=== PATIENT | male | born 1990 | race African-American/Black ===

== ENCOUNTER 2016-08-21 14:43 | Inpatient (IN) | payer OTHER ==
[~2016-08-21] VITALS: Ht 185.4 cm; Wt 88.2 kg
[2016-08-21] VITALS (38 sets, daily range): BP systolic 46–239; BP diastolic -50–107; PULSE 61–105; TEMP 33.6–36.8; O2SAT 99–100; Ht 185.4 cm; Wt 88.2 kg
[2016-08-21] MEDS ORDERED: FENTANYL CITRATE INJ 50 MCG/1 ML 2 ML VIAL ONE (14:48)
[2016-08-21] MEDS ORDERED: MIDAZOLAM HCL 5 MG/ML 2ML VIAL ONE (14:48)
--- NOTE | 2016-08-21 15:05 | EMERGENCY ROOM VISIT NOTE ---
History Report prepared by Nikki: Laila Garza Under the Supervision of: Dr. Eleazar Morse M.D. 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 Per EMS that patient had witnessed cardiac arrest while he was running on a treadmill. He was defibrillated once with an AED and had ROSC. He was intubated in the field for respiratory difficulty. They note that he was gurgling and had difficulty breathing. EMS notes no known medical history. HPI limited secondary to intubation. Source of History: EMS History Limited By: intubation Onset: just SUSTAINABILITY ENGINEER Position: other (global) Quality: other (cardiac arrest) Timing: other (episode) Note: Pt was gurgling and had difficulty breathing. Review of Systems See HPI for pertinent positives & negatives. ROS limited secondary to intubation. Past Medical & Surgical Medical Problems: (1) cardiac arrest, acute resp failure (2) cardiac arrest, acute resp failure (3) No Known Active Medical Problems Family History No pertinent family history stated. Social History Housing Status: other (penitentiary) Occupation Status: other (prisoner) Current/Historical Medications Unable to Obtain Active Prescriptions or Reported Meds Allergies Coded Allergies: Allergy History Not Known (Verified Allergy, Unknown, PT INTUBATED, ) Physical Exam Vital Signs Date Time Temp Pulse Resp B/P Pulse Ox O2 Delivery O2 Flow Rate FiO2 08/21/16 16:15 36.2 66 18 132/70 100 Mechanical Ventilator 40 08/21/16 16:00 36.2 66 18 144/98 100 Mechanical Ventilator 08/21/16 15:45 36.3 65 18 136/97 100 Mechanical Ventilator 40 08/21/16 15:35 40 08/21/16 15:30 36.2 61 18 135/77 100 Mechanical Ventilator 40 08/21/16 15:22 58 08/21/16 15:15 36.2 08/21/16 15:15 36.2 61 18 128/70 99 Mechanical Ventilator 08/21/16 15:13 63 136/73 100 Mechanical Ventilator 100 08/21/16 14:56 62 20 114/72 100 Ambu-Bag 15.0 08/21/16 14:52 63 114/72 100 Mechanical Ventilator 100 Physical Exam GENERAL: Patient is unresponsive intubated, GCS 4T HEENT: No acute trauma, normocephalic atraumatic, mucous membranes moist, no nasal congestion, no scleral icterus. NECK: Midline trachea, No stridor, no adenopathy LUNGS: Clear to auscultation and equal bilaterally. HEART: Regular rate and rhythm. No murmurs, rubs, gallops appreciated. ABDOMEN: Soft, nontender, bowel sounds positive, no masses appreciated, no peritonitis. BACK: No midline tenderness, no CVA tenderness EXTREMITIES: no cyanosis, no edema. Strong pulses all 4 NEUROLOGIC: GCS 4T, intubated, nonpurposeful posturing of arms to painful stimuli. Unresponsive otherise. Fixed small pupils bilaterally. SKIN: Abrasion right lower flank and right hand from handcuffs. No rash, no jaundice, no diaphoresis. Medical Decision & Procedures ER Provider Diagnostic Interpretation: Radiology results and stated below per my review and radiologist interpretation: CHEST ONE VIEW PORTABLE FINDINGS: The heart is the upper limits of normal in size given the supine technique. There is no failure. There is no focal pulmonary consolidation. There are no pleural effusions. No endotracheal tube is visualized.[ IMPRESSION: 1. Despite the history of intubation, no endotracheal tube is visualized 2. No active disease in the chest. Electronically signed by: Abdoulaye Sotomayor M.D. 08/21/2016 3:10 PM Dictated Date/Time: 08/21/2016 3:[address] HEAD WITHOUT CONTRAST (CT) FINDINGS: No intra or extra-axial mass lesions are visualized. There is no CT evidence of acute cortical infarction. There is no evidence of midline shift. There is no acute hemorrhage. No calvarial fractures are visualized. There are areas of posterior dural calcification. There is no evidence of pathologic ventricular dilatation. There is no evidence of acute sinusitis IMPRESSION: No acute intracranial findings. If neurologic findings persists, an MRI of the brain might be considered in follow-up Electronically signed by: Abdoulaye Sotomayor M.D. 08/21/2016 3:14 PM Dictated Date/Time: 08/21/2016 3:[address] OF THE CERVICAL SPINE TECHNIQUE: CT scan of the cervical spine was performed from the skull base to the thoracic inlet. Images are reviewed in the axial, sagittal, and coronal planes. IV contrast was not administered for this examination. FINDINGS: The visualized portions of the lung apices reveal no evidence of pneumothorax. There are nonspecific apical pulmonary nodules, the largest of which measures 7 mm and is located within the right apex The prevertebral soft tissues are normal. No fractures or subluxations are visualized. There is an endotracheal tube positioned with its tip at the C6-7 level. IMPRESSION: 1. No evidence of acute fracture or traumatic subluxation 2. The endotracheal tube is positioned with its tip at the C6-7 level. This should be advanced. Electronically signed by: Abdoulaye Sotomayor M.D. 08/21/2016 3:18 PM Dictated Date/Time: 08/21/2016 3:14 PM Laboratory Results 08/21/16 14:55 Red Blood Count 5.35, Mean Corpuscular Volume 87.3, Mean Corpuscular Hemoglobin 29.0, Mean Corpuscular Hemoglobin Concent 33.2, Mean Platelet Volume 12.3, Neutrophils (%) (Auto) 66.5, Lymphocytes (%) (Auto) 29.8, Monocytes (%) (Auto) 2.6, Eosinophils (%) (Auto) 0.5, Basophils (%) (Auto) 0.1, Neutrophils # (Auto) 11.28, Lymphocytes # (Auto) 5.07, Monocytes # (Auto) 0.45, Eosinophils # (Auto) 0.09, Basophils # (Auto) 0.02 08/21/16 14:55 Test 08/21/16 14:55 08/21/16 15:02 08/21/16 15:24 08/21/16 15:25 White Blood Count 17.00 K/uL (4.8-10.8) Red Blood Count 5.35 M/uL (4.7-6.1) Hemoglobin 15.5 g/dL (14.0-18.0) Hematocrit 46.7 % (42-52) Mean Corpuscular Volume 87.3 fL (80-100) Mean Corpuscular Hemoglobin 29.0 pg (25-34) Mean Corpuscular Hemoglobin Concent 33.2 g/dl (32-36) Platelet Count 190 K/uL (130-400) Mean Platelet Volume 12.3 fL (7.4-10.4) Neutrophils (%) (Auto) 66.5 % Lymphocytes (%) (Auto) 29.8 % Monocytes (%) (Auto) 2.6 % Eosinophils (%) (Auto) 0.5 % Basophils (%) (Auto) 0.1 % Neutrophils # (Auto) 11.28 K/uL (1.4-6.5) Lymphocytes # (Auto) 5.07 K/uL (1.2-3.4) Monocytes # (Auto) 0.45 K/uL (0.11-0.59) Eosinophils # (Auto) 0.09 K/uL (0-0.5) Basophils # (Auto) 0.02 K/uL (0-0.2) RDW Standard Deviation 41.8 fL (36.4-46.3) RDW Coefficient of Variation 13.1 % (11.5-14.5) Immature Granulocyte % (Auto) 0.5 % Immature Granulocyte # (Auto) 0.09 K/uL (0.00-0.02) Prothrombin Time 11.9 SECONDS (9.0-12.0) Prothromb Time International Ratio 1.1 (0.9-1.1) Activated Partial Thromboplast Time 24.6 SECONDS (21.0-31.0) Partial Thromboplastin Ratio 0.9 Est Creatinine Clear Calc Drug Dose 83.0 ml/min Estimated GFR () 62.7 Estimated GFR (Non- 54.1 BUN/Creatinine Ratio 10.4 (10-20) Total Bilirubin 0.9 mg/dl (0.2-1) Direct Bilirubin 0.2 mg/dl (0-0.2) Aspartate Amino Transf (AST/SGOT) 390 U/L (15-37) Alanine Aminotransferase (ALT/SGPT) 575 U/L (12-78) Alkaline Phosphatase 98 U/L (45-117) Total Creatine Kinase 275 U/L (39-308) Total Protein 7.8 gm/dl (6.4-8.2) Albumin 4.2 gm/dl (3.4-5.0) Bedside Hemoglobin 15.6 g/dl (14.0-18.0) Bedside Hematocrit 46 % (42-52) Bedside Sodium 141 mEq/L (135-144) Bedside Potassium 4.1 mEq/L (3.3-5.0) Bedside Chloride 103 mEq/L (101-112) Bedside Total CO2 20 mEq/l (24-31) Anion Gap 23.0 mmol/L (16-25) Bedside Blood Urea Nitrogen 18 mg/dl (7-18) Bedside Creatinine 1.5 mg/dl (0.6-1.3) Bedside Glucose (other) 151 mg/dl (70-99) Bedside Ionized Calcium (Laura) 1.15 mmol/l (1.12-1.32) Ethyl Alcohol mg/dL < 3.0 mg/dl (0-3) Urine Color YELLOW Urine Appearance TURBID (CLEAR) Urine pH 6.5 (4.5-7.5) Urine Specific [place] 1.023 (1.000-1.030) Urine Protein 3+ (NEG) Urine Glucose (UA) NEG (NEG) Urine Ketones NEG (NEG) Urine Occult Blood 1+ (NEG) Urine Nitrite NEG (NEG) Urine Bilirubin NEG (NEG) Urine Urobilinogen NEG (NEG) Urine Leukocyte Esterase NEG (NEG) Urine WBC (Auto) >30 /hpf (0-5) Urine RBC (Auto) 0-4 /hpf (0-4) Urine Hyaline Casts (Auto) 1-5 /lpf (0-5) Urine Epithelial Cells (Auto) >30 /lpf (0-5) Urine Bacteria (Auto) 1+ (NEG) Urine Pathogenic Casts 1-5 GRANULAR CASTS /lpf (0) Urine Yeast (Auto) (NONE PRSENT) Urine Sperm (Auto) PRESENT (NOT PRESENT) Urine Opiates Screen NEG (NEG) Urine Methadone, Qualitative NEG (NEG) Urine Barbiturates NEG (NEG) Urine Phencyclidine (PCP) Level NEG (NEG) Ur Amphetamine/Methamphetamine NEG (NEG) MDMA (Ecstasy) Screen NEG (NEG) Urine Benzodiazepines Screen NEG (NEG) Urine Cocaine Metabolite NEG (NEG) Urine Marijuana (THC) NEG (NEG) Test 08/21/16 15:28 Bedside Blood Gas pH (LAB) 7.25 (7.35-7.45) Bedside Blood Gas pCO2 (LAB) 59 mmHg (35-46) Bedside Blood Gas pO2 (LAB) > 420 mmHg (80-95) Bedside Blood Gas HCO3 (LAB) 26 meq/L (19-24) Bedside Blood Gas Total CO2 28 mEq/l (24-31) Bedside Blood Gas Base Excess (LAB) -1.0 meq/L (-9-1.8) Bedside Blood Gas O2 Saturation 100.0 % (90-95) Laboratory results as reviewed by me. Medications Administered Medications (Trade) Dose Ordered Sig/Shireen Route Start Time Stop Time Status Last Admin Dose Admin Fentanyl Citrate (Fentanyl Inj) 100 mcg STK-MED ONCE .ROUTE 08/21/16 14:48 08/21/16 14:49 DC 08/21/16 14:55 50 MCG Midazolam HCl (Versed Inj) 10 mg STK-MED ONCE .ROUTE 08/21/16 14:48 08/21/16 14:49 DC 08/21/16 14:55 5 MG Propofol (Diprivan Iv Emulsion 100ml Vial) 1 dose UD PRN IV 08/21/16 15:45 08/21/16 16:59 DC 08/21/16 15:57 1 DOSE Fentanyl Citrate (Fentanyl Inj) 50 mcg NOW STAT IV 08/21/16 16:01 08/21/16 16:03 DC 08/21/16 16:10 50 MCG Midazolam HCl (Versed Inj) 2.5 mg NOW STAT IV 08/21/16 16:01 08/21/16 16:03 DC 08/21/16 16:09 2.5 MG ECG Indication: other (cardiac arrest) Rate (beats per minute): 60 Rhythm: sinus rhythm Findings: ST depression (Lateral), no ectopy, other (no STEMI criteria, QTC of 446, QRS of 112) ED Course 1447: The patient was evaluated in room A1. A complete history and physical exam was performed. 1448: Versed Inj 2.5 mg IV, Versed Inj 2.5 mg IV, Fentanyl Inj 50mcg IV, Fentanyl Inj 50mcg IV. 1514: I reevaluated the patient and asked respiratory to advance the tube 4cm. 1521: I reevaluated the patient. He has some mild posturing but still no purposeful movements. 1532: I reevaluated the patient. He is oxygenating well. We made vent changes based on his ABG and he is stable. 1543: Discussed the patient's case with Dr. Ray of [place]. The patient will be evaluated for further treatment and disposition. 1545: Propofol 1 dose PRN IV EMILIA -1. 1556: I reevaluated the patient. He is stable. 1601: Versed Inj 2.5mg IV, Fentanyl Inj 50mcg. 1604: Upon reevaluation, the patient is stable. The patient will be evaluated for further management by Dr. Ray of [place]. 1641: The patient was moved to the ICU. Medical Decision Differential: Toxicological, Infectious, Stroke, SAH, Trauma, Electrolyte Abnormality, Hypoglycemia, Alcohol Intoxication, Drug Intoxication, Cardiac Abnormality, Sepsis, Meningitis/Encephalitis, Trauma, Excited Delirium, Serotonin Syndrome, Psychiatric, amongst other pathologies entertained. 26 yr old local prisoner who initial reports were he was running on treadmill and collapsed with CRP/AED very shortly thereafter, however it is unclear how acute the time actually was as no eye-witness/secondary here in ED to confirm. On arrival patient already intubated, good vitals, but already decerebrate posturing. EKG without stemi though does have lateral depressions. Sent emergently to CT for head/cspine. While this ICU/Cards were contacted and agree with placing on cooling protocol. Patient back and given fent/versed for comfort though no meaningful movements here. Eventually started on Propofol as some shivering. Initial Trop mildly elevated consistent with events and not necessarily NSTEMI. CXR initially with no evidence ET tube though clearly bilateral breath sounds and good O2, thus ET tube was advance 4 cm (occurred post CT). Breath sounds/O2 stable. LFTs mildly elevated which I suspect are acute in nature though will need further follow up. No clear evidence of trauma other than abrasions right hip/flank and wrist which appear to be due to handcuffs. Vitals remain stable throughout ED stay without significant HTN noted. He had periodic posturing throughout without any purposeful movements. Consults Time Called: [phone] Consulting Physician: Dr. Ray Returned Call: [phone] Discussed the patient's case with Dr. Ray of [place]. The patient will be evaluated for further treatment and disposition. Impression Primary Impression: Cardiac arrest Additional Impression: Altered mental status Critical Care I have personally spent greater than 90 minutes of critical care time in the direct management of this patient. This was a life/limb threatening event. This includes time spent evaluating patient, direct bedside care, chart review, placing orders, interpretation of diagnostic studies, discussion with consultants, patient, and family members, as well as other required patient management activities. This 90 minutes is in excess of all separately billable procedures. Scribe Attestation The scribe's documentation has been prepared under my direction and personally reviewed by me in its entirety. I confirm that the note above accurately reflects all work, treatment, procedures, and medical decision making performed by me. Departure Information Dispostion Being Evaluated By Hospitalist Prescriptions Unable to Obtain Active Prescriptions or Reported Meds Patient Instructions My [facility] Health Problem Qualifiers Additional Impression: Altered mental status Altered mental status type: coma Coma depth: [place] coma 3-8 Coma timing: in the field (EMT or ambulance) Qualified Codes: R40.2431 - [place] coma scale score 3-8, in the field [emt or ambulance]
[2016-08-21 15:07] LABS: HEMATOCRIT 46.7 % (42-52); MEAN CELL VOLUME 87.3 fL (80-100); MEAN CORPUSCULAR HGB CONC 33.2 g/dl (32-36); MEAN PLATELET VOLUME 12.3 fL (7.4-10.4); PLATELET COUNT 190 K/uL (130-400); RED BLOOD COUNT 5.35 M/uL (4.7-6.1)
--- NOTE | 2016-08-21 15:11 | DIAGNOSTIC IMAGING REPORT ---
CHEST ONE VIEW PORTABLE CLINICAL HISTORY: Acute change in mental status. Respiratory failure. COMPARISON STUDY: No previous studies for comparison. FINDINGS: The heart is the upper limits of normal in size given the supine technique. There is no failure. There is no focal pulmonary consolidation. There are no pleural effusions. No endotracheal tube is visualized.[ IMPRESSION: 1. Despite the history of intubation, no endotracheal tube is visualized 2. No active disease in the chest. Electronically signed by: Abdoulaye Sotomayor M.D. 08/21/2016 3:10 PM Dictated Date/Time: 08/21/2016 3:09 PM
--- NOTE | 2016-08-21 15:15 | DIAGNOSTIC IMAGING REPORT ---
CT HEAD WITHOUT CONTRAST (CT) CLINICAL HISTORY: Cardiac arrest. Acute change in mental status. COMPARISON STUDY: No previous studies for comparison. TECHNIQUE: Axial CT of the brain is performed from the vertex to the skull base. IV contrast was not administered for this examination. CT DOSE: 823.94 mGycm FINDINGS: No intra or extra-axial mass lesions are visualized. There is no CT evidence of acute cortical infarction. There is no evidence of midline shift. There is no acute hemorrhage. No calvarial fractures are visualized. There are areas of posterior dural calcification. There is no evidence of pathologic ventricular dilatation. There is no evidence of acute sinusitis IMPRESSION: No acute intracranial findings. If neurologic findings persists, an MRI of the brain might be considered in follow-up Electronically signed by: Abdoulaye Sotomayor M.D. 08/21/2016 3:14 PM Dictated Date/Time: 08/21/2016 3:11 PM
[2016-08-21 15:16] LABS: ISTAT CREATININE 1.5 mg/dl (0.6-1.3); ISTAT HEMOGLOBIN 15.6 g/dl (14.0-18.0); ISTAT IONIZED CALCIUM 1.15 mmol/l (1.12-1.32)
--- NOTE | 2016-08-21 15:19 | DIAGNOSTIC IMAGING REPORT ---
CT OF THE CERVICAL SPINE CLINICAL HISTORY: Trauma. Cardiac arrest. Intubation. COMPARISON STUDY: No previous studies for comparison. CT DOSE: 970.08 mGycm TECHNIQUE: CT scan of the cervical spine was performed from the skull base to the thoracic inlet. Images are reviewed in the axial, sagittal, and coronal planes. IV contrast was not administered for this examination. FINDINGS: The visualized portions of the lung apices reveal no evidence of pneumothorax. There are nonspecific apical pulmonary nodules, the largest of which measures 7 mm and is located within the right apex The prevertebral soft tissues are normal. No fractures or subluxations are visualized. There is an endotracheal tube positioned with its tip at the C6-7 level. IMPRESSION: 1. No evidence of acute fracture or traumatic subluxation 2. The endotracheal tube is positioned with its tip at the C6-7 level. This should be advanced. Electronically signed by: Abdoulaye Sotomayor M.D. 08/21/2016 3:18 PM Dictated Date/Time: 08/21/2016 3:14 PM
[2016-08-21 15:20] LABS: INR 1.1 (0.9-1.1); PARTIAL THROMBOPLASTIN RATIO 0.9; PROTHROMBIN TIME (PATIENT) 11.9 SECONDS (9.0-12.0)
[2016-08-21 15:24] LABS: BUN/CREATININE RATIO 10.4 (10-20); CALCIUM 9.2 mg/dl (8.5-10.1); CREATININE 1.7 mg/dl (0.60-1.40); POTASSIUM 4.2 mmol/L (3.5-5.1)
[2016-08-21 15:34] LABS: CKMB/CK RATIO 1.9 (0-3.0)
[2016-08-21 15:42] LABS: ISTAT ARTERIAL BLOOD GAS HCO3 26 meq/L (19-24); ISTAT ARTERIAL BLOOD GAS PCO2 59 mmHg (35-46); ISTAT ARTERIAL BLOOD GAS PO2 > 420 mmHg (80-95); ISTAT ARTERIAL BLOOD GAS pH 7.25 (7.35-7.45); ISTAT CARBON DIOXIDE 28 mEq/l (24-31)
[2016-08-21 15:42] LABS: MANUAL MICROSCOPIC REQUIRED? NO; REVIEW REQ? YES; URINE APPEARANCE TURBID (CLEAR); URINE BILIRUBIN NEG (NEG); URINE COLOR YELLOW; URINE EPITHELIAL CELL AUTO >30 /lpf (0-5); URINE NITRITE NEG (NEG); URINE PH 6.5 (4.5-7.5); URINE SPECIFIC GRAVITY 1.023 (1.000-1.030); UROBILINOGEN NEG (NEG); ZZURINE CULT IF INDIC CATH YES
[2016-08-21] MEDS ORDERED: PROPOFOL IV EMULSION 10 MG/ML 100 ML VIAL IV PRN (15:45)
[2016-08-21] MEDS ORDERED: PROPOFOL IV EMULSION 10 MG/ML 100 ML VIAL IV ONE (15:46)
[2016-08-21 15:59] LABS: BASO % 0.1 %; BASO ABS # 0.02 K/uL (0-0.2); COMPLETE YES; EOS % 0.5 %; IG% 0.5 %; LYMPH % 29.8 %; LYMPH ABS # 5.07 K/uL (1.2-3.4); MONO % 2.6 %; NEUT % 66.5 %
[2016-08-21] MEDS ORDERED: FENTANYL CITRATE INJ 50 MCG/1 ML 2 ML VIAL IV STA (16:01)
[2016-08-21] MEDS ORDERED: MIDAZOLAM HCL 1 MG/ML 2ML VIAL IV STA (16:01)
[2016-08-21 16:05] LABS: URINE PATH CASTS 1-5 GRANULAR CASTS /lpf (0)
--- NOTE | 2016-08-21 16:28 | Medical Consult ---
Consultation Note Date of Service August 21, 2016. Consultation Note cardiac arrest, acute resp failure, [id number]
--- NOTE | 2016-08-21 16:51 | HISTORY & PHYSICAL EXAMINATION ---
DATE OF ADMISSION: 08/21/2016 CHIEF COMPLAINT: Acute cardiac arrest, totally 31 minutes. HISTORY OF PRESENT ILLNESS: The patient is a 26-year-old white male with unknown medical condition, was sent to the hospital Emergency Department because of episodes of cardiac arrest, prior to admissions. Per EMS, the patient had witnessed cardiac arrest when he was on the treadmill. He was found arrhythmic, was defibrillated once by AED, was getting CPRs, and returning to normal circulations. He was intubated and then sent to the hospital Emergency Room. The reason for the intubation because EMS found he was gurgling and had difficulty breathing. The medical information is limited because of limited information. The patient is intubated now. REVIEW OF SYSTEMS: Not able to obtain. PAST MEDICAL HISTORY: Not able to obtain. SOCIAL HISTORY: Unknown. FAMILY HISTORY: Unknown. CURRENT MEDICATIONS: Unknown. REVIEW OF SYSTEMS: Not able to obtain. PHYSICAL EXAMINATION: VITAL SIGNS: Temperature is 36.3, pulse 65, respiration rate 18, blood pressure 136/97 and was on the mechanical ventilation, FiO2 40%. GENERAL: When I examined the patient is intubated, unresponsive. HEAD: No acute trauma. NECK: There was no obvious edema. LUNGS: Clear to auscultations. No wheezing, rhonchi, or crackles. HEART: Regular rhythm S1, S2, has no murmur, no gallop, no rubs. ABDOMEN: Soft. Bowel sound positive. No mass. LOWER EXTREMITIES: No cyanosis, no edema. Pulse was 2+ and symmetrical. NEUROLOGIC: The patient is unresponsive, not able to have neuro evaluation. LABORATORY STUDIES: In the Emergency Room which shows WBC 17, hemoglobin 15, platelets was 190. ABG - pH 7.25, pCO2 of 59, pO2 more than 400 Pulse ox was 100%. PT/INR was 11/1. BMP shows BUN 18, creatinine 1.7. AST 390, ALT 575. Troponin elevated at 0.2. UA was 1+ occult blood and alcohol is pending. Urine culture and blood culture was sent. IMAGING STUDIES: Include cervical spine CT - no evidence of fractures or traumas. Chest x-ray - no acute disease. Head CT studies - no acute intracranial findings. ASSESSMENT AND PLAN: A 26-year-old white male with the problems below: 1. Cardiac arrest, possible arrhythmia, AED shock x1. 2. Acute respiratory failure from cardiac arrest. 3. Acute kidney failure with creatinine of 1.7. 4. Abnormal liver function test, etiology unknown, could be from cardiac arrest or from underlying medical condition such as hepatitis. 5. Severe metabolic acidosis combined with respiratory acidosis with pH 7.25. 1+ occult blood in urine. Mild elevated troponin could be from a cardiac arrest. The patient in critical condition, have requested auto electrical technician consultation and have requested cardiology consultation and tomorrow morning lab is ordered include ABG and chest x-ray. Has ordered gentle IV fluid and follow up kidney functions. We ordered a hepatitis panel and drug screening. We will request medical records from shelter and then will go from there. Gastrointestinal and deep vein thrombosis prophylaxis is covered. The major course of the patient care would need to be with her subspecialties and auto electrical technician, because patient is critically ill. JAVON
[2016-08-21 16:56] LABS: BENZODIAZEPINE, URINE NEG (NEG); COCAINE,URINE NEG (NEG); PHENCYCLIDINE, URINE NEG (NEG)
[2016-08-21] MEDS ORDERED: CISATRACURIUM IV BOLUS & DRIP IV STA (16:59)
[2016-08-21] MEDS ORDERED: ALBUT/IPRATROP 3MG/0.5MG NEB 3 ML VIAL INH PRN (17:00)
[2016-08-21] MEDS ORDERED: MIDAZOLAM HCL 5 MG/ML 1 ML VIAL ONE (17:00)
[2016-08-21] MEDS ORDERED: BusPIRone 15 MG TAB NG PRN (17:15)
[2016-08-21] MEDS ORDERED: CISATRACURIUM BESYLATE IV ONE (17:15)
[2016-08-21] MEDS ORDERED: MEPERIDINE HCL 25 MG/ML CARP IV PRN (17:15)
[2016-08-21] MEDS ORDERED: ARTIFICIAL TEARS OP OINT 3.5 GM TUBE OPB PRN (17:15)
[2016-08-21] MEDS: CISATRACURIUM BESYLATE INJ 40 MG in SODIUM CHLORIDE 0.9% 100ML 80 ML IV PRN (17:44)
[2016-08-21] MEDS: NSS + 20MEQ KCL 1000ML 1,000 ML IV SCH (17:44)
--- NOTE | 2016-08-21 17:54 | Procedure Note ---
Procedure Note Procedure Date August 21, 2016. Central Line Procedure time out: side/site verified, patient ID confirmed, sterile procedure used Consent obtained: emergent consent implied Time of procedure: 17:00 Performed by: attending Indications: central drug admin., CVP monitoring Prep: chlorhexadine prep Anesthesia: local injection, lidocaine 1% without epi Volume anesthetic (ml's): 2 Central line lumen: triple Central line location: internal jugular (R) Additional details: percutaneous placement, ultrasound guidance, Selinger technique used, line not sutured, good blood return Complications: none Patient tolerated procedure: well Post-procedure vital signs: reviewed and stable Comments: Critical Care Medicine Point of Care Bedside Ultrasound Procedure: Procedural Ultrasound Indication: cardiac arrest Attending: Faith Cutler DO Resident/Physician Jacquard Card Lacer: Haylee CAT If for central venous access Artery AND Vein visualized: y Compressible Vein: y Guidewire or Short Catheter seen in vein prior to dilation: y Line confirmed in Vein with ultrasound: y Lung Sliding on side of attempt (if applicable): NA If no lung sliding or not obtained has CXR been ordered: y Impression: Successful R IJ Plan: follow-up CXR Images obtained are saved for permanent record
[2016-08-21] MEDS: FENTANYL 1250MCG/250ML NSS 250 ML IV PRN (18:08)
[2016-08-21] MEDS: MIDAZOLAM 125MG/250ML D5W 250 ML IV PRN (18:25)
--- NOTE | 2016-08-21 18:36 | Procedure Note ---
Procedure Note Date of Service August 21, 2016. (Andres Vasquez MD) Procedure Note Pre-Procedure Diagnosis: Cardiac Arrest, Multi-organ systems dysfunction Post-Procedure Diagnosis: Same Indication: Need for invasive blood pressure monitoring Performing Physician: Dr. Andres Vasquez, PGY2 Family Medicine Supervising/Assisting Physician: Dr. Ankit Cutler, Critical Care Physician Type of Procedure: Arterial Catheter Placement Consent: Procedure was performed emergently. Patient was unconscious and unresponsive and thus the procedure was done under implied consent. Technique: A time out was preformed identifying the correct procedure, the correct location with the nursing staff. Right wrist was prepped with 2% chlorhexidine and draped with a sterile sheet in the usual fashion. 1% lidocaine was administered subcutaneously for local anesthesia. The right radial artery was cannulated with a 20 gauge catheter. The catheter was secured in place with a StatLock and a sterile dressing was applied over the site prior to removal of drapes. The patient tolerated the procedure without complications. EBL: Trace Complication: None (Andres Vasquez MD) I was present and assisted during the entire procedure (Ankit Cutler, D.O.)
[2016-08-21] MEDS ORDERED: MANNITOL 25% 50 ML VIAL IV SCH (19:15)
[2016-08-21 19:35] LABS: ARTERIAL BLD GAS O2 SATURATION 99.6 % (90-95); ARTERIAL BLOOD GAS BASE EXCESS -2.8 mEq/L (-9-1.8); ARTERIAL BLOOD GAS HCO3 21 mmol/L (19-24); ARTERIAL BLOOD GAS PO2 209 mm/Hg (80-95); ARTERIAL BLOOD GAS pH 7.41 (7.35-7.45)
[2016-08-21 19:42] LABS: O2 ADMINISTRATION 40 PERCENT
--- NOTE | 2016-08-21 19:43 | EEG Procedure Note ---
EEG Procedure Note Date of Service August 21, 2016. Start / End Times Start Time: 1940 End Time: [address] Cutler History 26 year old collapse on treadmill with cardiac arrest, with myoclonic jerks and unresponsive Home Medication List Unable to Obtain Active Prescriptions or Reported Meds Inpatient Medication List Current Inpatient Medications Medications (Trade) Dose Ordered Sig/Shireen Route Start Time Stop Time Status Last Admin Dose Admin Potassium Chloride/Sodium Chloride 1,000 ml @ 100 mls/hr Q10H IV 08/21/16 17:30 09/20/16 16:08 08/21/16 17:44 100 MLS/HR Pantoprazole Sodium/Syringe (Protonix Inj/ Syringe) 10 ml @ 5 mls/min DAILY@1100 IV 08/22/16 11:00 09/21/16 10:59 Albuterol/ Ipratropium (Duoneb) 3 ml QIDR INH 08/21/16 20:00 09/20/16 19:59 Albuterol/ Ipratropium 3 ml 3 ml Q2H PRN INH 08/21/16 17:00 09/20/16 16:59 Midazolam HCl 250 ml @ 0 mls/hr Q0M PRN IV 08/21/16 16:59 09/20/16 16:58 08/21/16 18:25 8 MLS/HR Cisatracurium Besylate 40 mg/ Sodium Chloride 100 ml @ 0 mls/hr Q0M PRN IV 08/21/16 17:15 09/20/16 17:14 08/21/16 17:44 11.1 MLS/HR Fentanyl Citrate (Fentanyl Drip 1250MCG/250 Nss) 250 ml @ 0 mls/hr Q0M PRN IV 08/21/16 17:15 09/04/16 17:14 08/21/16 18:08 10 MLS/HR Artificial Tears (Lacri-Lube Oph Oint) 1 appln Q2H PRN OPB 08/21/16 17:15 09/20/16 17:14 Buspirone HCl (BusPAR TAB) 60 mg ONE PRN NG 08/21/16 17:15 09/20/16 17:14 Meperidine HCl (Demerol Inj) 25 mg Q2H PRN IV 08/21/16 17:15 09/04/16 17:14 Heparin Sodium (Porcine) (Heparin Sq 5000 Unit/0.5ml) 5,000 unit Q8H SQ 08/21/16 22:00 09/20/16 21:59 Description This is a 21 electrode EEG with a single channel dedicated to limited EKG. The electrodes were placed in accordance with the International 10-20 system. Interpretation The predominant background rhythm consisted of very low amplitude irregular waves of up to 3 microvolts in amplitude seen throughout all head regions. This activity had no response to stimulation including suctioning. There was some low voltage EKG artifact seen throughout the recording, with a regular cardiac rhythm. Some electrode and movement artifact was seen occasionally as the nurse adjusted tubes and attended to the patient. He had no spontaneous movement. Photic stimulation and hyperventilation were not performed during this ICU bedside EEG. There were no focal abnormalities or potentially epileptogenic discharges seen. Overall, this study reveals severe, continuous generalized suppression of all background activity, consistent with a severe encephalopathy. This was close to but not technically consistent with the lack of activity needed to diagnose brain . Clinical Correlation This study carries a grave prognosis
--- NOTE | 2016-08-21 19:57 | DIAGNOSTIC IMAGING REPORT ---
CHEST ONE VIEW PORTABLE CLINICAL HISTORY: Cardiac arrest. Acute respiratory failure. COMPARISON STUDY: Chest radiograph August 21, 2016 2:52 PM. FINDINGS: The tip of the endotracheal tube is 5.2 cm above the al. The tip of the nasogastric tube is within the gastric fundus. The tip of the right internal jugular central line projects over the brachiocephalic confluence. There is no pneumothorax or pleural effusion. There is borderline cardiomegaly. There is no evidence of pulmonary edema. IMPRESSION: 1. Satisfactory positioning of lines and tubes. 2. No acute cardiopulmonary findings. 3. Borderline cardiomegaly. Electronically signed by: Prakash Archuleta M.D. 08/21/2016 7:56 PM Dictated Date/Time: 08/21/2016 7:54 PM
[2016-08-21] MEDS ORDERED: ALBUT/IPRATROP 3MG/0.5MG NEB 3 ML VIAL INH SCH (20:00)
[2016-08-21 20:03] LABS: CALCIUM 9.2 mg/dl (8.5-10.1)
[2016-08-21] MEDS ORDERED: PREMIXED WATER IV STA (20:10)
[2016-08-21] MEDS ORDERED: POTASSIUM CHLR IV STA (20:10)
[2016-08-21] MEDS ORDERED: WTR IV STA (20:10)
--- NOTE | 2016-08-21 20:26 | Critical Care Consultation ---
Critical Care Consultation Date of Consultation: August 21, 2016. Attending Physician: Eleazar Ray MD, PhD Reason for Consultation: Cardiac arrest status post return of spontaneous circulation after shock from AED 1 History of Present Illness History is obtained solely from and longterm staff Patient is reportedly a 26-year-old male, -[place], who was exercising on a treadmill and longterm. Per report he collapsed, this is witnessed on cameras in the longterm, however it is unclear how long he was down before CPR was started, is also unclear how long CPR was performed. They were able to obtain any ED at the institution and it was applied and reportedly delivered 1 shock. Per EMS the patient was intubated had return of spontaneous circulation and transferred to [facility] emergency department for further evaluation. In the emergency department it was reported that the arrest occurred at least 40 minutes prior to his arrival and the patient was not responding with purposeful commands, so the decision was made to start therapeutic hypothermia. Past Medical/Surgical History Unable to obtain, no prior records at [facility], no records from correctional facility Social History Unable to obtain due to patient condition Smoking Status: Unknown if Ever Smoked Housing Status: other (longterm) Occupation Status: other (prisoner) Allergies Coded Allergies: Allergy History Not Known (Verified Allergy, Unknown, PT INTUBATED, ) Home Medications Unable to Obtain Active Prescriptions or Reported Meds Current Inpatient Medications Current Inpatient Medications Medications (Trade) Dose Ordered Sig/Shireen Route Start Time Stop Time Status Last Admin Dose Admin Potassium Chloride/Sodium Chloride 1,000 ml @ 100 mls/hr Q10H IV 08/21/16 17:30 09/20/16 16:08 08/21/16 17:44 100 MLS/HR Pantoprazole Sodium/Syringe (Protonix Inj/ Syringe) 10 ml @ 5 mls/min DAILY@1100 IV 08/22/16 11:00 09/21/16 10:59 Albuterol/ Ipratropium (Duoneb) 3 ml QIDR INH 08/21/16 20:00 09/20/16 19:59 Albuterol/ Ipratropium 3 ml 3 ml Q2H PRN INH 08/21/16 17:00 09/20/16 16:59 Midazolam HCl 250 ml @ 0 mls/hr Q0M PRN IV 08/21/16 16:59 09/20/16 16:58 08/21/16 18:25 8 MLS/HR Cisatracurium Besylate 40 mg/ Sodium Chloride 100 ml @ 0 mls/hr Q0M PRN IV 08/21/16 17:15 09/20/16 17:14 08/21/16 17:44 11.1 MLS/HR Fentanyl Citrate (Fentanyl Drip 1250MCG/250 Nss) 250 ml @ 0 mls/hr Q0M PRN IV 08/21/16 17:15 09/04/16 17:14 08/21/16 18:08 10 MLS/HR Artificial Tears (Lacri-Lube Oph Oint) 1 appln Q2H PRN OPB 08/21/16 17:15 09/20/16 17:14 Buspirone HCl (BusPAR TAB) 60 mg ONE PRN NG 08/21/16 17:15 09/20/16 17:14 Meperidine HCl (Demerol Inj) 25 mg Q2H PRN IV 08/21/16 17:15 09/04/16 17:14 Heparin Sodium (Porcine) (Heparin Sq 5000 Unit/0.5ml) 5,000 unit Q8H SQ 08/21/16 22:00 09/20/16 21:59 Review of Systems Unable to obtain due to patient condition Physical Exam Date Time Temp Pulse Resp B/P Pulse Ox O2 Delivery O2 Flow Rate FiO2 08/21/16 19:30 89 18 176/103 100 08/21/16 19:25 81 18 215/100 100 08/21/16 19:20 79 19 189/93 100 08/21/16 19:15 77 19 172/97 100 08/21/16 19:10 82 20 179/100 100 08/21/16 19:05 91 21 187/88 100 08/21/16 19:00 91 18 239/92 100 08/21/16 19:00 35.8 91 18 239/92 100 Mechanical Ventilator 40 08/21/16 18:45 36.0 18 186/95 100 Mechanical Ventilator 40 08/21/16 18:00 36.8 71 18 168/80 100 Mechanical Ventilator 40 08/21/16 17:50 36.8 71 18 168/80 100 Mechanical Ventilator 40 08/21/16 17:49 36.5 79 18 156/98 99 Mechanical Ventilator 40 08/21/16 17:31 74 18 148/83 100 Mechanical Ventilator 40 08/21/16 17:15 36.6 93 18 125/63 100 08/21/16 17:00 36.6 86 18 159/69 100 Mechanical Ventilator 40 08/21/16 17:00 36.6 86 18 159/69 100 Mechanical Ventilator 15.0 40 08/21/16 16:45 36.5 79 18 156/98 99 Mechanical Ventilator 40 08/21/16 16:45 36.5 79 18 156/98 99 Mechanical Ventilator 40 08/21/16 16:29 36.3 73 18 139/71 100 08/21/16 16:15 36.2 66 18 132/70 100 Mechanical Ventilator 40 08/21/16 16:00 36.2 66 18 144/98 100 Mechanical Ventilator 08/21/16 15:45 36.3 65 18 136/97 100 Mechanical Ventilator 40 08/21/16 15:35 40 08/21/16 15:30 36.2 61 18 135/77 100 Mechanical Ventilator 40 08/21/16 15:22 58 08/21/16 15:15 36.2 08/21/16 15:15 36.2 61 18 128/70 99 Mechanical Ventilator 08/21/16 15:13 63 136/73 100 Mechanical Ventilator 100 08/21/16 14:56 62 20 114/72 100 Ambu-Bag 15.0 08/21/16 14:52 63 114/72 100 Mechanical Ventilator 100 General Appearance: other (intubated) Head: normocephalic, other (abrasion 1 cm x 2 cm over left zygomatic arch) Eyes: other (pupils 3 mm and unreactive to light) ENT: other (intubated with 7.5 Hi-Lo tube) Neck: trachea midline, no thyromegaly Respiratory: breath sounds normal Cardiovasular: regular rate/rhythm, normal S1S2, no gallop, no rub, no JVD Abdomen: normal bowel sounds, no rebound, no masses, no guarding Genitourinary - Male: external genitalia normal, other (Avelar present) Upper Extremities: no edema, other (approximately 2 cm x 2 cm abrasion on the right wrist) Lower Extremities: no edema, normal ROM, other (3 cm x 3 cm abrasion to the right hip) Pulses: carotid (R) (2+), carotid (L) (2+), radial (R) (2+), radial (L) (2+), dorsalis pedis (R) (2+), dorsalis pedis (L) (2+) Neuro: other (held sedation, patient exhibited D cerebra posturing and myoclonic jerking, no reaction to deep painful stimuli) Psychiatric: other (unable to evaluate) Laboratory Results Last 24 Hours Test 08/21/16 14:55 08/21/16 15:02 08/21/16 15:24 08/21/16 15:25 White Blood Count 17.00 K/uL Red Blood Count 5.35 M/uL Hemoglobin 15.5 g/dL Hematocrit 46.7 % Mean Corpuscular Volume 87.3 fL Mean Corpuscular Hemoglobin 29.0 pg Mean Corpuscular Hemoglobin Concent 33.2 g/dl Platelet Count 190 K/uL Mean Platelet Volume 12.3 fL Neutrophils (%) (Auto) 66.5 % Lymphocytes (%) (Auto) 29.8 % Monocytes (%) (Auto) 2.6 % Eosinophils (%) (Auto) 0.5 % Basophils (%) (Auto) 0.1 % Neutrophils # (Auto) 11.28 K/uL Lymphocytes # (Auto) 5.07 K/uL Monocytes # (Auto) 0.45 K/uL Eosinophils # (Auto) 0.09 K/uL Basophils # (Auto) 0.02 K/uL RDW Standard Deviation 41.8 fL RDW Coefficient of Variation 13.1 % Immature Granulocyte % (Auto) 0.5 % Immature Granulocyte # (Auto) 0.09 K/uL Prothrombin Time 11.9 SECONDS Prothromb Time International Ratio 1.1 Activated Partial Thromboplast Time 24.6 SECONDS Partial Thromboplastin Ratio 0.9 Sodium Level 140 mmol/L Potassium Level 4.2 mmol/L Chloride Level 107 mmol/L Carbon Dioxide Level 21 mmol/L Anion Gap 12.0 mmol/L 23.0 mmol/L Blood Urea Nitrogen 18 mg/dl Creatinine 1.70 mg/dl Est Creatinine Clear Calc Drug Dose 83.0 ml/min Estimated GFR () 62.7 Estimated GFR (Non- 54.1 BUN/Creatinine Ratio 10.4 Random Glucose 149 mg/dl Calcium Level 9.2 mg/dl Total Bilirubin 0.9 mg/dl Direct Bilirubin 0.2 mg/dl Aspartate Amino Transf (AST/SGOT) 390 U/L Alanine Aminotransferase (ALT/SGPT) 575 U/L Alkaline Phosphatase 98 U/L Total Creatine Kinase 275 U/L Creatine Kinase MB 5.2 ng/ml Creatine Kinase MB Ratio 1.9 Troponin I 0.241 ng/ml Total Protein 7.8 gm/dl Albumin 4.2 gm/dl Bedside Hemoglobin 15.6 g/dl Bedside Hematocrit 46 % Bedside Sodium 141 mEq/L Bedside Potassium 4.1 mEq/L Bedside Chloride 103 mEq/L Bedside Total CO2 20 mEq/l Bedside Blood Urea Nitrogen 18 mg/dl Bedside Creatinine 1.5 mg/dl Bedside Glucose (other) 151 mg/dl Bedside Ionized Calcium (Laura) 1.15 mmol/l Ethyl Alcohol mg/dL < 3.0 mg/dl Urine Color YELLOW Urine Appearance TURBID Urine pH 6.5 Urine Specific [place] 1.023 Urine Protein 3+ Urine Glucose (UA) NEG Urine Ketones NEG Urine Occult Blood 1+ Urine Nitrite NEG Urine Bilirubin NEG Urine Urobilinogen NEG Urine Leukocyte Esterase NEG Urine WBC (Auto) >30 /hpf Urine RBC (Auto) 0-4 /hpf Urine Hyaline Casts (Auto) 1-5 /lpf Urine Epithelial Cells (Auto) >30 /lpf Urine Bacteria (Auto) 1+ Urine Pathogenic Casts 1-5 GRANULAR CASTS /lpf Urine Yeast (Auto) Urine Sperm (Auto) PRESENT Urine Opiates Screen NEG Urine Methadone, Qualitative NEG Urine Barbiturates NEG Urine Phencyclidine (PCP) Level NEG Ur Amphetamine/Methamphetamine NEG MDMA (Ecstasy) Screen NEG Urine Benzodiazepines Screen NEG Urine Cocaine Metabolite NEG Urine Marijuana (THC) NEG Test 08/21/16 15:28 08/21/16 16:27 08/21/16 17:04 08/21/16 19:21 Bedside Blood Gas pH (LAB) 7.25 Bedside Blood Gas pCO2 (LAB) 59 mmHg Bedside Blood Gas pO2 (LAB) > 420 mmHg Bedside Blood Gas HCO3 (LAB) 26 meq/L Bedside Blood Gas Total CO2 28 mEq/l Bedside Blood Gas Base Excess (LAB) -1.0 meq/L Bedside Blood Gas O2 Saturation 100.0 % Creatine Kinase MB Ratio Diagnostic Results I have reviewed the radiology reports for the CT head, CT cervical spine, chest x-ray obtained in the emergency department. Of note there was difficulty in locating the exact position of the endotracheal tube, this was confirmed via bronchoscopy. I have reviewed the images as well as the chest x-ray obtained at 195, there is no pneumothorax, the endotracheal tube is in appropriate position. Assessment & Plan (1) cardiac arrest, acute resp failure (2) HOCM (hypertrophic obstructive cardiomyopathy) (3) Transaminitis (4) WILLARD (acute kidney injury) (5) Incarceration (6) Hypertension Reason Critically Ill: Cardiac arrest secondary to hypertrophic cardiomyopathy PLAN: Neuro: Patient's exam are showing worrisome signs of decerebrate posturing. A stat EEG was performed given the myoclonic jerking, the results are concerning for poor prognosis. The patient has become more hypertensive despite a relatively flat EEG, I am concerned for significant anoxic injury and herniation syndrome developing. - Mannitol 50 g IV - Ceiling of osmolality will be 320 - Consider hypertonic saline - However if this is truly a herniation syndrome it would be secondary to hypoxemia, this is a very poor prognostic etiology - Continue neuromuscular blockade with Pneumovax - This will help prevent spikes in intracranial pressure - Keep head of bed elevated 45 Resp: Full ventilator support - Goal PCO2 will be 35 mmHg Underwent bronchoscopy to elucidate tube position since it was unable to be visualized on the initial chest x-ray and the cervical CT findings. - No significant findings on bronchoscopy, no mucus plugging no evidence of pneumonia CV: Stat echo revealed hypertrophic obstructive cardiomyopathy - Given the report that the patient was exercising and collapsed and the significant hypertrophy of the septum this is likely the etiology of his cardiac arrest Fluids/Renal: Patient's creatinine was 1.7, I suspect that this is an AKA on I secondary to hypotension, continue fluids per protocol ID: No obvious infections at this time, bronchoscopy was clear GI/Nutrition: Transaminitis likely secondary to shock liver, acute hepatitis panel pending Heme: Heparin prophylaxis, 5000 units 3 times a day Endocrine: Trend blood sugars Lines: Right internal jugular triple-lumen central venous catheter placed 08/21 Right 20-gauge radial arterial line placed 08/21 I have personally spent 60 minutes of critical care time in the direct management of this patient. This is a life/limb threatening event. This includes time spent evaluating patient, direct bedside care, chart review, placing orders, interpretation of diagnostic studies, discussion with consultants, patient, and family members, as well as other required patient management activities. This time is exclusive of all separately billable procedures, and teaching time and separate from and in addition to any other critical care service time.
[2016-08-21 20:35] LABS: ISTAT ARTERIAL BLOOD GAS HCO3 19 meq/L (19-24); ISTAT ARTERIAL BLOOD GAS PCO2 36 mmHg (35-46); ISTAT ARTERIAL BLOOD GAS PO2 196 mmHg (80-95); ISTAT ARTERIAL BLOOD GAS pH 7.32 (7.35-7.45); ISTAT CARBON DIOXIDE 20 mEq/l (24-31); ISTAT DELIVERY SYSTEM Ventilator; ISTAT FIO2 40 %; ISTAT PEEP 5; ISTAT RATE 18; ISTAT SITE Art Line; VE 10.8; Vt 600
[2016-08-21] MEDS: ALBUTEROL HFA 8 GM INHALER INH SCH (20:42)
[2016-08-21] MEDS: IPRATROPIUM BROMIDE HFA INHALER INH SCH (20:42)
[2016-08-21] MEDS ORDERED: HEPARIN SOD 5000 UNIT/0.5 ML CARP SQ SCH (21:00)
[2016-08-21 21:42] LABS: POTASSIUM 3.7 mmol/L (3.5-5.1)
[2016-08-21] MEDS ORDERED: NOREPINEPHRINE BIT INJ 8 MG in DEXTROSE 5% 500ML 500 ML IV PRN (21:45)
[2016-08-21] MEDS: HEPARIN SOD 5000 UNIT/0.5 ML CARP SQ SCH (21:51)
[2016-08-21 21:57] LABS: MAGNESIUM 2.1 mg/dl (1.8-2.4)
[2016-08-21] MEDS: POTASSIUM CHLR 20 MEQ / WTR 20 MEQ in PREMIXED WATER 100 ML IV SCH (22:21)
[2016-08-21 23:52] LABS: ISTAT ARTERIAL BLOOD GAS HCO3 19 meq/L (19-24); ISTAT ARTERIAL BLOOD GAS PCO2 35 mmHg (35-46); ISTAT ARTERIAL BLOOD GAS PO2 179 mmHg (80-95); ISTAT ARTERIAL BLOOD GAS pH 7.34 (7.35-7.45); ISTAT CARBON DIOXIDE 20 mEq/l (24-31); ISTAT DELIVERY SYSTEM Ventilator; ISTAT FIO2 35 %; ISTAT PEEP 5; ISTAT RATE 18; ISTAT SITE Art Line; VE 10.9; Vt 600
[2016-08-22] VITALS (27 sets, daily range): BP systolic 91–169; BP diastolic 45–83; PULSE 44–62; TEMP 31.5–35.7; O2SAT 99–100
[2016-08-22 00:01] LABS: BASO % 0.1 %; BASO ABS # 0.01 K/uL (0-0.2); COMPLETE YES; IG% 0.3 %; LYMPH % 5.9 %; LYMPH ABS # 0.91 K/uL (1.2-3.4); MEAN CELL VOLUME 85.4 fL (80-100); MEAN CORPUSCULAR HEMOGLOBIN 29.2 pg (25-34); MEAN CORPUSCULAR HGB CONC 34.2 g/dl (32-36); MONO % 5.7 %; PLATELET COUNT 183 K/uL (130-400); RED BLOOD COUNT 5.27 M/uL (4.7-6.1); WHITE BLOOD COUNT 15.35 K/uL (4.8-10.8)
[2016-08-22 00:09] LABS: INR 1.1 (0.9-1.1); PROTHROMBIN TIME (PATIENT) 11.7 SECONDS (9.0-12.0)
[2016-08-22 00:24] LABS: BUN/CREATININE RATIO 13.1 (10-20); CALCIUM 8.4 mg/dl (8.5-10.1); CREATININE 1.5 mg/dl (0.60-1.40); MAGNESIUM 2.2 mg/dl (1.8-2.4)
[2016-08-22] MEDS: POTASSIUM CHLR 20 MEQ / WTR 20 MEQ in PREMIXED WATER 100 ML IV SCH (00:28)
[2016-08-22 00:30] LABS: CKMB/CK RATIO 5.9 (0-3.0)
[2016-08-22 03:51] LABS: ISTAT ARTERIAL BLOOD GAS HCO3 20 meq/L (19-24); ISTAT ARTERIAL BLOOD GAS PCO2 28 mmHg (35-46); ISTAT ARTERIAL BLOOD GAS PO2 175 mmHg (80-95); ISTAT ARTERIAL BLOOD GAS pH 7.44 (7.35-7.45); ISTAT CARBON DIOXIDE 21 mEq/l (24-31); ISTAT DELIVERY SYSTEM Ventilator; ISTAT FIO2 35 %; ISTAT PEEP 5; ISTAT RATE 8; ISTAT SITE Art Line; VE 10.7; Vt 600
[2016-08-22 04:26] LABS: COMPLETE YES; HEMATOCRIT 45.3 % (42-52); IG% 0.3 %; LYMPH % 13.5 %; LYMPH ABS # 1.91 K/uL (1.2-3.4); MEAN CELL VOLUME 84.5 fL (80-100); MEAN CORPUSCULAR HEMOGLOBIN 28.4 pg (25-34); MEAN CORPUSCULAR HGB CONC 33.6 g/dl (32-36); MEAN PLATELET VOLUME 11.5 fL (7.4-10.4); MONO % 7.5 %; NEUT % 78.7 %; PLATELET COUNT 178 K/uL (130-400); RED BLOOD COUNT 5.36 M/uL (4.7-6.1); WHITE BLOOD COUNT 14.12 K/uL (4.8-10.8)
[2016-08-22 04:38] LABS: INR 1.1 (0.9-1.1); PARTIAL THROMBOPLASTIN RATIO 1.1; PROTHROMBIN TIME (PATIENT) 11.8 SECONDS (9.0-12.0)
[2016-08-22 04:55] LABS: CALCIUM 8.7 mg/dl (8.5-10.1); CREATININE 1.3 mg/dl (0.60-1.40); MAGNESIUM 2.2 mg/dl (1.8-2.4)
[2016-08-22 05:00] LABS: PHOSPHORUS 1.5 mg/dl (2.5-4.9)
[2016-08-22] MEDS ORDERED: SODIUM PHOSPHATE 3 MMOL/1 ML INFUSION IV STA (05:02)
[2016-08-22] MEDS ORDERED: SODIUM PHOSPHATE INJ 21 MMOL in SODIUM CHLORIDE 0.9% 500ML 500 ML IV SCH (05:30)
[2016-08-22] MEDS: HEPARIN SOD 5000 UNIT/0.5 ML CARP SQ SCH ×3 (05:40→21:29)
[2016-08-22] MEDS: NSS + 20MEQ KCL 1000ML 1,000 ML IV SCH ×2 (06:05→13:30)
--- NOTE | 2016-08-22 07:06 | DIAGNOSTIC IMAGING REPORT ---
CHEST ONE VIEW PORTABLE CLINICAL HISTORY: cardiac arrest, acute reps failure dyspnea COMPARISON STUDY: 08/21/2016 FINDINGS: Lungs are clear. An endotracheal tube is present 3.5 cm above the al. Diaphragms are smooth. Central catheter in superior vena cava. Nasogastric tube within the stomach. IMPRESSION: Lungs are clear. Endotracheal tube 3.5 cm above the al. Electronically signed by: Spencer Dalton M.D. 08/22/2016 7:05 AM Dictated Date/Time: 08/22/2016 7:03 AM
--- NOTE | 2016-08-22 07:14 | EEG Procedure Note ---
EEG Procedure Note Date of Service August 22, 2016. Start / End Times Start Time: 525 End Time: [address] Cutler History 26-year-old, postcardiac arrest August 21 Home Medication List Unable to Obtain Active Prescriptions or Reported Meds Inpatient Medication List Current Inpatient Medications Medications (Trade) Dose Ordered Sig/Shireen Route Start Time Stop Time Status Last Admin Dose Admin Potassium Chloride/Sodium Chloride 1,000 ml @ 100 mls/hr Q10H IV 08/21/16 17:30 09/20/16 16:08 08/22/16 06:05 100 MLS/HR Pantoprazole Sodium 40 mg/ Syringe 10 ml @ 5 mls/min DAILY@1100 IV 08/22/16 11:00 09/21/16 10:59 Midazolam HCl 250 ml @ 0 mls/hr Q0M PRN IV 08/21/16 16:59 09/20/16 16:58 08/21/16 18:25 8 MLS/HR Cisatracurium Besylate 40 mg/ Sodium Chloride 100 ml @ 0 mls/hr Q0M PRN IV 08/21/16 17:15 09/20/16 17:14 08/21/16 17:44 11.1 MLS/HR Fentanyl Citrate (Fentanyl Drip 1250MCG/250 Nss) 250 ml @ 0 mls/hr Q0M PRN IV 08/21/16 17:15 09/04/16 17:14 08/21/16 18:08 10 MLS/HR Artificial Tears (Lacri-Lube Oph Oint) 1 appln Q2H PRN OPB 08/21/16 17:15 09/20/16 17:14 08/22/16 00:28 1 APPLN Buspirone HCl (BusPAR TAB) 60 mg ONE PRN NG 08/21/16 17:15 09/20/16 17:14 Meperidine HCl (Demerol Inj) 25 mg Q2H PRN IV 08/21/16 17:15 09/04/16 17:14 08/21/16 21:48 25 MG Heparin Sodium (Porcine) (Heparin Sq 5000 Unit/0.5ml) 5,000 unit Q8H SQ 08/21/16 22:00 09/20/16 21:59 08/22/16 05:40 5,000 UNIT Ipratropium [place] (Atrovent Hfa Inhaler) 4 puffs QIDR INH 08/21/16 20:20 09/20/16 20:19 08/21/16 20:42 4 PUFFS Albuterol 4 puffs 4 puffs QIDR INH 08/21/16 20:20 09/20/16 20:19 08/21/16 20:42 4 PUFFS Norepinephrine Bitartrate 8 mg/ Dextrose 508 ml @ 0 mls/hr Q0M PRN IV 08/21/16 21:45 09/20/16 21:44 Sodium Phosphate/ Sodium Chloride (Sodium Phosphate Inj/Nss 500ml) 507 ml @ 169 mls/hr TODAY@0530 IV 08/22/16 05:30 08/22/16 08:29 08/22/16 05:38 169 MLS/HR Description This is a 21 electrode EEG with a single channel dedicated to limited EKG. The electrodes were placed in accordance with the International 10-20 system. Interpretation The predominant background activity consists of a mixture of irregular 5-6 Hz activity seen over all head regions lasting for variable periods of time next with suppression of background activity, with no amplitudes greater than 3 V, in an irregular alternating fashion. The periods of suppression could last anywhere from 1-5 seconds. The periods of burst/activity lasted anywhere from 3 -30 seconds. Photic stimulation and hyperventilation were not performed on this bedside ICU study. At no time were any focal abnormalities or potentially epileptogenic discharges seen. Overall, this study is consistent with a burst-suppression pattern with small, slow, irregular periods of activity, followed by variable periods of no significant electrocerebral activity. No focal abnormalities are noted and no potentially epileptogenic discharges were seen. Compared to the previous EEG of 10 hours previous, there is some very mild improvement as noted by the burst suppression pattern as opposed to last evening when it was continuously suppressed. Clinical Correlation Overall, this study carries a very poor prognosis
[2016-08-22 07:31] LABS: SODIUM 141 mmol/L (136-145)
--- NOTE | 2016-08-22 07:31 | ECHOCARDIOGRAM REPORT ---
*NOTICE TO RECEIVING [employer] This information is strictly Confidential and protected under [place] law. [place] law prohibits you from making any further disclosure of this information unless further disclosure is expressly permitted by the written consent of the person to whom it pertains or is authorized by law. A general authorization for the release of medical or other information is not sufficient for this purpose. Hospital accepts no responsibility if the information is made available to any other person, INCLUDING THE PATIENT. Interpretation Summary * Name: NONA MARRUFO [id number] Study Date: 08/21/2016 07:33 PM BP: 176/103 mmHg * [facility] HR: 89 * : 1990 (M/d/yyyy) Gender: Male Height: 73 in * Age: 26 yrs Ethnicity: AA Weight: 231 lb * Ordering Physician: Ankit Cutler * Referring Physician: Jr SIMONS * Performed By: Barb Rachel RDCS * * Reason For Study: Cardiac arrest * BSA: 2.3 m2 * -- Conclusions -- * The echo findings are consistent with hypertrophic cardiomyopathy. * Left ventricular systolic function is normal. Procedure Details * A complete two-dimensional transthoracic echocardiogram was performed (2D, M-mode, Doppler and color flow Doppler). Left Ventricle * The left ventricle is normal in size. * The echo findings are consistent with hypertrophic cardiomyopathy. * There is severe concentric left ventricular hypertrophy. * Ejection Fraction = >70 %. * Left ventricular systolic function is normal. Right Ventricle * The right ventricle is normal in size and function. Atria * The left atrial size is normal. * Right atrial size is normal. Mitral Valve * The mitral valve is grossly normal. * Significant mitral regurgitation is absent. Aortic Valve * Probably trileaflet. * No hemodynamically significant valvular aortic stenosis. * No aortic regurgitation is present. Pericardium/Pleural * There is no pericardial effusion. MMode 2D Measurements and Calculations IVSd 3.0 cm IVSs 3.1 cm LVIDd 3.7 cm LVIDs 2.1 cm LVPWd 1.2 cm LVPWs 1.7 cm IVS/LVPW 2.6 FS 44.0 % EDV(Teich) 59.2 ml ESV(Teich) 14.2 ml EF(Teich) 76.1 % EDV(cubed) 51.9 ml ESV(cubed) 9.1 ml EF(cubed) 82.5 % % IVS thick 2.5 % % LVPW thick 49.5 % LV mass(C)d 372.1 grams LV mass(C)dI 162.6 grams/m\S\2 LV mass(C)s 270.2 grams LV mass(C)sI 118.1 grams/m\S\2 SV(Teich) 45.1 ml SI(Teich) 19.7 ml/m\S\2 SV(cubed) 42.8 ml SI(cubed) 18.7 ml/m\S\2 Ao root diam 3.3 cm Ao root area 8.6 cm\S\2 ACS 2.2 cm LA dimension 3.1 cm asc Aorta Diam 2.9 cm LA/Ao 0.93 LVOT diam 1.8 cm LVOT area 2.4 cm\S\2 LVAd ap4 12.4 cm\S\2 LVLd ap4 5.7 cm EDV(MOD-sp4) 24.7 ml EDV(sp4-el) 22.8 ml LVAs ap4 5.5 cm\S\2 LVLs ap4 4.8 cm ESV(MOD-sp4) 6.3 ml ESV(sp4-el) 5.3 ml EF(MOD-sp4) 74.6 % EF(sp4-el) 76.9 % LVAd ap2 15.5 cm\S\2 LVLd ap2 7.4 cm EDV(MOD-sp2) 30.6 ml EDV(sp2-el) 27.5 ml LVAs ap2 6.1 cm\S\2 LVLs ap2 5.0 cm ESV(MOD-sp2) 7.9 ml ESV(sp2-el) 6.3 ml EF(MOD-sp2) 74.1 % EF(sp2-el) 77.3 % LVLd %diff 23.4 % EDV(MOD-bp) 31.4 ml LVLs %diff 4.4 % ESV(MOD-bp) 6.8 ml EF(MOD-bp) 78.2 % SV(MOD-sp4) 18.4 ml SI(MOD-sp4) 8.1 ml/m\S\2 SV(MOD-sp2) 22.7 ml SI(MOD-sp2) 9.9 ml/m\S\2 SV(MOD-bp) 24.5 ml SI(MOD-bp) 10.7 ml/m\S\2 SV(sp4-el) 17.6 ml SI(sp4-el) 7.7 ml/m\S\2 SV(sp2-el) 21.3 ml SI(sp2-el) 9.3 ml/m\S\2 Doppler Measurements and Calculations PA V2 max 135.7 cm/sec PA max PG 7.4 mmHg PA acc slope 563.6 cm/sec\S\2 PA acc time 0.12 sec PI max vincent 190.0 cm/sec PI max PG 14.4 mmHg PI dec slope 473.4 cm/sec\S\2 PI P1/2t 117.6 msec PA pr(Accel) 26.7 mmHg
[2016-08-22] MEDS: ALBUTEROL HFA 8 GM INHALER INH SCH ×4 (07:35→19:45)
[2016-08-22] MEDS: IPRATROPIUM BROMIDE HFA INHALER INH SCH ×4 (07:35→19:45)
--- NOTE | 2016-08-22 07:53 | CARDIOLOGY CONSULTATION ---
DATE OF CONSULTATION: 08/21/2016 REFERRING PHYSICIAN: Eleazar Ray MD CHIEF COMPLAINT: Cardiac arrest. HISTORY OF PRESENT ILLNESS: Mr. Mi Spear is a 26-year-old gentleman who is currently incarcerated. He apparently was exercises on a treadmill earlier today when he collapsed. This was a witnessed event. When the EMS arrived, the patient required defibrillation and intubation, then he was subsequently transported to [facility]. Urgently I saw that the patient had a very brief period of good responsiveness, but it now appears more likely that he was not resuscitated for an extended period of time. Initial rhythm on the scene was not documented in the record, but was likely ventricular fibrillation. As the patient was poorly responsive, he was intubated for protection of his airway. PAST MEDICAL HISTORY: Hepatitis B. PAST SURGICAL HISTORY: None known. CURRENT MEDICATIONS: None. MEDICAL ALLERGIES: No known medical allergies. FAMILY HISTORY: Not currently obtainable. SOCIAL HISTORY: The patient is currently incarcerated. REVIEW OF SYSTEMS: Not obtainable, as the patient is currently intubated and sedated. PHYSICAL EXAMINATION: GENERAL: As noted, the patient intubated and sedated. VITAL SIGNS: Include a blood pressure of 198/100, his pulse is 65. HEENT: Sclerae are anicteric. Pupils were fixed and dilated. There were no extraocular movements. Palpation of submandibular region did not reveal any significant lymphadenopathy. The carotids are palpable bilaterally. I do not appreciate any bruits on auscultation. There is no jugular venous distention. Thyroid was not enlarged. LUNGS: Auscultation of his lung apices revealed them to be clear. There were no expiratory wheezes. HEART: Evaluation revealed somewhat distant heart tones, but does normal S1 and normal S2. I did not appreciate any murmurs on exam. ABDOMEN: Soft and nontender. EXTREMITIES: Evaluation of both wrists revealed radial pulses that were equal in intensity bilaterally. There is no evidence of cyanosis or clubbing. Evaluation of lower his extremities did not reveal any significant peripheral edema. SKIN: I do not appreciate any rashes on examination today. LABORATORY STUDIES: Available at the time of the interview included a white cell count of 17 with a hemoglobin of 15 and a platelet count of 190. Chemistry was essentially normal. Troponin was mildly elevated at 0.2. Liver function tests were elevated, an AST of 219 and ALT of 575. The patient did undergo advanced imaging studies including cervical spine CT and head CT, which did not reveal any evidence of fracture or intracranial abnormality. A 12-lead EKG was obtained on 2 occasions after admission, which revealed him to be in a sinus rhythm and the pattern was consistent with left ventricular hypertrophy. Echocardiogram was also performed and personally interpreted by me, this revealed severe left ventricular hypertrophy without evidence of mitral regurgitation or systolic anterior motion of the mitral leaflet. ASSESSMENT AND PLAN: Cardiac arrest. This is likely due to hypertrophic cardiomyopathy. The clinical situation and demographics of the patient suit well with this diagnosis and the echocardiographic findings. At this point, the patient is intubated, sedated and is being cooled. There is some debate about the likelihood of a meaningful neurologic recovery. At this point, we will simply monitor his neurologic status prior to recommending any additional therapies. Should he survive this event, means he has reasonable neurologic recovery. He would certainly be advised to undergo implantation of a defibrillator. At this point, I would not advocate empiric institution of antiarrhythmic therapy other than beta blockade should he be able to tolerate this hemodynamically. One additional consideration would be screening of family numbers and if they are able to be contacted, specifically first-degree relatives. JAVON
[2016-08-22 08:43] LABS: ISTAT ARTERIAL BLOOD GAS HCO3 19 meq/L (19-24); ISTAT ARTERIAL BLOOD GAS PCO2 26 mmHg (35-46); ISTAT ARTERIAL BLOOD GAS PO2 157 mmHg (80-95); ISTAT ARTERIAL BLOOD GAS pH 7.45 (7.35-7.45); ISTAT CARBON DIOXIDE 20 mEq/l (24-31); ISTAT DELIVERY SYSTEM Ventilator; ISTAT FIO2 30 %; ISTAT PEEP 5; ISTAT RATE 16; ISTAT SITE Art Line; VE 8.8; Vt 600
--- NOTE | 2016-08-22 09:06 | Neurology Consultation ---
Neurology Consultation Date of Consultation: August 22, 2016. Attending Physician: Eleazar Ray MD, PhD Primary Care Physician: [facility]ON[facility] Reason for Consultation: Patient is a 26-year-old, who was asked to see at the request of Drs. Ray and Omayra, for neurologic consultation regarding unresponsive state postcardiac arrest as well as myoclonic jerks History of Present Illness Source: patient, caregiver, hospital records Little is known of this patient's past medical history. He is a inmate at [facility]. Yesterday afternoon he was on a treadmill when he had a witnessed collapse and was found to be in cardiac arrest. He broke his nose with the fall. Apparently he was defibrillated once and then intubated when EMS arrived. He arrived at the emergency room at 1452 hours on August 21 with the temp of 36.2, blood pressure 141/72, pulse 63, respiratory rate of 20, and O2 saturation 100% on oxygen. He had small fixed pupils and was unresponsive to voice. There was some nonpurposeful posturing of the arms to painful stimulation. Later on he was noted to have some decerebrate posturing and significant myoclonic jerking. CT scan of the head was unremarkable. EKG showed left ventricular hypertrophy Laboratory studies showed a normal CBC except for an elevated white count of 17. Creatinine was elevated at 1.7 and AST and ALT were all rated at 390 and 575 He was cooled per protocol and paralyzed with cisatracurium. He was also given fentanyl drip as well as midazolam. EEG at 1941 hours August 21 was consistent with generalized severe suppression of background activity. It wasn't technically consistent with a diagnosis of brain as there was some activity occasionally greater than 3 V. No focal abnormalities were noted and no potentially epileptogenic discharges were seen. He is had no seizure activity or jerking overnight. He does breathe 1 or 2 breaths over the ventilator on occasion. He remains unresponsive at a temperature of 32.3 core Pulse is in the high 40s and blood pressure has been in the 140s over 70s. EEG this morning at 0530 hrs. showed an irregular, variable burst suppression pattern with irregular low amplitude rhythms during burst phases. There was nothing to suggest focal abnormalities and there were no potentially epileptogenic activities. Past Medical/Surgical History Medical Problems: (1) Altered mental status Status: Acute (2) Cardiac arrest Status: Acute Hypertrophic cardiomyopathy We have no information regarding previous medical problems or surgeries Family History We have no information regarding familial medical history Social History Patient is an inmate at [facility]. We do not know his smoking, drug , or alcohol history Marital Status: single Housing Status: other Occupation Status: other Allergies Coded Allergies: Allergy History Not Known (Verified Allergy, Unknown, PT INTUBATED, ) Current Inpatient Medications Current Inpatient Medications Medications (Trade) Dose Ordered Sig/Shireen Route Start Time Stop Time Status Last Admin Dose Admin Potassium Chloride/Sodium Chloride 1,000 ml @ 100 mls/hr Q10H IV 08/21/16 17:30 09/20/16 16:08 08/22/16 06:05 100 MLS/HR Pantoprazole Sodium 40 mg/ Syringe 10 ml @ 5 mls/min DAILY@1100 IV 08/22/16 11:00 09/21/16 10:59 Midazolam HCl 250 ml @ 0 mls/hr Q0M PRN IV 08/21/16 16:59 09/20/16 16:58 08/21/16 18:25 8 MLS/HR Cisatracurium Besylate 40 mg/ Sodium Chloride 100 ml @ 0 mls/hr Q0M PRN IV 08/21/16 17:15 09/20/16 17:14 08/21/16 17:44 11.1 MLS/HR Fentanyl Citrate (Fentanyl Drip 1250MCG/250 Nss) 250 ml @ 0 mls/hr Q0M PRN IV 08/21/16 17:15 09/04/16 17:14 08/21/16 18:08 10 MLS/HR Artificial Tears (Lacri-Lube Oph Oint) 1 appln Q2H PRN OPB 08/21/16 17:15 09/20/16 17:14 08/22/16 00:28 1 APPLN Buspirone HCl (BusPAR TAB) 60 mg ONE PRN NG 08/21/16 17:15 09/20/16 17:14 Meperidine HCl (Demerol Inj) 25 mg Q2H PRN IV 08/21/16 17:15 09/04/16 17:14 08/21/16 21:48 25 MG Heparin Sodium (Porcine) (Heparin Sq 5000 Unit/0.5ml) 5,000 unit Q8H SQ 08/21/16 22:00 09/20/16 21:59 08/22/16 05:40 5,000 UNIT Ipratropium [place] (Atrovent Hfa Inhaler) 4 puffs QIDR INH 08/21/16 20:20 09/20/16 20:19 08/21/16 20:42 4 PUFFS Albuterol 4 puffs 4 puffs QIDR INH 08/21/16 20:20 09/20/16 20:19 08/21/16 20:42 4 PUFFS Norepinephrine Bitartrate/ Dextrose (Levophed Inj/ D5W 500ml) 508 ml @ 0 mls/hr Q0M PRN IV 08/21/16 21:45 09/20/16 21:44 Review of Systems Review of systems cannot be obtained as the patient is completely unresponsive. Physical Exam Vital Signs (Past 24 Hrs): Date Time Temp Pulse Resp B/P Pulse Ox O2 Delivery O2 Flow Rate FiO2 08/22/16 06:53 33.2 49 16 138/82 100 Mechanical Ventilator 161/77 08/22/16 06:05 33.6 55 16 139/83 100 Mechanical Ventilator 169/76 08/22/16 05:40 30 08/22/16 04:50 34.0 52 16 136/81 100 Mechanical Ventilator 158/72 08/22/16 04:00 100 Mechanical Ventilator 15.0 30 08/22/16 04:00 30 08/22/16 04:00 34.5 56 16 147/79 100 156/76 08/22/16 03:45 30 08/22/16 03:09 34.9 57 18 143/71 100 Mechanical Ventilator 08/22/16 01:58 35.4 60 19 143/71 100 Mechanical Ventilator 152/79 08/22/16 01:54 35 08/22/16 01:44 35 08/22/16 01:01 35.7 62 19 144/69 100 Mechanical Ventilator 153/70 08/22/16 00:15 35 08/22/16 00:14 100 Mechanical Ventilator 35 08/21/16 23:59 36.1 61 18 132/76 100 Mechanical Ventilator 150/69 08/21/16 22:45 35.0 77 22 147/82 100 08/21/16 22:40 35 08/21/16 22:30 35.1 93 14 132/88 100 Mechanical Ventilator 35 08/21/16 22:18 34.2 105 22 202/88 100 Mechanical Ventilator 15.0 35 08/21/16 22:15 34.1 87 17 184/70 100 08/21/16 22:02 33.7 103 22 126/86 100 202/88 08/21/16 22:00 33.7 105 24 206/89 100 Mechanical Ventilator 35 126/86 08/21/16 22:00 33.7 94 21 206/89 100 Mechanical Ventilator 35 08/21/16 21:45 33.6 88 19 217/88 99 Mechanical Ventilator 35 08/21/16 21:30 33.8 88 19 174/91 99 Mechanical Ventilator 35 08/21/16 21:19 33.6 08/21/16 21:15 33.8 74 19 172/107 99 08/21/16 21:00 75 18 179/88 99 209/89 08/21/16 21:00 34.0 75 18 198/77 100 Mechanical Ventilator 35 08/21/16 21:00 34.0 75 18 179/88 99 Mechanical Ventilator 35 198/77 08/21/16 20:50 75 18 177/102 99 215/91 08/21/16 20:45 73 18 161/96 100 182/70 08/21/16 20:45 34.0 73 18 177/102 100 08/21/16 20:40 82 18 183/104 100 225/96 08/21/16 20:40 82 18 183/104 100 08/21/16 20:35 80 18 188/89 100 185/96 08/21/16 20:35 80 18 188/89 100 08/21/16 20:30 83 18 191/96 100 08/21/16 20:30 83 18 191/96 100 206/98 08/21/16 20:25 35 08/21/16 20:25 82 18 196/96 100 08/21/16 20:25 82 18 196/96 100 08/21/16 20:20 83 14 192/97 100 46/-50 08/21/16 20:15 80 18 189/93 100 214/99 08/21/16 20:15 80 18 189/93 100 214/99 08/21/16 20:15 34.6 80 18 189/93 100 08/21/16 20:10 82 18 190/101 100 219/98 08/21/16 20:10 82 18 219/98 100 08/21/16 20:05 80 18 178/95 100 214/93 08/21/16 20:00 100 Mechanical Ventilator 35 08/21/16 20:00 35 08/21/16 20:00 34.8 81 18 195/98 100 08/21/16 20:00 34.8 83 18 219/97 100 Mechanical Ventilator 40 183/93 08/21/16 20:00 34.8 81 18 195/98 100 218/95 08/21/16 19:30 35.6 89 18 176/103 100 08/21/16 19:25 81 18 215/100 100 08/21/16 19:20 79 19 189/93 100 08/21/16 19:15 35.6 77 19 172/97 100 08/21/16 19:10 82 20 179/100 100 08/21/16 19:05 91 21 187/88 100 08/21/16 19:00 35.8 91 18 239/92 100 08/21/16 19:00 35.8 91 18 239/92 100 Mechanical Ventilator 40 08/21/16 18:45 36.0 18 186/95 100 Mechanical Ventilator 40 08/21/16 18:00 36.8 71 18 168/80 100 08/21/16 18:00 36.8 71 18 168/80 100 Mechanical Ventilator 40 08/21/16 17:50 36.8 71 18 168/80 100 Mechanical Ventilator 40 08/21/16 17:49 36.5 79 18 156/98 99 Mechanical Ventilator 40 08/21/16 17:31 36.8 74 18 148/83 100 Mechanical Ventilator 40 08/21/16 17:15 36.6 93 18 125/63 100 08/21/16 17:00 36.6 86 18 159/69 100 Mechanical Ventilator 40 08/21/16 17:00 36.6 86 18 159/69 100 Mechanical Ventilator 15.0 40 08/21/16 16:45 36.5 79 18 156/98 99 Mechanical Ventilator 40 08/21/16 16:45 36.5 79 18 156/98 99 Mechanical Ventilator 40 08/21/16 16:29 36.3 73 18 139/71 100 08/21/16 16:15 36.2 66 18 132/70 100 Mechanical Ventilator 40 08/21/16 16:00 36.2 66 18 144/98 100 Mechanical Ventilator 08/21/16 15:45 36.3 65 18 136/97 100 Mechanical Ventilator 40 08/21/16 15:35 40 08/21/16 15:30 36.2 61 18 135/77 100 Mechanical Ventilator 40 08/21/16 15:22 58 08/21/16 15:15 36.2 08/21/16 15:15 36.2 61 18 128/70 99 Mechanical Ventilator 08/21/16 15:13 63 136/73 100 Mechanical Ventilator 100 08/21/16 14:56 62 20 114/72 100 Ambu-Bag 15.0 08/21/16 14:52 63 114/72 100 Mechanical Ventilator 100 He is lying still with his eyes closed. He has no spontaneous movement although he does breathe once or twice over the ventilator on occasion. Eyes (passively and eyes are front and conjugate. With passive movement of the head (neck is supple) eyes stay fixed and therefore there are negative oculocephalics. She believes are between 2 and 3 mm and fixed. Nonreactive to light. There are negative corneal reflexes bilaterally. There is no reaction to deep pain in the face bilaterally. There is no gag to tongue depressor stimulation or suctioning and there is no cough to deep lung suctioning. Patient has no response to 30 cc of ice water to his eardrums bilaterally (no response to ice water calorics) Limbs are flaccid There is no withdrawal or reaction to deep pain in all 4 limbs although the patient can have some bump and his heart rate for a few beats lasting 10-20 seconds with stimulation. Reflexes are absent in all 4 limbs Toes are neutral to plantar stimulation bilaterally. Laboratory Results Past 24 Hours: Test 08/21/16 15:02 08/21/16 15:24 08/21/16 15:25 08/21/16 19:21 Bedside Hemoglobin 15.6 g/dl (14.0-18.0) Bedside Hematocrit 46 % (42-52) Bedside Sodium 141 mEq/L (135-144) Bedside Potassium 4.1 mEq/L (3.3-5.0) Bedside Chloride 103 mEq/L (101-112) Bedside Total CO2 20 mEq/l (24-31) Bedside Blood Urea Nitrogen 18 mg/dl (7-18) Bedside Creatinine 1.5 mg/dl (0.6-1.3) Bedside Glucose (other) 151 mg/dl (70-99) Bedside Ionized Calcium (Laura) 1.15 mmol/l (1.12-1.32) Ethyl Alcohol mg/dL < 3.0 mg/dl (0-3) Urine Color YELLOW Urine Appearance TURBID (CLEAR) Urine pH 6.5 (4.5-7.5) Urine Specific [place] 1.023 (1.000-1.030) Urine Protein 3+ (NEG) Urine Glucose (UA) NEG (NEG) Urine Ketones NEG (NEG) Urine Occult Blood 1+ (NEG) Urine Nitrite NEG (NEG) Urine Bilirubin NEG (NEG) Urine Urobilinogen NEG (NEG) Urine Leukocyte Esterase NEG (NEG) Urine WBC (Auto) >30 /hpf (0-5) Urine RBC (Auto) 0-4 /hpf (0-4) Urine Hyaline Casts (Auto) 1-5 /lpf (0-5) Urine Epithelial Cells (Auto) >30 /lpf (0-5) Urine Bacteria (Auto) 1+ (NEG) Urine Pathogenic Casts 1-5 GRANULAR CASTS /lpf (0) Urine Yeast (Auto) (NONE PRSENT) Urine Sperm (Auto) PRESENT (NOT PRESENT) Urine Opiates Screen NEG (NEG) Urine Methadone, Qualitative NEG (NEG) Urine Barbiturates NEG (NEG) Urine Phencyclidine (PCP) Level NEG (NEG) Ur Amphetamine/Methamphetamine NEG (NEG) MDMA (Ecstasy) Screen NEG (NEG) Urine Benzodiazepines Screen NEG (NEG) Urine Cocaine Metabolite NEG (NEG) Urine Marijuana (THC) NEG (NEG) Arterial Blood pH 7.41 (7.35-7.45) Arterial Blood Partial Pressure CO2 34 mmHg (35-46) Arterial Blood Partial Pressure O2 209 mm/Hg (80-95) Arterial Blood HCO3 21 mmol/L (19-24) Arterial Blood Oxygen Saturation 99.6 % (90-95) Arterial Blood Base Excess -2.8 mEq/L (-9-1.8) Arterial Blood Gas Delivery 40 PERCENT Mohan Test UNK (POS) Lactic Acid Level 2.2 mmol/L (0.4-2.0) Test 08/21/16 19:55 08/21/16 21:16 08/22/16 03:36 08/22/16 04:20 Hepatitis B Surface Antigen NEG (NEG) Hepatitis C Antibody NEG (NEG) Bedside Glucose 139 mg/dl (70-99) Blood Gas Sample Site Art Line Bedside Blood Gas pH (LAB) 7.44 (7.35-7.45) Bedside Blood Gas pCO2 (LAB) 28 mmHg (35-46) Bedside Blood Gas pO2 (LAB) 175 mmHg (80-95) Bedside Blood Gas HCO3 (LAB) 20 meq/L (19-24) Bedside Blood Gas Total CO2 21 mEq/l (24-31) Bedside Blood Gas Base Excess (LAB) -5.0 meq/L (-9-1.8) Bedside Blood Gas O2 Saturation 100.0 % (90-95) Mohan Test NA Oxygen Delivery Device Ventilator Bedside Oxygen Rate (breaths/min) 8 Blood Gas Minute Ventilation 10.7 Bedside FiO2 35 % Blood Gas Tidal Volume 600 Blood Gas PEEP 5 RDW Standard Deviation 39.1 fL (36.4-46.3) RDW Coefficient of Variation 12.8 % (11.5-14.5) White Blood Count 14.12 K/uL (4.8-10.8) Red Blood Count 5.36 M/uL (4.7-6.1) Hemoglobin 15.2 g/dL (14.0-18.0) Hematocrit 45.3 % (42-52) Mean Corpuscular Volume 84.5 fL (80-100) Mean Corpuscular Hemoglobin 28.4 pg (25-34) Mean Corpuscular Hemoglobin Concent 33.6 g/dl (32-36) Platelet Count 178 K/uL (130-400) Mean Platelet Volume 11.5 fL (7.4-10.4) Neutrophils (%) (Auto) 78.7 % Lymphocytes (%) (Auto) 13.5 % Monocytes (%) (Auto) 7.5 % Eosinophils (%) (Auto) 0.0 % Basophils (%) (Auto) 0.0 % Neutrophils # (Auto) 11.11 K/uL (1.4-6.5) Lymphocytes # (Auto) 1.91 K/uL (1.2-3.4) Monocytes # (Auto) 1.06 K/uL (0.11-0.59) Eosinophils # (Auto) 0.00 K/uL (0-0.5) Basophils # (Auto) 0.00 K/uL (0-0.2) Immature Granulocyte % (Auto) 0.3 % Immature Granulocyte # (Auto) 0.04 K/uL (0.00-0.02) Est Creatinine Clear Calc Drug Dose 96.4 ml/min Total Bilirubin 1.1 mg/dl (0.2-1) Direct Bilirubin 0.2 mg/dl (0-0.2) Aspartate Amino Transf (AST/SGOT) 255 U/L (15-37) Alanine Aminotransferase (ALT/SGPT) 426 U/L (12-78) Alkaline Phosphatase 86 U/L (45-117) Total Protein 7.1 gm/dl (6.4-8.2) Albumin 3.8 gm/dl (3.4-5.0) Lipase 66 U/L (73-393) Test 08/22/16 06:09 08/22/16 08:00 Osmolality 290 mOsm/kg (280-300) Creatine Kinase MB Ratio (0-3.0) Imaging CT HEAD WITHOUT CONTRAST (CT) CLINICAL HISTORY: Cardiac arrest. Acute change in mental status. COMPARISON STUDY: No previous studies for comparison. TECHNIQUE: Axial CT of the brain is performed from the vertex to the skull base. IV contrast was not administered for this examination. CT DOSE: 823.94 mGycm FINDINGS: No intra or extra-axial mass lesions are visualized. There is no CT evidence of acute cortical infarction. There is no evidence of midline shift. There is no acute hemorrhage. No calvarial fractures are visualized. There are areas of posterior dural calcification. There is no evidence of pathologic ventricular dilatation. There is no evidence of acute sinusitis IMPRESSION: No acute intracranial findings. If neurologic findings persists, an MRI of the brain might be considered in follow-up Electronically signed by: Abdoulaye Sotomayor M.D. 08/21/2016 3:14 PM Impression Sudden cardiac arrest, August 21 while on the treadmill. He has an underlying cardiomyopathy Currently he is unresponsive with a burst suppression pattern on EEG. True neurologic function cannot be ascertained because of the presence of the neuromuscular fatemeh and other medications as well as the significant cooling. He has no evidence for brainstem activity on exam today. Although he had myoclonic jerking prior to him being cooled, there was no potentially epileptogenic activity on EEG last evening or this morning He has some history of hypertension Overall his prognosis is very poor, if not grave. I am concerned about brain herniation in this patient. Plan 1. Continue cooling protocol until this evening and then will begin to warm and wean off neuromuscular blockers if possible. 2..A repeat CT scan of the head will be done this evening as well. 3. Hold on anticonvulsant medication for now we'll consider depending on his clinical course. 4. I will follow daily. I spoke to Dr. Tiwari regarding this case including differential diagnosis, treatment options, and prognosis. I spent a total of 90 minutes with this patient in direct patient care
[2016-08-22 09:32] LABS: BASO % 0.1 %; BASO ABS # 0.01 K/uL (0-0.2); COMPLETE YES; EOS % 0.5 %; HEMATOCRIT 44.6 % (42-52); IG% 0.2 %; LYMPH % 16.8 %; LYMPH ABS # 1.81 K/uL (1.2-3.4); MEAN PLATELET VOLUME 11.6 fL (7.4-10.4); MONO % 7.9 %; NEUT % 74.5 %; PLATELET COUNT 134 K/uL (130-400); RED BLOOD COUNT 5.25 M/uL (4.7-6.1); WHITE BLOOD COUNT 10.77 K/uL (4.8-10.8)
[2016-08-22 09:39] LABS: INR 1.2 (0.9-1.1); PROTHROMBIN TIME (PATIENT) 12.5 SECONDS (9.0-12.0)
[2016-08-22 10:05] LABS: CALCIUM 8.9 mg/dl (8.5-10.1)
[2016-08-22 10:16] LABS: BUN/CREATININE RATIO 16.5 (10-20); CREATININE 1.1 mg/dl (0.60-1.40); MAGNESIUM 2.1 mg/dl (1.8-2.4); POTASSIUM 3.4 mmol/L (3.5-5.1)
[2016-08-22 10:26] LABS: CKMB/CK RATIO 5.5 (0-3.0); PHOSPHORUS 3.5 mg/dl (2.5-4.9)
[2016-08-22] MEDS: PANTOprazole INJ 40 MG in SYRINGE 0 ML IV SCH (11:00)
[2016-08-22] MEDS ORDERED: PANTOprazole INJ 40 MG in SYRINGE 0 ML IV SCH (11:00)
[2016-08-22] MEDS: POTASSIUM CHLR 20MEQ / WTR IV SCH ×3 (11:30→15:02)
[2016-08-22] MEDS: MIDAZOLAM 125MG/250ML D5W 250 ML IV PRN (11:39)
[2016-08-22 12:31] LABS: INR 1.2 (0.9-1.1); PARTIAL THROMBOPLASTIN RATIO 1.3; PROTHROMBIN TIME (PATIENT) 12.5 SECONDS (9.0-12.0)
[2016-08-22 12:40] LABS: BUN/CREATININE RATIO 17.1 (10-20); CALCIUM 8.4 mg/dl (8.5-10.1); MAGNESIUM 2.2 mg/dl (1.8-2.4); PHOSPHORUS 3.4 mg/dl (2.5-4.9); POTASSIUM 3.6 mmol/L (3.5-5.1)
[2016-08-22 12:56] LABS: ISTAT ARTERIAL BLOOD GAS HCO3 20 meq/L (19-24); ISTAT ARTERIAL BLOOD GAS PCO2 34 mmHg (35-46); ISTAT ARTERIAL BLOOD GAS PO2 146 mmHg (80-95); ISTAT ARTERIAL BLOOD GAS pH 7.37 (7.35-7.45); ISTAT CARBON DIOXIDE 22 mEq/l (24-31); ISTAT DELIVERY SYSTEM Ventilator; ISTAT FIO2 30 %; ISTAT PEEP 5; ISTAT RATE 12; ISTAT SITE Art Line; VE 6.4; Vt 6.4
[2016-08-22 13:08] LABS: BASO % 0.1 %; BASO ABS # 0.01 K/uL (0-0.2); COMPLETE YES; EOS % 0.5 %; HEMATOCRIT 43.2 % (42-52); IG% 0.2 %; LYMPH % 17.9 %; LYMPH ABS # 1.81 K/uL (1.2-3.4); MEAN CELL VOLUME 85.5 fL (80-100); MEAN CORPUSCULAR HEMOGLOBIN 28.5 pg (25-34); MEAN CORPUSCULAR HGB CONC 33.3 g/dl (32-36); MEAN PLATELET VOLUME 12.5 fL (7.4-10.4); NEUT % 73.3 %; PLATELET COUNT 154 K/uL (130-400); RED BLOOD COUNT 5.05 M/uL (4.7-6.1); WHITE BLOOD COUNT 10.09 K/uL (4.8-10.8)
[2016-08-22] MEDS: ALBUMIN HUMAN 5% 12.5 GM/250 ML VIAL IV SCH ×2 (13:27→15:02)
--- NOTE | 2016-08-22 14:10 | Critical Care Progress Note ---
Critical Care Progress Note Date of Service August 22, 2016. ICU Day ICU Day Number: [address] Cutler Subjective Patient intubated and heavily sedated and neuromuscular blockade. Overnight attempts are made to withdraw neuromuscular blockade. Patient continued to shiver and elevate his core temp, and neuromuscular blockade was reinstituted. Objective General Appearance: other (intubated) Head: normocephalic, other (abrasion 1 cm x 2 cm over left zygomatic arch) Eyes: other (pupils 3 mm and unreactive to light) ENT: other (intubated with 7.5 Hi-Lo tube) Neck: trachea midline, no thyromegaly Respiratory: breath sounds normal Cardiovasular: regular rate/rhythm, normal S1S2, no gallop, no rub, no JVD Abdomen: normal bowel sounds, no rebound, no masses, no guarding Genitourinary - Male: external genitalia normal, other (Avelar present) Upper Extremities: no edema, other (approximately 2 cm x 2 cm abrasion on the right wrist) Lower Extremities: no edema, normal ROM, other (3 cm x 3 cm abrasion to the right hip) Pulses: carotid (R) (2+), carotid (L) (2+), radial (R) (2+), radial (L) (2+), dorsalis pedis (R) (2+), dorsalis pedis (L) (2+) Neuro: Under neuromuscular blockade Psychiatric: other (unable to evaluate) Assessment & Plan (1) cardiac arrest, acute resp failure (2) HOCM (hypertrophic obstructive cardiomyopathy) (3) Transaminitis (4) WILLARD (acute kidney injury) (5) Incarceration (6) Hypertension Neuro: Therapeutic hypothermia - Continue neuromuscular blockade with cisatracurium - Keep head of bed elevated 45 Resp: Full ventilator support -Can normalized PCO2 to 40 CV: Stat echo revealed hypertrophic obstructive cardiomyopathy -Will add beta fatemeh as tolerated Fluids/Renal: Creatinine significantly improved, continue present management ID: No obvious infections at this time, bronchoscopy was clear GI/Nutrition: Transaminitis mildly improving, hepatitis C and hepatitis B surface antigen negative Heme: Heparin prophylaxis, 5000 units 3 times a day Endocrine: Trend blood sugars Lines: Right internal jugular triple-lumen central venous catheter placed 08/21 Right 20-gauge radial arterial line placed 08/21 I have personally spent 60 minutes of critical care time in the direct management of this patient. This is a life/limb threatening event. This includes time spent evaluating patient, direct bedside care, chart review, placing orders, interpretation of diagnostic studies, discussion with consultants, patient, and family members, as well as other required patient management activities. This time is exclusive of all separately billable procedures, and teaching time and separate from and in addition to any other critical care service time. Hypothermic protocol will discontinue at 2045 this evening and then we will proceed to the rewarming phase. Anticipate obtaining CT head once rewarmed. Consults & Procedures Consultants: Neurology Cardiology Procedures: Right internal jugular vein CVL, 08/21/2016 Right radial arterial line 08/21/2016 Data Medications: Current Inpatient Medications Medications (Trade) Dose Ordered Sig/Shireen Route Start Time Stop Time Status Last Admin Dose Admin Potassium Chloride/Sodium Chloride 1,000 ml @ 100 mls/hr Q10H IV 08/21/16 17:30 09/20/16 16:08 08/22/16 06:05 100 MLS/HR Pantoprazole Sodium 40 mg/ Syringe 10 ml @ 5 mls/min DAILY@1100 IV 08/22/16 11:00 09/21/16 10:59 08/22/16 11:00 5 MLS/MIN Midazolam HCl 250 ml @ 0 mls/hr Q0M PRN IV 08/21/16 16:59 09/20/16 16:58 08/22/16 11:39 16 MLS/HR Cisatracurium Besylate 40 mg/ Sodium Chloride 100 ml @ 0 mls/hr Q0M PRN IV 08/21/16 17:15 09/20/16 17:14 08/21/16 17:44 11.1 MLS/HR Fentanyl Citrate (Fentanyl Drip 1250MCG/250 Nss) 250 ml @ 0 mls/hr Q0M PRN IV 08/21/16 17:15 09/04/16 17:14 08/21/16 18:08 10 MLS/HR Artificial Tears (Lacri-Lube Oph Oint) 1 appln Q2H PRN OPB 08/21/16 17:15 09/20/16 17:14 08/22/16 00:28 1 APPLN Buspirone HCl (BusPAR TAB) 60 mg ONE PRN NG 08/21/16 17:15 09/20/16 17:14 Meperidine HCl (Demerol Inj) 25 mg Q2H PRN IV 08/21/16 17:15 09/04/16 17:14 08/21/16 21:48 25 MG Heparin Sodium (Porcine) (Heparin Sq 5000 Unit/0.5ml) 5,000 unit Q8H SQ 08/21/16 22:00 09/20/16 21:59 08/22/16 05:40 5,000 UNIT Ipratropium [place] [employer] (Atrovent Hfa Inhaler) 4 puffs QIDR INH 08/21/16 20:20 09/20/16 20:19 08/22/16 07:35 4 PUFFS Albuterol 4 puffs 4 puffs QIDR INH 08/21/16 20:20 09/20/16 20:19 08/22/16 07:35 4 PUFFS Norepinephrine Bitartrate 8 mg/ Dextrose 508 ml @ 0 mls/hr Q0M PRN IV 08/21/16 21:45 09/20/16 21:44 Potassium Chloride/Prmx (Kcl 20 Meq / Wtr/Premixed Water) 100 ml @ 50 mls/hr Q2H IV 08/22/16 11:30 08/22/16 17:29 08/22/16 13:26 50 MLS/HR Albumin Human (Albumin 5%) 12.5 gm 1330,1400 IV 08/22/16 13:30 08/22/16 23:59 08/22/16 13:27 12.5 GM I & O: 24-Hour Column 08/22/16 08:00 Intake Total 2146 ml Output Total 1675 ml Balance 471 ml Vital Signs: Date Time Temp Pulse Resp B/P Pulse Ox O2 Delivery O2 Flow Rate FiO2 08/22/16 11:49 30 08/22/16 11:00 33.2 55 12 117/64 100 Mechanical Ventilator 30 125/56 08/22/16 10:00 33.4 52 12 126/72 100 Mechanical Ventilator 30 133/60 08/22/16 09:00 33.2 50 16 129/74 100 Mechanical Ventilator 30 144/66 08/22/16 09:00 30 08/22/16 08:00 Mechanical Ventilator 30 08/22/16 08:00 100 Mechanical Ventilator 30 08/22/16 08:00 33.1 50 16 133/82 100 Mechanical Ventilator 30 153/71 08/22/16 08:00 30 08/22/16 07:36 30 08/22/16 06:53 33.2 49 16 138/82 100 Mechanical Ventilator 161/77 08/22/16 06:05 33.6 55 16 139/83 100 Mechanical Ventilator 169/76 08/22/16 05:40 30 08/22/16 04:50 34.0 52 16 136/81 100 Mechanical Ventilator 158/72 08/22/16 04:00 100 Mechanical Ventilator 15.0 30 08/22/16 04:00 30 08/22/16 04:00 34.5 56 16 147/79 100 156/76 08/22/16 03:45 30 08/22/16 03:09 34.9 57 18 143/71 100 Mechanical Ventilator 08/22/16 01:58 35.4 60 19 143/71 100 Mechanical Ventilator 152/79 08/22/16 01:54 35 08/22/16 01:44 35 08/22/16 01:01 35.7 62 19 144/69 100 Mechanical Ventilator 153/70 08/22/16 00:15 35 08/22/16 00:14 100 Mechanical Ventilator 35 08/21/16 23:59 36.1 61 18 132/76 100 Mechanical Ventilator 150/69 08/21/16 22:45 35.0 77 22 147/82 100 08/21/16 22:40 35 08/21/16 22:30 35.1 93 14 132/88 100 Mechanical Ventilator 35 08/21/16 22:18 34.2 105 22 202/88 100 Mechanical Ventilator 15.0 35 08/21/16 22:15 34.1 87 17 184/70 100 08/21/16 22:02 33.7 103 22 126/86 100 202/88 08/21/16 22:00 33.7 105 24 206/89 100 Mechanical Ventilator 35 126/86 08/21/16 22:00 33.7 94 21 206/89 100 Mechanical Ventilator 35 08/21/16 21:45 33.6 88 19 217/88 99 Mechanical Ventilator 35 08/21/16 21:30 33.8 88 19 174/91 99 Mechanical Ventilator 35 08/21/16 21:19 33.6 08/21/16 21:15 33.8 74 19 172/107 99 08/21/16 21:00 75 18 179/88 99 209/89 08/21/16 21:00 34.0 75 18 198/77 100 Mechanical Ventilator 35 08/21/16 21:00 34.0 75 18 179/88 99 Mechanical Ventilator 35 198/77 08/21/16 20:50 75 18 177/102 99 215/91 08/21/16 20:45 73 18 161/96 100 182/70 08/21/16 20:45 34.0 73 18 177/102 100 08/21/16 20:40 82 18 183/104 100 225/96 08/21/16 20:40 82 18 183/104 100 08/21/16 20:35 80 18 188/89 100 185/96 08/21/16 20:35 80 18 188/89 100 08/21/16 20:30 83 18 191/96 100 08/21/16 20:30 83 18 191/96 100 206/98 08/21/16 20:25 35 08/21/16 20:25 82 18 196/96 100 08/21/16 20:25 82 18 196/96 100 08/21/16 20:20 83 14 192/97 100 46/-50 08/21/16 20:15 80 18 189/93 100 214/99 08/21/16 20:15 80 18 189/93 100 214/99 08/21/16 20:15 34.6 80 18 189/93 100 08/21/16 20:10 82 18 190/101 100 219/98 08/21/16 20:10 82 18 219/98 100 08/21/16 20:05 80 18 178/95 100 214/93 08/21/16 20:00 100 Mechanical Ventilator 35 08/21/16 20:00 35 08/21/16 20:00 34.8 81 18 195/98 100 08/21/16 20:00 34.8 83 18 219/97 100 Mechanical Ventilator 40 183/93 08/21/16 20:00 34.8 81 18 195/98 100 218/95 08/21/16 19:30 35.6 89 18 176/103 100 08/21/16 19:25 81 18 215/100 100 08/21/16 19:20 79 19 189/93 100 08/21/16 19:15 35.6 77 19 172/97 100 08/21/16 19:10 82 20 179/100 100 08/21/16 19:05 91 21 187/88 100 08/21/16 19:00 35.8 91 18 239/92 100 08/21/16 19:00 35.8 91 18 239/92 100 Mechanical Ventilator 40 08/21/16 18:45 36.0 18 186/95 100 Mechanical Ventilator 40 08/21/16 18:00 36.8 71 18 168/80 100 08/21/16 18:00 36.8 71 18 168/80 100 Mechanical Ventilator 40 08/21/16 17:50 36.8 71 18 168/80 100 Mechanical Ventilator 40 08/21/16 17:49 36.5 79 18 156/98 99 Mechanical Ventilator 40 08/21/16 17:31 36.8 74 18 148/83 100 Mechanical Ventilator 40 08/21/16 17:15 36.6 93 18 125/63 100 08/21/16 17:00 36.6 86 18 159/69 100 Mechanical Ventilator 40 08/21/16 17:00 36.6 86 18 159/69 100 Mechanical Ventilator 15.0 40 08/21/16 16:45 36.5 79 18 156/98 99 Mechanical Ventilator 40 08/21/16 16:45 36.5 79 18 156/98 99 Mechanical Ventilator 40 08/21/16 16:29 36.3 73 18 139/71 100 08/21/16 16:15 36.2 66 18 132/70 100 Mechanical Ventilator 40 08/21/16 16:00 36.2 66 18 144/98 100 Mechanical Ventilator 08/21/16 15:45 36.3 65 18 136/97 100 Mechanical Ventilator 40 08/21/16 15:35 40 08/21/16 15:30 36.2 61 18 135/77 100 Mechanical Ventilator 40 08/21/16 15:22 58 08/21/16 15:15 36.2 08/21/16 15:15 36.2 61 18 128/70 99 Mechanical Ventilator 08/21/16 15:13 63 136/73 100 Mechanical Ventilator 100 08/21/16 14:56 62 20 114/72 100 Ambu-Bag 15.0 08/21/16 14:52 63 114/72 100 Mechanical Ventilator 100 Laboratory Results: Last 24 Hours Test 08/21/16 14:55 08/21/16 15:02 08/21/16 15:24 08/21/16 15:25 White Blood Count 17.00 K/uL Red Blood Count 5.35 M/uL Hemoglobin 15.5 g/dL Hematocrit 46.7 % Mean Corpuscular Volume 87.3 fL Mean Corpuscular Hemoglobin 29.0 pg Mean Corpuscular Hemoglobin Concent 33.2 g/dl Platelet Count 190 K/uL Mean Platelet Volume 12.3 fL Neutrophils (%) (Auto) 66.5 % Lymphocytes (%) (Auto) 29.8 % Monocytes (%) (Auto) 2.6 % Eosinophils (%) (Auto) 0.5 % Basophils (%) (Auto) 0.1 % Neutrophils # (Auto) 11.28 K/uL Lymphocytes # (Auto) 5.07 K/uL Monocytes # (Auto) 0.45 K/uL Eosinophils # (Auto) 0.09 K/uL Basophils # (Auto) 0.02 K/uL RDW Standard Deviation 41.8 fL RDW Coefficient of Variation 13.1 % Immature Granulocyte % (Auto) 0.5 % Immature Granulocyte # (Auto) 0.09 K/uL Prothrombin Time 11.9 SECONDS Prothromb Time International Ratio 1.1 Activated Partial Thromboplast Time 24.6 SECONDS Partial Thromboplastin Ratio 0.9 Sodium Level 140 mmol/L Potassium Level 4.2 mmol/L Chloride Level 107 mmol/L Carbon Dioxide Level 21 mmol/L Anion Gap 12.0 mmol/L 23.0 mmol/L Blood Urea Nitrogen 18 mg/dl Creatinine 1.70 mg/dl Est Creatinine Clear Calc Drug Dose 83.0 ml/min Estimated GFR () 62.7 Estimated GFR (Non- 54.1 BUN/Creatinine Ratio 10.4 Random Glucose 149 mg/dl Calcium Level 9.2 mg/dl Total Bilirubin 0.9 mg/dl Direct Bilirubin 0.2 mg/dl Aspartate Amino Transf (AST/SGOT) 390 U/L Alanine Aminotransferase (ALT/SGPT) 575 U/L Alkaline Phosphatase 98 U/L Total Creatine Kinase 275 U/L Creatine Kinase MB 5.2 ng/ml Creatine Kinase MB Ratio 1.9 Troponin I 0.241 ng/ml Total Protein 7.8 gm/dl Albumin 4.2 gm/dl Bedside Hemoglobin 15.6 g/dl Bedside Hematocrit 46 % Bedside Sodium 141 mEq/L Bedside Potassium 4.1 mEq/L Bedside Chloride 103 mEq/L Bedside Total CO2 20 mEq/l Bedside Blood Urea Nitrogen 18 mg/dl Bedside Creatinine 1.5 mg/dl Bedside Glucose (other) 151 mg/dl Bedside Ionized Calcium (Laura) 1.15 mmol/l Ethyl Alcohol mg/dL < 3.0 mg/dl Urine Color YELLOW Urine Appearance TURBID Urine pH 6.5 Urine Specific Simpson 1.023 Urine Protein 3+ Urine Glucose (UA) NEG Urine Ketones NEG Urine Occult Blood 1+ Urine Nitrite NEG Urine Bilirubin NEG Urine Urobilinogen NEG Urine Leukocyte Esterase NEG Urine WBC (Auto) >30 /hpf Urine RBC (Auto) 0-4 /hpf Urine Hyaline Casts (Auto) 1-5 /lpf Urine Epithelial Cells (Auto) >30 /lpf Urine Bacteria (Auto) 1+ Urine Pathogenic Casts 1-5 GRANULAR CASTS /lpf Urine Yeast (Auto) Urine Sperm (Auto) PRESENT Urine Opiates Screen NEG Urine Methadone, Qualitative NEG Urine Barbiturates NEG Urine Phencyclidine (PCP) Level NEG Ur Amphetamine/Methamphetamine NEG MDMA (Ecstasy) Screen NEG Urine Benzodiazepines Screen NEG Urine Cocaine Metabolite NEG Urine Marijuana (THC) NEG Test 08/21/16 15:28 08/21/16 17:04 08/21/16 19:21 08/21/16 19:55 Bedside Blood Gas pH (LAB) 7.25 Bedside Blood Gas pCO2 (LAB) 59 mmHg Bedside Blood Gas pO2 (LAB) > 420 mmHg Bedside Blood Gas HCO3 (LAB) 26 meq/L Bedside Blood Gas Total CO2 28 mEq/l Bedside Blood Gas Base Excess (LAB) -1.0 meq/L Bedside Blood Gas O2 Saturation 100.0 % Creatine Kinase MB Ratio Arterial Blood pH 7.41 Arterial Blood Partial Pressure CO2 34 mmHg Arterial Blood Partial Pressure O2 209 mm/Hg Arterial Blood HCO3 21 mmol/L Arterial Blood Oxygen Saturation 99.6 % Arterial Blood Base Excess -2.8 mEq/L Arterial Blood Gas Delivery 40 PERCENT Mohan Test UNK Sodium Level 139 mmol/L Osmolality 292 mOsm/kg Lactic Acid Level 2.2 mmol/L Calcium Level 9.2 mg/dl Creatine Kinase MB 25.6 ng/ml Troponin I 4.220 ng/ml Hepatitis B Surface Antigen NEG Hepatitis C Antibody NEG Test 08/21/16 20:23 08/21/16 21:16 08/21/16 21:20 08/21/16 23:39 Blood Gas Sample Site Art Line Art Line Bedside Blood Gas pH (LAB) 7.32 7.34 Bedside Blood Gas pCO2 (LAB) 36 mmHg 35 mmHg Bedside Blood Gas pO2 (LAB) 196 mmHg 179 mmHg Bedside Blood Gas HCO3 (LAB) 19 meq/L 19 meq/L Bedside Blood Gas Total CO2 20 mEq/l 20 mEq/l Bedside Blood Gas Base Excess (LAB) -8.0 meq/L -7.0 meq/L Bedside Blood Gas O2 Saturation 100.0 % 100.0 % Mohan Test NA NA Oxygen Delivery Device Ventilator Ventilator Bedside Oxygen Rate (breaths/min) 18 18 Blood Gas Minute Ventilation 10.8 10.9 Bedside FiO2 40 % 35 % Blood Gas Tidal Volume 600 600 Blood Gas PEEP 5 5 Bedside Glucose 139 mg/dl Potassium Level 3.7 mmol/L Magnesium Level 2.1 mg/dl Creatine Kinase MB 32.2 ng/ml Creatine Kinase MB Ratio Troponin I 5.420 ng/ml Test 08/21/16 23:45 08/22/16 00:09 08/22/16 03:36 08/22/16 04:20 White Blood Count 15.35 K/uL 14.12 K/uL Red Blood Count 5.27 M/uL 5.36 M/uL Hemoglobin 15.4 g/dL 15.2 g/dL Hematocrit 45.0 % 45.3 % Mean Corpuscular Volume 85.4 fL 84.5 fL Mean Corpuscular Hemoglobin 29.2 pg 28.4 pg Mean Corpuscular Hemoglobin Concent 34.2 g/dl 33.6 g/dl Platelet Count 183 K/uL 178 K/uL Mean Platelet Volume 12.0 fL 11.5 fL Neutrophils (%) (Auto) 88.0 % 78.7 % Lymphocytes (%) (Auto) 5.9 % 13.5 % Monocytes (%) (Auto) 5.7 % 7.5 % Eosinophils (%) (Auto) 0.0 % 0.0 % Basophils (%) (Auto) 0.1 % 0.0 % Neutrophils # (Auto) 13.52 K/uL 11.11 K/uL Lymphocytes # (Auto) 0.91 K/uL 1.91 K/uL Monocytes # (Auto) 0.87 K/uL 1.06 K/uL Eosinophils # (Auto) 0.00 K/uL 0.00 K/uL Basophils # (Auto) 0.01 K/uL 0.00 K/uL RDW Standard Deviation 40.6 fL 39.1 fL RDW Coefficient of Variation 12.9 % 12.8 % Immature Granulocyte % (Auto) 0.3 % 0.3 % Immature Granulocyte # (Auto) 0.04 K/uL 0.04 K/uL Prothrombin Time 11.7 SECONDS 11.8 SECONDS Prothromb Time International Ratio 1.1 1.1 Activated Partial Thromboplast Time 25.1 SECONDS 28.2 SECONDS Partial Thromboplastin Ratio 1.0 1.1 Sodium Level 139 mmol/L 140 mmol/L Potassium Level 5.0 mmol/L 4.0 mmol/L Chloride Level 108 mmol/L 111 mmol/L Carbon Dioxide Level 22 mmol/L 22 mmol/L Anion Gap 9.0 mmol/L 7.0 mmol/L Blood Urea Nitrogen 20 mg/dl 20 mg/dl Creatinine 1.50 mg/dl 1.30 mg/dl Est Creatinine Clear Calc Drug Dose 83.6 ml/min 96.4 ml/min Estimated GFR () 72.9 86.7 Estimated GFR (Non- 62.9 74.8 BUN/Creatinine Ratio 13.1 15.0 Random Glucose 122 mg/dl 111 mg/dl Osmolality 289 mOsm/kg Calcium Level 8.4 mg/dl 8.7 mg/dl Phosphorus Level 3.0 mg/dl 1.5 mg/dl Magnesium Level 2.2 mg/dl 2.2 mg/dl Total Creatine Kinase 584 U/L Creatine Kinase MB 34.5 ng/ml Creatine Kinase MB Ratio 5.9 Troponin I 4.450 ng/ml Blood Gas Sample Site Art Line Bedside Blood Gas pH (LAB) 7.44 Bedside Blood Gas pCO2 (LAB) 28 mmHg Bedside Blood Gas pO2 (LAB) 175 mmHg Bedside Blood Gas HCO3 (LAB) 20 meq/L Bedside Blood Gas Total CO2 21 mEq/l Bedside Blood Gas Base Excess (LAB) -5.0 meq/L Bedside Blood Gas O2 Saturation 100.0 % Mohan Test NA Oxygen Delivery Device Ventilator Bedside Oxygen Rate (breaths/min) 8 Blood Gas Minute Ventilation 10.7 Bedside FiO2 35 % Blood Gas Tidal Volume 600 Blood Gas PEEP 5 Total Bilirubin 1.1 mg/dl Direct Bilirubin 0.2 mg/dl Aspartate Amino Transf (AST/SGOT) 255 U/L Alanine Aminotransferase (ALT/SGPT) 426 U/L Alkaline Phosphatase 86 U/L Total Protein 7.1 gm/dl Albumin 3.8 gm/dl Lipase 66 U/L Test 08/22/16 06:00 08/22/16 06:09 08/22/16 08:04 08/22/16 08:30 Creatine Kinase MB Ratio Sodium Level 141 mmol/L Osmolality 290 mOsm/kg Creatine Kinase MB 38.8 ng/ml Troponin I 4.990 ng/ml Bedside Glucose 86 mg/dl Blood Gas Sample Site Art Line Bedside Blood Gas pH (LAB) 7.45 Bedside Blood Gas pCO2 (LAB) 26 mmHg Bedside Blood Gas pO2 (LAB) 157 mmHg Bedside Blood Gas HCO3 (LAB) 19 meq/L Bedside Blood Gas Total CO2 20 mEq/l Bedside Blood Gas Base Excess (LAB) -6.0 meq/L Bedside Blood Gas O2 Saturation 100.0 % Mohan Test NA Oxygen Delivery Device Ventilator Bedside Oxygen Rate (breaths/min) 16 Blood Gas Minute Ventilation 8.8 Bedside FiO2 30 % Blood Gas Tidal Volume 600 Blood Gas PEEP 5 Test 08/22/16 09:19 08/22/16 12:01 08/22/16 12:02 08/22/16 12:42 White Blood Count 10.77 K/uL 10.09 K/uL Red Blood Count 5.25 M/uL 5.05 M/uL Hemoglobin 14.7 g/dL 14.4 g/dL Hematocrit 44.6 % 43.2 % Mean Corpuscular Volume 85.0 fL 85.5 fL Mean Corpuscular Hemoglobin 28.0 pg 28.5 pg Mean Corpuscular Hemoglobin Concent 33.0 g/dl 33.3 g/dl Platelet Count 134 K/uL 154 K/uL Mean Platelet Volume 11.6 fL 12.5 fL Neutrophils (%) (Auto) 74.5 % 73.3 % Lymphocytes (%) (Auto) 16.8 % 17.9 % Monocytes (%) (Auto) 7.9 % 8.0 % Eosinophils (%) (Auto) 0.5 % 0.5 % Basophils (%) (Auto) 0.1 % 0.1 % Neutrophils # (Auto) 8.03 K/uL 7.39 K/uL Lymphocytes # (Auto) 1.81 K/uL 1.81 K/uL Monocytes # (Auto) 0.85 K/uL 0.81 K/uL Eosinophils # (Auto) 0.05 K/uL 0.05 K/uL Basophils # (Auto) 0.01 K/uL 0.01 K/uL RDW Standard Deviation 39.4 fL 41.0 fL RDW Coefficient of Variation 12.8 % 13.1 % Immature Granulocyte % (Auto) 0.2 % 0.2 % Immature Granulocyte # (Auto) 0.02 K/uL 0.02 K/uL Prothrombin Time 12.5 SECONDS 12.5 SECONDS Prothromb Time International Ratio 1.2 1.2 Activated Partial Thromboplast Time 25.0 SECONDS 33.1 SECONDS Partial Thromboplastin Ratio 1.0 1.3 Sodium Level 141 mmol/L 143 mmol/L Potassium Level 3.4 mmol/L 3.6 mmol/L Chloride Level 111 mmol/L 113 mmol/L Carbon Dioxide Level 22 mmol/L 25 mmol/L Anion Gap 8.0 mmol/L 6.0 mmol/L Blood Urea Nitrogen 18 mg/dl 17 mg/dl Creatinine 1.10 mg/dl 1.00 mg/dl Est Creatinine Clear Calc Drug Dose 114.0 ml/min 125.4 ml/min Estimated GFR () 106.1 119.0 Estimated GFR (Non- 91.5 102.7 BUN/Creatinine Ratio 16.5 17.1 Random Glucose 109 mg/dl 100 mg/dl Calcium Level 8.9 mg/dl 8.4 mg/dl Phosphorus Level 3.5 mg/dl 3.4 mg/dl Magnesium Level 2.1 mg/dl 2.2 mg/dl Total Creatine Kinase 690 U/L Creatine Kinase MB 37.8 ng/ml Creatine Kinase MB Ratio 5.5 Troponin I 4.460 ng/ml Osmolality 303 mOsm/kg Bedside Glucose 93 mg/dl Blood Gas Sample Site Art Line Bedside Blood Gas pH (LAB) 7.37 Bedside Blood Gas pCO2 (LAB) 34 mmHg Bedside Blood Gas pO2 (LAB) 146 mmHg Bedside Blood Gas HCO3 (LAB) 20 meq/L Bedside Blood Gas Total CO2 22 mEq/l Bedside Blood Gas Base Excess (LAB) -6.0 meq/L Bedside Blood Gas O2 Saturation 99.0 % Mohan Test NA Oxygen Delivery Device Ventilator Bedside Oxygen Rate (breaths/min) 12 Blood Gas Minute Ventilation 6.4 Bedside FiO2 30 % Blood Gas Tidal Volume 6.4 Blood Gas PEEP 5 Test 08/22/16 14:00
[2016-08-22] MEDS: CISATRACURIUM BESYLATE INJ 40 MG in SODIUM CHLORIDE 0.9% 100ML 80 ML IV PRN (14:59)
[2016-08-22 16:23] LABS: BASO % 0.1 %; BASO ABS # 0.01 K/uL (0-0.2); COMPLETE YES; EOS % 0.5 %; HEMATOCRIT 42.1 % (42-52); IG% 0.2 %; LYMPH % 19.3 %; LYMPH ABS # 1.76 K/uL (1.2-3.4); MEAN CELL VOLUME 85.1 fL (80-100); MEAN CORPUSCULAR HEMOGLOBIN 27.7 pg (25-34); MEAN CORPUSCULAR HGB CONC 32.5 g/dl (32-36); MEAN PLATELET VOLUME 11.6 fL (7.4-10.4); MONO % 7.7 %; NEUT % 72.2 %; PLATELET COUNT 159 K/uL (130-400); RED BLOOD COUNT 4.95 M/uL (4.7-6.1); WHITE BLOOD COUNT 9.14 K/uL (4.8-10.8)
[2016-08-22 16:27] LABS: ISTAT ARTERIAL BLOOD GAS HCO3 19 meq/L (19-24); ISTAT ARTERIAL BLOOD GAS PCO2 31 mmHg (35-46); ISTAT ARTERIAL BLOOD GAS PO2 140 mmHg (80-95); ISTAT ARTERIAL BLOOD GAS pH 7.38 (7.35-7.45); ISTAT CARBON DIOXIDE 20 mEq/l (24-31); ISTAT DELIVERY SYSTEM Ventilator; ISTAT FIO2 30 %; ISTAT PEEP 5; ISTAT RATE 12; ISTAT SITE Art Line; VE 6.5; Vt 540
[2016-08-22 16:32] LABS: INR 1.2 (0.9-1.1); PARTIAL THROMBOPLASTIN RATIO 1.4; PROTHROMBIN TIME (PATIENT) 13.1 SECONDS (9.0-12.0)
--- NOTE | 2016-08-22 17:26 | Hospitalist Progress Note ---
Hospitalist Progress Note Date of Service August 22, 2016. Subjective Pt evaluation today including: physical exam, chart review s/p cardiac arrest now on hypothermia protocol. Medications Medications (Trade) Dose Ordered Sig/Shireen Route Start Time Stop Time Status Last Admin Dose Admin Fentanyl Citrate (Fentanyl Inj) 100 mcg STK-MED ONCE .ROUTE 08/21/16 14:48 08/21/16 14:49 DC 08/21/16 14:55 50 MCG Midazolam HCl (Versed Inj) 10 mg STK-MED ONCE .ROUTE 08/21/16 14:48 08/21/16 14:49 DC 08/21/16 14:55 5 MG Propofol (Diprivan Iv Emulsion 100ml Vial) 1 dose UD PRN IV 08/21/16 15:45 08/21/16 16:59 DC 08/21/16 15:57 1 DOSE Fentanyl Citrate (Fentanyl Inj) 50 mcg NOW STAT IV 08/21/16 16:01 08/21/16 16:03 DC 08/21/16 16:10 50 MCG Midazolam HCl 2.5 mg 2.5 mg NOW STAT IV 08/21/16 16:01 08/21/16 16:03 DC 08/21/16 16:09 2.5 MG Potassium Chloride/Sodium Chloride (Nss + 20meq KCl 1000ml) 1,000 ml @ 100 mls/hr Q10H IV 08/21/16 17:30 09/20/16 16:08 08/22/16 06:05 100 MLS/HR Midazolam HCl 5 mg 5 mg STK-MED ONCE .ROUTE 08/21/16 17:00 08/21/16 17:01 DC 08/21/16 17:43 5 MG Midazolam HCl 250 ml @ 0 mls/hr Q0M PRN IV 08/21/16 16:59 09/20/16 16:58 08/21/16 18:25 8 MLS/HR Cisatracurium Besylate 40 mg/ Sodium Chloride 100 ml @ 0 mls/hr Q0M PRN IV 08/21/16 17:15 09/20/16 17:14 08/21/16 17:44 11.1 MLS/HR Cisatracurium Besylate 10.5 mg/ Syringe 5.25 ml @ 1.05 mls/ min TODAY@1715 ONCE IV 08/21/16 17:15 08/21/16 17:19 DC 08/21/16 17:44 1.05 MLS/MIN Fentanyl Citrate (Fentanyl Drip 1250MCG/250 Nss) 250 ml @ 0 mls/hr Q0M PRN IV 08/21/16 17:15 09/04/16 17:14 08/21/16 18:08 10 MLS/HR Artificial Tears (Lacri-Lube Oph Oint) 1 appln Q2H PRN OPB 08/21/16 17:15 09/20/16 17:14 08/22/16 00:28 1 APPLN Meperidine HCl (Demerol Inj) 25 mg Q2H PRN IV 08/21/16 17:15 09/04/16 17:14 08/21/16 21:48 25 MG Heparin Sodium (Porcine) (Heparin Sq 5000 Unit/0.5ml) 5,000 unit Q8H SQ 08/21/16 22:00 09/20/16 21:59 08/22/16 05:40 5,000 UNIT Mannitol (Mannitol 25%) 50 gm TODAY@1915,1930 IV 08/21/16 19:15 08/21/16 19:16 DC 08/21/16 19:21 50 GM Ipratropium Seminary (Atrovent Hfa Inhaler) 4 puffs QIDR INH 08/21/16 20:20 09/20/16 20:19 08/22/16 07:35 4 PUFFS Albuterol 4 puffs 4 puffs QIDR INH 08/21/16 20:20 09/20/16 20:19 08/22/16 07:35 4 PUFFS Potassium Chloride 20 meq/ Prmx 100 ml @ 50 mls/hr Q2H IV 08/21/16 22:15 08/22/16 02:14 DC 08/22/16 00:28 50 MLS/HR Sodium Phosphate/ Sodium Chloride (Sodium Phosphate Inj/Nss 500ml) 507 ml @ 169 mls/hr TODAY@0530 IV 08/22/16 05:30 08/22/16 08:29 DC 08/22/16 05:38 169 MLS/HR Objective Vital Signs Date Time Temp Pulse Resp B/P Pulse Ox O2 Delivery O2 Flow Rate FiO2 08/22/16 11:49 30 08/22/16 11:00 33.2 55 12 117/64 100 Mechanical Ventilator 30 125/56 08/22/16 10:00 33.4 52 12 126/72 100 Mechanical Ventilator 30 133/60 08/22/16 09:00 33.2 50 16 129/74 100 Mechanical Ventilator 30 144/66 08/22/16 09:00 30 08/22/16 08:00 Mechanical Ventilator 30 08/22/16 08:00 100 Mechanical Ventilator 30 08/22/16 08:00 33.1 50 16 133/82 100 Mechanical Ventilator 30 153/71 08/22/16 08:00 30 08/22/16 07:36 30 08/22/16 06:53 33.2 49 16 138/82 100 Mechanical Ventilator 161/77 08/22/16 06:05 33.6 55 16 139/83 100 Mechanical Ventilator 169/76 08/22/16 05:40 30 08/22/16 04:50 34.0 52 16 136/81 100 Mechanical Ventilator 158/72 08/22/16 04:00 100 Mechanical Ventilator 15.0 30 08/22/16 04:00 30 08/22/16 04:00 34.5 56 16 147/79 100 156/76 08/22/16 03:45 30 08/22/16 03:09 34.9 57 18 143/71 100 Mechanical Ventilator 08/22/16 01:58 35.4 60 19 143/71 100 Mechanical Ventilator 152/79 08/22/16 01:54 35 08/22/16 01:44 35 08/22/16 01:01 35.7 62 19 144/69 100 Mechanical Ventilator 153/70 08/22/16 00:15 35 08/22/16 00:14 100 Mechanical Ventilator 35 08/21/16 23:59 36.1 61 18 132/76 100 Mechanical Ventilator 150/69 08/21/16 22:45 35.0 77 22 147/82 100 08/21/16 22:40 35 08/21/16 22:30 35.1 93 14 132/88 100 Mechanical Ventilator 35 08/21/16 22:18 34.2 105 22 202/88 100 Mechanical Ventilator 15.0 35 08/21/16 22:15 34.1 87 17 184/70 100 08/21/16 22:02 33.7 103 22 126/86 100 202/88 08/21/16 22:00 33.7 105 24 206/89 100 Mechanical Ventilator 35 126/86 08/21/16 22:00 33.7 94 21 206/89 100 Mechanical Ventilator 35 08/21/16 21:45 33.6 88 19 217/88 99 Mechanical Ventilator 35 08/21/16 21:30 33.8 88 19 174/91 99 Mechanical Ventilator 35 08/21/16 21:19 33.6 08/21/16 21:15 33.8 74 19 172/107 99 08/21/16 21:00 75 18 179/88 99 209/89 08/21/16 21:00 34.0 75 18 198/77 100 Mechanical Ventilator 35 08/21/16 21:00 34.0 75 18 179/88 99 Mechanical Ventilator 35 198/77 08/21/16 20:50 75 18 177/102 99 215/91 08/21/16 20:45 73 18 161/96 100 182/70 08/21/16 20:45 34.0 73 18 177/102 100 08/21/16 20:40 82 18 183/104 100 225/96 08/21/16 20:40 82 18 183/104 100 08/21/16 20:35 80 18 188/89 100 185/96 08/21/16 20:35 80 18 188/89 100 08/21/16 20:30 83 18 191/96 100 08/21/16 20:30 83 18 191/96 100 206/98 08/21/16 20:25 35 08/21/16 20:25 82 18 196/96 100 08/21/16 20:25 82 18 196/96 100 08/21/16 20:20 83 14 192/97 100 46/-50 08/21/16 20:15 80 18 189/93 100 214/99 08/21/16 20:15 80 18 189/93 100 214/99 08/21/16 20:15 34.6 80 18 189/93 100 08/21/16 20:10 82 18 190/101 100 219/98 08/21/16 20:10 82 18 219/98 100 08/21/16 20:05 80 18 178/95 100 214/93 08/21/16 20:00 100 Mechanical Ventilator 35 08/21/16 20:00 35 08/21/16 20:00 34.8 81 18 195/98 100 08/21/16 20:00 34.8 83 18 219/97 100 Mechanical Ventilator 40 183/93 08/21/16 20:00 34.8 81 18 195/98 100 218/95 08/21/16 19:30 35.6 89 18 176/103 100 08/21/16 19:25 81 18 215/100 100 08/21/16 19:20 79 19 189/93 100 08/21/16 19:15 35.6 77 19 172/97 100 08/21/16 19:10 82 20 179/100 100 08/21/16 19:05 91 21 187/88 100 08/21/16 19:00 35.8 91 18 239/92 100 08/21/16 19:00 35.8 91 18 239/92 100 Mechanical Ventilator 40 08/21/16 18:45 36.0 18 186/95 100 Mechanical Ventilator 40 08/21/16 18:00 36.8 71 18 168/80 100 08/21/16 18:00 36.8 71 18 168/80 100 Mechanical Ventilator 40 08/21/16 17:50 36.8 71 18 168/80 100 Mechanical Ventilator 40 08/21/16 17:49 36.5 79 18 156/98 99 Mechanical Ventilator 40 08/21/16 17:31 36.8 74 18 148/83 100 Mechanical Ventilator 40 08/21/16 17:15 36.6 93 18 125/63 100 08/21/16 17:00 36.6 86 18 159/69 100 Mechanical Ventilator 40 08/21/16 17:00 36.6 86 18 159/69 100 Mechanical Ventilator 15.0 40 08/21/16 16:45 36.5 79 18 156/98 99 Mechanical Ventilator 40 08/21/16 16:45 36.5 79 18 156/98 99 Mechanical Ventilator 40 08/21/16 16:29 36.3 73 18 139/71 100 08/21/16 16:15 36.2 66 18 132/70 100 Mechanical Ventilator 40 08/21/16 16:00 36.2 66 18 144/98 100 Mechanical Ventilator 08/21/16 15:45 36.3 65 18 136/97 100 Mechanical Ventilator 40 08/21/16 15:35 40 08/21/16 15:30 36.2 61 18 135/77 100 Mechanical Ventilator 40 08/21/16 15:22 58 08/21/16 15:15 36.2 08/21/16 15:15 36.2 61 18 128/70 99 Mechanical Ventilator 08/21/16 15:13 63 136/73 100 Mechanical Ventilator 100 08/21/16 14:56 62 20 114/72 100 Ambu-Bag 15.0 08/21/16 14:52 63 114/72 100 Mechanical Ventilator 100 Physical Exam Neck: supple Respiratory/Chest: chest non-tender, + decreased breath sounds, + pertinent finding (intubated.) Cardiovascular: regular rate, rhythm, no edema, + pertinent finding (LEs in SCDs) Abdomen: normal bowel sounds, non tender, soft Neurologic/Psychiatric: + pertinent finding (Sedated on vent) Laboratory Results Last 24 Hours Test 08/21/16 14:55 08/21/16 15:02 08/21/16 15:24 08/21/16 15:25 White Blood Count 17.00 K/uL Red Blood Count 5.35 M/uL Hemoglobin 15.5 g/dL Hematocrit 46.7 % Mean Corpuscular Volume 87.3 fL Mean Corpuscular Hemoglobin 29.0 pg Mean Corpuscular Hemoglobin Concent 33.2 g/dl Platelet Count 190 K/uL Mean Platelet Volume 12.3 fL Neutrophils (%) (Auto) 66.5 % Lymphocytes (%) (Auto) 29.8 % Monocytes (%) (Auto) 2.6 % Eosinophils (%) (Auto) 0.5 % Basophils (%) (Auto) 0.1 % Neutrophils # (Auto) 11.28 K/uL Lymphocytes # (Auto) 5.07 K/uL Monocytes # (Auto) 0.45 K/uL Eosinophils # (Auto) 0.09 K/uL Basophils # (Auto) 0.02 K/uL RDW Standard Deviation 41.8 fL RDW Coefficient of Variation 13.1 % Immature Granulocyte % (Auto) 0.5 % Immature Granulocyte # (Auto) 0.09 K/uL Prothrombin Time 11.9 SECONDS Prothromb Time International Ratio 1.1 Activated Partial Thromboplast Time 24.6 SECONDS Partial Thromboplastin Ratio 0.9 Sodium Level 140 mmol/L Potassium Level 4.2 mmol/L Chloride Level 107 mmol/L Carbon Dioxide Level 21 mmol/L Anion Gap 12.0 mmol/L 23.0 mmol/L Blood Urea Nitrogen 18 mg/dl Creatinine 1.70 mg/dl Est Creatinine Clear Calc Drug Dose 83.0 ml/min Estimated GFR () 62.7 Estimated GFR (Non- 54.1 BUN/Creatinine Ratio 10.4 Random Glucose 149 mg/dl Calcium Level 9.2 mg/dl Total Bilirubin 0.9 mg/dl Direct Bilirubin 0.2 mg/dl Aspartate Amino Transf (AST/SGOT) 390 U/L Alanine Aminotransferase (ALT/SGPT) 575 U/L Alkaline Phosphatase 98 U/L Total Creatine Kinase 275 U/L Creatine Kinase MB 5.2 ng/ml Creatine Kinase MB Ratio 1.9 Troponin I 0.241 ng/ml Total Protein 7.8 gm/dl Albumin 4.2 gm/dl Bedside Hemoglobin 15.6 g/dl Bedside Hematocrit 46 % Bedside Sodium 141 mEq/L Bedside Potassium 4.1 mEq/L Bedside Chloride 103 mEq/L Bedside Total CO2 20 mEq/l Bedside Blood Urea Nitrogen 18 mg/dl Bedside Creatinine 1.5 mg/dl Bedside Glucose (other) 151 mg/dl Bedside Ionized Calcium (Laura) 1.15 mmol/l Ethyl Alcohol mg/dL < 3.0 mg/dl Urine Color YELLOW Urine Appearance TURBID Urine pH 6.5 Urine Specific [place] 1.023 Urine Protein 3+ Urine Glucose (UA) NEG Urine Ketones NEG Urine Occult Blood 1+ Urine Nitrite NEG Urine Bilirubin NEG Urine Urobilinogen NEG Urine Leukocyte Esterase NEG Urine WBC (Auto) >30 /hpf Urine RBC (Auto) 0-4 /hpf Urine Hyaline Casts (Auto) 1-5 /lpf Urine Epithelial Cells (Auto) >30 /lpf Urine Bacteria (Auto) 1+ Urine Pathogenic Casts 1-5 GRANULAR CASTS /lpf Urine Yeast (Auto) Urine Sperm (Auto) PRESENT Urine Opiates Screen NEG Urine Methadone, Qualitative NEG Urine Barbiturates NEG Urine Phencyclidine (PCP) Level NEG Ur Amphetamine/Methamphetamine NEG MDMA (Ecstasy) Screen NEG Urine Benzodiazepines Screen NEG Urine Cocaine Metabolite NEG Urine Marijuana (THC) NEG Test 08/21/16 15:28 08/21/16 17:04 08/21/16 19:21 08/21/16 19:55 Bedside Blood Gas pH (LAB) 7.25 Bedside Blood Gas pCO2 (LAB) 59 mmHg Bedside Blood Gas pO2 (LAB) > 420 mmHg Bedside Blood Gas HCO3 (LAB) 26 meq/L Bedside Blood Gas Total CO2 28 mEq/l Bedside Blood Gas Base Excess (LAB) -1.0 meq/L Bedside Blood Gas O2 Saturation 100.0 % Creatine Kinase MB Ratio Arterial Blood pH 7.41 Arterial Blood Partial Pressure CO2 34 mmHg Arterial Blood Partial Pressure O2 209 mm/Hg Arterial Blood HCO3 21 mmol/L Arterial Blood Oxygen Saturation 99.6 % Arterial Blood Base Excess -2.8 mEq/L Arterial Blood Gas Delivery 40 PERCENT Mohan Test UNK Sodium Level 139 mmol/L Osmolality 292 mOsm/kg Lactic Acid Level 2.2 mmol/L Calcium Level 9.2 mg/dl Creatine Kinase MB 25.6 ng/ml Troponin I 4.220 ng/ml Hepatitis B Surface Antigen NEG Hepatitis C Antibody NEG Test 08/21/16 20:23 08/21/16 21:16 08/21/16 21:20 08/21/16 23:39 Blood Gas Sample Site Art Line Art Line Bedside Blood Gas pH (LAB) 7.32 7.34 Bedside Blood Gas pCO2 (LAB) 36 mmHg 35 mmHg Bedside Blood Gas pO2 (LAB) 196 mmHg 179 mmHg Bedside Blood Gas HCO3 (LAB) 19 meq/L 19 meq/L Bedside Blood Gas Total CO2 20 mEq/l 20 mEq/l Bedside Blood Gas Base Excess (LAB) -8.0 meq/L -7.0 meq/L Bedside Blood Gas O2 Saturation 100.0 % 100.0 % Mohan Test NA NA Oxygen Delivery Device Ventilator Ventilator Bedside Oxygen Rate (breaths/min) 18 18 Blood Gas Minute Ventilation 10.8 10.9 Bedside FiO2 40 % 35 % Blood Gas Tidal Volume 600 600 Blood Gas PEEP 5 5 Bedside Glucose 139 mg/dl Potassium Level 3.7 mmol/L Magnesium Level 2.1 mg/dl Creatine Kinase MB 32.2 ng/ml Creatine Kinase MB Ratio Troponin I 5.420 ng/ml Test 08/21/16 23:45 08/22/16 00:09 08/22/16 03:36 08/22/16 04:20 White Blood Count 15.35 K/uL 14.12 K/uL Red Blood Count 5.27 M/uL 5.36 M/uL Hemoglobin 15.4 g/dL 15.2 g/dL Hematocrit 45.0 % 45.3 % Mean Corpuscular Volume 85.4 fL 84.5 fL Mean Corpuscular Hemoglobin 29.2 pg 28.4 pg Mean Corpuscular Hemoglobin Concent 34.2 g/dl 33.6 g/dl Platelet Count 183 K/uL 178 K/uL Mean Platelet Volume 12.0 fL 11.5 fL Neutrophils (%) (Auto) 88.0 % 78.7 % Lymphocytes (%) (Auto) 5.9 % 13.5 % Monocytes (%) (Auto) 5.7 % 7.5 % Eosinophils (%) (Auto) 0.0 % 0.0 % Basophils (%) (Auto) 0.1 % 0.0 % Neutrophils # (Auto) 13.52 K/uL 11.11 K/uL Lymphocytes # (Auto) 0.91 K/uL 1.91 K/uL Monocytes # (Auto) 0.87 K/uL 1.06 K/uL Eosinophils # (Auto) 0.00 K/uL 0.00 K/uL Basophils # (Auto) 0.01 K/uL 0.00 K/uL RDW Standard Deviation 40.6 fL 39.1 fL RDW Coefficient of Variation 12.9 % 12.8 % Immature Granulocyte % (Auto) 0.3 % 0.3 % Immature Granulocyte # (Auto) 0.04 K/uL 0.04 K/uL Prothrombin Time 11.7 SECONDS 11.8 SECONDS Prothromb Time International Ratio 1.1 1.1 Activated Partial Thromboplast Time 25.1 SECONDS 28.2 SECONDS Partial Thromboplastin Ratio 1.0 1.1 Sodium Level 139 mmol/L 140 mmol/L Potassium Level 5.0 mmol/L 4.0 mmol/L Chloride Level 108 mmol/L 111 mmol/L Carbon Dioxide Level 22 mmol/L 22 mmol/L Anion Gap 9.0 mmol/L 7.0 mmol/L Blood Urea Nitrogen 20 mg/dl 20 mg/dl Creatinine 1.50 mg/dl 1.30 mg/dl Est Creatinine Clear Calc Drug Dose 83.6 ml/min 96.4 ml/min Estimated GFR () 72.9 86.7 Estimated GFR (Non- 62.9 74.8 BUN/Creatinine Ratio 13.1 15.0 Random Glucose 122 mg/dl 111 mg/dl Osmolality 289 mOsm/kg Calcium Level 8.4 mg/dl 8.7 mg/dl Phosphorus Level 3.0 mg/dl 1.5 mg/dl Magnesium Level 2.2 mg/dl 2.2 mg/dl Total Creatine Kinase 584 U/L Creatine Kinase MB 34.5 ng/ml Creatine Kinase MB Ratio 5.9 Troponin I 4.450 ng/ml Blood Gas Sample Site Art Line Bedside Blood Gas pH (LAB) 7.44 Bedside Blood Gas pCO2 (LAB) 28 mmHg Bedside Blood Gas pO2 (LAB) 175 mmHg Bedside Blood Gas HCO3 (LAB) 20 meq/L Bedside Blood Gas Total CO2 21 mEq/l Bedside Blood Gas Base Excess (LAB) -5.0 meq/L Bedside Blood Gas O2 Saturation 100.0 % Mohan Test NA Oxygen Delivery Device Ventilator Bedside Oxygen Rate (breaths/min) 8 Blood Gas Minute Ventilation 10.7 Bedside FiO2 35 % Blood Gas Tidal Volume 600 Blood Gas PEEP 5 Total Bilirubin 1.1 mg/dl Direct Bilirubin 0.2 mg/dl Aspartate Amino Transf (AST/SGOT) 255 U/L Alanine Aminotransferase (ALT/SGPT) 426 U/L Alkaline Phosphatase 86 U/L Total Protein 7.1 gm/dl Albumin 3.8 gm/dl Lipase 66 U/L Test 08/22/16 06:00 08/22/16 06:09 08/22/16 08:04 08/22/16 08:30 Creatine Kinase MB Ratio Sodium Level 141 mmol/L Osmolality 290 mOsm/kg Creatine Kinase MB 38.8 ng/ml Troponin I 4.990 ng/ml Bedside Glucose 86 mg/dl Blood Gas Sample Site Art Line Bedside Blood Gas pH (LAB) 7.45 Bedside Blood Gas pCO2 (LAB) 26 mmHg Bedside Blood Gas pO2 (LAB) 157 mmHg Bedside Blood Gas HCO3 (LAB) 19 meq/L Bedside Blood Gas Total CO2 20 mEq/l Bedside Blood Gas Base Excess (LAB) -6.0 meq/L Bedside Blood Gas O2 Saturation 100.0 % Mohan Test NA Oxygen Delivery Device Ventilator Bedside Oxygen Rate (breaths/min) 16 Blood Gas Minute Ventilation 8.8 Bedside FiO2 30 % Blood Gas Tidal Volume 600 Blood Gas PEEP 5 Test 08/22/16 09:19 08/22/16 12:01 08/22/16 12:02 White Blood Count 10.77 K/uL Red Blood Count 5.25 M/uL Hemoglobin 14.7 g/dL Hematocrit 44.6 % Mean Corpuscular Volume 85.0 fL Mean Corpuscular Hemoglobin 28.0 pg Mean Corpuscular Hemoglobin Concent 33.0 g/dl Platelet Count 134 K/uL Mean Platelet Volume 11.6 fL Neutrophils (%) (Auto) 74.5 % Lymphocytes (%) (Auto) 16.8 % Monocytes (%) (Auto) 7.9 % Eosinophils (%) (Auto) 0.5 % Basophils (%) (Auto) 0.1 % Neutrophils # (Auto) 8.03 K/uL Lymphocytes # (Auto) 1.81 K/uL Monocytes # (Auto) 0.85 K/uL Eosinophils # (Auto) 0.05 K/uL Basophils # (Auto) 0.01 K/uL RDW Standard Deviation 39.4 fL RDW Coefficient of Variation 12.8 % Immature Granulocyte % (Auto) 0.2 % Immature Granulocyte # (Auto) 0.02 K/uL Prothrombin Time 12.5 SECONDS 12.5 SECONDS Prothromb Time International Ratio 1.2 1.2 Activated Partial Thromboplast Time 25.0 SECONDS 33.1 SECONDS Partial Thromboplastin Ratio 1.0 1.3 Sodium Level 141 mmol/L 143 mmol/L Potassium Level 3.4 mmol/L 3.6 mmol/L Chloride Level 111 mmol/L 113 mmol/L Carbon Dioxide Level 22 mmol/L 25 mmol/L Anion Gap 8.0 mmol/L 6.0 mmol/L Blood Urea Nitrogen 18 mg/dl 17 mg/dl Creatinine 1.10 mg/dl 1.00 mg/dl Est Creatinine Clear Calc Drug Dose 114.0 ml/min 125.4 ml/min Estimated GFR () 106.1 119.0 Estimated GFR (Non- 91.5 102.7 BUN/Creatinine Ratio 16.5 17.1 Random Glucose 109 mg/dl 100 mg/dl Calcium Level 8.9 mg/dl 8.4 mg/dl Phosphorus Level 3.5 mg/dl 3.4 mg/dl Magnesium Level 2.1 mg/dl 2.2 mg/dl Total Creatine Kinase 690 U/L Creatine Kinase MB 37.8 ng/ml Creatine Kinase MB Ratio 5.5 Troponin I 4.460 ng/ml Bedside Glucose 93 mg/dl Diagnostic Results [~ rep ct add3]] CHEST ONE VIEW PORTABLE CLINICAL HISTORY: cardiac arrest, acute reps failure dyspnea COMPARISON STUDY: 08/21/2016 FINDINGS: Lungs are clear. An endotracheal tube is present 3.5 cm above the al. Diaphragms are smooth. Central catheter in superior vena cava. Nasogastric tube within the stomach. IMPRESSION: Lungs are clear. Endotracheal tube 3.5 cm above the al. Electronically signed by: Spencer Dalton M.D. 08/22/2016 7:05 AM Dictated Date/Time: 08/22/2016 7:03 AM Interpretation Summary * Name: NONA MARRUFO [id number] Study Date: 08/21/2016 07:33 PM BP: 176/103 mmHg * Patient Location: [facility] [place]\S\E104\S\1 HR: 89 * : 1990 (M/d/yyyy) Gender: Male Height: 73 in * Age: 26 yrs Ethnicity: AA Weight: 231 lb * Ordering Physician: Ankit Cutler * Referring Physician: Jr SIMONS * Performed By: Barb Rachel RDCS * * Reason For Study: Cardiac arrest * BSA: 2.3 m2 * -- Conclusions -- * The echo findings are consistent with hypertrophic cardiomyopathy. * Left ventricular systolic function is normal. Procedure Details * A complete two-dimensional transthoracic echocardiogram was performed (2D, M-mode, Doppler and color flow Doppler). Left Ventricle * The left ventricle is normal in size. * The echo findings are consistent with hypertrophic cardiomyopathy. * There is severe concentric left ventricular hypertrophy. * Ejection Fraction = >70 %. * Left ventricular systolic function is normal. Right Ventricle * The right ventricle is normal in size and function. Atria * The left atrial size is normal. * Right atrial size is normal. Mitral Valve * The mitral valve is grossly normal. * Significant mitral regurgitation is absent. Aortic Valve * Probably trileaflet. * No hemodynamically significant valvular aortic stenosis. * No aortic regurgitation is present. Pericardium/Pleural * There is no pericardial effusion. Assessment and Plan s/p cardiac arrest likely secondary to ventricular arrhythmia (VT, likely). Continue with vent support. Hypothermia protocol per Miller Supervisor. Echo results noted-HOCM. Beta fatemeh therapy initiated by Cardiology. Condition critical.
[2016-08-22 18:50] LABS: BUN/CREATININE RATIO 17.3 (10-20); CALCIUM 8.4 mg/dl (8.5-10.1); CREATININE 0.94 mg/dl (0.60-1.40); MAGNESIUM 2.2 mg/dl (1.8-2.4); PHOSPHORUS 2.8 mg/dl (2.5-4.9)
--- NOTE | 2016-08-22 18:50 | CARDIOLOGY PROGRESS NOTE ---
DATE: 08/22/2016 Mr. Spear remains intubated, sedated and paralyzed; undergoing cooling protocol. He has had a neurologic evaluation and EEG was also performed. He has not had any recurrent arrhythmia on telemetry. PHYSICAL EXAMINATION: VITAL SIGNS: Currently included a blood pressure of 121/61, pulse of 48. LUNGS: Auscultation of his lungs revealed them to be clear. CARDIAC EXAMINATION: Revealed him to be in a regular rhythm. I do not appreciate any murmurs. I did review patient's echocardiogram from yesterday revealing hypertrophic cardiomyopathy. LABORATORY STUDIES: Currently include a white cell count of 9.1, hemoglobin of 13.7 and a platelet count of 159. Sodium is 141; potassium was 3.4, later 3.6; creatinine was 1.1; BUN was 18. ASSESSMENT AND PLAN: 1. Cardiac arrest, due to patient's underlying hypertrophic cardiomyopathy. While we did not download the records from automated external defibrillator used on the scene, it is very likely that this was a ventricular fibrillation arrest. At this point, we are waiting evidence of neurologic recovery, which may be more easily evaluated once he has been rewarmed. Currently, his prognosis appears poor based on the objective information obtained. Ideally, patient would be on a beta fatemeh as well but given his relative bradycardia, I would omit this currently. Should he survive this incident and have some full neurologic recovery, we will consider implantable cardioverter defibrillator implantation. 2. Hypertrophic cardiomyopathy, this is the substory behind patient's cardiac arrest. There was no gradient or evidence of systolic anterior motion of the mitral valve. There was no mitral regurgitation noted. The patient's first degree relative should be screened for hypertrophic cardiomyopathy.
[2016-08-22 18:51] LABS: POTASSIUM 4.5 mmol/L (3.5-5.1)
[2016-08-22 19:57] LABS: BASO % 0.1 %; BASO ABS # 0.01 K/uL (0-0.2); COMPLETE YES; EOS % 0.8 %; HEMATOCRIT 44.4 % (42-52); IG% 0.1 %; LYMPH % 20.7 %; MEAN CORPUSCULAR HEMOGLOBIN 28.5 pg (25-34); MEAN CORPUSCULAR HGB CONC 33.1 g/dl (32-36); MEAN PLATELET VOLUME 11.9 fL (7.4-10.4); MONO % 5.6 %; NEUT % 72.7 %; PLATELET COUNT 146 K/uL (130-400); RED BLOOD COUNT 5.16 M/uL (4.7-6.1); WHITE BLOOD COUNT 9.18 K/uL (4.8-10.8)
[2016-08-22 20:06] LABS: INR 1.2 (0.9-1.1); PARTIAL THROMBOPLASTIN RATIO 1.7; PROTHROMBIN TIME (PATIENT) 13.2 SECONDS (9.0-12.0)
[2016-08-22 20:18] LABS: BUN/CREATININE RATIO 16.4 (10-20); CALCIUM 8.4 mg/dl (8.5-10.1); MAGNESIUM 2.1 mg/dl (1.8-2.4); PHOSPHORUS 2.6 mg/dl (2.5-4.9)
[2016-08-22 20:20] LABS: POTASSIUM 6.1 mmol/L (3.5-5.1)
[2016-08-22 20:21] LABS: ISTAT ARTERIAL BLOOD GAS HCO3 20 meq/L (19-24); ISTAT ARTERIAL BLOOD GAS PCO2 43 mmHg (35-46); ISTAT ARTERIAL BLOOD GAS PO2 111 mmHg (80-95); ISTAT ARTERIAL BLOOD GAS pH 7.24 (7.35-7.45); ISTAT CARBON DIOXIDE 22 mEq/l (24-31); ISTAT DELIVERY SYSTEM Ventilator; ISTAT FIO2 30 %; ISTAT PEEP 5; ISTAT RATE 8; ISTAT SITE Art Line; VE 4.3; Vt 600
[2016-08-22] MEDS ORDERED: HYDROmorphone INJ 1 MG/ML SYR IV PRN (20:30)
[2016-08-22] MEDS ORDERED: ACETAMINOPHEN 650 MG SUPP PR PRN (20:30)
--- NOTE | 2016-08-22 21:04 | DIAGNOSTIC IMAGING REPORT ---
HEAD CT NONCONTRAST CT DOSE: 614.27 mGy.cm HISTORY: Cardiac arrest. Loss of consciousness. TECHNIQUE: Multiaxial CT images of the head were performed without the use of intravenous contrast. Automated exposure control was utilized for this study. Comparison: Head CT 08/21/2016. Findings: The paranasal sinuses and mastoid air cells are clear. The calvarium and skull base are intact. The ventricles and sulci are within normal limits. There is no mass, hematoma, midline shift, or acute infarct. Impression: No acute intracranial abnormality. Electronically signed by: Darrell Hough M.D. 08/22/2016 9:03 PM Dictated Date/Time: 08/22/2016 8:58 PM
[2016-08-22] MEDS ORDERED: NURSING VERBAL MED ORDER ONE (22:30)
[2016-08-22] MEDS: SODIUM CHLORIDE 0.9% 1000ML 1,000 ML IV SCH (22:44)
[2016-08-23] VITALS (24 sets, daily range): BP systolic 110–184; BP diastolic 51–93; PULSE 61–118; TEMP 33.2–39.3; O2SAT 100
[2016-08-23 00:08] LABS: ISTAT ARTERIAL BLOOD GAS HCO3 18 meq/L (19-24); ISTAT ARTERIAL BLOOD GAS PCO2 36 mmHg (35-46); ISTAT ARTERIAL BLOOD GAS PO2 108 mmHg (80-95); ISTAT ARTERIAL BLOOD GAS pH 7.29 (7.35-7.45); ISTAT CARBON DIOXIDE 20 mEq/l (24-31); ISTAT DELIVERY SYSTEM Ventilator; ISTAT FIO2 30 %; ISTAT PEEP 5; ISTAT RATE 12; ISTAT SITE Art Line; VE 6.6; Vt 600
[2016-08-23 00:11] LABS: COMPLETE YES; EOS % 0.2 %; HEMATOCRIT 41.5 % (42-52); IG% 0.1 %; LYMPH % 6.5 %; LYMPH ABS # 0.66 K/uL (1.2-3.4); MEAN CELL VOLUME 86.1 fL (80-100); MEAN CORPUSCULAR HEMOGLOBIN 28.6 pg (25-34); MEAN CORPUSCULAR HGB CONC 33.3 g/dl (32-36); MEAN PLATELET VOLUME 11.7 fL (7.4-10.4); MONO % 5.2 %; PLATELET COUNT 137 K/uL (130-400); RED BLOOD COUNT 4.82 M/uL (4.7-6.1); WHITE BLOOD COUNT 10.14 K/uL (4.8-10.8)
[2016-08-23 00:23] LABS: INR 1.2 (0.9-1.1); PARTIAL THROMBOPLASTIN RATIO 1.5; PROTHROMBIN TIME (PATIENT) 13.4 SECONDS (9.0-12.0)
[2016-08-23 00:34] LABS: BUN/CREATININE RATIO 15.8 (10-20); CALCIUM 8.1 mg/dl (8.5-10.1); CREATININE 1.1 mg/dl (0.60-1.40); PHOSPHORUS 2.1 mg/dl (2.5-4.9); POTASSIUM 4.9 mmol/L (3.5-5.1)
[2016-08-23 03:55] LABS: ISTAT ARTERIAL BLOOD GAS HCO3 20 meq/L (19-24); ISTAT ARTERIAL BLOOD GAS PCO2 41 mmHg (35-46); ISTAT ARTERIAL BLOOD GAS PO2 124 mmHg (80-95); ISTAT ARTERIAL BLOOD GAS pH 7.28 (7.35-7.45); ISTAT CARBON DIOXIDE 21 mEq/l (24-31); ISTAT DELIVERY SYSTEM Ventilator; ISTAT FIO2 30 %; ISTAT PEEP 5; ISTAT RATE 12; ISTAT SITE Art Line; VE 6.4; Vt 600
[2016-08-23] MEDS: MIDAZOLAM 125MG/250ML D5W 250 ML IV PRN (04:13)
[2016-08-23 04:16] LABS: COMPLETE YES; EOS % 0.2 %; HEMATOCRIT 42.6 % (42-52); IG% 0.2 %; LYMPH % 6.5 %; LYMPH ABS # 0.72 K/uL (1.2-3.4); MEAN CELL VOLUME 85.9 fL (80-100); MEAN CORPUSCULAR HEMOGLOBIN 27.8 pg (25-34); MEAN CORPUSCULAR HGB CONC 32.4 g/dl (32-36); MONO % 6.3 %; NEUT % 86.8 %; PLATELET COUNT 153 K/uL (130-400); RED BLOOD COUNT 4.96 M/uL (4.7-6.1); WHITE BLOOD COUNT 11.08 K/uL (4.8-10.8)
[2016-08-23 04:36] LABS: CALCIUM 8.6 mg/dl (8.5-10.1); CREATININE 1.2 mg/dl (0.60-1.40); POTASSIUM 4.8 mmol/L (3.5-5.1)
[2016-08-23 04:47] LABS: PHOSPHORUS 2.9 mg/dl (2.5-4.9)
[2016-08-23 05:04] LABS: INR 1.2 (0.9-1.1); PARTIAL THROMBOPLASTIN RATIO 1.4; PROTHROMBIN TIME (PATIENT) 12.8 SECONDS (9.0-12.0)
[2016-08-23] MEDS: CISATRACURIUM BESYLATE INJ 40 MG in SODIUM CHLORIDE 0.9% 100ML 80 ML IV PRN (05:49)
[2016-08-23] MEDS: HEPARIN SOD 5000 UNIT/0.5 ML CARP SQ SCH ×3 (05:50→21:25)
[2016-08-23] MEDS: ALBUTEROL HFA 8 GM INHALER INH SCH ×4 (07:23→19:39)
[2016-08-23] MEDS: IPRATROPIUM BROMIDE HFA INHALER INH SCH (07:23)
[2016-08-23] MEDS: SODIUM CHLORIDE 0.9% 1000ML 1,000 ML IV SCH ×2 (07:32→16:45)
[2016-08-23 08:01] LABS: BASO % 0.1 %; BASO ABS # 0.01 K/uL (0-0.2); COMPLETE YES; EOS % 0.2 %; HEMATOCRIT 44.5 % (42-52); IG% 0.3 %; LYMPH % 8.3 %; LYMPH ABS # 0.96 K/uL (1.2-3.4); MEAN CELL VOLUME 86.4 fL (80-100); MEAN CORPUSCULAR HEMOGLOBIN 27.8 pg (25-34); MEAN CORPUSCULAR HGB CONC 32.1 g/dl (32-36); MEAN PLATELET VOLUME 12.1 fL (7.4-10.4); MONO % 5.8 %; NEUT % 85.3 %; PLATELET COUNT 162 K/uL (130-400); RED BLOOD COUNT 5.15 M/uL (4.7-6.1); WHITE BLOOD COUNT 11.63 K/uL (4.8-10.8)
[2016-08-23 08:09] LABS: ISTAT ARTERIAL BLOOD GAS HCO3 21 meq/L (19-24); ISTAT ARTERIAL BLOOD GAS PCO2 42 mmHg (35-46); ISTAT ARTERIAL BLOOD GAS PO2 137 mmHg (80-95); ISTAT ARTERIAL BLOOD GAS pH 7.29 (7.35-7.45); ISTAT CARBON DIOXIDE 23 mEq/l (24-31); ISTAT DELIVERY SYSTEM Ventilator; ISTAT FIO2 30 %; ISTAT PEEP 5; ISTAT RATE 12; ISTAT SITE Art Line; VE 6.5; Vt 600
[2016-08-23 08:14] LABS: INR 1.2 (0.9-1.1); PARTIAL THROMBOPLASTIN RATIO 1.4; PROTHROMBIN TIME (PATIENT) 12.7 SECONDS (9.0-12.0)
--- NOTE | 2016-08-23 08:18 | DIAGNOSTIC IMAGING REPORT ---
CHEST ONE VIEW PORTABLE HISTORY: intubation COMPARISON: Chest 08/22/2016. FINDINGS: The endotracheal tube terminates 4.1 cm from the al. Nasogastric tube terminates in the stomach. No pneumothorax. No pleural effusions. The heart remains mildly enlarged. There is mild central pulmonary vascular congestion without overt edema. IMPRESSION: 1. Satisfactory support line placement. 2. Mild central pulmonary vascular congestion without overt edema. Electronically signed by: Darrell Hough M.D. 08/23/2016 8:17 AM Dictated Date/Time: 08/23/2016 8:16 AM
[2016-08-23 08:22] LABS: BUN/CREATININE RATIO 14.4 (10-20); CREATININE 1.2 mg/dl (0.60-1.40); MAGNESIUM 1.9 mg/dl (1.8-2.4); PHOSPHORUS 2.1 mg/dl (2.5-4.9); POTASSIUM 6.3 mmol/L (3.5-5.1)
[2016-08-23 08:27] LABS: CALCIUM 8.4 mg/dl (8.5-10.1)
[2016-08-23] MEDS ORDERED: NURSING VERBAL MED ORDER ONE ×5 (09:00→23:15)
[2016-08-23] MEDS ORDERED: MAGNESIUM SULFATE 1GM / D5W 1 GM in PREMIXED IN D5W 100 ML IV ONE (09:15)
[2016-08-23] MEDS ORDERED: DEXTROSE 50% 50 ML SYR IV SCH (09:15)
[2016-08-23] MEDS ORDERED: INSULIN HUMAN REGULAR PER UNIT 10 UNITS in SYRINGE 9.9 ML IV SCH (09:30)
[2016-08-23] MEDS ORDERED: INSULIN IV INFUSION PROTOCOL STA ×2 (10:05→10:23)
[2016-08-23] MEDS ORDERED: D5W AND NSS 1,000 ML IV SCH (10:15)
--- NOTE | 2016-08-23 10:23 | Neurology Progress Notes ---
Neurology Progress Note Date of Service August 23, 2016. Subjective Patient is warmed to 35.2 currently and has been off paralyzing agents and 0920 hours. He is still on fentanyl and Versed. CT scan of the head was unremarkable last evening. Nursing reports no abnormal involuntary movements, no significant response to stimuli except for some gag or cough to suctioning and no significant activity. Objective Date Time Temp Pulse Resp B/P Pulse Ox O2 Delivery O2 Flow Rate FiO2 08/23/16 09:00 35.1 72 20 151/84 100 Mechanical Ventilator 169/75 08/23/16 09:00 35.1 72 20 151/84 100 Mechanical Ventilator 169/75 08/23/16 08:35 21 08/23/16 08:00 100 Mechanical Ventilator 30 08/23/16 08:00 34.9 72 12 143/68 100 Mechanical Ventilator 144/60 08/23/16 08:00 30 08/23/16 07:40 30 08/23/16 07:00 34.5 65 12 135/73 100 Mechanical Ventilator 131/63 08/23/16 07:00 34.5 65 12 135/73 100 Mechanical Ventilator 131/63 08/23/16 06:00 34.4 67 12 132/60 100 Mechanical Ventilator 30 130/60 08/23/16 05:15 30 08/23/16 05:00 34.4 68 12 136/64 100 Mechanical Ventilator 30 136/62 08/23/16 04:00 100 Mechanical Ventilator 30 08/23/16 04:00 34.3 64 12 127/65 100 Mechanical Ventilator 30 08/23/16 04:00 30 08/23/16 04:00 34.3 64 12 127/65 100 Mechanical Ventilator 138/61 08/23/16 03:00 34.3 64 12 129/60 100 Mechanical Ventilator 131/62 08/23/16 03:00 34.3 64 12 124/69 100 Mechanical Ventilator 131/62 08/23/16 02:52 30 08/23/16 02:00 34.1 65 12 121/66 100 Mechanical Ventilator 30 128/60 08/23/16 01:12 33.9 64 12 122/63 100 Mechanical Ventilator 125/59 08/23/16 01:00 33.9 64 12 122/63 100 Mechanical Ventilator 125/69 08/23/16 00:01 33.2 61 12 123/68 100 Mechanical Ventilator 30 130/63 08/23/16 00:01 33.2 61 12 123/68 100 Mechanical Ventilator 130/63 08/22/16 23:59 100 Mechanical Ventilator 30 08/22/16 23:59 30 08/22/16 23:27 32.4 55 12 134/75 99 Mechanical Ventilator 08/22/16 23:05 30 08/22/16 23:00 32.4 55 12 134/75 99 Mechanical Ventilator 132/63 08/22/16 22:00 53 12 101/59 100 91/45 08/22/16 22:00 31.7 46 12 103/54 100 Mechanical Ventilator 30 114/58 08/22/16 21:05 31.6 52 12 103/61 100 Mechanical Ventilator 103/53 08/22/16 20:00 30 08/22/16 20:00 100 Mechanical Ventilator 30 08/22/16 20:00 31.5 51 8 111/56 100 Mechanical Ventilator 30 102/47 08/22/16 19:45 30 08/22/16 19:00 31.6 47 8 112/59 100 Mechanical Ventilator 30 101/51 08/22/16 18:00 31.9 44 8 112/60 100 Mechanical Ventilator 30 114/56 08/22/16 17:15 30 08/22/16 17:10 30 08/22/16 17:00 32.2 48 112/67 100 Mechanical Ventilator 30 121/61 08/22/16 16:00 30 08/22/16 16:00 32.4 46 8 123/70 100 Mechanical Ventilator 30 115/60 08/22/16 16:00 100 Mechanical Ventilator 30 08/22/16 15:15 32.8 08/22/16 15:00 32.8 48 12 115/66 100 Mechanical Ventilator 30 125/62 08/22/16 14:30 30 08/22/16 14:00 33.0 50 12 112/63 100 Mechanical Ventilator 30 120/57 08/22/16 13:00 33.3 55 12 119/60 100 Mechanical Ventilator 30 113/57 08/22/16 12:00 100 Mechanical Ventilator 30 08/22/16 12:00 30 08/22/16 12:00 33.4 55 12 123/60 100 Mechanical Ventilator 30 124/56 08/22/16 11:49 30 08/22/16 11:00 33.2 55 12 117/64 100 Mechanical Ventilator 30 125/56 Last 24 Hours Test 08/22/16 12:01 08/22/16 12:02 08/22/16 12:42 08/22/16 14:00 White Blood Count 10.09 K/uL Red Blood Count 5.05 M/uL Hemoglobin 14.4 g/dL Hematocrit 43.2 % Mean Corpuscular Volume 85.5 fL Mean Corpuscular Hemoglobin 28.5 pg Mean Corpuscular Hemoglobin Concent 33.3 g/dl Platelet Count 154 K/uL Mean Platelet Volume 12.5 fL Neutrophils (%) (Auto) 73.3 % Lymphocytes (%) (Auto) 17.9 % Monocytes (%) (Auto) 8.0 % Eosinophils (%) (Auto) 0.5 % Basophils (%) (Auto) 0.1 % Neutrophils # (Auto) 7.39 K/uL Lymphocytes # (Auto) 1.81 K/uL Monocytes # (Auto) 0.81 K/uL Eosinophils # (Auto) 0.05 K/uL Basophils # (Auto) 0.01 K/uL RDW Standard Deviation 41.0 fL RDW Coefficient of Variation 13.1 % Immature Granulocyte % (Auto) 0.2 % Immature Granulocyte # (Auto) 0.02 K/uL Prothrombin Time 12.5 SECONDS Prothromb Time International Ratio 1.2 Activated Partial Thromboplast Time 33.1 SECONDS Partial Thromboplastin Ratio 1.3 Sodium Level 143 mmol/L Potassium Level 3.6 mmol/L Chloride Level 113 mmol/L Carbon Dioxide Level 25 mmol/L Anion Gap 6.0 mmol/L Blood Urea Nitrogen 17 mg/dl Creatinine 1.00 mg/dl Est Creatinine Clear Calc Drug Dose 125.4 ml/min Estimated GFR () 119.0 Estimated GFR (Non- 102.7 BUN/Creatinine Ratio 17.1 Random Glucose 100 mg/dl Osmolality 303 mOsm/kg Calcium Level 8.4 mg/dl Phosphorus Level 3.4 mg/dl Magnesium Level 2.2 mg/dl Bedside Glucose 93 mg/dl Blood Gas Sample Site Art Line Bedside Blood Gas pH (LAB) 7.37 Bedside Blood Gas pCO2 (LAB) 34 mmHg Bedside Blood Gas pO2 (LAB) 146 mmHg Bedside Blood Gas HCO3 (LAB) 20 meq/L Bedside Blood Gas Total CO2 22 mEq/l Bedside Blood Gas Base Excess (LAB) -6.0 meq/L Bedside Blood Gas O2 Saturation 99.0 % Mohan Test NA Oxygen Delivery Device Ventilator Bedside Oxygen Rate (breaths/min) 12 Blood Gas Minute Ventilation 6.4 Bedside FiO2 30 % Blood Gas Tidal Volume 6.4 Blood Gas PEEP 5 Creatine Kinase MB Ratio Test 08/22/16 16:08 08/22/16 16:13 08/22/16 16:15 08/22/16 19:45 White Blood Count 9.14 K/uL 9.18 K/uL Red Blood Count 4.95 M/uL 5.16 M/uL Hemoglobin 13.7 g/dL 14.7 g/dL Hematocrit 42.1 % 44.4 % Mean Corpuscular Volume 85.1 fL 86.0 fL Mean Corpuscular Hemoglobin 27.7 pg 28.5 pg Mean Corpuscular Hemoglobin Concent 32.5 g/dl 33.1 g/dl Platelet Count 159 K/uL 146 K/uL Mean Platelet Volume 11.6 fL 11.9 fL Neutrophils (%) (Auto) 72.2 % 72.7 % Lymphocytes (%) (Auto) 19.3 % 20.7 % Monocytes (%) (Auto) 7.7 % 5.6 % Eosinophils (%) (Auto) 0.5 % 0.8 % Basophils (%) (Auto) 0.1 % 0.1 % Neutrophils # (Auto) 6.60 K/uL 6.68 K/uL Lymphocytes # (Auto) 1.76 K/uL 1.90 K/uL Monocytes # (Auto) 0.70 K/uL 0.51 K/uL Eosinophils # (Auto) 0.05 K/uL 0.07 K/uL Basophils # (Auto) 0.01 K/uL 0.01 K/uL RDW Standard Deviation 40.1 fL 42.1 fL RDW Coefficient of Variation 12.9 % 13.3 % Immature Granulocyte % (Auto) 0.2 % 0.1 % Immature Granulocyte # (Auto) 0.02 K/uL 0.01 K/uL Prothrombin Time 13.1 SECONDS 13.2 SECONDS Prothromb Time International Ratio 1.2 1.2 Activated Partial Thromboplast Time 37.6 SECONDS 42.9 SECONDS Partial Thromboplastin Ratio 1.4 1.7 Sodium Level 143 mmol/L 139 mmol/L Potassium Level 4.5 mmol/L 6.1 mmol/L Chloride Level 114 mmol/L 112 mmol/L Carbon Dioxide Level 22 mmol/L 26 mmol/L Anion Gap 7.0 mmol/L 1.0 mmol/L Blood Urea Nitrogen 16 mg/dl 16 mg/dl Creatinine 0.94 mg/dl 1.00 mg/dl Est Creatinine Clear Calc Drug Dose 133.4 ml/min 125.4 ml/min Estimated GFR () 128.3 119.0 Estimated GFR (Non- 110.7 102.7 BUN/Creatinine Ratio 17.3 16.4 Random Glucose 92 mg/dl 101 mg/dl Calcium Level 8.4 mg/dl 8.4 mg/dl Phosphorus Level 2.8 mg/dl 2.6 mg/dl Magnesium Level 2.2 mg/dl 2.1 mg/dl Creatine Kinase MB 34.9 ng/ml Troponin I 3.680 ng/ml Bedside Glucose 84 mg/dl Blood Gas Sample Site Art Line Bedside Blood Gas pH (LAB) 7.38 Bedside Blood Gas pCO2 (LAB) 31 mmHg Bedside Blood Gas pO2 (LAB) 140 mmHg Bedside Blood Gas HCO3 (LAB) 19 meq/L Bedside Blood Gas Total CO2 20 mEq/l Bedside Blood Gas Base Excess (LAB) -7.0 meq/L Bedside Blood Gas O2 Saturation 99.0 % Mohan Test NA Oxygen Delivery Device Ventilator Bedside Oxygen Rate (breaths/min) 12 Blood Gas Minute Ventilation 6.5 Bedside FiO2 30 % Blood Gas Tidal Volume 540 Blood Gas PEEP 5 Osmolality 288 mOsm/kg Test 08/22/16 20:09 08/22/16 23:56 08/23/16 00:37 08/23/16 03:42 Blood Gas Sample Site Art Line Art Line Art Line Bedside Blood Gas pH (LAB) 7.24 7.29 7.28 Bedside Blood Gas pCO2 (LAB) 43 mmHg 36 mmHg 41 mmHg Bedside Blood Gas pO2 (LAB) 111 mmHg 108 mmHg 124 mmHg Bedside Blood Gas HCO3 (LAB) 20 meq/L 18 meq/L 20 meq/L Bedside Blood Gas Total CO2 22 mEq/l 20 mEq/l 21 mEq/l Bedside Blood Gas Base Excess (LAB) -8.0 meq/L -9.0 meq/L -7.0 meq/L Bedside Blood Gas O2 Saturation 98.0 % 98.0 % 99.0 % Mohan Test NA NA NA Oxygen Delivery Device Ventilator Ventilator Ventilator Bedside Oxygen Rate (breaths/min) 8 12 12 Blood Gas Minute Ventilation 4.3 6.6 6.4 Bedside FiO2 30 % 30 % 30 % Blood Gas Tidal Volume 600 600 600 Blood Gas PEEP 5 5 5 White Blood Count 10.14 K/uL Red Blood Count 4.82 M/uL Hemoglobin 13.8 g/dL Hematocrit 41.5 % Mean Corpuscular Volume 86.1 fL Mean Corpuscular Hemoglobin 28.6 pg Mean Corpuscular Hemoglobin Concent 33.3 g/dl Platelet Count 137 K/uL Mean Platelet Volume 11.7 fL Neutrophils (%) (Auto) 88.0 % Lymphocytes (%) (Auto) 6.5 % Monocytes (%) (Auto) 5.2 % Eosinophils (%) (Auto) 0.2 % Basophils (%) (Auto) 0.0 % Neutrophils # (Auto) 8.92 K/uL Lymphocytes # (Auto) 0.66 K/uL Monocytes # (Auto) 0.53 K/uL Eosinophils # (Auto) 0.02 K/uL Basophils # (Auto) 0.00 K/uL RDW Standard Deviation 42.2 fL RDW Coefficient of Variation 13.3 % Immature Granulocyte % (Auto) 0.1 % Immature Granulocyte # (Auto) 0.01 K/uL Prothrombin Time 13.4 SECONDS Prothromb Time International Ratio 1.2 Activated Partial Thromboplast Time 40.2 SECONDS Partial Thromboplastin Ratio 1.5 Sodium Level 143 mmol/L 143 mmol/L Potassium Level 4.9 mmol/L Chloride Level 114 mmol/L Carbon Dioxide Level 23 mmol/L Anion Gap 6.0 mmol/L Blood Urea Nitrogen 17 mg/dl Creatinine 1.10 mg/dl Est Creatinine Clear Calc Drug Dose 114.0 ml/min Estimated GFR () 106.1 Estimated GFR (Non- 91.5 BUN/Creatinine Ratio 15.8 Random Glucose 105 mg/dl Calcium Level 8.1 mg/dl Phosphorus Level 2.1 mg/dl Magnesium Level 2.0 mg/dl Osmolality 288 mOsm/kg Test 08/23/16 03:56 08/23/16 07:45 08/23/16 07:55 White Blood Count 11.08 K/uL 11.63 K/uL Red Blood Count 4.96 M/uL 5.15 M/uL Hemoglobin 13.8 g/dL 14.3 g/dL Hematocrit 42.6 % 44.5 % Mean Corpuscular Volume 85.9 fL 86.4 fL Mean Corpuscular Hemoglobin 27.8 pg 27.8 pg Mean Corpuscular Hemoglobin Concent 32.4 g/dl 32.1 g/dl Platelet Count 153 K/uL 162 K/uL Mean Platelet Volume 12.0 fL 12.1 fL Neutrophils (%) (Auto) 86.8 % 85.3 % Lymphocytes (%) (Auto) 6.5 % 8.3 % Monocytes (%) (Auto) 6.3 % 5.8 % Eosinophils (%) (Auto) 0.2 % 0.2 % Basophils (%) (Auto) 0.0 % 0.1 % Neutrophils # (Auto) 9.62 K/uL 9.93 K/uL Lymphocytes # (Auto) 0.72 K/uL 0.96 K/uL Monocytes # (Auto) 0.70 K/uL 0.68 K/uL Eosinophils # (Auto) 0.02 K/uL 0.02 K/uL Basophils # (Auto) 0.00 K/uL 0.01 K/uL RDW Standard Deviation 41.3 fL 41.9 fL RDW Coefficient of Variation 13.2 % 13.2 % Immature Granulocyte % (Auto) 0.2 % 0.3 % Immature Granulocyte # (Auto) 0.02 K/uL 0.03 K/uL Prothrombin Time 12.8 SECONDS 12.7 SECONDS Prothromb Time International Ratio 1.2 1.2 Activated Partial Thromboplast Time 36.6 SECONDS 36.3 SECONDS Partial Thromboplastin Ratio 1.4 1.4 Sodium Level 141 mmol/L 139 mmol/L Potassium Level 4.8 mmol/L 6.3 mmol/L Chloride Level 113 mmol/L 112 mmol/L Carbon Dioxide Level 24 mmol/L 22 mmol/L Anion Gap 4.0 mmol/L 5.0 mmol/L Blood Urea Nitrogen 17 mg/dl 17 mg/dl Creatinine 1.20 mg/dl 1.20 mg/dl Est Creatinine Clear Calc Drug Dose 104.5 ml/min 104.5 ml/min Estimated GFR () 95.5 95.5 Estimated GFR (Non- 82.4 82.4 BUN/Creatinine Ratio 14.0 14.4 Random Glucose 105 mg/dl 103 mg/dl Osmolality 287 mOsm/kg Calcium Level 8.6 mg/dl 8.4 mg/dl Phosphorus Level 2.9 mg/dl 2.1 mg/dl Magnesium Level 2.0 mg/dl 1.9 mg/dl Total Bilirubin 1.4 mg/dl Direct Bilirubin 0.4 mg/dl Aspartate Amino Transf (AST/SGOT) 88 U/L Alanine Aminotransferase (ALT/SGPT) 255 U/L Alkaline Phosphatase 80 U/L Total Protein 6.4 gm/dl Albumin 3.4 gm/dl Lipase 52 U/L Blood Gas Sample Site Art Line Bedside Blood Gas pH (LAB) 7.29 Bedside Blood Gas pCO2 (LAB) 42 mmHg Bedside Blood Gas pO2 (LAB) 137 mmHg Bedside Blood Gas HCO3 (LAB) 21 meq/L Bedside Blood Gas Total CO2 23 mEq/l Bedside Blood Gas Base Excess (LAB) -6.0 meq/L Bedside Blood Gas O2 Saturation 99.0 % Mohan Test NA Oxygen Delivery Device Ventilator Bedside Oxygen Rate (breaths/min) 12 Blood Gas Minute Ventilation 6.5 Bedside FiO2 30 % Blood Gas Tidal Volume 600 Blood Gas PEEP 5 Imaging: HEAD CT NONCONTRAST CT DOSE: 614.27 mGy.cm HISTORY: Cardiac arrest. Loss of consciousness. TECHNIQUE: Multiaxial CT images of the head were performed without the use of intravenous contrast. Automated exposure control was utilized for this study. Comparison: Head CT 08/21/2016. Findings: The paranasal sinuses and mastoid air cells are clear. The calvarium and skull base are intact. The ventricles and sulci are within normal limits. There is no mass, hematoma, midline shift, or acute infarct. Impression: No acute intracranial abnormality. Electronically signed by: Darrell Hough M.D. 08/22/2016 9:03 PM Dictated Date/Time: 08/22/2016 8:58 PM Exam: Blood pressure is 150/60. Pulse is 77 and fairly regular. Respiratory rate is set at 20 and he takes occasionally over the ventilator. Initially, He has no response to shout or clap, although there may have been a couple of adduction movements of his legs Eyes (passively. Eyes are front and fixed and he has no oculocephalics. Pupils are 2-3 mm bilaterally and not reactive to light. He does have positive corneal responses to stimulation bilaterally. He has minimal gag response on the right but not the left. He has no cough to suctioning. Neck is supple. Limbs have more told then yesterday but still have a decrease tone overall. He has some withdrawal response in the legs to deep pain but not the arms. After doing this I shout at him to open his eyes and he did open his eyes briefly and they drifted slowly shut. Toes are downgoing to plantar stimulation bilaterally. Reflexes are 2/4 throughout. Current Inpatient Medications Medications (Trade) Dose Ordered Sig/Shireen Route Start Time Stop Time Status Last Admin Dose Admin Pantoprazole Sodium 40 mg/ Syringe 10 ml @ 5 mls/min DAILY@1100 IV 08/22/16 11:00 09/21/16 10:59 08/22/16 11:00 5 MLS/MIN Midazolam HCl 250 ml @ 0 mls/hr Q0M PRN IV 08/21/16 16:59 09/20/16 16:58 08/23/16 04:13 16 MLS/HR Fentanyl Citrate (Fentanyl Drip 1250MCG/250 Nss) 250 ml @ 0 mls/hr Q0M PRN IV 08/21/16 17:15 09/04/16 17:14 08/21/16 18:08 10 MLS/HR Artificial Tears (Lacri-Lube Oph Oint) 1 appln Q2H PRN OPB 08/21/16 17:15 09/20/16 17:14 08/22/16 00:28 1 APPLN Buspirone HCl (BusPAR TAB) 60 mg ONE PRN NG 08/21/16 17:15 09/20/16 17:14 Heparin Sodium (Porcine) (Heparin Sq 5000 Unit/0.5ml) 5,000 unit Q8H SQ 08/21/16 22:00 09/20/16 21:59 08/23/16 05:50 5,000 UNIT Ipratropium Higbee (Atrovent Hfa Inhaler) 4 puffs QIDR INH 08/21/16 20:20 09/20/16 20:19 08/23/16 07:23 4 PUFFS Albuterol (Ventolin Hfa Inhaler) 4 puffs QIDR INH 08/21/16 20:20 09/20/16 20:19 08/23/16 07:23 4 PUFFS Hydromorphone HCl (Dilaudid Inj) 1 mg Q20M PRN IV 08/22/16 20:30 09/05/16 20:29 Acetaminophen 650 mg 650 mg ONE PRN MA 08/22/16 20:30 Sodium Chloride (Nss 1000ml) 1,000 ml @ 100 mls/hr Q10H IV 08/22/16 22:30 09/21/16 22:29 08/23/16 07:32 100 MLS/HR Impression Sudden cardiac arrest, August 21 while on the treadmill. He has an underlying hypertrophic cardiomyopathy Currently he has some evidence of brainstem and spinal cord function as noted by reflexes and some other cranial nerve signs. He does not have any significant cortical function on exam although he did open his eyes once to voice (previously) 6. Although he had myoclonic jerking prior to him being cooled, there was no potentially epileptogenic activity on EEG the last 2 days, and he has had no abnormal involuntary movements or jerking since the warming procedure was started. He has some history of hypertension Overall his prognosis is very poor, if not grave. Plan 1. Continue warming protocol and wean off Versed and fentanyl as able 2. Consider repeat EEG 3. Hold on anticonvulsant medication for now we'll consider depending on his clinical course. 4. I will follow daily. I spoke to Dr. Cutler regarding this case including differential diagnosis, treatment options, and prognosis.
[2016-08-23] MEDS: FENTANYL 1250MCG/250ML NSS 250 ML IV PRN (10:24)
[2016-08-23] MEDS ORDERED: GLUCOSE 40% GEL 15 GM TUBE PO PRN (10:30)
[2016-08-23] MEDS ORDERED: GLUCAGON FOR INJ 1 MG VIAL SQ PRN (10:30)
[2016-08-23] MEDS ORDERED: GLUCOSE 10 TABS/TUBE PO PRN (10:30)
[2016-08-23] MEDS ORDERED: DEXTROSE 50% 50 ML SYR IV PRN (10:30)
[2016-08-23] MEDS ORDERED: PEPTAMEN 1.5 CAL 1000ML BAG PO SCH (10:45)
[2016-08-23] MEDS ORDERED: FUROSEMIDE INJ 10 MG in SYRINGE 0 ML IV ONE (10:45)
[2016-08-23] MEDS ORDERED: INSULIN HUMAN REGULAR IV BOLUS 1 UNIT in SYRINGE 0 ML IV SCH (10:45)
[2016-08-23] MEDS ORDERED: INSULIN REGULAR 250 UNITS in SODIUM CHLORIDE 0.9% 250ML 250 ML IV SCH (10:45)
[2016-08-23] MEDS ORDERED: INSULIN ASPART 100 UNITS/ML 3 ML PEN SC SCH (12:00)
[2016-08-23 12:08] LABS: ISTAT ARTERIAL BLOOD GAS HCO3 18 meq/L (19-24); ISTAT ARTERIAL BLOOD GAS PCO2 34 mmHg (35-46); ISTAT ARTERIAL BLOOD GAS PO2 95 mmHg (80-95); ISTAT ARTERIAL BLOOD GAS pH 7.33 (7.35-7.45); ISTAT CARBON DIOXIDE 19 mEq/l (24-31); ISTAT DELIVERY SYSTEM Ventilator; ISTAT FIO2 21 %; ISTAT PEEP 5; ISTAT RATE 20; ISTAT SITE Art Line; VE 11.1; Vt 600
--- NOTE | 2016-08-23 12:13 | Critical Care Progress Note ---
Critical Care Progress Note Date of Service August 23, 2016. ICU Day ICU Day Number: [address] Cutler Subjective Patient intubated, holding sedation Objective General Appearance: other (intubated) Head: normocephalic, other (abrasion 1 cm x 2 cm over left zygomatic arch) Eyes: other (pupils 3 mm and unreactive to light) ENT: other (intubated with 7.5 Hi-Lo tube) Neck: trachea midline, no thyromegaly Respiratory: breath sounds normal Cardiovasular: regular rate/rhythm, normal S1S2, no gallop, no rub, no JVD Abdomen: normal bowel sounds, no rebound, no masses, no guarding Genitourinary - Male: external genitalia normal, other (Avelar present) Upper Extremities: no edema, other (approximately 2 cm x 2 cm abrasion on the right wrist) Lower Extremities: no edema, normal ROM, other (3 cm x 3 cm abrasion to the right hip) Pulses: carotid (R) (2+), carotid (L) (2+), radial (R) (2+), radial (L) (2+), dorsalis pedis (R) (2+), dorsalis pedis (L) (2+) Neuro: Withdraws lower extremities to pain, opens eyes to loud noise Psychiatric: other (unable to evaluate) Current SOFA Score SOFA Score Response (Comments) Value Platelets (x10) > 150 0 Bilirubin (mg/dL) 1.2 - 1.9 1 Dinorah Coma Score 6 - 9 3 Level of Hypotension No Hypotension 0 Creatinine (mg/dL) 1.2 - 1.9 1 Total 5 Assessment & Plan (1) cardiac arrest, acute resp failure (2) HOCM (hypertrophic obstructive cardiomyopathy) (3) Transaminitis (4) WILLARD (acute kidney injury) (5) Incarceration (6) Hypertension Neuro: Therapeutic hypothermia - Keep head of bed elevated 45 - And rewarming aspect of hypothermia protocol - No evidence of seizure activity at this time, poor signs evident on neuro exam however still difficult to prognosticate at this point Resp: Full ventilator support CV: Patient borderline pericarditic will add beta fatemeh if able - I discussed with the patient's mother hypertrophic obstructive cardiomyopathy , today I was also able to speak with Nando blood brother and blood sister, and also advised the patient's girlfriend who has a son with the patient that any blood relative needs to undergo testing for evaluation for possible hypertrophic obstructive cardiomyopathy Fluids/Renal: Low urine output, giving 10 mg of Lasix Hyperkalemia, checking potassium every 6 hours, starting insulin and dextrose infusion ID: No obvious infections at this time, bronchoscopy was clear GI/Nutrition: Transaminitis improving, hepatitis C and hepatitis B surface antigen negative, starts tube feeding today. Goal will be 65 ML's per hour Heme: Heparin prophylaxis, 5000 units 3 times a day Endocrine: Trend blood sugars Lines: Right internal jugular triple-lumen central venous catheter placed 08/21 Right 20-gauge radial arterial line placed 08/21 I have personally spent 60 minutes of critical care time in the direct management of this patient. This is a life/limb threatening event. This includes time spent evaluating patient, direct bedside care, chart review, placing orders, interpretation of diagnostic studies, discussion with consultants, patient, and family members, as well as other required patient management activities. This time is exclusive of all separately billable procedures, and teaching time and separate from and in addition to any other critical care service time. Consults & Procedures Consultants: Neurology Cardiology Procedures: Right internal jugular vein CVL, 08/21/2016 Right radial arterial line 08/21/2016 Data Medications: Current Inpatient Medications Medications (Trade) Dose Ordered Sig/Shireen Route Start Time Stop Time Status Last Admin Dose Admin Pantoprazole Sodium 40 mg/ Syringe 10 ml @ 5 mls/min DAILY@1100 IV 08/22/16 11:00 09/21/16 10:59 08/22/16 11:00 5 MLS/MIN Midazolam HCl 250 ml @ 0 mls/hr Q0M PRN IV 08/21/16 16:59 09/20/16 16:58 08/23/16 04:13 16 MLS/HR Fentanyl Citrate (Fentanyl Drip 1250MCG/250 Nss) 250 ml @ 0 mls/hr Q0M PRN IV 08/21/16 17:15 09/04/16 17:14 08/23/16 10:24 20 MLS/HR Artificial Tears (Lacri-Lube Oph Oint) 1 appln Q2H PRN OPB 08/21/16 17:15 09/20/16 17:14 08/22/16 00:28 1 APPLN Heparin Sodium (Porcine) (Heparin Sq 5000 Unit/0.5ml) 5,000 unit Q8H SQ 08/21/16 22:00 09/20/16 21:59 08/23/16 05:50 5,000 UNIT Albuterol (Ventolin Hfa Inhaler) 4 puffs QIDR INH 08/21/16 20:20 09/20/16 20:19 08/23/16 07:23 4 PUFFS Acetaminophen 650 mg 650 mg ONE PRN MN 08/22/16 20:30 Dextrose/Sodium Chloride 1,000 ml @ 70 mls/hr [id number] IV 08/23/16 10:15 09/22/16 10:14 08/23/16 10:45 70 MLS/HR Insulin Human Regular/Sodium Chloride (novoLIN-R/Nss 250ml) 252.5 ml @ 1 mls/hr DAILY@1130 IV 08/23/16 10:45 09/22/16 10:44 Insulin Aspart (novoLOG ASPART) SLIDING SCALE HS SC 08/23/16 12:00 09/22/16 11:59 Glucose (Glucose 40% Gel) UD PRN PO 08/23/16 10:30 09/22/16 10:29 Glucose (Glucose Chew Tab) 1 tabs UD PRN PO 08/23/16 10:30 09/22/16 10:29 Dextrose (Dextrose 50% 50ML Syringe) 50 ml UD PRN IV 08/23/16 10:30 09/22/16 10:29 Glucagon (Glucagon Inj) 1 mg UD PRN SQ 08/23/16 10:30 09/22/16 10:29 Enteral Nutritional Formula (Peptamen Intense VHP) 1,000 ml UD OG 08/23/16 11:45 09/22/16 11:44 I & O: 24-Hour Column 08/23/16 08:00 Intake Total 3465 ml Output Total 977 ml Balance 2488 ml Vital Signs: Date Time Temp Pulse Resp B/P Pulse Ox O2 Delivery O2 Flow Rate FiO2 08/23/16 10:00 35.3 78 20 123/67 100 Mechanical Ventilator 144/59 08/23/16 09:00 35.1 72 20 151/84 100 Mechanical Ventilator 169/75 08/23/16 09:00 35.1 72 20 151/84 100 Mechanical Ventilator 169/75 08/23/16 08:35 21 08/23/16 08:00 100 Mechanical Ventilator 30 08/23/16 08:00 34.9 72 12 143/68 100 Mechanical Ventilator 144/60 08/23/16 08:00 30 08/23/16 07:40 30 08/23/16 07:00 34.5 65 12 135/73 100 Mechanical Ventilator 131/63 08/23/16 07:00 34.5 65 12 135/73 100 Mechanical Ventilator 131/63 08/23/16 06:00 34.4 67 12 132/60 100 Mechanical Ventilator 30 130/60 08/23/16 05:15 30 08/23/16 05:00 34.4 68 12 136/64 100 Mechanical Ventilator 30 136/62 08/23/16 04:00 100 Mechanical Ventilator 30 08/23/16 04:00 34.3 64 12 127/65 100 Mechanical Ventilator 30 08/23/16 04:00 30 08/23/16 04:00 34.3 64 12 127/65 100 Mechanical Ventilator 138/61 08/23/16 03:00 34.3 64 12 129/60 100 Mechanical Ventilator 131/62 08/23/16 03:00 34.3 64 12 124/69 100 Mechanical Ventilator 131/62 08/23/16 02:52 30 08/23/16 02:00 34.1 65 12 121/66 100 Mechanical Ventilator 30 128/60 08/23/16 01:12 33.9 64 12 122/63 100 Mechanical Ventilator 125/59 08/23/16 01:00 33.9 64 12 122/63 100 Mechanical Ventilator 125/69 08/23/16 00:01 33.2 61 12 123/68 100 Mechanical Ventilator 30 130/63 08/23/16 00:01 33.2 61 12 123/68 100 Mechanical Ventilator 130/63 08/22/16 23:59 100 Mechanical Ventilator 30 08/22/16 23:59 30 08/22/16 23:27 32.4 55 12 134/75 99 Mechanical Ventilator 08/22/16 23:05 30 08/22/16 23:00 32.4 55 12 134/75 99 Mechanical Ventilator 132/63 08/22/16 22:00 53 12 101/59 100 91/45 08/22/16 22:00 31.7 46 12 103/54 100 Mechanical Ventilator 30 114/58 08/22/16 21:05 31.6 52 12 103/61 100 Mechanical Ventilator 103/53 08/22/16 20:00 30 08/22/16 20:00 100 Mechanical Ventilator 30 08/22/16 20:00 31.5 51 8 111/56 100 Mechanical Ventilator 30 102/47 08/22/16 19:45 30 08/22/16 19:00 31.6 47 8 112/59 100 Mechanical Ventilator 30 101/51 08/22/16 18:00 31.9 44 8 112/60 100 Mechanical Ventilator 30 114/56 08/22/16 17:15 30 08/22/16 17:10 30 08/22/16 17:00 32.2 48 112/67 100 Mechanical Ventilator 30 121/61 08/22/16 16:00 30 08/22/16 16:00 32.4 46 8 123/70 100 Mechanical Ventilator 30 115/60 08/22/16 16:00 100 Mechanical Ventilator 30 08/22/16 15:15 32.8 08/22/16 15:00 32.8 48 12 115/66 100 Mechanical Ventilator 30 125/62 08/22/16 14:30 30 08/22/16 14:00 33.0 50 12 112/63 100 Mechanical Ventilator 30 120/57 08/22/16 13:00 33.3 55 12 119/60 100 Mechanical Ventilator 30 113/57 Laboratory Results: Last 24 Hours Test 08/22/16 12:42 08/22/16 14:00 08/22/16 16:08 08/22/16 16:13 Blood Gas Sample Site Art Line Bedside Blood Gas pH (LAB) 7.37 Bedside Blood Gas pCO2 (LAB) 34 mmHg Bedside Blood Gas pO2 (LAB) 146 mmHg Bedside Blood Gas HCO3 (LAB) 20 meq/L Bedside Blood Gas Total CO2 22 mEq/l Bedside Blood Gas Base Excess (LAB) -6.0 meq/L Bedside Blood Gas O2 Saturation 99.0 % Mohan Test NA Oxygen Delivery Device Ventilator Bedside Oxygen Rate (breaths/min) 12 Blood Gas Minute Ventilation 6.4 Bedside FiO2 30 % Blood Gas Tidal Volume 6.4 Blood Gas PEEP 5 Creatine Kinase MB Ratio White Blood Count 9.14 K/uL Red Blood Count 4.95 M/uL Hemoglobin 13.7 g/dL Hematocrit 42.1 % Mean Corpuscular Volume 85.1 fL Mean Corpuscular Hemoglobin 27.7 pg Mean Corpuscular Hemoglobin Concent 32.5 g/dl Platelet Count 159 K/uL Mean Platelet Volume 11.6 fL Neutrophils (%) (Auto) 72.2 % Lymphocytes (%) (Auto) 19.3 % Monocytes (%) (Auto) 7.7 % Eosinophils (%) (Auto) 0.5 % Basophils (%) (Auto) 0.1 % Neutrophils # (Auto) 6.60 K/uL Lymphocytes # (Auto) 1.76 K/uL Monocytes # (Auto) 0.70 K/uL Eosinophils # (Auto) 0.05 K/uL Basophils # (Auto) 0.01 K/uL RDW Standard Deviation 40.1 fL RDW Coefficient of Variation 12.9 % Immature Granulocyte % (Auto) 0.2 % Immature Granulocyte # (Auto) 0.02 K/uL Prothrombin Time 13.1 SECONDS Prothromb Time International Ratio 1.2 Activated Partial Thromboplast Time 37.6 SECONDS Partial Thromboplastin Ratio 1.4 Sodium Level 143 mmol/L Potassium Level 4.5 mmol/L Chloride Level 114 mmol/L Carbon Dioxide Level 22 mmol/L Anion Gap 7.0 mmol/L Blood Urea Nitrogen 16 mg/dl Creatinine 0.94 mg/dl Est Creatinine Clear Calc Drug Dose 133.4 ml/min Estimated GFR () 128.3 Estimated GFR (Non- 110.7 BUN/Creatinine Ratio 17.3 Random Glucose 92 mg/dl Calcium Level 8.4 mg/dl Phosphorus Level 2.8 mg/dl Magnesium Level 2.2 mg/dl Creatine Kinase MB 34.9 ng/ml Troponin I 3.680 ng/ml Bedside Glucose 84 mg/dl Test 08/22/16 16:15 08/22/16 19:45 08/22/16 20:09 08/22/16 23:56 Blood Gas Sample Site Art Line Art Line Art Line Bedside Blood Gas pH (LAB) 7.38 7.24 7.29 Bedside Blood Gas pCO2 (LAB) 31 mmHg 43 mmHg 36 mmHg Bedside Blood Gas pO2 (LAB) 140 mmHg 111 mmHg 108 mmHg Bedside Blood Gas HCO3 (LAB) 19 meq/L 20 meq/L 18 meq/L Bedside Blood Gas Total CO2 20 mEq/l 22 mEq/l 20 mEq/l Bedside Blood Gas Base Excess (LAB) -7.0 meq/L -8.0 meq/L -9.0 meq/L Bedside Blood Gas O2 Saturation 99.0 % 98.0 % 98.0 % Mohan Test NA NA NA Oxygen Delivery Device Ventilator Ventilator Ventilator Bedside Oxygen Rate (breaths/min) 12 8 12 Blood Gas Minute Ventilation 6.5 4.3 6.6 Bedside FiO2 30 % 30 % 30 % Blood Gas Tidal Volume 540 600 600 Blood Gas PEEP 5 5 5 White Blood Count 9.18 K/uL 10.14 K/uL Red Blood Count 5.16 M/uL 4.82 M/uL Hemoglobin 14.7 g/dL 13.8 g/dL Hematocrit 44.4 % 41.5 % Mean Corpuscular Volume 86.0 fL 86.1 fL Mean Corpuscular Hemoglobin 28.5 pg 28.6 pg Mean Corpuscular Hemoglobin Concent 33.1 g/dl 33.3 g/dl Platelet Count 146 K/uL 137 K/uL Mean Platelet Volume 11.9 fL 11.7 fL Neutrophils (%) (Auto) 72.7 % 88.0 % Lymphocytes (%) (Auto) 20.7 % 6.5 % Monocytes (%) (Auto) 5.6 % 5.2 % Eosinophils (%) (Auto) 0.8 % 0.2 % Basophils (%) (Auto) 0.1 % 0.0 % Neutrophils # (Auto) 6.68 K/uL 8.92 K/uL Lymphocytes # (Auto) 1.90 K/uL 0.66 K/uL Monocytes # (Auto) 0.51 K/uL 0.53 K/uL Eosinophils # (Auto) 0.07 K/uL 0.02 K/uL Basophils # (Auto) 0.01 K/uL 0.00 K/uL RDW Standard Deviation 42.1 fL 42.2 fL RDW Coefficient of Variation 13.3 % 13.3 % Immature Granulocyte % (Auto) 0.1 % 0.1 % Immature Granulocyte # (Auto) 0.01 K/uL 0.01 K/uL Prothrombin Time 13.2 SECONDS 13.4 SECONDS Prothromb Time International Ratio 1.2 1.2 Activated Partial Thromboplast Time 42.9 SECONDS 40.2 SECONDS Partial Thromboplastin Ratio 1.7 1.5 Sodium Level 139 mmol/L 143 mmol/L Potassium Level 6.1 mmol/L 4.9 mmol/L Chloride Level 112 mmol/L 114 mmol/L Carbon Dioxide Level 26 mmol/L 23 mmol/L Anion Gap 1.0 mmol/L 6.0 mmol/L Blood Urea Nitrogen 16 mg/dl 17 mg/dl Creatinine 1.00 mg/dl 1.10 mg/dl Est Creatinine Clear Calc Drug Dose 125.4 ml/min 114.0 ml/min Estimated GFR () 119.0 106.1 Estimated GFR (Non- 102.7 91.5 BUN/Creatinine Ratio 16.4 15.8 Random Glucose 101 mg/dl 105 mg/dl Osmolality 288 mOsm/kg Calcium Level 8.4 mg/dl 8.1 mg/dl Phosphorus Level 2.6 mg/dl 2.1 mg/dl Magnesium Level 2.1 mg/dl 2.0 mg/dl Test 08/23/16 00:37 08/23/16 03:42 08/23/16 03:56 08/23/16 07:45 Sodium Level 143 mmol/L 141 mmol/L 139 mmol/L Osmolality 288 mOsm/kg 287 mOsm/kg Blood Gas Sample Site Art Line Bedside Blood Gas pH (LAB) 7.28 Bedside Blood Gas pCO2 (LAB) 41 mmHg Bedside Blood Gas pO2 (LAB) 124 mmHg Bedside Blood Gas HCO3 (LAB) 20 meq/L Bedside Blood Gas Total CO2 21 mEq/l Bedside Blood Gas Base Excess (LAB) -7.0 meq/L Bedside Blood Gas O2 Saturation 99.0 % Mohan Test NA Oxygen Delivery Device Ventilator Bedside Oxygen Rate (breaths/min) 12 Blood Gas Minute Ventilation 6.4 Bedside FiO2 30 % Blood Gas Tidal Volume 600 Blood Gas PEEP 5 White Blood Count 11.08 K/uL 11.63 K/uL Red Blood Count 4.96 M/uL 5.15 M/uL Hemoglobin 13.8 g/dL 14.3 g/dL Hematocrit 42.6 % 44.5 % Mean Corpuscular Volume 85.9 fL 86.4 fL Mean Corpuscular Hemoglobin 27.8 pg 27.8 pg Mean Corpuscular Hemoglobin Concent 32.4 g/dl 32.1 g/dl Platelet Count 153 K/uL 162 K/uL Mean Platelet Volume 12.0 fL 12.1 fL Neutrophils (%) (Auto) 86.8 % 85.3 % Lymphocytes (%) (Auto) 6.5 % 8.3 % Monocytes (%) (Auto) 6.3 % 5.8 % Eosinophils (%) (Auto) 0.2 % 0.2 % Basophils (%) (Auto) 0.0 % 0.1 % Neutrophils # (Auto) 9.62 K/uL 9.93 K/uL Lymphocytes # (Auto) 0.72 K/uL 0.96 K/uL Monocytes # (Auto) 0.70 K/uL 0.68 K/uL Eosinophils # (Auto) 0.02 K/uL 0.02 K/uL Basophils # (Auto) 0.00 K/uL 0.01 K/uL RDW Standard Deviation 41.3 fL 41.9 fL RDW Coefficient of Variation 13.2 % 13.2 % Immature Granulocyte % (Auto) 0.2 % 0.3 % Immature Granulocyte # (Auto) 0.02 K/uL 0.03 K/uL Prothrombin Time 12.8 SECONDS 12.7 SECONDS Prothromb Time International Ratio 1.2 1.2 Activated Partial Thromboplast Time 36.6 SECONDS 36.3 SECONDS Partial Thromboplastin Ratio 1.4 1.4 Potassium Level 4.8 mmol/L 6.3 mmol/L Chloride Level 113 mmol/L 112 mmol/L Carbon Dioxide Level 24 mmol/L 22 mmol/L Anion Gap 4.0 mmol/L 5.0 mmol/L Blood Urea Nitrogen 17 mg/dl 17 mg/dl Creatinine 1.20 mg/dl 1.20 mg/dl Est Creatinine Clear Calc Drug Dose 104.5 ml/min 104.5 ml/min Estimated GFR () 95.5 95.5 Estimated GFR (Non- 82.4 82.4 BUN/Creatinine Ratio 14.0 14.4 Random Glucose 105 mg/dl 103 mg/dl Calcium Level 8.6 mg/dl 8.4 mg/dl Phosphorus Level 2.9 mg/dl 2.1 mg/dl Magnesium Level 2.0 mg/dl 1.9 mg/dl Total Bilirubin 1.4 mg/dl Direct Bilirubin 0.4 mg/dl Aspartate Amino Transf (AST/SGOT) 88 U/L Alanine Aminotransferase (ALT/SGPT) 255 U/L Alkaline Phosphatase 80 U/L Total Protein 6.4 gm/dl Albumin 3.4 gm/dl Lipase 52 U/L Test 08/23/16 07:55 08/23/16 10:48 08/23/16 11:18 08/23/16 12:00 Blood Gas Sample Site Art Line Bedside Blood Gas pH (LAB) 7.29 Bedside Blood Gas pCO2 (LAB) 42 mmHg Bedside Blood Gas pO2 (LAB) 137 mmHg Bedside Blood Gas HCO3 (LAB) 21 meq/L Bedside Blood Gas Total CO2 23 mEq/l Bedside Blood Gas Base Excess (LAB) -6.0 meq/L Bedside Blood Gas O2 Saturation 99.0 % Mohan Test NA Oxygen Delivery Device Ventilator Bedside Oxygen Rate (breaths/min) 12 Blood Gas Minute Ventilation 6.5 Bedside FiO2 30 % Blood Gas Tidal Volume 600 Blood Gas PEEP 5 Bedside Glucose 59 mg/dl 73 mg/dl
[2016-08-23] MEDS: PANTOprazole INJ 40 MG in SYRINGE 0 ML IV SCH (12:15)
[2016-08-23] MEDS: PEPTAMEN INTENSE VHP 1000ML BAG OG SCH (12:17)
--- NOTE | 2016-08-23 16:12 | Hospitalist Progress Note ---
Hospitalist Progress Note Date of Service August 23, 2016. Medications Medications (Trade) Dose Ordered Sig/Shireen Route Start Time Stop Time Status Last Admin Dose Admin Acetaminophen 650 mg 650 mg ONE PRN OR 08/22/16 20:30 08/23/16 15:38 DC 08/23/16 15:34 650 MG Sodium Chloride 1,000 ml @ 100 mls/hr Q10H IV 08/22/16 22:30 08/23/16 10:23 DC 08/23/16 07:32 100 MLS/HR Magnesium Sulfate/ Prmx (Magnesium Sulfate/Premixed D5W) 100 ml @ 100 mls/hr NOW ONCE IV 08/23/16 09:15 08/23/16 10:14 DC 08/23/16 09:16 100 MLS/HR Dextrose 50 ml 50 ml TODAY@0915 IV 08/23/16 09:15 08/23/16 09:16 DC 08/23/16 09:19 50 ML Insulin Human Regular 10 units/ Syringe 10 ml @ 30 mls/min TODAY@0930 IV 08/23/16 09:30 08/23/16 09:31 DC 08/23/16 09:16 30 MLS/MIN Dextrose/Sodium Chloride 1,000 ml @ 70 mls/hr [id number] IV 08/23/16 10:15 08/23/16 14:47 DC 08/23/16 10:45 70 MLS/HR Furosemide 10 mg/ Syringe 1 ml @ 4 mls/min NOW ONCE IV 08/23/16 10:45 08/23/16 10:46 DC 08/23/16 10:45 4 MLS/MIN Insulin Human Regular/Syringe (novoLIN R IV BOLUS/Syringe) 1 ml @ 1 mls/min TODAY@1045 IV 08/23/16 10:45 08/23/16 11:00 DC 08/23/16 15:36 1 MLS/MIN Dextrose (Dextrose 50% 50ML Syringe) 50 ml UD PRN IV 08/23/16 10:30 09/22/16 10:29 08/23/16 12:13 50 ML Enteral Nutritional Formula (Peptamen Intense VHP) 1,000 ml UD OG 08/23/16 11:45 09/22/16 11:44 08/23/16 12:17 1,000 ML Objective Vital Signs Date Time Temp Pulse Resp B/P Pulse Ox O2 Delivery O2 Flow Rate FiO2 08/23/16 14:49 21 08/23/16 14:00 37.2 97 20 123/69 100 Mechanical Ventilator 145/61 08/23/16 13:00 36.9 92 20 125/64 100 Mechanical Ventilator 140/60 08/23/16 12:00 36.3 85 20 117/65 100 Mechanical Ventilator 123/59 08/23/16 11:45 21 08/23/16 11:00 35.8 85 20 110/67 100 Mechanical Ventilator 128/65 08/23/16 10:00 35.3 78 20 123/67 100 Mechanical Ventilator 144/59 08/23/16 09:00 35.1 72 20 151/84 100 Mechanical Ventilator 169/75 08/23/16 09:00 35.1 72 20 151/84 100 Mechanical Ventilator 169/75 08/23/16 08:35 21 08/23/16 08:00 100 Mechanical Ventilator 30 08/23/16 08:00 34.9 72 12 143/68 100 Mechanical Ventilator 144/60 08/23/16 08:00 30 08/23/16 07:40 30 08/23/16 07:00 34.5 65 12 135/73 100 Mechanical Ventilator 131/63 08/23/16 07:00 34.5 65 12 135/73 100 Mechanical Ventilator 131/63 08/23/16 06:00 34.4 67 12 132/60 100 Mechanical Ventilator 30 130/60 08/23/16 05:15 30 08/23/16 05:00 34.4 68 12 136/64 100 Mechanical Ventilator 30 136/62 08/23/16 04:00 100 Mechanical Ventilator 30 08/23/16 04:00 34.3 64 12 127/65 100 Mechanical Ventilator 30 08/23/16 04:00 30 08/23/16 04:00 34.3 64 12 127/65 100 Mechanical Ventilator 138/61 08/23/16 03:00 34.3 64 12 129/60 100 Mechanical Ventilator 131/62 08/23/16 03:00 34.3 64 12 124/69 100 Mechanical Ventilator 131/62 08/23/16 02:52 30 08/23/16 02:00 34.1 65 12 121/66 100 Mechanical Ventilator 30 128/60 08/23/16 01:12 33.9 64 12 122/63 100 Mechanical Ventilator 125/59 08/23/16 01:00 33.9 64 12 122/63 100 Mechanical Ventilator 125/69 08/23/16 00:01 33.2 61 12 123/68 100 Mechanical Ventilator 30 130/63 08/23/16 00:01 33.2 61 12 123/68 100 Mechanical Ventilator 130/63 08/22/16 23:59 100 Mechanical Ventilator 30 08/22/16 23:59 30 08/22/16 23:27 32.4 55 12 134/75 99 Mechanical Ventilator 08/22/16 23:05 30 08/22/16 23:00 32.4 55 12 134/75 99 Mechanical Ventilator 132/63 08/22/16 22:00 53 12 101/59 100 91/45 08/22/16 22:00 31.7 46 12 103/54 100 Mechanical Ventilator 30 114/58 08/22/16 21:05 31.6 52 12 103/61 100 Mechanical Ventilator 103/53 08/22/16 20:00 30 08/22/16 20:00 100 Mechanical Ventilator 30 08/22/16 20:00 31.5 51 8 111/56 100 Mechanical Ventilator 30 102/47 08/22/16 19:45 30 08/22/16 19:00 31.6 47 8 112/59 100 Mechanical Ventilator 30 101/51 08/22/16 18:00 31.9 44 8 112/60 100 Mechanical Ventilator 30 114/56 08/22/16 17:15 30 08/22/16 17:10 30 08/22/16 17:00 32.2 48 112/67 100 Mechanical Ventilator 30 121/61 Physical Exam General Appearance: + pertinent finding (sedated on vent) Neck: supple, no adenopathy Respiratory/Chest: chest non-tender, + pertinent finding (intubated) Cardiovascular: regular rate, rhythm, no edema, + pertinent finding (LEs in SCDs) Abdomen: normal bowel sounds, non tender, soft, + pertinent finding (Dobhoff tube) Neurologic/Psychiatric: + pertinent finding (sedated on vent) Laboratory Results Last 24 Hours Test 08/22/16 16:08 08/22/16 16:13 08/22/16 16:15 08/22/16 19:45 White Blood Count 9.14 K/uL 9.18 K/uL Red Blood Count 4.95 M/uL 5.16 M/uL Hemoglobin 13.7 g/dL 14.7 g/dL Hematocrit 42.1 % 44.4 % Mean Corpuscular Volume 85.1 fL 86.0 fL Mean Corpuscular Hemoglobin 27.7 pg 28.5 pg Mean Corpuscular Hemoglobin Concent 32.5 g/dl 33.1 g/dl Platelet Count 159 K/uL 146 K/uL Mean Platelet Volume 11.6 fL 11.9 fL Neutrophils (%) (Auto) 72.2 % 72.7 % Lymphocytes (%) (Auto) 19.3 % 20.7 % Monocytes (%) (Auto) 7.7 % 5.6 % Eosinophils (%) (Auto) 0.5 % 0.8 % Basophils (%) (Auto) 0.1 % 0.1 % Neutrophils # (Auto) 6.60 K/uL 6.68 K/uL Lymphocytes # (Auto) 1.76 K/uL 1.90 K/uL Monocytes # (Auto) 0.70 K/uL 0.51 K/uL Eosinophils # (Auto) 0.05 K/uL 0.07 K/uL Basophils # (Auto) 0.01 K/uL 0.01 K/uL RDW Standard Deviation 40.1 fL 42.1 fL RDW Coefficient of Variation 12.9 % 13.3 % Immature Granulocyte % (Auto) 0.2 % 0.1 % Immature Granulocyte # (Auto) 0.02 K/uL 0.01 K/uL Prothrombin Time 13.1 SECONDS 13.2 SECONDS Prothromb Time International Ratio 1.2 1.2 Activated Partial Thromboplast Time 37.6 SECONDS 42.9 SECONDS Partial Thromboplastin Ratio 1.4 1.7 Sodium Level 143 mmol/L 139 mmol/L Potassium Level 4.5 mmol/L 6.1 mmol/L Chloride Level 114 mmol/L 112 mmol/L Carbon Dioxide Level 22 mmol/L 26 mmol/L Anion Gap 7.0 mmol/L 1.0 mmol/L Blood Urea Nitrogen 16 mg/dl 16 mg/dl Creatinine 0.94 mg/dl 1.00 mg/dl Est Creatinine Clear Calc Drug Dose 133.4 ml/min 125.4 ml/min Estimated GFR () 128.3 119.0 Estimated GFR (Non- 110.7 102.7 BUN/Creatinine Ratio 17.3 16.4 Random Glucose 92 mg/dl 101 mg/dl Calcium Level 8.4 mg/dl 8.4 mg/dl Phosphorus Level 2.8 mg/dl 2.6 mg/dl Magnesium Level 2.2 mg/dl 2.1 mg/dl Creatine Kinase MB 34.9 ng/ml Troponin I 3.680 ng/ml Bedside Glucose 84 mg/dl Blood Gas Sample Site Art Line Bedside Blood Gas pH (LAB) 7.38 Bedside Blood Gas pCO2 (LAB) 31 mmHg Bedside Blood Gas pO2 (LAB) 140 mmHg Bedside Blood Gas HCO3 (LAB) 19 meq/L Bedside Blood Gas Total CO2 20 mEq/l Bedside Blood Gas Base Excess (LAB) -7.0 meq/L Bedside Blood Gas O2 Saturation 99.0 % Mohan Test NA Oxygen Delivery Device Ventilator Bedside Oxygen Rate (breaths/min) 12 Blood Gas Minute Ventilation 6.5 Bedside FiO2 30 % Blood Gas Tidal Volume 540 Blood Gas PEEP 5 Osmolality 288 mOsm/kg Test 08/22/16 20:09 08/22/16 23:56 08/23/16 00:37 08/23/16 03:42 Blood Gas Sample Site Art Line Art Line Art Line Bedside Blood Gas pH (LAB) 7.24 7.29 7.28 Bedside Blood Gas pCO2 (LAB) 43 mmHg 36 mmHg 41 mmHg Bedside Blood Gas pO2 (LAB) 111 mmHg 108 mmHg 124 mmHg Bedside Blood Gas HCO3 (LAB) 20 meq/L 18 meq/L 20 meq/L Bedside Blood Gas Total CO2 22 mEq/l 20 mEq/l 21 mEq/l Bedside Blood Gas Base Excess (LAB) -8.0 meq/L -9.0 meq/L -7.0 meq/L Bedside Blood Gas O2 Saturation 98.0 % 98.0 % 99.0 % Mohan Test NA NA NA Oxygen Delivery Device Ventilator Ventilator Ventilator Bedside Oxygen Rate (breaths/min) 8 12 12 Blood Gas Minute Ventilation 4.3 6.6 6.4 Bedside FiO2 30 % 30 % 30 % Blood Gas Tidal Volume 600 600 600 Blood Gas PEEP 5 5 5 White Blood Count 10.14 K/uL Red Blood Count 4.82 M/uL Hemoglobin 13.8 g/dL Hematocrit 41.5 % Mean Corpuscular Volume 86.1 fL Mean Corpuscular Hemoglobin 28.6 pg Mean Corpuscular Hemoglobin Concent 33.3 g/dl Platelet Count 137 K/uL Mean Platelet Volume 11.7 fL Neutrophils (%) (Auto) 88.0 % Lymphocytes (%) (Auto) 6.5 % Monocytes (%) (Auto) 5.2 % Eosinophils (%) (Auto) 0.2 % Basophils (%) (Auto) 0.0 % Neutrophils # (Auto) 8.92 K/uL Lymphocytes # (Auto) 0.66 K/uL Monocytes # (Auto) 0.53 K/uL Eosinophils # (Auto) 0.02 K/uL Basophils # (Auto) 0.00 K/uL RDW Standard Deviation 42.2 fL RDW Coefficient of Variation 13.3 % Immature Granulocyte % (Auto) 0.1 % Immature Granulocyte # (Auto) 0.01 K/uL Prothrombin Time 13.4 SECONDS Prothromb Time International Ratio 1.2 Activated Partial Thromboplast Time 40.2 SECONDS Partial Thromboplastin Ratio 1.5 Sodium Level 143 mmol/L 143 mmol/L Potassium Level 4.9 mmol/L Chloride Level 114 mmol/L Carbon Dioxide Level 23 mmol/L Anion Gap 6.0 mmol/L Blood Urea Nitrogen 17 mg/dl Creatinine 1.10 mg/dl Est Creatinine Clear Calc Drug Dose 114.0 ml/min Estimated GFR () 106.1 Estimated GFR (Non- 91.5 BUN/Creatinine Ratio 15.8 Random Glucose 105 mg/dl Calcium Level 8.1 mg/dl Phosphorus Level 2.1 mg/dl Magnesium Level 2.0 mg/dl Osmolality 288 mOsm/kg Test 08/23/16 03:56 08/23/16 07:45 08/23/16 07:55 08/23/16 10:48 White Blood Count 11.08 K/uL 11.63 K/uL Red Blood Count 4.96 M/uL 5.15 M/uL Hemoglobin 13.8 g/dL 14.3 g/dL Hematocrit 42.6 % 44.5 % Mean Corpuscular Volume 85.9 fL 86.4 fL Mean Corpuscular Hemoglobin 27.8 pg 27.8 pg Mean Corpuscular Hemoglobin Concent 32.4 g/dl 32.1 g/dl Platelet Count 153 K/uL 162 K/uL Mean Platelet Volume 12.0 fL 12.1 fL Neutrophils (%) (Auto) 86.8 % 85.3 % Lymphocytes (%) (Auto) 6.5 % 8.3 % Monocytes (%) (Auto) 6.3 % 5.8 % Eosinophils (%) (Auto) 0.2 % 0.2 % Basophils (%) (Auto) 0.0 % 0.1 % Neutrophils # (Auto) 9.62 K/uL 9.93 K/uL Lymphocytes # (Auto) 0.72 K/uL 0.96 K/uL Monocytes # (Auto) 0.70 K/uL 0.68 K/uL Eosinophils # (Auto) 0.02 K/uL 0.02 K/uL Basophils # (Auto) 0.00 K/uL 0.01 K/uL RDW Standard Deviation 41.3 fL 41.9 fL RDW Coefficient of Variation 13.2 % 13.2 % Immature Granulocyte % (Auto) 0.2 % 0.3 % Immature Granulocyte # (Auto) 0.02 K/uL 0.03 K/uL Prothrombin Time 12.8 SECONDS 12.7 SECONDS Prothromb Time International Ratio 1.2 1.2 Activated Partial Thromboplast Time 36.6 SECONDS 36.3 SECONDS Partial Thromboplastin Ratio 1.4 1.4 Sodium Level 141 mmol/L 139 mmol/L Potassium Level 4.8 mmol/L 6.3 mmol/L Chloride Level 113 mmol/L 112 mmol/L Carbon Dioxide Level 24 mmol/L 22 mmol/L Anion Gap 4.0 mmol/L 5.0 mmol/L Blood Urea Nitrogen 17 mg/dl 17 mg/dl Creatinine 1.20 mg/dl 1.20 mg/dl Est Creatinine Clear Calc Drug Dose 104.5 ml/min 104.5 ml/min Estimated GFR () 95.5 95.5 Estimated GFR (Non- 82.4 82.4 BUN/Creatinine Ratio 14.0 14.4 Random Glucose 105 mg/dl 103 mg/dl Osmolality 287 mOsm/kg Calcium Level 8.6 mg/dl 8.4 mg/dl Phosphorus Level 2.9 mg/dl 2.1 mg/dl Magnesium Level 2.0 mg/dl 1.9 mg/dl Total Bilirubin 1.4 mg/dl Direct Bilirubin 0.4 mg/dl Aspartate Amino Transf (AST/SGOT) 88 U/L Alanine Aminotransferase (ALT/SGPT) 255 U/L Alkaline Phosphatase 80 U/L Total Protein 6.4 gm/dl Albumin 3.4 gm/dl Lipase 52 U/L Blood Gas Sample Site Art Line Bedside Blood Gas pH (LAB) 7.29 Bedside Blood Gas pCO2 (LAB) 42 mmHg Bedside Blood Gas pO2 (LAB) 137 mmHg Bedside Blood Gas HCO3 (LAB) 21 meq/L Bedside Blood Gas Total CO2 23 mEq/l Bedside Blood Gas Base Excess (LAB) -6.0 meq/L Bedside Blood Gas O2 Saturation 99.0 % Mohan Test NA Oxygen Delivery Device Ventilator Bedside Oxygen Rate (breaths/min) 12 Blood Gas Minute Ventilation 6.5 Bedside FiO2 30 % Blood Gas Tidal Volume 600 Blood Gas PEEP 5 Bedside Glucose 59 mg/dl Test 08/23/16 11:18 08/23/16 11:55 08/23/16 11:56 08/23/16 12:06 Bedside Glucose 73 mg/dl 96 mg/dl Blood Gas Sample Site Art Line Bedside Blood Gas pH (LAB) 7.33 Bedside Blood Gas pCO2 (LAB) 34 mmHg Bedside Blood Gas pO2 (LAB) 95 mmHg Bedside Blood Gas HCO3 (LAB) 18 meq/L Bedside Blood Gas Total CO2 19 mEq/l Bedside Blood Gas Base Excess (LAB) -8.0 meq/L Bedside Blood Gas O2 Saturation 97.0 % Mohan Test NA Oxygen Delivery Device Ventilator Bedside Oxygen Rate (breaths/min) 20 Blood Gas Minute Ventilation 11.1 Bedside FiO2 21 % Blood Gas Tidal Volume 600 Blood Gas PEEP 5 Potassium Level 4.5 mmol/L Osmolality 283 mOsm/kg Test 08/23/16 14:29 08/23/16 15:28 Bedside Glucose 91 mg/dl 93 mg/dl Diagnostic Results CHEST ONE VIEW PORTABLE HISTORY: intubation COMPARISON: Chest 08/22/2016. FINDINGS: The endotracheal tube terminates 4.1 cm from the al. Nasogastric tube terminates in the stomach. No pneumothorax. No pleural effusions. The heart remains mildly enlarged. There is mild central pulmonary vascular congestion without overt edema. IMPRESSION: 1. Satisfactory support line placement. 2. Mild central pulmonary vascular congestion without overt edema. Electronically signed by: Darrell Hough M.D. 08/23/2016 8:17 AM Dictated Date/Time: 08/23/2016 8:[address]AST CT DOSE: 614.27 mGy.cm HISTORY: Cardiac arrest. Loss of consciousness. TECHNIQUE: Multiaxial CT images of the head were performed without the use of intravenous contrast. Automated exposure control was utilized for this study. Comparison: Head CT 08/21/2016. Findings: The paranasal sinuses and mastoid air cells are clear. The calvarium and skull base are intact. The ventricles and sulci are within normal limits. There is no mass, hematoma, midline shift, or acute infarct. Impression: No acute intracranial abnormality. Electronically signed by: Darrell Hough M.D. 08/22/2016 9:03 PM Dictated Date/Time: 08/22/2016 8:58 PM Assessment and Plan s/p cardiac arrest likely secondary to ventricular arrhythmia (VT, likely). Continue with vent support. Hypothermia protocol per Custody Officer. LFTs trending down. Hyperkalemia noted on BMP today. Renal indices are normal. Being treated with dextrose/insulin. Recommend repeat BMP CT head and CXR results noted Nutrition per Custody Officer Echo results noted-HOCM. Beta fatemeh therapy recommended by Cardiology. Condition critical.
[2016-08-23] MEDS ORDERED: ACETAMINOPHEN SOLN 650MG/20.3 ML UDC OG PRN (17:00)
[2016-08-23] MEDS: METOPROLOL TARTRATE 25 MG TAB OG SCH ×2 (17:39→21:28)
[2016-08-23 17:55] LABS: ISTAT ARTERIAL BLOOD GAS HCO3 19 meq/L (19-24); ISTAT ARTERIAL BLOOD GAS PCO2 39 mmHg (35-46); ISTAT ARTERIAL BLOOD GAS PO2 93 mmHg (80-95); ISTAT CARBON DIOXIDE 20 mEq/l (24-31); ISTAT DELIVERY SYSTEM Ventilator; ISTAT FIO2 21 %; ISTAT PEEP 5; ISTAT RATE 20; ISTAT SITE Art Line; Vt 600
[2016-08-23] MEDS ORDERED: BACITRACIN OINT 15 GM TUBE EXT PRN (19:00)
[2016-08-23] MEDS: BACITRACIN OINT 15 GM TUBE EXT SCH (20:49)
[2016-08-23 22:36] LABS: BUN/CREATININE RATIO 9.3 (10-20); CALCIUM 8.2 mg/dl (8.5-10.1); CREATININE 1.7 mg/dl (0.60-1.40)
[2016-08-23 22:37] LABS: POTASSIUM 5.5 mmol/L (3.5-5.1)
[2016-08-23] MEDS ORDERED: METOPROLOL TARTRATE 1 MG/ML VIAL ONE (23:06)
[2016-08-23] MEDS: D5W AND NSS 1,000 ML IV SCH (23:23)
[2016-08-23 23:46] LABS: ISTAT ARTERIAL BLOOD GAS HCO3 19 meq/L (19-24); ISTAT ARTERIAL BLOOD GAS PCO2 39 mmHg (35-46); ISTAT ARTERIAL BLOOD GAS PO2 91 mmHg (80-95); ISTAT CARBON DIOXIDE 20 mEq/l (24-31); ISTAT DELIVERY SYSTEM Ventilator; ISTAT FIO2 21 %; ISTAT PEEP 5; ISTAT RATE 20; ISTAT SITE Art Line; VE 11.4; Vt 600
[2016-08-24] VITALS (54 sets, daily range): BP systolic 92–200; BP diastolic 39–93; PULSE 90–128; TEMP 37.9–39.4; O2SAT 88–100
[2016-08-24] MEDS ORDERED: NURSING VERBAL MED ORDER ONE (00:15)
[2016-08-24] MEDS ORDERED: VANCOMYCIN INJ 2,300 MG in SODIUM CHLORIDE 0.9% 500ML 500 ML IV ONE (00:30)
[2016-08-24] MEDS ORDERED: PIPERACILL/TAZOBAC CONSULT ACTIVE PRN (00:30)
[2016-08-24] MEDS ORDERED: PIPERACILL/TAZOBAC IV 3.375 GM in DEXTROSE 5% 100ML IV ONE (00:30)
[2016-08-24] MEDS ORDERED: VANCOMYCIN CONSULT ACTIVE PRN (00:30)
[2016-08-24] MEDS: MIDAZOLAM 125MG/250ML D5W 250 ML IV PRN (00:50)
[2016-08-24] MEDS: ACETAMINOPHEN IV 650 MG / 65ML IV PRN ×2 (01:48→08:12)
[2016-08-24] MEDS: SODIUM CHLORIDE 0.9% 1000ML 1,000 ML IV SCH ×2 (04:20→21:32)
[2016-08-24 06:00] LABS: BASO % 0.1 %; BASO ABS # 0.01 K/uL (0-0.2); COMPLETE YES; HEMATOCRIT 41.5 % (42-52); IG% 0.3 %; LYMPH % 14.8 %; LYMPH ABS # 1.36 K/uL (1.2-3.4); MEAN CELL VOLUME 86.1 fL (80-100); MEAN CORPUSCULAR HEMOGLOBIN 28.4 pg (25-34); MEAN PLATELET VOLUME 11.9 fL (7.4-10.4); NEUT % 78.8 %; PLATELET COUNT 152 K/uL (130-400); RED BLOOD COUNT 4.82 M/uL (4.7-6.1); WHITE BLOOD COUNT 9.21 K/uL (4.8-10.8)
[2016-08-24] MEDS ORDERED: PIPERACILL/TAZOBAC IV 3.375 GM in DEXTROSE 5% 100ML 100 ML IV SCH (06:00)
[2016-08-24] MEDS ORDERED: METOPROLOL TARTRATE 1 MG/ML VIAL IV. SCH (06:00)
[2016-08-24] MEDS: HEPARIN SOD 5000 UNIT/0.5 ML CARP SQ SCH ×3 (06:00→21:39)
[2016-08-24 06:11] LABS: INR 1.3 (0.9-1.1); PARTIAL THROMBOPLASTIN RATIO 1.3; PROTHROMBIN TIME (PATIENT) 14.2 SECONDS (9.0-12.0)
[2016-08-24 06:48] LABS: BUN/CREATININE RATIO 8.1 (10-20); CREATININE 1.7 mg/dl (0.60-1.40); MAGNESIUM 1.8 mg/dl (1.8-2.4); POTASSIUM 4.8 mmol/L (3.5-5.1)
--- NOTE | 2016-08-24 07:10 | DIAGNOSTIC IMAGING REPORT ---
CHEST ONE VIEW PORTABLE CLINICAL HISTORY: Fever. COMPARISON STUDY: Chest radiograph August 24, 2016 at 12:09 AM. FINDINGS: The nasogastric tube is coiled back upon itself with the tip projecting over the gastric cardia. The tip of the endotracheal tube is 3.1 cm above the al. A right internal jugular central line is in place. There is no pneumothorax. Cardiomediastinal silhouette is stable. Bibasilar left midlung consolidation has developed. Equivocal cavitation within the right lower lung is probably artifactual. IMPRESSION: 1. Tip of endotracheal tube 3.1 cm above the al. 2. Nasogastric tube coiled back upon itself with tip projecting over the gastric cardia. 3. Progression of bilateral airspace opacities which favors pneumonia, potentially on the basis of aspiration. Equivocal cavitation within the right lower lung is likely artifactual. Electronically signed by: Prakash Archuleta M.D. 08/24/2016 7:09 AM Dictated Date/Time: 08/24/2016 7:06 AM
--- NOTE | 2016-08-24 07:12 | DIAGNOSTIC IMAGING REPORT ---
CHEST ONE VIEW PORTABLE CLINICAL HISTORY: Possible aspiration. COMPARISON STUDY: Chest radiograph September 09, 2016. FINDINGS: The tip of the endotracheal tube is 3.6 cm above the al. A right internal jugular central line remains in place. The tip of the nasogastric tube is below the lower aspect of this image but at least within the proximal stomach. Cardiomediastinal silhouette is stable. There is no pneumothorax. There is mild bibasilar opacity. IMPRESSION: 1. Satisfactory positioning of lines and tubes. 2. Mild bibasilar opacities which may reflect pneumonia, possibly on the basis of aspiration. Electronically signed by: Prakash Archuleta M.D. 08/24/2016 7:11 AM Dictated Date/Time: 08/24/2016 7:09 AM
[2016-08-24] MEDS: ALBUTEROL HFA 8 GM INHALER INH SCH ×3 (07:21→19:35)
[2016-08-24] MEDS: BACITRACIN OINT 15 GM TUBE EXT SCH ×2 (07:36→21:00)
[2016-08-24] MEDS ORDERED: METOPROLOL TARTRATE 1 MG/ML VIAL ONE (08:04)
[2016-08-24 08:22] LABS: ISTAT ARTERIAL BLOOD GAS HCO3 18 meq/L (19-24); ISTAT ARTERIAL BLOOD GAS PCO2 34 mmHg (35-46); ISTAT ARTERIAL BLOOD GAS PO2 58 mmHg (80-95); ISTAT ARTERIAL BLOOD GAS pH 7.33 (7.35-7.45); ISTAT CARBON DIOXIDE 19 mEq/l (24-31); ISTAT DELIVERY SYSTEM Ventilator; ISTAT FIO2 21 %; ISTAT PEEP 5; ISTAT RATE 24; ISTAT SITE Art Line; VE 16.8; Vt 600
[2016-08-24] MEDS ORDERED: METOPROLOL TARTRATE 1 MG/ML VIAL IV STA (08:28)
--- NOTE | 2016-08-24 09:18 | Neurology Progress Notes ---
Neurology Progress Note Date of Service August 24, 2016. Subjective Nursing reports the patient has had some temperature spikes overnight but he has not had any seizure activity or abnormal involuntary movements. They report he moves his legs but not his arms and he resists eye opening Chest x-ray is showing some infiltrates consistent with some aspiration pneumonia. Chem profile shows a mildly elevated creatinine and mildly elevated liver enzymes. CBC was unremarkable. Objective Date Time Temp Pulse Resp B/P Pulse Ox O2 Delivery O2 Flow Rate FiO2 08/24/16 08:15 38.8 102 26 177/70 95 08/24/16 08:12 45 08/24/16 08:07 118 175/103 08/24/16 08:01 38.7 118 25 200/78 99 08/24/16 08:00 38.6 114 27 188/91 98 08/24/16 08:00 99 Mechanical Ventilator 21 08/24/16 08:00 21 08/24/16 07:55 21 08/24/16 07:45 38.6 114 22 181/71 91 08/24/16 07:30 38.6 100 25 162/67 93 08/24/16 07:15 38.6 102 24 170/65 92 08/24/16 07:00 38.7 101 24 138/80 91 08/24/16 06:45 38.8 105 19 172/74 92 08/24/16 06:30 39.0 109 24 134/54 92 08/24/16 06:15 39.0 121 24 149/57 91 08/24/16 06:00 39.0 120 24 162/90 91 Mechanical Ventilator 146/57 08/24/16 06:00 39.1 128 26 167/93 89 08/24/16 06:00 110 162/90 08/24/16 05:05 21 08/24/16 04:00 100 Mechanical Ventilator 30 08/24/16 04:00 38.4 103 24 151/70 95 Mechanical Ventilator 21 165/60 08/24/16 04:00 21 08/24/16 03:00 38.3 94 24 141/70 97 08/24/16 02:00 38.5 94 24 137/75 100 Mechanical Ventilator 21 149/55 08/24/16 01:47 21 08/24/16 01:00 38.8 106 24 143/74 99 153/61 08/24/16 00:00 21 08/24/16 00:00 100 Mechanical Ventilator 30 08/24/16 00:00 39.4 116 22 185/75 99 Mechanical Ventilator 21 08/23/16 23:22 118 205/80 08/23/16 23:00 39.3 115 23 155/93 100 Mechanical Ventilator 08/23/16 22:45 21 08/23/16 22:00 38.5 118 27 126/66 100 Mechanical Ventilator 21 184/70 08/23/16 20:00 100 Mechanical Ventilator 30 08/23/16 20:00 38.0 92 20 124/74 100 Mechanical Ventilator 120/51 08/23/16 20:00 21 08/23/16 19:40 21 08/23/16 19:00 38.1 86 20 111/58 100 Mechanical Ventilator 129/58 08/23/16 18:00 38.1 85 20 132/71 100 Mechanical Ventilator 112/55 08/23/16 17:40 21 08/23/16 17:00 38.0 106 20 147/75 100 Mechanical Ventilator 153/62 08/23/16 16:00 30 08/23/16 16:00 37.8 112 20 142/80 100 Mechanical Ventilator 150/63 08/23/16 16:00 100 Mechanical Ventilator 30 08/23/16 15:00 37.6 98 20 121/67 100 Mechanical Ventilator 142/59 08/23/16 14:49 21 08/23/16 14:00 37.2 97 20 123/69 100 Mechanical Ventilator 145/61 08/23/16 13:00 36.9 92 20 125/64 100 Mechanical Ventilator 140/60 08/23/16 12:00 36.3 85 20 117/65 100 Mechanical Ventilator 123/59 08/23/16 12:00 100 Mechanical Ventilator 30 08/23/16 12:00 30 08/23/16 11:45 21 08/23/16 11:00 35.8 85 20 110/67 100 Mechanical Ventilator 128/65 08/23/16 10:00 35.3 78 20 123/67 100 Mechanical Ventilator 144/59 Last 24 Hours Test 08/23/16 10:48 08/23/16 11:18 08/23/16 11:55 08/23/16 11:56 Bedside Glucose 59 mg/dl 73 mg/dl 96 mg/dl Blood Gas Sample Site Art Line Bedside Blood Gas pH (LAB) 7.33 Bedside Blood Gas pCO2 (LAB) 34 mmHg Bedside Blood Gas pO2 (LAB) 95 mmHg Bedside Blood Gas HCO3 (LAB) 18 meq/L Bedside Blood Gas Total CO2 19 mEq/l Bedside Blood Gas Base Excess (LAB) -8.0 meq/L Bedside Blood Gas O2 Saturation 97.0 % Mohan Test NA Oxygen Delivery Device Ventilator Bedside Oxygen Rate (breaths/min) 20 Blood Gas Minute Ventilation 11.1 Bedside FiO2 21 % Blood Gas Tidal Volume 600 Blood Gas PEEP 5 Test 08/23/16 12:06 08/23/16 14:29 08/23/16 15:28 08/23/16 16:00 Potassium Level 4.5 mmol/L 4.5 mmol/L Osmolality 283 mOsm/kg Bedside Glucose 91 mg/dl 93 mg/dl Test 08/23/16 16:26 08/23/16 17:43 08/23/16 17:45 08/23/16 21:22 Bedside Glucose 89 mg/dl 81 mg/dl 63 mg/dl Blood Gas Sample Site Art Line Bedside Blood Gas pH (LAB) 7.30 Bedside Blood Gas pCO2 (LAB) 39 mmHg Bedside Blood Gas pO2 (LAB) 93 mmHg Bedside Blood Gas HCO3 (LAB) 19 meq/L Bedside Blood Gas Total CO2 20 mEq/l Bedside Blood Gas Base Excess (LAB) -7.0 meq/L Bedside Blood Gas O2 Saturation 96.0 % Mohan Test NA Oxygen Delivery Device Ventilator Bedside Oxygen Rate (breaths/min) 20 Blood Gas Minute Ventilation 11.0 Bedside FiO2 21 % Blood Gas Tidal Volume 600 Blood Gas PEEP 5 Test 08/23/16 21:50 08/23/16 22:04 08/23/16 23:35 08/24/16 00:25 Sodium Level 138 mmol/L Potassium Level 5.5 mmol/L Chloride Level 110 mmol/L Carbon Dioxide Level 23 mmol/L Anion Gap 5.0 mmol/L Blood Urea Nitrogen 16 mg/dl Creatinine 1.70 mg/dl Est Creatinine Clear Calc Drug Dose 73.8 ml/min Estimated GFR () 62.7 Estimated GFR (Non- 54.1 BUN/Creatinine Ratio 9.3 Random Glucose 109 mg/dl Calcium Level 8.2 mg/dl Bedside Glucose 83 mg/dl 74 mg/dl Blood Gas Sample Site Art Line Bedside Blood Gas pH (LAB) 7.30 Bedside Blood Gas pCO2 (LAB) 39 mmHg Bedside Blood Gas pO2 (LAB) 91 mmHg Bedside Blood Gas HCO3 (LAB) 19 meq/L Bedside Blood Gas Total CO2 20 mEq/l Bedside Blood Gas Base Excess (LAB) -7.0 meq/L Bedside Blood Gas O2 Saturation 95.0 % Mohan Test NA Oxygen Delivery Device Ventilator Bedside Oxygen Rate (breaths/min) 20 Blood Gas Minute Ventilation 11.4 Bedside FiO2 21 % Blood Gas Tidal Volume 600 Blood Gas PEEP 5 Test 08/24/16 00:29 08/24/16 02:12 08/24/16 05:53 08/24/16 05:55 Potassium Level 4.5 mmol/L 4.8 mmol/L Bedside Glucose 92 mg/dl 96 mg/dl White Blood Count 9.21 K/uL Red Blood Count 4.82 M/uL Hemoglobin 13.7 g/dL Hematocrit 41.5 % Mean Corpuscular Volume 86.1 fL Mean Corpuscular Hemoglobin 28.4 pg Mean Corpuscular Hemoglobin Concent 33.0 g/dl Platelet Count 152 K/uL Mean Platelet Volume 11.9 fL Neutrophils (%) (Auto) 78.8 % Lymphocytes (%) (Auto) 14.8 % Monocytes (%) (Auto) 6.0 % Eosinophils (%) (Auto) 0.0 % Basophils (%) (Auto) 0.1 % Neutrophils # (Auto) 7.26 K/uL Lymphocytes # (Auto) 1.36 K/uL Monocytes # (Auto) 0.55 K/uL Eosinophils # (Auto) 0.00 K/uL Basophils # (Auto) 0.01 K/uL RDW Standard Deviation 42.7 fL RDW Coefficient of Variation 13.5 % Immature Granulocyte % (Auto) 0.3 % Immature Granulocyte # (Auto) 0.03 K/uL Prothrombin Time 14.2 SECONDS Prothromb Time International Ratio 1.3 Activated Partial Thromboplast Time 34.5 SECONDS Partial Thromboplastin Ratio 1.3 Sodium Level 139 mmol/L Chloride Level 109 mmol/L Carbon Dioxide Level 21 mmol/L Anion Gap 9.0 mmol/L Blood Urea Nitrogen 14 mg/dl Creatinine 1.70 mg/dl Est Creatinine Clear Calc Drug Dose 73.8 ml/min Estimated GFR () 62.7 Estimated GFR (Non- 54.1 BUN/Creatinine Ratio 8.1 Random Glucose 103 mg/dl Calcium Level 9.0 mg/dl Phosphorus Level 2.0 mg/dl Magnesium Level 1.8 mg/dl Total Bilirubin 2.0 mg/dl Direct Bilirubin 0.8 mg/dl Aspartate Amino Transf (AST/SGOT) 53 U/L Alanine Aminotransferase (ALT/SGPT) 171 U/L Alkaline Phosphatase 99 U/L Total Protein 7.0 gm/dl Albumin 3.4 gm/dl Lipase 63 U/L Test 08/24/16 08:07 08/24/16 08:09 Bedside Glucose 95 mg/dl Blood Gas Sample Site Art Line Bedside Blood Gas pH (LAB) 7.33 Bedside Blood Gas pCO2 (LAB) 34 mmHg Bedside Blood Gas pO2 (LAB) 58 mmHg Bedside Blood Gas HCO3 (LAB) 18 meq/L Bedside Blood Gas Total CO2 19 mEq/l Bedside Blood Gas Base Excess (LAB) -8.0 meq/L Bedside Blood Gas O2 Saturation 85.0 % Mohan Test NA Oxygen Delivery Device Ventilator Bedside Oxygen Rate (breaths/min) 24 Blood Gas Minute Ventilation 16.8 Bedside FiO2 21 % Blood Gas Tidal Volume 600 Blood Gas PEEP 5 Exam: The patient has no spontaneous movement that I observed. Eyes have some resistance with opening but with shout she will open his eyes. He will not fix. He does not move his eyes past midline to the right but will look up and over to the left. He does not have nystagmus. Pupils are 3 mm and sluggishly react. He withdraws quickly to deep pain in each leg with grimacing and further eye opening. He has no response to deep pain in the arms bilaterally. Current Inpatient Medications Medications (Trade) Dose Ordered Sig/Shireen Route Start Time Stop Time Status Last Admin Dose Admin Pantoprazole Sodium 40 mg/ Syringe 10 ml @ 5 mls/min DAILY@1100 IV 08/22/16 11:00 09/21/16 10:59 08/23/16 12:15 5 MLS/MIN Midazolam HCl 250 ml @ 0 mls/hr Q0M PRN IV 08/21/16 16:59 09/20/16 16:58 08/24/16 00:50 8 MLS/HR Fentanyl Citrate (Fentanyl Drip 1250MCG/250 Nss) 250 ml @ 0 mls/hr Q0M PRN IV 08/21/16 17:15 09/04/16 17:14 08/23/16 10:24 20 MLS/HR Artificial Tears (Lacri-Lube Oph Oint) 1 appln Q2H PRN OPB 08/21/16 17:15 09/20/16 17:14 08/22/16 00:28 1 APPLN Heparin Sodium (Porcine) (Heparin Sq 5000 Unit/0.5ml) 5,000 unit Q8H SQ 08/21/16 22:00 09/20/16 21:59 08/24/16 06:00 5,000 UNIT Albuterol (Ventolin Hfa Inhaler) 4 puffs QIDR INH 08/21/16 20:20 09/20/16 20:19 08/24/16 07:21 4 PUFFS Glucose (Glucose 40% Gel) UD PRN PO 08/23/16 10:30 09/22/16 10:29 Glucose (Glucose Chew Tab) 1 tabs UD PRN PO 08/23/16 10:30 09/22/16 10:29 Dextrose (Dextrose 50% 50ML Syringe) 50 ml UD PRN IV 08/23/16 10:30 09/22/16 10:29 08/23/16 12:13 50 ML Glucagon (Glucagon Inj) 1 mg UD PRN SQ 08/23/16 10:30 09/22/16 10:29 Enteral Nutritional Formula 1000 ml 1,000 ml UD OG 08/23/16 11:45 09/22/16 11:44 08/23/16 12:17 1,000 ML Sodium Chloride (Nss 1000ml) 1,000 ml @ 75 mls/hr [id number] IV 08/23/16 15:00 09/22/16 14:59 08/23/16 16:45 75 MLS/HR Acetaminophen (Tylenol Soln) 650 mg Q6H PRN OG 08/23/16 17:00 09/22/16 16:59 08/23/16 17:43 650 MG Bacitracin (Bacitracin Oint) 1 appln BID EXT 08/23/16 21:00 09/22/16 20:59 08/24/16 07:36 1 APPLN Bacitracin 1 appln 1 appln QS PRN EXT 08/23/16 19:00 09/22/16 18:59 Dextrose/Sodium Chloride 1,000 ml @ 75 mls/hr [id number] IV 08/23/16 23:30 09/22/16 23:29 08/23/16 23:23 75 MLS/HR Piperacillin Sod/ Tazobactam Sod 3.375 gm/Dextrose 115 ml @ 28.75 mls/ hr Q8H IV 08/24/16 06:00 08/31/16 05:59 08/24/16 06:00 28.75 MLS/HR Acetaminophen/ Empty Bag (Ofirmev Iv/ Empty Iv Bag 100ml) 65 ml @ 260 mls/hr Q6H PRN IV 08/24/16 00:30 09/23/16 00:29 08/24/16 08:12 260 MLS/HR Piperacillin Sod/ Tazobactam Sod (Consult) 1 ea UD PRN N/A 08/24/16 00:30 09/23/16 00:29 Vancomycin HCl (Consult) 1 ea UD PRN N/A 08/24/16 00:30 09/23/16 00:29 Metoprolol Succinate 50 mg 50 mg QAM PO 08/24/16 09:00 09/23/16 08:59 Acetaminophen/ Empty Bag (Ofirmev Iv/ Empty Iv Bag 100ml) 100 ml @ 400 mls/hr Q8H IV 08/24/16 16:00 09/23/16 15:59 Metoprolol Tartrate (Lopressor Iv) 5 mg Q6 PRN IV 08/24/16 12:00 09/23/16 11:59 Impression 1. Sudden cardiac arrest, August 21 while on the treadmill. He has been through the cooling procedure and is warming up though he has had a temperature spike. 2. Underlying hypertrophic cardiomyopathy Currently he has some evidence of brainstem and spinal cord function as noted by reflexes and some other cranial nerve signs. He does not have any significant cortical function on exam although he does open his eyes once to voice He has gaze preference to the left. I cannot exclude a right occipital insult. He also has movement and withdrawal of his lower extremities bilaterally with no movement of his upper extremities bilaterally. This could indicate a lower brainstem/upper cord insult. Although he had myoclonic jerking prior to him being cooled, there was no potentially epileptogenic activity on EEG the last 2 days, and he has had no abnormal involuntary movements or jerking since the warming procedure was started. Overall his prognosis is very poor, if not grave. Plan 1. Patient is going to be getting an MRI of the brain and cervical spine today. 2. EEG today 3. Hold on anticonvulsant medication for now we'll consider depending on his clinical course. 4. Dr. Card will be coming on neurology consultation service tomorrow I spoke to Dr. Cutler regarding this case including differential diagnosis, treatment options, and prognosis.
--- NOTE | 2016-08-24 09:38 | DIAGNOSTIC IMAGING REPORT ---
RENAL ULTRASOUND CLINICAL HISTORY: Acute kidney injury. COMPARISON STUDY: None. TECHNIQUE: Sonography of the kidneys and the urinary bladder was performed. FINDINGS: The right kidney measures 13.3 x 7.2 x 7.6 cm and the left measures approximately 12 cm in length although is difficult to assess due to suboptimal penetration. There is no left hydronephrosis. There is severe right hydronephrosis of uncertain etiology. The right kidney is echogenic. A Avelar catheter is present within the bladder. No calculi or masses are identified although these may be occult by sonography. IMPRESSION: 1. Severe right hydronephrosis of uncertain etiology. Echogenic right kidney. 2. Partially obscured left kidney but no left hydronephrosis. Electronically signed by: Prakash Archuleta M.D. 08/24/2016 9:37 AM Dictated Date/Time: 08/24/2016 9:34 AM
[2016-08-24] MEDS: PANTOprazole INJ 40 MG in SYRINGE 0 ML IV SCH (09:47)
[2016-08-24] MEDS: METOPROLOL SUCC 50MG EXT REL TAB PO SCH (09:47)
[2016-08-24 09:48] LABS: URINE APPEARANCE CLEAR (CLEAR); URINE BILIRUBIN NEG (NEG); URINE COLOR YELLOW; URINE NITRITE NEG (NEG); URINE PH 6.5 (4.5-7.5); URINE SPECIFIC GRAVITY 1.019 (1.000-1.030); UROBILINOGEN POS (NEG)
[2016-08-24 09:51] LABS: MANUAL MICROSCOPIC REQUIRED? NO; REVIEW REQ? NO
[2016-08-24] MEDS ORDERED: ACETAMINOPHEN IV 650 MG in EMPTY BAG 0 ML IV ONE (10:00)
--- NOTE | 2016-08-24 10:06 | Pharmacy Progress Note ---
Pharmacy Antibiotic Consult Date of Service: August 24, 2016. Pharmacy Dosing Scope Pharmacy is consulted to initiate VANCOMYCIN and ZOSYN IV therapy, order appropriate labs and adjust drug dose/frequency. Subjective The patient is a 26 year old male admitted on August 21, 2016 at 16:16 for witnessed cardiac arrest, requiring ~31min CPR before ROS, respiratory failure and WILLARD. Patient did undergo TTM after which he was rewarmed, however now is febrile (rebound fever s/p TTM?), but also has infiltrates on CXR which could be reflective of aspiration PNX as EMS reported gurgling during intubation. Objective Height (Feet): 6 Height (Inches): 1.00 Weight (Kilograms): 95.100 Lab Results (24hrs): Test 08/23/16 12:06 08/23/16 21:50 08/23/16 23:35 08/24/16 00:29 Osmolality 283 mOsm/kg (280-300) Sodium Level 138 mmol/L (136-145) Chloride Level 110 mmol/L (98-107) Carbon Dioxide Level 23 mmol/L (21-32) Anion Gap 5.0 mmol/L (3-11) Blood Urea Nitrogen 16 mg/dl (7-18) Creatinine 1.70 mg/dl (0.60-1.40) Est Creatinine Clear Calc Drug Dose 73.8 ml/min Estimated GFR () 62.7 Estimated GFR (Non- 54.1 BUN/Creatinine Ratio 9.3 (10-20) Random Glucose 109 mg/dl (70-99) Calcium Level 8.2 mg/dl (8.5-10.1) Blood Gas Sample Site Art Line Bedside Blood Gas pH (LAB) 7.30 (7.35-7.45) Bedside Blood Gas pCO2 (LAB) 39 mmHg (35-46) Bedside Blood Gas pO2 (LAB) 91 mmHg (80-95) Bedside Blood Gas HCO3 (LAB) 19 meq/L (19-24) Bedside Blood Gas Total CO2 20 mEq/l (24-31) Bedside Blood Gas Base Excess (LAB) -7.0 meq/L (-9-1.8) Bedside Blood Gas O2 Saturation 95.0 % (90-95) Mohan Test NA Oxygen Delivery Device Ventilator Bedside Oxygen Rate (breaths/min) 20 Blood Gas Minute Ventilation 11.4 Bedside FiO2 21 % Blood Gas Tidal Volume 600 Blood Gas PEEP 5 Potassium Level 4.5 mmol/L (3.5-5.1) Test 08/24/16 05:53 08/24/16 05:55 08/24/16 08:07 08/24/16 08:09 White Blood Count 9.21 K/uL (4.8-10.8) Red Blood Count 4.82 M/uL (4.7-6.1) Hemoglobin 13.7 g/dL (14.0-18.0) Hematocrit 41.5 % (42-52) Mean Corpuscular Volume 86.1 fL (80-100) Mean Corpuscular Hemoglobin 28.4 pg (25-34) Mean Corpuscular Hemoglobin Concent 33.0 g/dl (32-36) Platelet Count 152 K/uL (130-400) Mean Platelet Volume 11.9 fL (7.4-10.4) Neutrophils (%) (Auto) 78.8 % Lymphocytes (%) (Auto) 14.8 % Monocytes (%) (Auto) 6.0 % Eosinophils (%) (Auto) 0.0 % Basophils (%) (Auto) 0.1 % Neutrophils # (Auto) 7.26 K/uL (1.4-6.5) Lymphocytes # (Auto) 1.36 K/uL (1.2-3.4) Monocytes # (Auto) 0.55 K/uL (0.11-0.59) Eosinophils # (Auto) 0.00 K/uL (0-0.5) Basophils # (Auto) 0.01 K/uL (0-0.2) RDW Standard Deviation 42.7 fL (36.4-46.3) RDW Coefficient of Variation 13.5 % (11.5-14.5) Immature Granulocyte % (Auto) 0.3 % Immature Granulocyte # (Auto) 0.03 K/uL (0.00-0.02) Prothrombin Time 14.2 SECONDS (9.0-12.0) Prothromb Time International Ratio 1.3 (0.9-1.1) Activated Partial Thromboplast Time 34.5 SECONDS (21.0-31.0) Partial Thromboplastin Ratio 1.3 Sodium Level 139 mmol/L (136-145) Potassium Level 4.8 mmol/L (3.5-5.1) Chloride Level 109 mmol/L (98-107) Carbon Dioxide Level 21 mmol/L (21-32) Anion Gap 9.0 mmol/L (3-11) Blood Urea Nitrogen 14 mg/dl (7-18) Creatinine 1.70 mg/dl (0.60-1.40) Est Creatinine Clear Calc Drug Dose 73.8 ml/min Estimated GFR () 62.7 Estimated GFR (Non- 54.1 BUN/Creatinine Ratio 8.1 (10-20) Random Glucose 103 mg/dl (70-99) Calcium Level 9.0 mg/dl (8.5-10.1) Phosphorus Level 2.0 mg/dl (2.5-4.9) Magnesium Level 1.8 mg/dl (1.8-2.4) Total Bilirubin 2.0 mg/dl (0.2-1) Direct Bilirubin 0.8 mg/dl (0-0.2) Aspartate Amino Transf (AST/SGOT) 53 U/L (15-37) Alanine Aminotransferase (ALT/SGPT) 171 U/L (12-78) Alkaline Phosphatase 99 U/L (45-117) Total Protein 7.0 gm/dl (6.4-8.2) Albumin 3.4 gm/dl (3.4-5.0) Lipase 63 U/L (73-393) Bedside Glucose 96 mg/dl (70-99) 95 mg/dl (70-99) Blood Gas Sample Site Art Line Bedside Blood Gas pH (LAB) 7.33 (7.35-7.45) Bedside Blood Gas pCO2 (LAB) 34 mmHg (35-46) Bedside Blood Gas pO2 (LAB) 58 mmHg (80-95) Bedside Blood Gas HCO3 (LAB) 18 meq/L (19-24) Bedside Blood Gas Total CO2 19 mEq/l (24-31) Bedside Blood Gas Base Excess (LAB) -8.0 meq/L (-9-1.8) Bedside Blood Gas O2 Saturation 85.0 % (90-95) Mohan Test NA Oxygen Delivery Device Ventilator Bedside Oxygen Rate (breaths/min) 24 Blood Gas Minute Ventilation 16.8 Bedside FiO2 21 % Blood Gas Tidal Volume 600 Blood Gas PEEP 5 Test 08/24/16 09:30 Urine Color YELLOW Urine Appearance CLEAR (CLEAR) Urine pH 6.5 (4.5-7.5) Urine Specific Circle 1.019 (1.000-1.030) Urine Protein TRACE (NEG) Urine Glucose (UA) NEG (NEG) Urine Ketones TRACE (NEG) Urine Occult Blood 2+ (NEG) Urine Nitrite NEG (NEG) Urine Bilirubin NEG (NEG) Urine Urobilinogen POS (NEG) Urine Leukocyte Esterase NEG (NEG) Urine WBC (Auto) 1-5 /hpf (0-5) Urine RBC (Auto) 0-4 /hpf (0-4) Urine Hyaline Casts (Auto) 1-5 /lpf (0-5) Urine Epithelial Cells (Auto) 5-10 /lpf (0-5) Urine Bacteria (Auto) NEG (NEG) Micro Results: 08/21: negative MRSA nares screen 08/24: BLCX's x 2 Assessment & Plan Assessment: * 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 last 24 hrs VANCOMYCIN * 2300mg (~26mg/kg) loading dose given 0050 today * Maintenance dose: 1400mg (~15mg/kg) IV Q 12 hours * Goal trough: 15-20mcg/mL * Trough level ordered for 08/26/16 * Will need for follow VS, U.O., SCr/BUN closely ZOSYN * Started on extended-interval regimen by overnight RPh: 3.375gm (over 4 hrs) IV Q 8 hours. * Given patient's age and illness severity will increase to 4.5gm extended- infusion IV Q 8 hrs * [facility] will continue to follow and will adjust dose/frequency as necessary. Thank you
--- NOTE | 2016-08-24 10:25 | Critical Care Progress Note ---
Critical Care Progress Note Date of Service August 24, 2016. ICU Day ICU Day Number: [address] Cutler Subjective Opening eyes to voice, not following commands, no sedation running since 05:30 Nursing report probable aspiration event, had tube feeds coming out of high low suction as well as oropharynx. Tube feeding was held at that point. Objective General Appearance: other (intubated) Head: normocephalic, other (abrasion 1 cm x 2 cm over left zygomatic arch) Eyes: Opens eyes to command, left gaze deviation ENT: other (intubated with 7.5 Hi-Lo tube) Neck: trachea midline, no thyromegaly Respiratory: breath sounds normal Cardiovasular: regular rhythm, normal S1S2, no gallop, no rub, no JVD, tachycardia Abdomen: normal bowel sounds, no rebound, no masses, no guarding Genitourinary - Male: external genitalia normal, other (Avelar present) Upper Extremities: no edema, other (approximately 2 cm x 2 cm abrasion on the right wrist) no response to painful stimuli Lower Extremities: no edema, normal ROM, other (3 cm x 3 cm abrasion to the right hip) withdraw to painful stimuli Pulses: carotid (R) (2+), carotid (L) (2+), radial (R) (2+), radial (L) (2+), dorsalis pedis (R) (2+), dorsalis pedis (L) (2+) Neuro: Withdraws lower extremities to pain, opens eyes to voice Psychiatric: other (unable to evaluate) Current SOFA Score SOFA Score Response (Comments) Value PaO2/FiO2 (mmHg) < 300 2 Platelets (x10) > 150 0 Bilirubin (mg/dL) 2.0 - 5.9 2 [place] Coma Score 6 - 9 3 Level of Hypotension No Hypotension 0 Creatinine (mg/dL) 1.2 - 1.9 1 Total 8 Previous SOFA Scores 5 on 08/23/2016 Assessment & Plan (1) cardiac arrest, acute resp failure (2) HOCM (hypertrophic obstructive cardiomyopathy) (3) Transaminitis (4) WILLARD (acute kidney injury) (5) Incarceration (6) Hypertension (7) Acute encephalopathy (8) Pulmonary infiltrate in right lung on CXR (9) Fever Neuro: Acute hypoxic encephalopathy Therapeutic hypothermia protocol finished -Concern for central cord syndrome as he is not moving his upper extremities but is able to withdraw his lower extremities. This could have come from a chin first fall secondary to heat cardiac arrest -1 g IV Tylenol every 8 hours when necessary hyperthermia - Ice packs for hyperthermia - EEG pending at this point - We'll obtain MRI of cervical spine and brain - Place and soft collar in meantime Resp: New pulmonary infiltrate on chest x-ray right lower lobe - Plan for bronchoscopy later today likely aspiration event secondary to tube feeding CV: Tachycardia with hypertension - Initiate metoprolol 50 mg twice a day - I discussed with the family that all blood relatives will need further evaluation for hypertrophic obstructive cardiomyopathy Fluids/Renal: Acute kidney injury, unclear etiology - Repeat UA - Urine stream eosinophilia - Renal ultrasound Hyperkalemia: Resolved Episodes of hypoglycemia as well as a KI continue hydration D5NS at 75 ML's per hour ID: Fever with new chest x-ray infiltrate, started on Zosyn and vancomycin, blood cultures sent, will obtain bronchoscopy later today GI/Nutrition: Transaminitis improving, hepatitis C and hepatitis B surface antigen negative, starting trickle feeds today Heme: Heparin prophylaxis, 5000 units 3 times a day Endocrine: Episodes of hypoglycemia, continued D5NS Lines: Right internal jugular triple-lumen central venous catheter placed 08/21 Right 20-gauge radial arterial line placed 08/21 I have personally spent 60 minutes of critical care time in the direct management of this patient. This is a life/limb threatening event. This includes time spent evaluating patient, direct bedside care, chart review, placing orders, interpretation of diagnostic studies, discussion with consultants, patient, and family members, as well as other required patient management activities. This time is exclusive of all separately billable procedures, and teaching time and separate from and in addition to any other critical care service time. Consults & Procedures Consultants: Neurology Cardiology Procedures: Right internal jugular vein CVL, 08/21/2016 Right radial arterial line 08/21/2016 Bronchoscopy secondary to new infiltrate 08/24/2016 Data Medications: Current Inpatient Medications Medications (Trade) Dose Ordered Sig/Shireen Route Start Time Stop Time Status Last Admin Dose Admin Pantoprazole Sodium 40 mg/ Syringe 10 ml @ 5 mls/min DAILY@1100 IV 08/22/16 11:00 09/21/16 10:59 08/24/16 09:47 5 MLS/MIN Midazolam HCl 250 ml @ 0 mls/hr Q0M PRN IV 08/21/16 16:59 09/20/16 16:58 08/24/16 00:50 8 MLS/HR Fentanyl Citrate (Fentanyl Drip 1250MCG/250 Nss) 250 ml @ 0 mls/hr Q0M PRN IV 08/21/16 17:15 09/04/16 17:14 08/23/16 10:24 20 MLS/HR Artificial Tears (Lacri-Lube Oph Oint) 1 appln Q2H PRN OPB 08/21/16 17:15 09/20/16 17:14 08/22/16 00:28 1 APPLN Heparin Sodium (Porcine) (Heparin Sq 5000 Unit/0.5ml) 5,000 unit Q8H SQ 08/21/16 22:00 09/20/16 21:59 08/24/16 06:00 5,000 UNIT Albuterol (Ventolin Hfa Inhaler) 4 puffs QIDR INH 08/21/16 20:20 09/20/16 20:19 08/24/16 07:21 4 PUFFS Glucose (Glucose 40% Gel) UD PRN PO 08/23/16 10:30 09/22/16 10:29 Glucose (Glucose Chew Tab) 1 tabs UD PRN PO 08/23/16 10:30 09/22/16 10:29 Dextrose (Dextrose 50% 50ML Syringe) 50 ml UD PRN IV 08/23/16 10:30 09/22/16 10:29 08/23/16 12:13 50 ML Glucagon (Glucagon Inj) 1 mg UD PRN SQ 08/23/16 10:30 09/22/16 10:29 Enteral Nutritional Formula 1000 ml 1,000 ml UD OG 08/23/16 11:45 09/22/16 11:44 08/23/16 12:17 1,000 ML Sodium Chloride (Nss 1000ml) 1,000 ml @ 75 mls/hr [id number] IV 08/23/16 15:00 09/22/16 14:59 08/23/16 16:45 75 MLS/HR Acetaminophen (Tylenol Soln) 650 mg Q6H PRN OG 08/23/16 17:00 09/22/16 16:59 08/23/16 17:43 650 MG Bacitracin (Bacitracin Oint) 1 appln BID EXT 08/23/16 21:00 09/22/16 20:59 08/24/16 07:36 1 APPLN Bacitracin 1 appln 1 appln QS PRN EXT 08/23/16 19:00 09/22/16 18:59 Dextrose/Sodium Chloride 1,000 ml @ 75 mls/hr [id number] IV 08/23/16 23:30 09/22/16 23:29 08/23/16 23:23 75 MLS/HR Acetaminophen/ Empty Bag (Ofirmev Iv/ Empty Iv Bag 100ml) 65 ml @ 260 mls/hr Q6H PRN IV 08/24/16 00:30 09/23/16 00:29 08/24/16 08:12 260 MLS/HR Piperacillin Sod/ Tazobactam Sod (Consult) 1 ea UD PRN N/A 08/24/16 00:30 09/23/16 00:29 Vancomycin HCl (Consult) 1 ea UD PRN N/A 08/24/16 00:30 09/23/16 00:29 Metoprolol Succinate 50 mg 50 mg QAM PO 08/24/16 09:00 09/23/16 08:59 08/24/16 09:47 50 MG Acetaminophen/ Empty Bag (Ofirmev Iv/ Empty Iv Bag 100ml) 100 ml @ 400 mls/hr Q8H IV 08/24/16 16:00 09/23/16 15:59 Metoprolol Tartrate 5 mg 5 mg Q6 PRN IV 08/24/16 12:00 09/23/16 11:59 Acetaminophen 650 mg/Empty Bag 65 ml @ 260 mls/hr NOW ONCE IV 08/24/16 10:00 08/24/16 10:14 08/24/16 09:47 260 MLS/HR Vancomycin HCl 1400 mg/Sodium Chloride 528 ml @ 200 mls/hr Q12H IV 08/24/16 14:00 08/31/16 13:59 Piperacillin Sod/ Tazobactam Sod/ Dextrose (Zosyn Iv/D5 100ml) 120 ml @ 30 mls/hr Q8H IV 08/24/16 14:00 08/31/16 13:59 I & O: 24-Hour Column 08/24/16 08:00 Intake Total 3703 ml Output Total 2400 ml Balance 1303 ml Vital Signs: Date Time Temp Pulse Resp B/P Pulse Ox O2 Delivery O2 Flow Rate FiO2 08/24/16 08:15 38.8 102 26 177/70 95 08/24/16 08:12 45 08/24/16 08:07 118 175/103 08/24/16 08:01 38.7 118 25 200/78 99 08/24/16 08:00 38.6 114 27 188/91 98 08/24/16 08:00 99 Mechanical Ventilator 21 08/24/16 08:00 21 08/24/16 07:55 21 08/24/16 07:45 38.6 114 22 181/71 91 08/24/16 07:30 38.6 100 25 162/67 93 08/24/16 07:15 38.6 102 24 170/65 92 08/24/16 07:00 38.7 101 24 138/80 91 08/24/16 06:45 38.8 105 19 172/74 92 08/24/16 06:30 39.0 109 24 134/54 92 08/24/16 06:15 39.0 121 24 149/57 91 08/24/16 06:00 39.0 120 24 162/90 91 Mechanical Ventilator 21 146/57 08/24/16 06:00 39.1 128 26 167/93 89 08/24/16 06:00 110 162/90 08/24/16 05:05 21 08/24/16 04:00 100 Mechanical Ventilator 30 08/24/16 04:00 38.4 103 24 151/70 95 Mechanical Ventilator 21 165/60 08/24/16 04:00 21 08/24/16 03:00 38.3 94 24 141/70 97 08/24/16 02:00 38.5 94 24 137/75 100 Mechanical Ventilator 21 149/55 08/24/16 01:47 21 08/24/16 01:00 38.8 106 24 143/74 99 153/61 08/24/16 00:00 21 08/24/16 00:00 100 Mechanical Ventilator 30 08/24/16 00:00 39.4 116 22 185/75 99 Mechanical Ventilator 21 08/23/16 23:22 118 205/80 08/23/16 23:00 39.3 115 23 155/93 100 Mechanical Ventilator 08/23/16 22:45 21 08/23/16 22:00 38.5 118 27 126/66 100 Mechanical Ventilator 21 184/70 08/23/16 20:00 100 Mechanical Ventilator 30 08/23/16 20:00 38.0 92 20 124/74 100 Mechanical Ventilator 120/51 08/23/16 20:00 21 08/23/16 19:40 21 08/23/16 19:00 38.1 86 20 111/58 100 Mechanical Ventilator 129/58 08/23/16 18:00 38.1 85 20 132/71 100 Mechanical Ventilator 112/55 08/23/16 17:40 21 08/23/16 17:00 38.0 106 20 147/75 100 Mechanical Ventilator 153/62 08/23/16 16:00 30 08/23/16 16:00 37.8 112 20 142/80 100 Mechanical Ventilator 150/63 08/23/16 16:00 100 Mechanical Ventilator 30 08/23/16 15:00 37.6 98 20 121/67 100 Mechanical Ventilator 142/59 08/23/16 14:49 21 08/23/16 14:00 37.2 97 20 123/69 100 Mechanical Ventilator 145/61 08/23/16 13:00 36.9 92 20 125/64 100 Mechanical Ventilator 140/60 08/23/16 12:00 36.3 85 20 117/65 100 Mechanical Ventilator 123/59 08/23/16 12:00 100 Mechanical Ventilator 30 08/23/16 12:00 30 08/23/16 11:45 21 08/23/16 11:00 35.8 85 20 110/67 100 Mechanical Ventilator 128/65 Laboratory Results: Last 24 Hours Test 08/23/16 10:48 08/23/16 11:18 08/23/16 11:55 08/23/16 11:56 Bedside Glucose 59 mg/dl 73 mg/dl 96 mg/dl Blood Gas Sample Site Art Line Bedside Blood Gas pH (LAB) 7.33 Bedside Blood Gas pCO2 (LAB) 34 mmHg Bedside Blood Gas pO2 (LAB) 95 mmHg Bedside Blood Gas HCO3 (LAB) 18 meq/L Bedside Blood Gas Total CO2 19 mEq/l Bedside Blood Gas Base Excess (LAB) -8.0 meq/L Bedside Blood Gas O2 Saturation 97.0 % Mohan Test NA Oxygen Delivery Device Ventilator Bedside Oxygen Rate (breaths/min) 20 Blood Gas Minute Ventilation 11.1 Bedside FiO2 21 % Blood Gas Tidal Volume 600 Blood Gas PEEP 5 Test 08/23/16 12:06 08/23/16 14:29 08/23/16 15:28 08/23/16 16:00 Potassium Level 4.5 mmol/L 4.5 mmol/L Osmolality 283 mOsm/kg Bedside Glucose 91 mg/dl 93 mg/dl Test 08/23/16 16:26 08/23/16 17:43 08/23/16 17:45 08/23/16 21:22 Bedside Glucose 89 mg/dl 81 mg/dl 63 mg/dl Blood Gas Sample Site Art Line Bedside Blood Gas pH (LAB) 7.30 Bedside Blood Gas pCO2 (LAB) 39 mmHg Bedside Blood Gas pO2 (LAB) 93 mmHg Bedside Blood Gas HCO3 (LAB) 19 meq/L Bedside Blood Gas Total CO2 20 mEq/l Bedside Blood Gas Base Excess (LAB) -7.0 meq/L Bedside Blood Gas O2 Saturation 96.0 % Mohan Test NA Oxygen Delivery Device Ventilator Bedside Oxygen Rate (breaths/min) 20 Blood Gas Minute Ventilation 11.0 Bedside FiO2 21 % Blood Gas Tidal Volume 600 Blood Gas PEEP 5 Test 08/23/16 21:50 08/23/16 22:04 08/23/16 23:35 08/24/16 00:25 Sodium Level 138 mmol/L Potassium Level 5.5 mmol/L Chloride Level 110 mmol/L Carbon Dioxide Level 23 mmol/L Anion Gap 5.0 mmol/L Blood Urea Nitrogen 16 mg/dl Creatinine 1.70 mg/dl Est Creatinine Clear Calc Drug Dose 73.8 ml/min Estimated GFR () 62.7 Estimated GFR (Non- 54.1 BUN/Creatinine Ratio 9.3 Random Glucose 109 mg/dl Calcium Level 8.2 mg/dl Bedside Glucose 83 mg/dl 74 mg/dl Blood Gas Sample Site Art Line Bedside Blood Gas pH (LAB) 7.30 Bedside Blood Gas pCO2 (LAB) 39 mmHg Bedside Blood Gas pO2 (LAB) 91 mmHg Bedside Blood Gas HCO3 (LAB) 19 meq/L Bedside Blood Gas Total CO2 20 mEq/l Bedside Blood Gas Base Excess (LAB) -7.0 meq/L Bedside Blood Gas O2 Saturation 95.0 % Mohan Test NA Oxygen Delivery Device Ventilator Bedside Oxygen Rate (breaths/min) 20 Blood Gas Minute Ventilation 11.4 Bedside FiO2 21 % Blood Gas Tidal Volume 600 Blood Gas PEEP 5 Test 08/24/16 00:29 08/24/16 02:12 08/24/16 05:53 08/24/16 05:55 Potassium Level 4.5 mmol/L 4.8 mmol/L Bedside Glucose 92 mg/dl 96 mg/dl White Blood Count 9.21 K/uL Red Blood Count 4.82 M/uL Hemoglobin 13.7 g/dL Hematocrit 41.5 % Mean Corpuscular Volume 86.1 fL Mean Corpuscular Hemoglobin 28.4 pg Mean Corpuscular Hemoglobin Concent 33.0 g/dl Platelet Count 152 K/uL Mean Platelet Volume 11.9 fL Neutrophils (%) (Auto) 78.8 % Lymphocytes (%) (Auto) 14.8 % Monocytes (%) (Auto) 6.0 % Eosinophils (%) (Auto) 0.0 % Basophils (%) (Auto) 0.1 % Neutrophils # (Auto) 7.26 K/uL Lymphocytes # (Auto) 1.36 K/uL Monocytes # (Auto) 0.55 K/uL Eosinophils # (Auto) 0.00 K/uL Basophils # (Auto) 0.01 K/uL RDW Standard Deviation 42.7 fL RDW Coefficient of Variation 13.5 % Immature Granulocyte % (Auto) 0.3 % Immature Granulocyte # (Auto) 0.03 K/uL Prothrombin Time 14.2 SECONDS Prothromb Time International Ratio 1.3 Activated Partial Thromboplast Time 34.5 SECONDS Partial Thromboplastin Ratio 1.3 Sodium Level 139 mmol/L Chloride Level 109 mmol/L Carbon Dioxide Level 21 mmol/L Anion Gap 9.0 mmol/L Blood Urea Nitrogen 14 mg/dl Creatinine 1.70 mg/dl Est Creatinine Clear Calc Drug Dose 73.8 ml/min Estimated GFR () 62.7 Estimated GFR (Non- 54.1 BUN/Creatinine Ratio 8.1 Random Glucose 103 mg/dl Calcium Level 9.0 mg/dl Phosphorus Level 2.0 mg/dl Magnesium Level 1.8 mg/dl Total Bilirubin 2.0 mg/dl Direct Bilirubin 0.8 mg/dl Aspartate Amino Transf (AST/SGOT) 53 U/L Alanine Aminotransferase (ALT/SGPT) 171 U/L Alkaline Phosphatase 99 U/L Total Protein 7.0 gm/dl Albumin 3.4 gm/dl Lipase 63 U/L Test 08/24/16 08:07 08/24/16 08:09 08/24/16 09:30 Bedside Glucose 95 mg/dl Blood Gas Sample Site Art Line Bedside Blood Gas pH (LAB) 7.33 Bedside Blood Gas pCO2 (LAB) 34 mmHg Bedside Blood Gas pO2 (LAB) 58 mmHg Bedside Blood Gas HCO3 (LAB) 18 meq/L Bedside Blood Gas Total CO2 19 mEq/l Bedside Blood Gas Base Excess (LAB) -8.0 meq/L Bedside Blood Gas O2 Saturation 85.0 % Mohan Test NA Oxygen Delivery Device Ventilator Bedside Oxygen Rate (breaths/min) 24 Blood Gas Minute Ventilation 16.8 Bedside FiO2 21 % Blood Gas Tidal Volume 600 Blood Gas PEEP 5 Urine Color YELLOW Urine Appearance CLEAR Urine pH 6.5 Urine Specific [place] 1.019 Urine Protein TRACE Urine Glucose (UA) NEG Urine Ketones TRACE Urine Occult Blood 2+ Urine Nitrite NEG Urine Bilirubin NEG Urine Urobilinogen POS Urine Leukocyte Esterase NEG Urine WBC (Auto) 1-5 /hpf Urine RBC (Auto) 0-4 /hpf Urine Hyaline Casts (Auto) 1-5 /lpf Urine Epithelial Cells (Auto) 5-10 /lpf Urine Bacteria (Auto) NEG
--- NOTE | 2016-08-24 10:40 | CARDIOLOGY PROGRESS NOTE ---
DATE: 08/24/2016 HISTORY OF PRESENT ILLNESS: This morning, the patient did respond to stimuli and reportedly also opened his eyes to stimuli. He has been rewarmed and he will undergo additional assessment today in order to aid in determination of a possible meaningful neurologic recovery. PHYSICAL EXAMINATION: VITAL SIGNS: Included a blood pressure of 177/70 with a pulse of 102. LUNGS: Auscultation of his lungs revealed them to be clear. CARDIAC EXAMINATION: Revealed him to be slightly tachycardic, but no murmurs were appreciated. LABORATORY STUDIES: Obtained included a white cell count of 9.2, hemoglobin of 13.7 and a platelet count of 152. Sodium is 139, potassium is 4.8, BUN was 14, and creatinine was 1.7. ASSESSMENT AND PLAN: 1. Cardiac arrest. The patient has completed a cooling protocol and is now rewarmed. He has some mild tachycardia and hypertension which is being addressed and efforts are being made in order to determine his overall prognosis and likelihood of a neurologic recovery. 2. Hypertrophic cardiomyopathy. This is the substrate for his arrest. The patient has been started on beta fatemeh. We will wait to see what his neurologic prognosis is prior to considering any definitive therapy such as an implantable defibrillator. JAVON
[2016-08-24] MEDS: D5W AND NSS 1,000 ML IV SCH (11:18)
[2016-08-24] MEDS ORDERED: LORAZEPAM 2 MG/ML 1 ML VIAL ONE (13:16)
[2016-08-24] MEDS ORDERED: PROPOFOL IV EMULSION 10 MG/ML 100 ML VIAL IV PRN ×2 (13:19→16:30)
--- NOTE | 2016-08-24 13:27 | Progress Note ---
Progress Note Date of Service August 24, 2016. (Andres Vasquez MD) Progress Note 13:00 Notified by Nursing of rhytmic twitching movements of lips and left hand. Dr. Hahn was contacted for further recommendations. 2 g IV Lorazepam ordered Stat and as needed for seizure activity en route and during MRI Reviewed results of bladder scan; noted to have right hydronephrosis and partial obstruction of the left ureter. No comment on bladder distention. U/S bladder was done by bedside ultrasound. Avelar catheter was irrigated without evidence of obstruction (Andres Vasquez MD) In MRI, will be headed to CT for ABD/Pelvis to further evaluate hydronephrosis. (Ankit Cutler, D.O.)
--- NOTE | 2016-08-24 13:34 | Hospitalist Progress Note ---
Hospitalist Progress Note Date of Service August 24, 2016. Subjective Pt evaluation today including: conversation w/ family, physical exam, chart review Remains intubated. Off sedation. Tube feeds held Medications Medications (Trade) Dose Ordered Sig/Shireen Route Start Time Stop Time Status Last Admin Dose Admin Sodium Chloride (Nss 1000ml) 1,000 ml @ 75 mls/hr [id number] IV 08/23/16 15:00 09/22/16 14:59 08/23/16 16:45 75 MLS/HR Metoprolol Tartrate (Lopressor Tab) 12.5 mg BID OG 08/23/16 16:48 08/23/16 23:18 DC 08/23/16 21:28 12.5 MG Acetaminophen (Tylenol Soln) 650 mg Q6H PRN OG 08/23/16 17:00 09/22/16 16:59 08/23/16 17:43 650 MG Bacitracin (Bacitracin Oint) 1 appln BID EXT 08/23/16 21:00 09/22/16 20:59 08/24/16 07:36 1 APPLN Metoprolol Tartrate 5 mg 5 mg STK-MED ONCE .ROUTE 08/23/16 23:06 08/23/16 23:07 DC 08/23/16 23:22 5 MG Dextrose/Sodium Chloride (D5W And Nss) 1,000 ml @ 75 mls/hr [id number] IV 08/23/16 23:30 09/22/16 23:29 08/24/16 11:18 75 MLS/HR Metoprolol Tartrate 5 mg 5 mg Q6 IV. 08/24/16 06:00 08/24/16 09:07 DC 08/24/16 06:00 5 MG Vancomycin HCl 2300 mg/Sodium Chloride 546 ml @ 200 mls/hr TODAY@0030 ONCE IV 08/24/16 00:30 08/24/16 03:13 DC 08/24/16 00:50 200 MLS/HR Piperacillin Sod/ Tazobactam Sod 3.375 gm/Dextrose 115 ml @ 28.75 mls/ hr Q8H IV 08/24/16 06:00 08/24/16 10:07 DC 08/24/16 06:00 28.75 MLS/HR Acetaminophen 650 mg/Empty Bag 65 ml @ 260 mls/hr Q6H PRN IV 08/24/16 00:30 09/23/16 00:29 08/24/16 08:12 260 MLS/HR Piperacillin Sod/ Tazobactam Sod/ Dextrose (Zosyn Iv/D5 100ml) 115 ml @ 230 mls/hr NOW ONCE IV 08/24/16 00:30 08/24/16 00:59 DC 08/24/16 00:50 230 MLS/HR Metoprolol Tartrate (Lopressor Iv) 5 mg STK-MED ONCE .ROUTE 08/24/16 08:04 08/24/16 08:05 DC 08/24/16 08:07 5 MG Metoprolol Succinate 50 mg 50 mg QAM PO 08/24/16 09:00 09/23/16 08:59 08/24/16 09:47 50 MG Acetaminophen/ Empty Bag (Ofirmev Iv/ Empty Iv Bag 100ml) 65 ml @ 260 mls/hr NOW ONCE IV 08/24/16 10:00 08/24/16 10:14 DC 08/24/16 09:47 260 MLS/HR Objective Vital Signs Date Time Temp Pulse Resp B/P Pulse Ox O2 Delivery O2 Flow Rate FiO2 08/24/16 12:00 45 08/24/16 12:00 99 Mechanical Ventilator 45 08/24/16 12:00 38.8 102 24 163/86 99 08/24/16 11:30 38.8 94 24 163/68 100 08/24/16 11:06 38.8 99 24 173/75 100 08/24/16 11:02 45 08/24/16 11:00 38.9 90 24 138/68 99 08/24/16 10:30 39.1 98 24 163/67 100 08/24/16 10:15 39.1 100 24 160/66 99 08/24/16 10:00 39.1 107 24 152/78 98 08/24/16 09:45 39.1 101 24 162/61 99 08/24/16 09:30 39.0 101 24 168/63 99 08/24/16 09:15 39.0 98 24 167/66 98 08/24/16 09:00 39.0 115 24 144/85 88 08/24/16 08:45 39.0 97 24 160/59 98 08/24/16 08:30 38.9 98 24 172/71 97 08/24/16 08:15 38.8 102 26 177/70 95 08/24/16 08:12 45 08/24/16 08:07 118 175/103 08/24/16 08:01 38.7 118 25 200/78 99 08/24/16 08:00 38.6 114 27 188/91 98 08/24/16 08:00 99 Mechanical Ventilator 21 08/24/16 08:00 21 08/24/16 07:55 21 08/24/16 07:45 38.6 114 22 181/71 91 08/24/16 07:30 38.6 100 25 162/67 93 08/24/16 07:15 38.6 102 24 170/65 92 08/24/16 07:00 38.7 101 24 138/80 91 08/24/16 06:45 38.8 105 19 172/74 92 08/24/16 06:30 39.0 109 24 134/54 92 08/24/16 06:15 39.0 121 24 149/57 91 08/24/16 06:00 39.0 120 24 162/90 91 Mechanical Ventilator 21 146/57 08/24/16 06:00 39.1 128 26 167/93 89 08/24/16 06:00 110 162/90 08/24/16 05:05 21 08/24/16 04:00 100 Mechanical Ventilator 30 08/24/16 04:00 38.4 103 24 151/70 95 Mechanical Ventilator 21 165/60 08/24/16 04:00 21 08/24/16 03:00 38.3 94 24 141/70 97 08/24/16 02:00 38.5 94 24 137/75 100 Mechanical Ventilator 21 149/55 08/24/16 01:47 21 08/24/16 01:00 38.8 106 24 143/74 99 153/61 08/24/16 00:00 21 08/24/16 00:00 100 Mechanical Ventilator 30 08/24/16 00:00 39.4 116 22 185/75 99 Mechanical Ventilator 21 08/23/16 23:22 118 205/80 08/23/16 23:00 39.3 115 23 155/93 100 Mechanical Ventilator 08/23/16 22:45 21 08/23/16 22:00 38.5 118 27 126/66 100 Mechanical Ventilator 21 184/70 08/23/16 20:00 100 Mechanical Ventilator 30 08/23/16 20:00 38.0 92 20 124/74 100 Mechanical Ventilator 120/51 08/23/16 20:00 21 08/23/16 19:40 21 08/23/16 19:00 38.1 86 20 111/58 100 Mechanical Ventilator 129/58 08/23/16 18:00 38.1 85 20 132/71 100 Mechanical Ventilator 112/55 08/23/16 17:40 21 08/23/16 17:00 38.0 106 20 147/75 100 Mechanical Ventilator 153/62 08/23/16 16:00 30 08/23/16 16:00 37.8 112 20 142/80 100 Mechanical Ventilator 150/63 08/23/16 16:00 100 Mechanical Ventilator 30 08/23/16 15:00 37.6 98 20 121/67 100 Mechanical Ventilator 142/59 08/23/16 14:49 21 08/23/16 14:00 37.2 97 20 123/69 100 Mechanical Ventilator 145/61 Physical Exam Neck: supple Respiratory/Chest: chest non-tender, + decreased breath sounds, + pertinent finding (intubated and on vent) Cardiovascular: regular rate, rhythm, no edema Abdomen: normal bowel sounds, non tender Neurologic/Psychiatric: + pertinent finding (opens eyes briefly.) Laboratory Results Last 24 Hours Test 08/23/16 14:29 08/23/16 15:28 08/23/16 16:00 08/23/16 16:26 Bedside Glucose 91 mg/dl 93 mg/dl 89 mg/dl Potassium Level 4.5 mmol/L Test 08/23/16 17:43 08/23/16 17:45 08/23/16 21:22 08/23/16 21:50 Blood Gas Sample Site Art Line Bedside Blood Gas pH (LAB) 7.30 Bedside Blood Gas pCO2 (LAB) 39 mmHg Bedside Blood Gas pO2 (LAB) 93 mmHg Bedside Blood Gas HCO3 (LAB) 19 meq/L Bedside Blood Gas Total CO2 20 mEq/l Bedside Blood Gas Base Excess (LAB) -7.0 meq/L Bedside Blood Gas O2 Saturation 96.0 % Mohan Test NA Oxygen Delivery Device Ventilator Bedside Oxygen Rate (breaths/min) 20 Blood Gas Minute Ventilation 11.0 Bedside FiO2 21 % Blood Gas Tidal Volume 600 Blood Gas PEEP 5 Bedside Glucose 81 mg/dl 63 mg/dl Sodium Level 138 mmol/L Potassium Level 5.5 mmol/L Chloride Level 110 mmol/L Carbon Dioxide Level 23 mmol/L Anion Gap 5.0 mmol/L Blood Urea Nitrogen 16 mg/dl Creatinine 1.70 mg/dl Est Creatinine Clear Calc Drug Dose 73.8 ml/min Estimated GFR () 62.7 Estimated GFR (Non- 54.1 BUN/Creatinine Ratio 9.3 Random Glucose 109 mg/dl Calcium Level 8.2 mg/dl Test 08/23/16 22:04 08/23/16 23:35 08/24/16 00:25 08/24/16 00:29 Bedside Glucose 83 mg/dl 74 mg/dl Blood Gas Sample Site Art Line Bedside Blood Gas pH (LAB) 7.30 Bedside Blood Gas pCO2 (LAB) 39 mmHg Bedside Blood Gas pO2 (LAB) 91 mmHg Bedside Blood Gas HCO3 (LAB) 19 meq/L Bedside Blood Gas Total CO2 20 mEq/l Bedside Blood Gas Base Excess (LAB) -7.0 meq/L Bedside Blood Gas O2 Saturation 95.0 % Mohan Test NA Oxygen Delivery Device Ventilator Bedside Oxygen Rate (breaths/min) 20 Blood Gas Minute Ventilation 11.4 Bedside FiO2 21 % Blood Gas Tidal Volume 600 Blood Gas PEEP 5 Potassium Level 4.5 mmol/L Test 08/24/16 02:12 08/24/16 05:53 08/24/16 05:55 08/24/16 08:07 Bedside Glucose 92 mg/dl 96 mg/dl 95 mg/dl White Blood Count 9.21 K/uL Red Blood Count 4.82 M/uL Hemoglobin 13.7 g/dL Hematocrit 41.5 % Mean Corpuscular Volume 86.1 fL Mean Corpuscular Hemoglobin 28.4 pg Mean Corpuscular Hemoglobin Concent 33.0 g/dl Platelet Count 152 K/uL Mean Platelet Volume 11.9 fL Neutrophils (%) (Auto) 78.8 % Lymphocytes (%) (Auto) 14.8 % Monocytes (%) (Auto) 6.0 % Eosinophils (%) (Auto) 0.0 % Basophils (%) (Auto) 0.1 % Neutrophils # (Auto) 7.26 K/uL Lymphocytes # (Auto) 1.36 K/uL Monocytes # (Auto) 0.55 K/uL Eosinophils # (Auto) 0.00 K/uL Basophils # (Auto) 0.01 K/uL RDW Standard Deviation 42.7 fL RDW Coefficient of Variation 13.5 % Immature Granulocyte % (Auto) 0.3 % Immature Granulocyte # (Auto) 0.03 K/uL Prothrombin Time 14.2 SECONDS Prothromb Time International Ratio 1.3 Activated Partial Thromboplast Time 34.5 SECONDS Partial Thromboplastin Ratio 1.3 Sodium Level 139 mmol/L Potassium Level 4.8 mmol/L Chloride Level 109 mmol/L Carbon Dioxide Level 21 mmol/L Anion Gap 9.0 mmol/L Blood Urea Nitrogen 14 mg/dl Creatinine 1.70 mg/dl Est Creatinine Clear Calc Drug Dose 73.8 ml/min Estimated GFR () 62.7 Estimated GFR (Non- 54.1 BUN/Creatinine Ratio 8.1 Random Glucose 103 mg/dl Calcium Level 9.0 mg/dl Phosphorus Level 2.0 mg/dl Magnesium Level 1.8 mg/dl Total Bilirubin 2.0 mg/dl Direct Bilirubin 0.8 mg/dl Aspartate Amino Transf (AST/SGOT) 53 U/L Alanine Aminotransferase (ALT/SGPT) 171 U/L Alkaline Phosphatase 99 U/L Total Protein 7.0 gm/dl Albumin 3.4 gm/dl Lipase 63 U/L Test 08/24/16 08:09 08/24/16 09:30 08/24/16 12:14 Blood Gas Sample Site Art Line Bedside Blood Gas pH (LAB) 7.33 Bedside Blood Gas pCO2 (LAB) 34 mmHg Bedside Blood Gas pO2 (LAB) 58 mmHg Bedside Blood Gas HCO3 (LAB) 18 meq/L Bedside Blood Gas Total CO2 19 mEq/l Bedside Blood Gas Base Excess (LAB) -8.0 meq/L Bedside Blood Gas O2 Saturation 85.0 % Mohan Test NA Oxygen Delivery Device Ventilator Bedside Oxygen Rate (breaths/min) 24 Blood Gas Minute Ventilation 16.8 Bedside FiO2 21 % Blood Gas Tidal Volume 600 Blood Gas PEEP 5 Urine Color YELLOW Urine Appearance CLEAR Urine pH 6.5 Urine Specific [place] 1.019 Urine Protein TRACE Urine Glucose (UA) NEG Urine Ketones TRACE Urine Occult Blood 2+ Urine Nitrite NEG Urine Bilirubin NEG Urine Urobilinogen POS Urine Leukocyte Esterase NEG Urine WBC (Auto) 1-5 /hpf Urine RBC (Auto) 0-4 /hpf Urine Hyaline Casts (Auto) 1-5 /lpf Urine Epithelial Cells (Auto) 5-10 /lpf Urine Bacteria (Auto) NEG Bedside Glucose 95 mg/dl Diagnostic Results RENAL ULTRASOUND CLINICAL HISTORY: Acute kidney injury. COMPARISON STUDY: None. TECHNIQUE: Sonography of the kidneys and the urinary bladder was performed. FINDINGS: The right kidney measures 13.3 x 7.2 x 7.6 cm and the left measures approximately 12 cm in length although is difficult to assess due to suboptimal penetration. There is no left hydronephrosis. There is severe right hydronephrosis of uncertain etiology. The right kidney is echogenic. A Avelar catheter is present within the bladder. No calculi or masses are identified although these may be occult by sonography. IMPRESSION: 1. Severe right hydronephrosis of uncertain etiology. Echogenic right kidney. 2. Partially obscured left kidney but no left hydronephrosis. Electronically signed by: Prakash Archuleta M.D. 08/24/2016 9:37 AM CHEST ONE VIEW PORTABLE CLINICAL HISTORY: Fever. COMPARISON STUDY: Chest radiograph August 24, 2016 at 12:09 AM. FINDINGS: The nasogastric tube is coiled back upon itself with the tip projecting over the gastric cardia. The tip of the endotracheal tube is 3.1 cm above the al. A right internal jugular central line is in place. There is no pneumothorax. Cardiomediastinal silhouette is stable. Bibasilar left midlung consolidation has developed. Equivocal cavitation within the right lower lung is probably artifactual. IMPRESSION: 1. Tip of endotracheal tube 3.1 cm above the al. 2. Nasogastric tube coiled back upon itself with tip projecting over the gastric cardia. 3. Progression of bilateral airspace opacities which favors pneumonia, potentially on the basis of aspiration. Equivocal cavitation within the right lower lung is likely artifactual. Electronically signed by: Prakash Archuleta M.D. 08/24/2016 7:09 AM Dictated Date/Time: 08/24/2016 7:06 AM Assessment and Plan s/p cardiac arrest likely secondary to ventricular arrhythmia (VT, likely). Continue with vent support. Hypothermia protocol per [facility]. For MRI brain and C spine today. LFTs trending down. Started on IV Zosyn and IV Vanco for PNA, possibly due to aspiration from tube feeds. BP mgt per [facility].Started on Metoprolol. Can use IV Hydralazine PRN if needed. Serum potassium is normal. Slight increase in serum creatinine (1.7), recheck in am. Abnormal renal sono (right hydronephrosis)-consider Renal eval. Urine output has been satisfactory. CT head, EEG and CXR results noted Nutrition per [facility]. Tube feeds on hold for now Echo results noted-HOCM. Beta fatemeh therapy recommended by Cardiology. Condition critical.
[2016-08-24] MEDS: LORAZEPAM 2 MG/ML 1 ML VIAL IV SCH ×2 (13:58→15:27)
--- NOTE | 2016-08-24 14:02 | EEG Procedure Note ---
EEG Procedure Note Date of Service August 24, 2016. Start / End Times Start Time: 1020 End Time: [address] dunn History 26 year old post cardiac arrest and unresponsive Home Medication List Unable to Obtain Active Prescriptions or Reported Meds Inpatient Medication List Current Inpatient Medications Medications (Trade) Dose Ordered Sig/Shireen Route Start Time Stop Time Status Last Admin Dose Admin Pantoprazole Sodium 40 mg/ Syringe 10 ml @ 5 mls/min DAILY@1100 IV 08/22/16 11:00 09/21/16 10:59 08/24/16 09:47 5 MLS/MIN Midazolam HCl 250 ml @ 0 mls/hr Q0M PRN IV 08/21/16 16:59 09/20/16 16:58 08/24/16 00:50 8 MLS/HR Fentanyl Citrate (Fentanyl Drip 1250MCG/250 Nss) 250 ml @ 0 mls/hr Q0M PRN IV 08/21/16 17:15 09/04/16 17:14 08/23/16 10:24 20 MLS/HR Artificial Tears (Lacri-Lube Oph Oint) 1 appln Q2H PRN OPB 08/21/16 17:15 09/20/16 17:14 08/22/16 00:28 1 APPLN Heparin Sodium (Porcine) (Heparin Sq 5000 Unit/0.5ml) 5,000 unit Q8H SQ 08/21/16 22:00 09/20/16 21:59 08/24/16 06:00 5,000 UNIT Albuterol (Ventolin Hfa Inhaler) 4 puffs QIDR INH 08/21/16 20:20 09/20/16 20:19 08/24/16 11:02 4 PUFFS Glucose (Glucose 40% Gel) UD PRN PO 08/23/16 10:30 09/22/16 10:29 Glucose (Glucose Chew Tab) 1 tabs UD PRN PO 08/23/16 10:30 09/22/16 10:29 Dextrose (Dextrose 50% 50ML Syringe) 50 ml UD PRN IV 08/23/16 10:30 09/22/16 10:29 08/23/16 12:13 50 ML Glucagon (Glucagon Inj) 1 mg UD PRN SQ 08/23/16 10:30 09/22/16 10:29 Enteral Nutritional Formula 1000 ml 1,000 ml UD OG 08/23/16 11:45 09/22/16 11:44 08/23/16 12:17 1,000 ML Sodium Chloride (Nss 1000ml) 1,000 ml @ 75 mls/hr [id number] IV 08/23/16 15:00 09/22/16 14:59 08/23/16 16:45 75 MLS/HR Acetaminophen (Tylenol Soln) 650 mg Q6H PRN OG 08/23/16 17:00 09/22/16 16:59 08/23/16 17:43 650 MG Bacitracin (Bacitracin Oint) 1 appln BID EXT 08/23/16 21:00 09/22/16 20:59 08/24/16 07:36 1 APPLN Bacitracin 1 appln 1 appln QS PRN EXT 08/23/16 19:00 09/22/16 18:59 Dextrose/Sodium Chloride 1,000 ml @ 75 mls/hr [id number] IV 08/23/16 23:30 09/22/16 23:29 08/24/16 11:18 75 MLS/HR Acetaminophen/ Empty Bag (Ofirmev Iv/ Empty Iv Bag 100ml) 65 ml @ 260 mls/hr Q6H PRN IV 08/24/16 00:30 09/23/16 00:29 08/24/16 08:12 260 MLS/HR Piperacillin Sod/ Tazobactam Sod (Consult) 1 ea UD PRN N/A 08/24/16 00:30 09/23/16 00:29 Vancomycin HCl (Consult) 1 ea UD PRN N/A 08/24/16 00:30 09/23/16 00:29 Metoprolol Succinate 50 mg 50 mg QAM PO 08/24/16 09:00 09/23/16 08:59 08/24/16 09:47 50 MG Acetaminophen/ Empty Bag (Ofirmev Iv/ Empty Iv Bag 100ml) 100 ml @ 400 mls/hr Q8H IV 08/24/16 16:00 09/23/16 15:59 Metoprolol Tartrate 5 mg 5 mg Q6 PRN IV 08/24/16 12:00 09/23/16 11:59 Vancomycin HCl 1400 mg/Sodium Chloride 528 ml @ 200 mls/hr Q12H IV 08/24/16 14:00 08/31/16 13:59 Piperacillin Sod/ Tazobactam Sod/ Dextrose (Zosyn Iv/D5 100ml) 120 ml @ 30 mls/hr Q8H IV 08/24/16 14:00 08/31/16 13:59 Lorazepam (Ativan Inj) 2 mg TODAY@1330,1400 IV 08/24/16 13:30 08/24/16 23:59 Propofol (Diprivan Iv Emulsion 100ml Vial) 1 dose UD PRN IV 08/24/16 13:19 08/27/16 13:18 Description This is a 21 electrode EEG with a single channel dedicated to limited EKG. The electrodes were placed in accordance with the International 10-20 system. Interpretation The predominant background rhythm consists of an irregular 7 Hz activity of up to 40microvolts in amplitude, seen over all head regions. This activity had little attenuation with alerting procedures. Photic stimulation produced no driving response or abnormal activity. Admixed with the background activity was the presence of irregular 4 Hz rhythm of low to medium amplitude seen in all head regions. At no time was there any focal abnormalities or potentially epileptogenic activity. In summary, this study shows evidence for a moderate encephalopathy, without focal problems or potentially epileptogenic discharges Clinical Correlation Clinical correlation is needed
[2016-08-24] MEDS ORDERED: GADAVIST IV PRN (15:15)
--- NOTE | 2016-08-24 15:16 | DIAGNOSTIC IMAGING REPORT ---
ADDENDUM There is question of faint restricted diffusion within the medial aspect of the bilateral occipital lobes and right posterior parietal lobe. However, this does not clearly demonstrate signal loss on the ADC map and could represent a small amount increased T2 signal within the cortex suggested on the FLAIR sequences. This is nonspecific but could related to mild ischemic change/infarct. This could also be seen in the setting of posterior reversible encephalopathy syndrome. Follow-up should be considered to ensure resolution. Infectious/inflammatory process is considered less likely. Electronically signed by: Darrell Hough M.D. 08/24/2016 3:37 PM Dictated Date/Time: 08/24/2016 3:34 PM ORIGINAL REPORT Brain MRI WITH AND WITHOUT CONTRAST HISTORY: Unresponsive. TECHNIQUE: Multiplanar multisequence MRI of the brain was performed both before and after the intravenous administration of contrast. COMPARISON STUDY: Head CT 08/22/2016. FINDINGS: There are no areas of restricted diffusion to suggest acute infarction. The midline structures are intact. Mild mucosal thickening within the paranasal sinuses and partial opacification of the nasal cavity likely due to the indwelling endotracheal tube. The mastoid air cells are clear. The ventricles and sulci are within normal limits for age. There is no mass, hematoma, midline shift. The major vascular flow-voids at the skull base are well maintained. Postcontrast sequences show no areas of abnormal enhancement. IMPRESSION: No acute intracranial abnormality. Electronically signed by: Darrell Hough M.D. 08/24/2016 3:14 PM Dictated Date/Time: 08/24/2016 3:10 PM
--- NOTE | 2016-08-24 15:20 | DIAGNOSTIC IMAGING REPORT ---
CERVICAL SPINE MRI HISTORY: upper extremity paralysis TECHNIQUE: Multiplanar multisequence MRI of the cervical spine was performed without the use of contrast. COMPARISON STUDY: Cervical spine CT 08/21/2016. FINDINGS: Alignment and curvature intact. No fracture or subluxation. Prevertebral soft tissues and the C1-C2 interval are intact. The cervical spinal cord is normal in course, caliber, and signal intensity. Nasogastric tube and endotracheal tube are noted. No disc herniations. No significant central canal or neural foraminal narrowing. Tiny disc bulge at C3-C4. IMPRESSION: Tiny disc bulge at C3-C4. No significant central canal or neural foraminal narrowing. Otherwise, normal cervical spine MRI. Electronically signed by: Darrell Hough M.D. 08/24/2016 3:18 PM Dictated Date/Time: 08/24/2016 3:14 PM
[2016-08-24] MEDS: VANCOMYCIN INJ 1,400 MG in SODIUM CHLORIDE 0.9% 500ML 500 ML IV SCH (15:29)
[2016-08-24] MEDS: ACETAMINOPHEN IV 1,000 MG in EMPTY BAG 0 ML IV SCH (15:30)
[2016-08-24] MEDS: PIPERACILL/TAZOBAC IV 4.5 GM in DEXTROSE 5% 100ML IV SCH ×2 (15:30→21:35)
--- NOTE | 2016-08-24 15:35 | DIAGNOSTIC IMAGING REPORT ---
ABDOMEN AND PELVIS CT WITHOUT CONTRAST CT DOSE: 1851.61 mGy.cm HISTORY: hydronephrosis TECHNIQUE: Multiaxial CT images of the abdomen and pelvis were performed without the use of intravenous and oral contrast according to the standard department stone protocol. COMPARISON STUDY: Renal ultrasound 08/24/2016. FINDINGS: Dense consolidation within the bilateral lower lobes. No pneumoperitoneum. No pneumatosis. A nasogastric tube is seen within the proximal stomach. Motion artifact resulting in suboptimal evaluation. There is also streak artifact within the upper abdominal structures due to the patient's overlapping arms. The unenhanced liver, gallbladder, pancreas, spleen, and adrenal glands are unremarkable. Normal left kidney. Severe right hydronephrosis to the level of the ureteropelvic junction. No obstructing stones identified. There is also right perinephric edema. No retroperitoneal lymphadenopathy. Bladder is partially filled with contrast. No bladder wall thickening. There is a Avelar catheter within the bladder. Small amount of layering hyperdense fluid within the deep pelvis. Tiny fat-containing umbilical hernia. Suboptimal evaluation for bowel pathology. However, there is no definite bowel wall thickening or obstruction. Normal appendix. IMPRESSION: 1. Severe right hydronephrosis to the level of the ureteropelvic junction. There is no obstructing stones identified. This could be congenital or less likely a nonvisualized obstructing lesion given the patient's age. Urology consultation is recommended. 2. Small amount of layering hyperdense fluid within the deep pelvis. This could be due to streak artifact from the patient's overlapping arms or a small amount of hemoperitoneum. 3. Dense consolidation within the bilateral lower lobes. This likely represents a pneumonia. Electronically signed by: Darrell Hough M.D. 08/24/2016 3:34 PM Dictated Date/Time: 08/24/2016 3:18 PM
[2016-08-24] MEDS: METOPROLOL TARTRATE 1 MG/ML VIAL IV PRN (15:58)
[2016-08-24] MEDS ORDERED: HydrALAZINE HCL 20 MG/ML VIAL IV. PRN (16:30)
--- NOTE | 2016-08-24 17:13 | Urology Consultation ---
History General Date of Service: August 24, 2016. Primary Care Physician: Jr SIMONS History of Present Illness Patient is a 26-year-old black male who is status post cardiac arrest currently intubated We are asked to see the patient because he has some right hydronephrosis and his creatinine which was 1.7 on admission which then went down to 0.9 is now back up to 1.7 and the cold storage worker feels this may be related to an obstruction of the right kidney. He did have a CT scan which shows right hydronephrosis although the ureter itself was not dilated there were no stones seen. The patient's had no prior x-rays for comparison. I cannot get any history from the patient because he is intubated. His mother says that he used to have right flank pain which they thought was related to his low back issues please never had any x-rays. The cold storage worker is asked that we place a stent to unobstruct the right kidney Laboratory Labs were reviewed and are within normal limits unless listed below. Labs are available in the chart and at [facility] Problem List Medical Problems: (1) Altered mental status Status: Acute (2) Cardiac arrest Status: Acute Social History Marital status: single Occupation status: other Allergies Coded Allergies: Allergy History Not Known (Verified Allergy, Unknown, PT INTUBATED, ) Medications Home Medications: Home Meds and Scripts Medications Dose Route/Sig Max Daily Dose Days Date Category Active Prescriptions or Reported Medications Unobtainable Rx Inpatient Medications: Current Inpatient Medications Medications (Trade) Dose Ordered Sig/Shireen Route Start Time Stop Time Status Last Admin Dose Admin Pantoprazole Sodium 40 mg/ Syringe 10 ml @ 5 mls/min DAILY@1100 IV 08/22/16 11:00 09/21/16 10:59 08/24/16 09:47 5 MLS/MIN Midazolam HCl 250 ml @ 0 mls/hr Q0M PRN IV 08/21/16 16:59 09/20/16 16:58 08/24/16 00:50 8 MLS/HR Fentanyl Citrate (Fentanyl Drip 1250MCG/250 Nss) 250 ml @ 0 mls/hr Q0M PRN IV 08/21/16 17:15 09/04/16 17:14 08/23/16 10:24 20 MLS/HR Artificial Tears (Lacri-Lube Oph Oint) 1 appln Q2H PRN OPB 08/21/16 17:15 09/20/16 17:14 08/22/16 00:28 1 APPLN Heparin Sodium (Porcine) (Heparin Sq 5000 Unit/0.5ml) 5,000 unit Q8H SQ 08/21/16 22:00 09/20/16 21:59 08/24/16 15:30 5,000 UNIT Albuterol (Ventolin Hfa Inhaler) 4 puffs QIDR INH 08/21/16 20:20 09/20/16 20:19 08/24/16 11:02 4 PUFFS Glucose (Glucose 40% Gel) UD PRN PO 08/23/16 10:30 09/22/16 10:29 Glucose (Glucose Chew Tab) 1 tabs UD PRN PO 08/23/16 10:30 09/22/16 10:29 Dextrose (Dextrose 50% 50ML Syringe) 50 ml UD PRN IV 08/23/16 10:30 09/22/16 10:29 08/23/16 12:13 50 ML Glucagon (Glucagon Inj) 1 mg UD PRN SQ 08/23/16 10:30 09/22/16 10:29 Enteral Nutritional Formula 1000 ml 1,000 ml UD OG 08/23/16 11:45 09/22/16 11:44 08/23/16 12:17 1,000 ML Sodium Chloride (Nss 1000ml) 1,000 ml @ 75 mls/hr [id number] IV 08/23/16 15:00 09/22/16 14:59 08/23/16 16:45 75 MLS/HR Acetaminophen (Tylenol Soln) 650 mg Q6H PRN OG 08/23/16 17:00 09/22/16 16:59 08/23/16 17:43 650 MG Bacitracin (Bacitracin Oint) 1 appln BID EXT 08/23/16 21:00 09/22/16 20:59 08/24/16 07:36 1 APPLN Bacitracin 1 appln 1 appln QS PRN EXT 08/23/16 19:00 09/22/16 18:59 Dextrose/Sodium Chloride 1,000 ml @ 75 mls/hr [id number] IV 08/23/16 23:30 09/22/16 23:29 08/24/16 11:18 75 MLS/HR Acetaminophen/ Empty Bag (Ofirmev Iv/ Empty Iv Bag 100ml) 65 ml @ 260 mls/hr Q6H PRN IV 08/24/16 00:30 09/23/16 00:29 08/24/16 08:12 260 MLS/HR Piperacillin Sod/ Tazobactam Sod (Consult) 1 ea UD PRN N/A 08/24/16 00:30 09/23/16 00:29 Vancomycin HCl (Consult) 1 ea UD PRN N/A 08/24/16 00:30 09/23/16 00:29 Metoprolol Succinate 50 mg 50 mg QAM PO 08/24/16 09:00 09/23/16 08:59 08/24/16 09:47 50 MG Acetaminophen/ Empty Bag (Ofirmev Iv/ Empty Iv Bag 100ml) 100 ml @ 400 mls/hr Q8H IV 08/24/16 16:00 09/23/16 15:59 08/24/16 15:30 400 MLS/HR Metoprolol Tartrate 5 mg 5 mg Q6 PRN IV 08/24/16 12:00 09/23/16 11:59 08/24/16 15:58 5 MG Vancomycin HCl 1400 mg/Sodium Chloride 528 ml @ 200 mls/hr Q12H IV 08/24/16 14:00 08/31/16 13:59 08/24/16 15:29 200 MLS/HR Piperacillin Sod/ Tazobactam Sod/ Dextrose (Zosyn Iv/D5 100ml) 120 ml @ 30 mls/hr Q8H IV 08/24/16 14:00 08/31/16 13:59 08/24/16 15:30 30 MLS/HR Lorazepam (Ativan Inj) 2 mg TODAY@1330,1400 IV 08/24/16 13:30 08/24/16 23:59 08/24/16 15:27 2 MG Propofol (Diprivan Iv Emulsion 100ml Vial) 1 dose UD PRN IV 08/24/16 13:19 08/27/16 13:18 Gadobutrol (Gadavist) 10 mmol UD PRN IV 08/24/16 15:15 08/28/16 15:14 Propofol (Diprivan Iv Emulsion 100ml Vial) 1 dose UD PRN IV 08/24/16 16:30 08/27/16 16:29 Hydralazine HCl (HydrALAZINE INJ) 10 mg Q4H PRN IV. 08/24/16 16:30 09/23/16 16:29 Physical Exam Vital Signs: Vital Signs Past 12 Hours Date Time Temp Pulse Resp B/P Pulse Ox O2 Delivery O2 Flow Rate FiO2 08/24/16 16:11 38.8 97 92/39 99 08/24/16 16:04 38.9 96 172/76 100 08/24/16 16:01 38.9 101 145/58 100 08/24/16 16:00 99 Mechanical Ventilator 45 08/24/16 16:00 45 08/24/16 16:00 38.9 101 138/55 100 08/24/16 15:58 97 134/80 08/24/16 15:30 39.1 107 148/57 96 08/24/16 15:24 39.1 107 127/64 97 08/24/16 13:00 38.8 107 24 160/86 95 08/24/16 13:00 38.8 107 24 160/86 95 08/24/16 12:30 38.8 102 24 173/79 99 08/24/16 12:00 38.8 102 24 163/86 99 08/24/16 12:00 45 08/24/16 12:00 99 Mechanical Ventilator 45 08/24/16 12:00 38.8 102 24 163/86 99 08/24/16 11:30 38.8 94 24 163/68 100 08/24/16 11:06 38.8 99 24 173/75 100 08/24/16 11:02 45 08/24/16 11:00 38.9 90 24 138/68 99 08/24/16 10:30 39.1 98 24 163/67 100 08/24/16 10:15 39.1 100 24 160/66 99 08/24/16 10:00 39.1 107 24 152/78 98 08/24/16 09:45 39.1 101 24 162/61 99 08/24/16 09:30 39.0 101 24 168/63 99 08/24/16 09:15 39.0 98 24 167/66 98 08/24/16 09:00 39.0 115 24 144/85 88 08/24/16 08:45 39.0 97 24 160/59 98 08/24/16 08:30 38.9 98 24 172/71 97 08/24/16 08:15 38.8 102 26 177/70 95 08/24/16 08:12 45 08/24/16 08:07 118 175/103 08/24/16 08:01 38.7 118 25 200/78 99 08/24/16 08:00 38.6 114 27 188/91 98 08/24/16 08:00 99 Mechanical Ventilator 21 08/24/16 08:00 21 08/24/16 07:55 21 08/24/16 07:45 38.6 114 22 181/71 91 08/24/16 07:30 38.6 100 25 162/67 93 08/24/16 07:15 38.6 102 24 170/65 92 08/24/16 07:00 38.7 101 24 138/80 91 08/24/16 06:45 38.8 105 19 172/74 92 08/24/16 06:30 39.0 109 24 134/54 92 08/24/16 06:15 39.0 121 24 149/57 91 08/24/16 06:00 39.0 120 24 162/90 91 Mechanical Ventilator 21 146/57 08/24/16 06:00 39.1 128 26 167/93 89 08/24/16 06:00 110 162/90 Physical Exam: Additional Comments: Physical exam Patient's intubated Currently on a ventilator just recently had a bronchoscopy Cardiac shows a regular rate and rhythm He does have a Avelar catheter urine is clear Assessment & Plan Assessment & Plan Assessment Right hydronephrosis with an elevated creatinine post cardiac arrest I believe 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 I did explain to the family that this may or may not improve his renal function but it certainly will not hurt it. I went over the procedure with his mother as well as the risks and benefits including risk of bleeding infection risks of anesthetics risk of injury to surrounding structures risks that I cannot get a stent in also discussed alternate options including observation and percutaneous nephrostomy tube placement for which would have to be sent to another institution I answered all her questions and we will proceed with the stent placement
[2016-08-24] MEDS ORDERED: ATROPINE SULFATE 0.1 MG/ML 5ML SYR IV PRN (17:30)
[2016-08-24] MEDS ORDERED: EpHEDrine SULFATE INJ 50 MG/ML AMP IV PRN (17:30)
[2016-08-24 18:03] LABS: ISTAT ARTERIAL BLOOD GAS HCO3 17 meq/L (19-24); ISTAT ARTERIAL BLOOD GAS PCO2 34 mmHg (35-46); ISTAT ARTERIAL BLOOD GAS PO2 76 mmHg (80-95); ISTAT ARTERIAL BLOOD GAS pH 7.32 (7.35-7.45); ISTAT CARBON DIOXIDE 18 mEq/l (24-31); ISTAT DELIVERY SYSTEM Ventilator; ISTAT FIO2 45 %; ISTAT PEEP 5; ISTAT RATE 24; ISTAT SITE Art Line; VE 18.4; Vt 600
[2016-08-24] MEDS ORDERED: FENTANYL CITRATE INJ 50 MCG/1 ML 2 ML VIAL ONE (18:11)
[2016-08-24] MEDS ORDERED: CONRAY 60% 50 ML VIAL ONE (18:16)
--- NOTE | 2016-08-24 18:37 | [facility] Post Operative Brief Note ---
Immediate Operative Summary Operative Date August 24, 2016. Pre-Operative Diagnosis right hydronephrosis Post-Operative Diagnosis same Procedure(s) Performed cysto retrograde stent right Surgeon jose Well Service Floor Worker Surgeon(s) none Estimated Blood Loss none Findings right hydro Specimens none Drains 6x26 right stent Complication(s) None Disposition Surgical ICU
[2016-08-24] MEDS ORDERED: LIDOCAINE HCL 2% 2 ML VIAL (20MG/ML) ONE (18:53)
[2016-08-24] MEDS ORDERED: PROPOFOL IV EMULSION 10 MG/ML 20 ML VIAL IV ONE (18:54)
[2016-08-24] MEDS ORDERED: CONRAY 60% 50 ML VIAL INSTIL ONE (19:02)
--- NOTE | 2016-08-24 19:02 | OPERATIVE REPORT ---
DATE OF OPERATION: 08/24/2016 PREOPERATIVE DIAGNOSIS: Right hydronephrosis. POSTOPERATIVE DIAGNOSIS: Same. PROCEDURE: Cystoscopy, right retrograde pyelogram, placement of indwelling double J right ureteral stent 6 American x 26 cm. FINDINGS: Cystoscopic exam revealed normal urethra, prostatic fossa was nonobstructing. Retrograde showed right hydronephrosis. SURGEON: Dr. Peterson. ANESTHESIA: General. DRAINS: 6 American x 26 cm right ureteral stent. COMPLICATIONS: None. SPECIMENS: None. INDICATIONS: This is a 26-year-old white male who is post-myocardial infarction who has had a rising creatinine workup including an ultrasound and CT showed right hydronephrosis, which appears to me least to be a congenital UPJ obstruction, but with his rising creatinine and a fever, could not rule out this as the source of his issues, so he is being brought in for stent placement. PROCEDURE: After the induction of an adequate general anesthetic and appropriate time-out, the patient was placed in dorsal lithotomy position, lower abdomen and genitalia were prepped with Hibiclens and draped in a sterile fashion. Using a 22-American cystoscope, routine cystoscopic exam was performed with the above noted findings with the 30 and 70 degree lenses. Next, using a 5-American [place] catheter, right retrograde pyelogram was performed and then through is 0.03 guidewire was passed up the right ureter under fluoroscopic guidance until positioned in the renal pelvis. The [place] catheter was removed and a 6-American x 26 cm stent was passed over the guidewire under fluoroscopic guidance until positioned in the renal pelvis confirmed by fluoroscopy. The guidewire was removed. There was good curl at the bladder level. The patient's bladder was then filled, the cystoscope was removed and a 16 American Avelar catheter was inserted per urethra into the bladder and hooked to gravity drainage. All needle, sponge and instrument counts were correct at the end of the case. The patient tolerated the procedure well and went to the recovery room in stable condition. I attest to the content of the Intraoperative Record and any orders documented therein. Any exceptions are noted below. MTDD
--- NOTE | 2016-08-24 19:13 | DIAGNOSTIC IMAGING REPORT ---
RIGHT RETROGRADE INCLUDES KUB HISTORY: RT STENT PLACEMENT Right FLUOROSCOPY TIME: 50 seconds. FINDINGS: 2 fluoroscopic spot images were submitted for review. Retrograde opacification of the right renal collecting system demonstrating severe hydronephrosis. A right ureteral stent was placed. IMPRESSION: Fluoroscopy provided for right ureteral stent placement. Electronically signed by: Darrell Hough M.D. 08/24/2016 7:12 PM Dictated Date/Time: 08/24/2016 7:12 PM
--- NOTE | 2016-08-24 19:47 | Anesthesiology Progress Note ---
Anesthesia Post Op Note Date & Time August 24, 2016 at 19:39 Vital Signs Pain Intensity: 0.0 Vital Signs Past 12 Hours Date Time Temp Pulse Resp B/P Pulse Ox O2 Delivery O2 Flow Rate FiO2 08/24/16 16:25 45 08/24/16 16:11 38.8 97 92/39 99 08/24/16 16:04 38.9 96 172/76 100 08/24/16 16:01 38.9 101 145/58 100 08/24/16 16:00 99 Mechanical Ventilator 45 08/24/16 16:00 45 08/24/16 16:00 38.9 101 138/55 100 08/24/16 15:58 97 134/80 08/24/16 15:30 39.1 107 148/57 96 08/24/16 15:24 39.1 107 127/64 97 08/24/16 13:00 38.8 107 24 160/86 95 08/24/16 13:00 38.8 107 24 160/86 95 08/24/16 12:30 38.8 102 24 173/79 99 08/24/16 12:00 38.8 102 24 163/86 99 08/24/16 12:00 45 08/24/16 12:00 99 Mechanical Ventilator 45 08/24/16 12:00 38.8 102 24 163/86 99 08/24/16 11:30 38.8 94 24 163/68 100 08/24/16 11:06 38.8 99 24 173/75 100 08/24/16 11:02 45 08/24/16 11:00 38.9 90 24 138/68 99 08/24/16 10:30 39.1 98 24 163/67 100 08/24/16 10:15 39.1 100 24 160/66 99 08/24/16 10:00 39.1 107 24 152/78 98 08/24/16 09:45 39.1 101 24 162/61 99 08/24/16 09:30 39.0 101 24 168/63 99 08/24/16 09:15 39.0 98 24 167/66 98 08/24/16 09:00 39.0 115 24 144/85 88 08/24/16 08:45 39.0 97 24 160/59 98 08/24/16 08:30 38.9 98 24 172/71 97 08/24/16 08:15 38.8 102 26 177/70 95 08/24/16 08:12 45 08/24/16 08:07 118 175/103 08/24/16 08:01 38.7 118 25 200/78 99 08/24/16 08:00 38.6 114 27 188/91 98 08/24/16 08:00 99 Mechanical Ventilator 21 08/24/16 08:00 21 08/24/16 07:55 21 08/24/16 07:45 38.6 114 22 181/71 91 Notes Mental Status: see Notes Pt Amnestic to Procedure: Yes Nausea / Vomiting: adequately controlled Pain: adequately controlled Airway Patency, RR, SpO2: stable & adequate BP & HR: stable & adequate Hydration State: stable & adequate Anesthetic Complications: no major complications apparent Pt had cysto, ureteral stent placed under MAC. Pt is comatose after out-of- hospital cardiac arrest. He was transported to OR with Ambu-bag 100% O2 assisted respirations via ETT. EKG, IBP, SaO2 were monitored and stable through transport to and from the operating room. +BLBS auscultated on arrival in OR and upon return to SICU. Pt placed back on mechanical ventilation and left in care of ICU staff postoperatively. Operative course discussed with fisher eel in SICU postoperatively.
[2016-08-25] VITALS (43 sets, daily range): BP systolic 90–207; BP diastolic 40–98; PULSE 46–139; TEMP 33.6–39.2; O2SAT 87–100
[2016-08-25] MEDS ORDERED: SODIUM CHLORIDE 0.9% 250ML 250 ML IV ONE (00:30)
[2016-08-25] MEDS ORDERED: NiCARDipine IV 25 MG in SODIUM CHLORIDE 0.9% 250ML 240 ML IV PRN (00:33)
[2016-08-25] MEDS ORDERED: DexMEDEtomidine IV DRIP IV STA (00:35)
[2016-08-25] MEDS ORDERED: FENTANYL CITRATE INJ 50 MCG/1 ML 2 ML VIAL ONE ×2 (00:36→20:35)
[2016-08-25] MEDS ORDERED: FENTANYL CITRATE INJ 50 MCG/1 ML 2 ML VIAL IV ONE (00:45)
[2016-08-25] MEDS ORDERED: MEPERIDINE HCL 25 MG/ML CARP IV ONE (00:45)
[2016-08-25] MEDS: LORAZEPAM 2 MG/ML 1 ML VIAL IV PRN ×2 (00:52→19:38)
[2016-08-25 01:07] LABS: BUN/CREATININE RATIO 8.3 (10-20); CALCIUM 8.2 mg/dl (8.5-10.1); CREATININE 1.7 mg/dl (0.60-1.40); MAGNESIUM 1.6 mg/dl (1.8-2.4); PHOSPHORUS 2.5 mg/dl (2.5-4.9); POTASSIUM 4.5 mmol/L (3.5-5.1)
[2016-08-25] MEDS: VANCOMYCIN INJ 1,400 MG in SODIUM CHLORIDE 0.9% 500ML 500 ML IV SCH ×2 (02:00→13:37)
[2016-08-25] MEDS: D5W AND NSS 1,000 ML IV SCH ×2 (02:15→17:13)
[2016-08-25] MEDS: ACETAMINOPHEN IV 1,000 MG in EMPTY BAG 0 ML IV SCH ×4 (04:46→21:00)
[2016-08-25] MEDS: PIPERACILL/TAZOBAC IV 4.5 GM in DEXTROSE 5% 100ML IV SCH ×3 (06:04→23:40)
[2016-08-25] MEDS: HEPARIN SOD 5000 UNIT/0.5 ML CARP SQ SCH ×3 (06:12→22:00)
[2016-08-25 06:31] LABS: INR 1.4 (0.9-1.1); PARTIAL THROMBOPLASTIN RATIO 1.5; PROTHROMBIN TIME (PATIENT) 14.8 SECONDS (9.0-12.0)
[2016-08-25 06:40] LABS: BUN/CREATININE RATIO 9.7 (10-20); CALCIUM 8.2 mg/dl (8.5-10.1); CREATININE 1.5 mg/dl (0.60-1.40); MAGNESIUM 1.7 mg/dl (1.8-2.4); POTASSIUM 4.5 mmol/L (3.5-5.1)
--- NOTE | 2016-08-25 06:42 | DIAGNOSTIC IMAGING REPORT ---
CHEST ONE VIEW PORTABLE CLINICAL HISTORY: fevers RESPIRATORY FAILURE COMPARISON STUDY: 08/24/2016 FINDINGS: The cardiac and mediastinal contours remain stable. There is an endotracheal tube 6.2 cm above the al. There is a right internal jugular central venous catheter projected over the superior vena cava. There is a nasogastric tube which passes in the stomach. There are persistent bibasal airspace opacities.[ IMPRESSION: 1. Persistent bibasal airspace opacities 2. Endotracheal tube 6.2 cm above the al. Electronically signed by: Abdoulaye Sotomayor M.D. 08/25/2016 6:41 AM Dictated Date/Time: 08/25/2016 6:40 AM
[2016-08-25 06:49] LABS: PHOSPHORUS 2.3 mg/dl (2.5-4.9)
[2016-08-25 06:56] LABS: HEMATOCRIT 35.7 % (42-52); MEAN CELL VOLUME 85.8 fL (80-100); MEAN CORPUSCULAR HEMOGLOBIN 28.8 pg (25-34); MEAN CORPUSCULAR HGB CONC 33.6 g/dl (32-36); MEAN PLATELET VOLUME 12.2 fL (7.4-10.4); PLATELET COUNT 123 K/uL (130-400); RED BLOOD COUNT 4.16 M/uL (4.7-6.1); WHITE BLOOD COUNT 7.92 K/uL (4.8-10.8)
[2016-08-25 06:57] LABS: BASO % 0.1 %; BASO ABS # 0.01 K/uL (0-0.2); COMPLETE YES; EOS % 0.3 %; IG% 0.3 %; LYMPH % 15.9 %; LYMPH ABS # 1.26 K/uL (1.2-3.4); MONO % 6.2 %; NEUT % 77.2 %; PLT ESTIMATE DECREASED
[2016-08-25] MEDS: ALBUTEROL HFA 8 GM INHALER INH SCH ×4 (07:31→19:05)
--- NOTE | 2016-08-25 07:53 | Progress Note ---
Subjective Date of Service: August 25, 2016. Subjective Pt evaluation today including: conversation w/ patient, chart review, lab review Voiding: ruffin catheter in place (patent, draining roth colored urine) 26 yo incarcerated black male s/p right ureteral stent placement for right hydro. The pt remains intubated. Ruffin draining roth colored urine. Cr has improved slightly to 1.5 s/p stent placement. No stones visualized during cysto with retrograde. White count is normal. Blood and urine cultures pending. Fevers have improved this morning with cooling measures. Problem List Medical Problems: (1) Altered mental status Status: Acute (2) Cardiac arrest Status: Acute Review of Systems Pt unresponsive and intubated. Unable to answer questions this morning. Objective Vital Signs Date Time Temp Pulse Resp B/P Pulse Ox O2 Delivery O2 Flow Rate FiO2 08/25/16 07:31 30 08/25/16 06:00 37.1 85 24 128/58 100 08/25/16 05:00 30 08/25/16 04:00 100 Mechanical Ventilator 30 08/25/16 04:00 30 08/25/16 04:00 37.5 108 27 134/58 100 08/25/16 02:17 35 08/25/16 02:01 37.8 100 24 118/53 100 08/25/16 02:00 37.8 102 24 132/53 100 08/25/16 01:31 38.0 99 24 138/55 100 08/25/16 01:21 38.1 94 24 139/53 100 08/25/16 01:10 38.3 93 24 151/80 100 08/25/16 01:01 38.5 99 24 137/51 99 08/25/16 01:00 38.5 97 24 138/50 99 08/25/16 00:50 38.8 105 24 127/60 98 08/25/16 00:47 38.9 108 24 111/43 97 08/25/16 00:41 39.1 109 24 133/45 95 08/25/16 00:31 39.2 131 21 173/61 94 08/25/16 00:20 39.2 130 18 182/98 94 08/25/16 00:11 39.2 128 21 170/56 94 08/25/16 00:00 39.2 126 23 177/91 95 08/25/16 00:00 100 Mechanical Ventilator 35 08/25/16 00:00 45 08/24/16 23:25 45 08/24/16 22:01 39.3 103 24 124/43 100 08/24/16 21:55 39.3 103 24 123/42 100 08/24/16 21:51 39.3 104 24 132/46 100 08/24/16 21:41 39.4 113 24 153/52 100 08/24/16 21:30 39.4 125 22 171/84 99 08/24/16 21:21 39.2 120 24 167/58 100 08/24/16 21:10 39.1 121 24 166/84 100 08/24/16 21:00 39.0 117 23 168/83 100 08/24/16 20:55 38.9 121 27 168/58 99 08/24/16 20:51 38.8 118 24 178/59 100 08/24/16 20:40 38.7 123 27 170/89 98 08/24/16 20:30 38.6 119 177/78 99 08/24/16 20:21 38.5 116 22 176/68 98 08/24/16 20:11 38.3 104 23 149/56 99 08/24/16 20:01 38.1 104 24 153/56 99 08/24/16 20:00 45 08/24/16 20:00 100 Mechanical Ventilator 45 08/24/16 19:55 37.9 114 21 177/69 100 08/24/16 19:35 45 08/24/16 16:25 45 08/24/16 16:11 38.8 97 92/39 99 08/24/16 16:04 38.9 96 172/76 100 08/24/16 16:01 38.9 101 145/58 100 08/24/16 16:00 99 Mechanical Ventilator 45 08/24/16 16:00 45 08/24/16 16:00 38.9 101 138/55 100 08/24/16 15:58 97 134/80 08/24/16 15:30 39.1 107 148/57 96 08/24/16 15:24 39.1 107 127/64 97 08/24/16 13:00 38.8 107 24 160/86 95 08/24/16 13:00 38.8 107 24 160/86 95 08/24/16 12:30 38.8 102 24 173/79 99 08/24/16 12:00 38.8 102 24 163/86 99 08/24/16 12:00 45 08/24/16 12:00 99 Mechanical Ventilator 45 08/24/16 12:00 38.8 102 24 163/86 99 08/24/16 11:30 38.8 94 24 163/68 100 08/24/16 11:06 38.8 99 24 173/75 100 08/24/16 11:02 45 08/24/16 11:00 38.9 90 24 138/68 99 08/24/16 10:30 39.1 98 24 163/67 100 08/24/16 10:15 39.1 100 24 160/66 99 08/24/16 10:00 39.1 107 24 152/78 98 08/24/16 09:45 39.1 101 24 162/61 99 08/24/16 09:30 39.0 101 24 168/63 99 08/24/16 09:15 39.0 98 24 167/66 98 08/24/16 09:00 39.0 115 24 144/85 88 08/24/16 08:45 39.0 97 24 160/59 98 08/24/16 08:30 38.9 98 24 172/71 97 08/24/16 08:15 38.8 102 26 177/70 95 08/24/16 08:12 45 08/24/16 08:07 118 175/103 08/24/16 08:01 38.7 118 25 200/78 99 08/24/16 08:00 38.6 114 27 188/91 98 08/24/16 08:00 99 Mechanical Ventilator 21 08/24/16 08:00 21 08/24/16 07:55 21 Physical Exam General Appearance: no apparent distress Neck: no JVD Respiratory/Chest: no respiratory distress, no accessory muscle use Cardiovascular: no JVD Neurologic/Psychiatric: + pertinent finding (pt intubated) Skin: normal color Laboratory Results Last 24 Hours Test 08/24/16 08:07 08/24/16 08:09 08/24/16 09:30 08/24/16 12:14 Bedside Glucose 95 mg/dl 95 mg/dl Blood Gas Sample Site Art Line Bedside Blood Gas pH (LAB) 7.33 Bedside Blood Gas pCO2 (LAB) 34 mmHg Bedside Blood Gas pO2 (LAB) 58 mmHg Bedside Blood Gas HCO3 (LAB) 18 meq/L Bedside Blood Gas Total CO2 19 mEq/l Bedside Blood Gas Base Excess (LAB) -8.0 meq/L Bedside Blood Gas O2 Saturation 85.0 % Mohan Test NA Oxygen Delivery Device Ventilator Bedside Oxygen Rate (breaths/min) 24 Blood Gas Minute Ventilation 16.8 Bedside FiO2 21 % Blood Gas Tidal Volume 600 Blood Gas PEEP 5 Urine Color YELLOW Urine Appearance CLEAR Urine pH 6.5 Urine Specific Barton 1.019 Urine Protein TRACE Urine Glucose (UA) NEG Urine Ketones TRACE Urine Occult Blood 2+ Urine Nitrite NEG Urine Bilirubin NEG Urine Urobilinogen POS Urine Leukocyte Esterase NEG Urine WBC (Auto) 1-5 /hpf Urine RBC (Auto) 0-4 /hpf Urine Hyaline Casts (Auto) 1-5 /lpf Urine Epithelial Cells (Auto) 5-10 /lpf Urine Bacteria (Auto) NEG Test 08/24/16 17:49 08/24/16 18:08 08/25/16 00:34 08/25/16 05:40 Blood Gas Sample Site Art Line Bedside Blood Gas pH (LAB) 7.32 Bedside Blood Gas pCO2 (LAB) 34 mmHg Bedside Blood Gas pO2 (LAB) 76 mmHg Bedside Blood Gas HCO3 (LAB) 17 meq/L Bedside Blood Gas Total CO2 18 mEq/l Bedside Blood Gas Base Excess (LAB) -9.0 meq/L Bedside Blood Gas O2 Saturation 93.0 % Mohan Test NA Oxygen Delivery Device Ventilator Bedside Oxygen Rate (breaths/min) 24 Blood Gas Minute Ventilation 18.4 Bedside FiO2 45 % Blood Gas Tidal Volume 600 Blood Gas PEEP 5 Bedside Glucose 117 mg/dl Sodium Level 141 mmol/L 139 mmol/L Potassium Level 4.5 mmol/L 4.5 mmol/L Chloride Level 109 mmol/L 109 mmol/L Carbon Dioxide Level 22 mmol/L 25 mmol/L Anion Gap 10.0 mmol/L 5.0 mmol/L Blood Urea Nitrogen 14 mg/dl 15 mg/dl Creatinine 1.70 mg/dl 1.50 mg/dl Est Creatinine Clear Calc Drug Dose 73.8 ml/min 83.6 ml/min Estimated GFR () 62.7 72.9 Estimated GFR (Non- 54.1 62.9 BUN/Creatinine Ratio 8.3 9.7 Random Glucose 108 mg/dl 92 mg/dl Calcium Level 8.2 mg/dl 8.2 mg/dl Phosphorus Level 2.5 mg/dl 2.3 mg/dl Magnesium Level 1.6 mg/dl 1.7 mg/dl White Blood Count 7.92 K/uL Red Blood Count 4.16 M/uL Hemoglobin 12.0 g/dL Hematocrit 35.7 % Mean Corpuscular Volume 85.8 fL Mean Corpuscular Hemoglobin 28.8 pg Mean Corpuscular Hemoglobin Concent 33.6 g/dl Platelet Count 123 K/uL Mean Platelet Volume 12.2 fL Neutrophils (%) (Auto) 77.2 % Lymphocytes (%) (Auto) 15.9 % Monocytes (%) (Auto) 6.2 % Eosinophils (%) (Auto) 0.3 % Basophils (%) (Auto) 0.1 % Neutrophils # (Auto) 6.12 K/uL Lymphocytes # (Auto) 1.26 K/uL Monocytes # (Auto) 0.49 K/uL Eosinophils # (Auto) 0.02 K/uL Basophils # (Auto) 0.01 K/uL RDW Standard Deviation 43.1 fL RDW Coefficient of Variation 13.6 % Immature Granulocyte % (Auto) 0.3 % Immature Granulocyte # (Auto) 0.02 K/uL Platelet Estimate DECREASED Prothrombin Time 14.8 SECONDS Prothromb Time International Ratio 1.4 Activated Partial Thromboplast Time 39.5 SECONDS Partial Thromboplastin Ratio 1.5 Total Bilirubin 2.2 mg/dl Direct Bilirubin 1.3 mg/dl Aspartate Amino Transf (AST/SGOT) 71 U/L Alanine Aminotransferase (ALT/SGPT) 106 U/L Alkaline Phosphatase 84 U/L Total Protein 6.1 gm/dl Albumin 2.6 gm/dl Lipase 63 U/L Procalcitonin 1.76 ng/ml Assessment and Plan POD #1 s/p cysto with right ureteral stent placement for right hydro Continue to monitor renal function. Cultures pending. Tx based on sensitivities with 14 days of abx if positive. No stones visualized, and stent placed for right hydro. Unfortunately has nothing further to offer at this time. Prognosis remains guarded. Management of other issues per primary service. Thanks for allowing us to participate in this pt's care. Recall PRN issues. Will arrange for outpatient f/u if the pt's condition improves.
[2016-08-25] MEDS: BACITRACIN OINT 15 GM TUBE EXT SCH ×2 (09:00→21:00)
[2016-08-25] MEDS ORDERED: SODIUM PHOSPHATE 3 MMOL/1 ML INFUSION IV STA (09:02)
[2016-08-25 09:20] LABS: ISTAT ARTERIAL BLOOD GAS HCO3 19 meq/L (19-24); ISTAT ARTERIAL BLOOD GAS PCO2 36 mmHg (35-46); ISTAT ARTERIAL BLOOD GAS PO2 74 mmHg (80-95); ISTAT ARTERIAL BLOOD GAS pH 7.33 (7.35-7.45); ISTAT CARBON DIOXIDE 20 mEq/l (24-31); ISTAT DELIVERY SYSTEM Ventilator; ISTAT FIO2 30 %; ISTAT PEEP 5; ISTAT RATE 24; ISTAT SITE Art Line; VE 13.7; Vt 600
[2016-08-25] MEDS ORDERED: SODIUM PHOSPHATE INJ 15 MMOL in SODIUM CHLORIDE 0.9% 250ML 250 ML IV SCH (10:00)
[2016-08-25] MEDS: POLYETHYLENE (MIRALAX) 17 GM PACK PO SCH (10:16)
--- NOTE | 2016-08-25 10:16 | Progress Note ---
Subjective Date of Service: August 25, 2016. Subjective Pt evaluation today including: physical exam, lab review, review of studies, conversation w/ literacy consultant, review of inpatient medication list Pain: intubated, no response PO Intake: tube feeds on hold Voiding: ruffin catheter in place no events overnight d/w ICU team, reviewed notes from neurology reviewed MRI results Problem List Medical Problems: (1) Altered mental status Status: Acute (2) Cardiac arrest Status: Acute Review of Systems cannot review, intubated Medications Current Inpatient Medications Medications (Trade) Dose Ordered Sig/Shireen Route Start Time Stop Time Status Last Admin Dose Admin Pantoprazole Sodium 40 mg/ Syringe 10 ml @ 5 mls/min DAILY@1100 IV 08/22/16 11:00 09/21/16 10:59 08/24/16 09:47 5 MLS/MIN Fentanyl Citrate (Fentanyl Drip 1250MCG/250 Nss) 250 ml @ 0 mls/hr Q0M PRN IV 08/21/16 17:15 09/04/16 17:14 08/23/16 10:24 20 MLS/HR Artificial Tears (Lacri-Lube Oph Oint) 1 appln Q2H PRN OPB 08/21/16 17:15 09/20/16 17:14 08/22/16 00:28 1 APPLN Heparin Sodium (Porcine) (Heparin Sq 5000 Unit/0.5ml) 5,000 unit Q8H SQ 08/21/16 22:00 09/20/16 21:59 08/25/16 06:12 5,000 UNIT Albuterol (Ventolin Hfa Inhaler) 4 puffs QIDR INH 08/21/16 20:20 09/20/16 20:19 08/25/16 07:31 4 PUFFS Glucose (Glucose 40% Gel) UD PRN PO 08/23/16 10:30 09/22/16 10:29 Glucose (Glucose Chew Tab) 1 tabs UD PRN PO 08/23/16 10:30 09/22/16 10:29 Dextrose (Dextrose 50% 50ML Syringe) 50 ml UD PRN IV 08/23/16 10:30 09/22/16 10:29 08/23/16 12:13 50 ML Glucagon (Glucagon Inj) 1 mg UD PRN SQ 08/23/16 10:30 09/22/16 10:29 Enteral Nutritional Formula (Peptamen Intense VHP) 1,000 ml UD OG 08/23/16 11:45 09/22/16 11:44 08/23/16 12:17 1,000 ML Acetaminophen (Tylenol Soln) 650 mg Q6H PRN OG 08/23/16 17:00 09/22/16 16:59 08/23/16 17:43 650 MG Bacitracin (Bacitracin Oint) 1 appln BID EXT 08/23/16 21:00 09/22/16 20:59 08/24/16 21:00 1 APPLN Bacitracin 1 appln 1 appln QS PRN EXT 08/23/16 19:00 09/22/16 18:59 Dextrose/Sodium Chloride 1,000 ml @ 75 mls/hr [id number] IV 08/23/16 23:30 09/22/16 23:29 08/25/16 02:15 75 MLS/HR Acetaminophen/ Empty Bag (Ofirmev Iv/ Empty Iv Bag 100ml) 65 ml @ 260 mls/hr Q6H PRN IV 08/24/16 00:30 09/23/16 00:29 08/24/16 08:12 260 MLS/HR Piperacillin Sod/ Tazobactam Sod (Consult) 1 ea UD PRN N/A 08/24/16 00:30 09/23/16 00:29 Vancomycin HCl (Consult) 1 ea UD PRN N/A 08/24/16 00:30 09/23/16 00:29 Metoprolol Succinate 50 mg 50 mg QAM PO 08/24/16 09:00 09/23/16 08:59 08/24/16 09:47 50 MG Acetaminophen/ Empty Bag (Ofirmev Iv/ Empty Iv Bag 100ml) 100 ml @ 400 mls/hr Q8H IV 08/24/16 16:00 09/23/16 15:59 08/25/16 04:46 400 MLS/HR Metoprolol Tartrate 5 mg 5 mg Q6 PRN IV 08/24/16 12:00 09/23/16 11:59 08/24/16 15:58 5 MG Vancomycin HCl 1400 mg/Sodium Chloride 528 ml @ 200 mls/hr Q12H IV 08/24/16 14:00 08/31/16 13:59 08/25/16 02:00 200 MLS/HR Piperacillin Sod/ Tazobactam Sod/ Dextrose (Zosyn Iv/D5 100ml) 120 ml @ 30 mls/hr Q8H IV 08/24/16 14:00 08/31/16 13:59 08/25/16 06:04 30 MLS/HR Gadobutrol (Gadavist) 10 mmol UD PRN IV 08/24/16 15:15 08/28/16 15:14 Lorazepam 2 mg 2 mg Q4H PRN IV 08/25/16 00:30 09/24/16 00:29 08/25/16 00:52 2 MG Nicardipine HCl 25 mg/Sodium Chloride 250 ml @ 0 mls/hr Q0M PRN IV 08/25/16 00:33 09/24/16 00:32 Dexmedetomidine HCl/Sodium Chloride (PreCEDEX INJ/ Nss 100ml) 100 ml @ 0 mls/hr Q0M PRN IV 08/25/16 00:45 08/29/16 00:44 Chlorhexidine Gluconate 15 ml 15 ml BID PO 08/25/16 09:00 09/24/16 08:59 Magnesium Sulfate/ Prmx (Magnesium Sulfate/Premixed D5W) 100 ml @ 100 mls/hr TODAY@0930,1030 IV 08/25/16 09:30 08/25/16 13:00 Polyethylene 17 gm 17 gm DAILY PO 08/25/16 09:00 09/24/16 08:59 Sodium Phosphate/ Sodium Chloride (Sodium Phosphate Inj/Nss 250ml) 255 ml @ 88 mls/hr TODAY@1000 IV 08/25/16 10:00 08/25/16 18:00 Objective Vital Signs Date Time Temp Pulse Resp B/P Pulse Ox O2 Delivery O2 Flow Rate FiO2 08/25/16 09:01 37.1 99 24 151/71 100 111/51 08/25/16 09:00 37.1 98 24 100 132/53 08/25/16 08:01 36.7 91 24 155/77 100 124/61 08/25/16 08:00 36.7 93 24 100 117/59 08/25/16 07:31 30 08/25/16 07:01 36.8 80 24 139/53 100 94/45 08/25/16 07:00 36.8 85 24 100 102/50 08/25/16 06:00 37.1 85 24 128/58 100 08/25/16 05:00 30 08/25/16 04:00 100 Mechanical Ventilator 30 08/25/16 04:00 30 08/25/16 04:00 37.5 108 27 134/58 100 08/25/16 02:17 35 08/25/16 02:01 37.8 100 24 118/53 100 08/25/16 02:00 37.8 102 24 132/53 100 08/25/16 01:31 38.0 99 24 138/55 100 08/25/16 01:21 38.1 94 24 139/53 100 08/25/16 01:10 38.3 93 24 151/80 100 08/25/16 01:01 38.5 99 24 137/51 99 08/25/16 01:00 38.5 97 24 138/50 99 08/25/16 00:50 38.8 105 24 127/60 98 08/25/16 00:47 38.9 108 24 111/43 97 08/25/16 00:41 39.1 109 24 133/45 95 08/25/16 00:31 39.2 131 21 173/61 94 08/25/16 00:20 39.2 130 18 182/98 94 08/25/16 00:11 39.2 128 21 170/56 94 08/25/16 00:00 39.2 126 23 177/91 95 08/25/16 00:00 100 Mechanical Ventilator 35 08/25/16 00:00 45 08/24/16 23:25 45 08/24/16 22:01 39.3 103 24 124/43 100 08/24/16 21:55 39.3 103 24 123/42 100 08/24/16 21:51 39.3 104 24 132/46 100 08/24/16 21:41 39.4 113 24 153/52 100 08/24/16 21:30 39.4 125 22 171/84 99 08/24/16 21:21 39.2 120 24 167/58 100 08/24/16 21:10 39.1 121 24 166/84 100 08/24/16 21:00 39.0 117 23 168/83 100 08/24/16 20:55 38.9 121 27 168/58 99 08/24/16 20:51 38.8 118 24 178/59 100 08/24/16 20:40 38.7 123 27 170/89 98 08/24/16 20:30 38.6 119 177/78 99 08/24/16 20:21 38.5 116 22 176/68 98 08/24/16 20:11 38.3 104 23 149/56 99 08/24/16 20:01 38.1 104 24 153/56 99 08/24/16 20:00 45 08/24/16 20:00 100 Mechanical Ventilator 45 08/24/16 19:55 37.9 114 21 177/69 100 08/24/16 19:35 45 08/24/16 16:25 45 08/24/16 16:11 38.8 97 92/39 99 08/24/16 16:04 38.9 96 172/76 100 08/24/16 16:01 38.9 101 145/58 100 08/24/16 16:00 99 Mechanical Ventilator 45 08/24/16 16:00 45 08/24/16 16:00 38.9 101 138/55 100 08/24/16 15:58 97 134/80 08/24/16 15:30 39.1 107 148/57 96 08/24/16 15:24 39.1 107 127/64 97 08/24/16 13:00 38.8 107 24 160/86 95 08/24/16 13:00 38.8 107 24 160/86 95 08/24/16 12:30 38.8 102 24 173/79 99 08/24/16 12:00 38.8 102 24 163/86 99 08/24/16 12:00 45 08/24/16 12:00 99 Mechanical Ventilator 45 08/24/16 12:00 38.8 102 24 163/86 99 08/24/16 11:30 38.8 94 24 163/68 100 08/24/16 11:06 38.8 99 24 173/75 100 08/24/16 11:02 45 08/24/16 11:00 38.9 90 24 138/68 99 08/24/16 10:30 39.1 98 24 163/67 100 08/24/16 10:15 39.1 100 24 160/66 99 Physical Exam General Appearance: WD/WN, no apparent distress Neck: supple, no adenopathy, no JVD Respiratory/Chest: chest non-tender, lungs clear, normal breath sounds, no respiratory distress, no accessory muscle use Cardiovascular: regular rate, rhythm, no edema, no gallop, no JVD, no murmur Abdomen: normal bowel sounds, non tender, soft, no organomegaly Neurologic/Psychiatric: + pertinent finding (no response to verbal or tactile stimulation, no withdrawal to pain in upper or lower extremities, spontaneous twitch of lower extremities) Skin: normal color, warm/dry, no rash Lymphatic: no adenopathy Laboratory Results Last 24 Hours Test 08/24/16 12:14 08/24/16 17:49 08/24/16 18:08 08/25/16 00:34 Bedside Glucose 95 mg/dl 117 mg/dl Blood Gas Sample Site Art Line Bedside Blood Gas pH (LAB) 7.32 Bedside Blood Gas pCO2 (LAB) 34 mmHg Bedside Blood Gas pO2 (LAB) 76 mmHg Bedside Blood Gas HCO3 (LAB) 17 meq/L Bedside Blood Gas Total CO2 18 mEq/l Bedside Blood Gas Base Excess (LAB) -9.0 meq/L Bedside Blood Gas O2 Saturation 93.0 % Mohan Test NA Oxygen Delivery Device Ventilator Bedside Oxygen Rate (breaths/min) 24 Blood Gas Minute Ventilation 18.4 Bedside FiO2 45 % Blood Gas Tidal Volume 600 Blood Gas PEEP 5 Sodium Level 141 mmol/L Potassium Level 4.5 mmol/L Chloride Level 109 mmol/L Carbon Dioxide Level 22 mmol/L Anion Gap 10.0 mmol/L Blood Urea Nitrogen 14 mg/dl Creatinine 1.70 mg/dl Est Creatinine Clear Calc Drug Dose 73.8 ml/min Estimated GFR () 62.7 Estimated GFR (Non- 54.1 BUN/Creatinine Ratio 8.3 Random Glucose 108 mg/dl Calcium Level 8.2 mg/dl Phosphorus Level 2.5 mg/dl Magnesium Level 1.6 mg/dl Test 08/25/16 05:40 08/25/16 09:07 White Blood Count 7.92 K/uL Red Blood Count 4.16 M/uL Hemoglobin 12.0 g/dL Hematocrit 35.7 % Mean Corpuscular Volume 85.8 fL Mean Corpuscular Hemoglobin 28.8 pg Mean Corpuscular Hemoglobin Concent 33.6 g/dl Platelet Count 123 K/uL Mean Platelet Volume 12.2 fL Neutrophils (%) (Auto) 77.2 % Lymphocytes (%) (Auto) 15.9 % Monocytes (%) (Auto) 6.2 % Eosinophils (%) (Auto) 0.3 % Basophils (%) (Auto) 0.1 % Neutrophils # (Auto) 6.12 K/uL Lymphocytes # (Auto) 1.26 K/uL Monocytes # (Auto) 0.49 K/uL Eosinophils # (Auto) 0.02 K/uL Basophils # (Auto) 0.01 K/uL RDW Standard Deviation 43.1 fL RDW Coefficient of Variation 13.6 % Immature Granulocyte % (Auto) 0.3 % Immature Granulocyte # (Auto) 0.02 K/uL Platelet Estimate DECREASED Prothrombin Time 14.8 SECONDS Prothromb Time International Ratio 1.4 Activated Partial Thromboplast Time 39.5 SECONDS Partial Thromboplastin Ratio 1.5 Sodium Level 139 mmol/L Potassium Level 4.5 mmol/L Chloride Level 109 mmol/L Carbon Dioxide Level 25 mmol/L Anion Gap 5.0 mmol/L Blood Urea Nitrogen 15 mg/dl Creatinine 1.50 mg/dl Est Creatinine Clear Calc Drug Dose 83.6 ml/min Estimated GFR () 72.9 Estimated GFR (Non- 62.9 BUN/Creatinine Ratio 9.7 Random Glucose 92 mg/dl Calcium Level 8.2 mg/dl Phosphorus Level 2.3 mg/dl Magnesium Level 1.7 mg/dl Total Bilirubin 2.2 mg/dl Direct Bilirubin 1.3 mg/dl Aspartate Amino Transf (AST/SGOT) 71 U/L Alanine Aminotransferase (ALT/SGPT) 106 U/L Alkaline Phosphatase 84 U/L Total Protein 6.1 gm/dl Albumin 2.6 gm/dl Lipase 63 U/L Procalcitonin 1.76 ng/ml Blood Gas Sample Site Art Line Bedside Blood Gas pH (LAB) 7.33 Bedside Blood Gas pCO2 (LAB) 36 mmHg Bedside Blood Gas pO2 (LAB) 74 mmHg Bedside Blood Gas HCO3 (LAB) 19 meq/L Bedside Blood Gas Total CO2 20 mEq/l Bedside Blood Gas Base Excess (LAB) -7.0 meq/L Bedside Blood Gas O2 Saturation 94.0 % Mohan Test NA Oxygen Delivery Device Ventilator Bedside Oxygen Rate (breaths/min) 24 Blood Gas Minute Ventilation 13.7 Bedside FiO2 30 % Blood Gas Tidal Volume 600 Blood Gas PEEP 5 Assessment and Plan 26 yo male who unfortunately suffered a cardiac arrest while on the treadmill at senior living, likely ventricular arrhythmia, 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 after admission - s/p cardiac arrest, likely ventricular arrhythmia in setting of HCOM completed cooling process, now for Tylenol for any hyperthermia no further arrhythmias since admission BP and HR stable, remains in ICU - Anoxic brain injury, cord injury no cortical brain function at this point, EEG reviewed MRI with possible occipital (bilateral) and right parietal ischemia but no other findings neurology following grave prognosis at this point - Elevated LFT: due to cardiac arrest, trending down appropriately - Aspiration: possible pneumonia, continue Zosyn and Vanco, TF's stopped - WILLARD: Cr peaked at 1.7, now 1.5, adequate UO, continue fluids injury due to cardiac arrest - DVT prophylaxis: heparin discussed case with maintenance machinist, they are managing, we will continue to follow
[2016-08-25] MEDS: METOPROLOL SUCC 50MG EXT REL TAB PO SCH (10:17)
[2016-08-25] MEDS: MAGNESIUM SULFATE 1GM / D5W 1 GM in PREMIXED IN D5W 100 ML IV SCH ×2 (10:18→11:20)
[2016-08-25] MEDS: PANTOprazole INJ 40 MG in SYRINGE 0 ML IV SCH (10:19)
--- NOTE | 2016-08-25 10:45 | Neurology Progress Notes ---
Neurology Progress Note Date of Service August 25, 2016. Subjective The patient is a 26-year-old male prisoner who is status post cardiac arrest 4 days ago. He has undergone the hypothermia protocol and has been rewarmed. An electroencephalogram completed yesterday revealed a mix of 4 and 7 Hz background activity consistent with diffuse encephalopathy. No epileptiform abnormalities were appreciated. The patient has been noted to open his eyes and arouses slightly with stimulation. He has not exhibited purposeful movement of the limbs. He has not exhibited true seizure activity and is currently not receiving an anticonvulsant drug. The patient remains on the ventilator, on life support, in the intensive care unit and is unable to provide any specific information. Objective Date Time Temp Pulse Resp B/P Pulse Ox O2 Delivery O2 Flow Rate FiO2 08/25/16 09:01 37.1 99 24 151/71 100 111/51 08/25/16 09:00 37.1 98 24 100 132/53 08/25/16 08:01 36.7 91 24 155/77 100 124/61 08/25/16 08:00 36.7 93 24 100 117/59 08/25/16 07:31 30 08/25/16 07:01 36.8 80 24 139/53 100 94/45 08/25/16 07:00 36.8 85 24 100 102/50 08/25/16 06:00 37.1 85 24 128/58 100 08/25/16 05:00 30 08/25/16 04:00 100 Mechanical Ventilator 30 08/25/16 04:00 30 08/25/16 04:00 37.5 108 27 134/58 100 08/25/16 02:17 35 08/25/16 02:01 37.8 100 24 118/53 100 08/25/16 02:00 37.8 102 24 132/53 100 08/25/16 01:31 38.0 99 24 138/55 100 08/25/16 01:21 38.1 94 24 139/53 100 08/25/16 01:10 38.3 93 24 151/80 100 08/25/16 01:01 38.5 99 24 137/51 99 08/25/16 01:00 38.5 97 24 138/50 99 08/25/16 00:50 38.8 105 24 127/60 98 08/25/16 00:47 38.9 108 24 111/43 97 5/15/17 00:41 39.1 109 24 133/45 95 08/25/16 00:31 39.2 131 21 173/61 94 08/25/16 00:20 39.2 130 18 182/98 94 08/25/16 00:11 39.2 128 21 170/56 94 08/25/16 00:00 39.2 126 23 177/91 95 08/25/16 00:00 100 Mechanical Ventilator 35 08/25/16 00:00 45 08/24/16 23:25 45 08/24/16 22:01 39.3 103 24 124/43 100 08/24/16 21:55 39.3 103 24 123/42 100 08/24/16 21:51 39.3 104 24 132/46 100 08/24/16 21:41 39.4 113 24 153/52 100 08/24/16 21:30 39.4 125 22 171/84 99 08/24/16 21:21 39.2 120 24 167/58 100 08/24/16 21:10 39.1 121 24 166/84 100 08/24/16 21:00 39.0 117 23 168/83 100 08/24/16 20:55 38.9 121 27 168/58 99 08/24/16 20:51 38.8 118 24 178/59 100 08/24/16 20:40 38.7 123 27 170/89 98 08/24/16 20:30 38.6 119 177/78 99 08/24/16 20:21 38.5 116 22 176/68 98 08/24/16 20:11 38.3 104 23 149/56 99 08/24/16 20:01 38.1 104 24 153/56 99 08/24/16 20:00 45 08/24/16 20:00 100 Mechanical Ventilator 45 08/24/16 19:55 37.9 114 21 177/69 100 08/24/16 19:35 45 08/24/16 16:25 45 08/24/16 16:11 38.8 97 92/39 99 08/24/16 16:04 38.9 96 172/76 100 08/24/16 16:01 38.9 101 145/58 100 08/24/16 16:00 99 Mechanical Ventilator 45 08/24/16 16:00 45 08/24/16 16:00 38.9 101 138/55 100 08/24/16 15:58 97 134/80 08/24/16 15:30 39.1 107 148/57 96 08/24/16 15:24 39.1 107 127/64 97 08/24/16 13:00 38.8 107 24 160/86 95 08/24/16 13:00 38.8 107 24 160/86 95 08/24/16 12:30 38.8 102 24 173/79 99 08/24/16 12:00 38.8 102 24 163/86 99 08/24/16 12:00 45 08/24/16 12:00 99 Mechanical Ventilator 45 08/24/16 12:00 38.8 102 24 163/86 99 08/24/16 11:30 38.8 94 24 163/68 100 08/24/16 11:06 38.8 99 24 173/75 100 08/24/16 11:02 45 08/24/16 11:00 38.9 90 24 138/68 99 08/24/16 10:30 39.1 98 24 163/67 100 Last 24 Hours Test 08/24/16 12:14 08/24/16 17:49 08/24/16 18:08 08/25/16 00:34 Bedside Glucose 95 mg/dl 117 mg/dl Blood Gas Sample Site Art Line Bedside Blood Gas pH (LAB) 7.32 Bedside Blood Gas pCO2 (LAB) 34 mmHg Bedside Blood Gas pO2 (LAB) 76 mmHg Bedside Blood Gas HCO3 (LAB) 17 meq/L Bedside Blood Gas Total CO2 18 mEq/l Bedside Blood Gas Base Excess (LAB) -9.0 meq/L Bedside Blood Gas O2 Saturation 93.0 % Mohan Test NA Oxygen Delivery Device Ventilator Bedside Oxygen Rate (breaths/min) 24 Blood Gas Minute Ventilation 18.4 Bedside FiO2 45 % Blood Gas Tidal Volume 600 Blood Gas PEEP 5 Sodium Level 141 mmol/L Potassium Level 4.5 mmol/L Chloride Level 109 mmol/L Carbon Dioxide Level 22 mmol/L Anion Gap 10.0 mmol/L Blood Urea Nitrogen 14 mg/dl Creatinine 1.70 mg/dl Est Creatinine Clear Calc Drug Dose 73.8 ml/min Estimated GFR () 62.7 Estimated GFR (Non- 54.1 BUN/Creatinine Ratio 8.3 Random Glucose 108 mg/dl Calcium Level 8.2 mg/dl Phosphorus Level 2.5 mg/dl Magnesium Level 1.6 mg/dl Test 08/25/16 05:40 08/25/16 09:07 White Blood Count 7.92 K/uL Red Blood Count 4.16 M/uL Hemoglobin 12.0 g/dL Hematocrit 35.7 % Mean Corpuscular Volume 85.8 fL Mean Corpuscular Hemoglobin 28.8 pg Mean Corpuscular Hemoglobin Concent 33.6 g/dl Platelet Count 123 K/uL Mean Platelet Volume 12.2 fL Neutrophils (%) (Auto) 77.2 % Lymphocytes (%) (Auto) 15.9 % Monocytes (%) (Auto) 6.2 % Eosinophils (%) (Auto) 0.3 % Basophils (%) (Auto) 0.1 % Neutrophils # (Auto) 6.12 K/uL Lymphocytes # (Auto) 1.26 K/uL Monocytes # (Auto) 0.49 K/uL Eosinophils # (Auto) 0.02 K/uL Basophils # (Auto) 0.01 K/uL RDW Standard Deviation 43.1 fL RDW Coefficient of Variation 13.6 % Immature Granulocyte % (Auto) 0.3 % Immature Granulocyte # (Auto) 0.02 K/uL Platelet Estimate DECREASED Prothrombin Time 14.8 SECONDS Prothromb Time International Ratio 1.4 Activated Partial Thromboplast Time 39.5 SECONDS Partial Thromboplastin Ratio 1.5 Sodium Level 139 mmol/L Potassium Level 4.5 mmol/L Chloride Level 109 mmol/L Carbon Dioxide Level 25 mmol/L Anion Gap 5.0 mmol/L Blood Urea Nitrogen 15 mg/dl Creatinine 1.50 mg/dl Est Creatinine Clear Calc Drug Dose 83.6 ml/min Estimated GFR () 72.9 Estimated GFR (Non- 62.9 BUN/Creatinine Ratio 9.7 Random Glucose 92 mg/dl Calcium Level 8.2 mg/dl Phosphorus Level 2.3 mg/dl Magnesium Level 1.7 mg/dl Total Bilirubin 2.2 mg/dl Direct Bilirubin 1.3 mg/dl Aspartate Amino Transf (AST/SGOT) 71 U/L Alanine Aminotransferase (ALT/SGPT) 106 U/L Alkaline Phosphatase 84 U/L Total Protein 6.1 gm/dl Albumin 2.6 gm/dl Lipase 63 U/L Procalcitonin 1.76 ng/ml Blood Gas Sample Site Art Line Bedside Blood Gas pH (LAB) 7.33 Bedside Blood Gas pCO2 (LAB) 36 mmHg Bedside Blood Gas pO2 (LAB) 74 mmHg Bedside Blood Gas HCO3 (LAB) 19 meq/L Bedside Blood Gas Total CO2 20 mEq/l Bedside Blood Gas Base Excess (LAB) -7.0 meq/L Bedside Blood Gas O2 Saturation 94.0 % Mohan Test NA Oxygen Delivery Device Ventilator Bedside Oxygen Rate (breaths/min) 24 Blood Gas Minute Ventilation 13.7 Bedside FiO2 30 % Blood Gas Tidal Volume 600 Blood Gas PEEP 5 Imaging: I reviewed the images and radiologist's interpretation of the brain MRI completed yesterday. There are posterior signal abnormalities within the occipital lobes and posterior right parietal lobe on diffusion-weighted and T2/ FLAIR sequences potentially consistent with anoxic injury. Exam: The patient briefly opens his eyes to voice. He will gaze to the right to command but is unable to gaze to the left. Corneal reflexes intact. Gag reflex intact. The patient does not move his limbs to command. He does not grasp with either hand to command. The lower limbs withdrawal bilaterally to plantar stimulation. Deep tendon reflexes are 2+ at the biceps tendons, 3+ at the patellar tendons. Muscle tone for the lower extremities mildly increased. Current Inpatient Medications Medications (Trade) Dose Ordered Sig/Shireen Route Start Time Stop Time Status Last Admin Dose Admin Pantoprazole Sodium 40 mg/ Syringe 10 ml @ 5 mls/min DAILY@1100 IV 08/22/16 11:00 09/21/16 10:59 08/25/16 10:19 5 MLS/MIN Fentanyl Citrate (Fentanyl Drip 1250MCG/250 Nss) 250 ml @ 0 mls/hr Q0M PRN IV 08/21/16 17:15 09/04/16 17:14 08/23/16 10:24 20 MLS/HR Artificial Tears (Lacri-Lube Oph Oint) 1 appln Q2H PRN OPB 08/21/16 17:15 09/20/16 17:14 08/22/16 00:28 1 APPLN Heparin Sodium (Porcine) (Heparin Sq 5000 Unit/0.5ml) 5,000 unit Q8H SQ 08/21/16 22:00 09/20/16 21:59 08/25/16 06:12 5,000 UNIT Albuterol (Ventolin Hfa Inhaler) 4 puffs QIDR INH 08/21/16 20:20 09/20/16 20:19 08/25/16 07:31 4 PUFFS Glucose (Glucose 40% Gel) UD PRN PO 08/23/16 10:30 09/22/16 10:29 Glucose (Glucose Chew Tab) 1 tabs UD PRN PO 08/23/16 10:30 09/22/16 10:29 Dextrose (Dextrose 50% 50ML Syringe) 50 ml UD PRN IV 08/23/16 10:30 09/22/16 10:29 08/23/16 12:13 50 ML Glucagon (Glucagon Inj) 1 mg UD PRN SQ 08/23/16 10:30 09/22/16 10:29 Enteral Nutritional Formula (Peptamen Intense VHP) 1,000 ml UD OG 08/23/16 11:45 09/22/16 11:44 08/23/16 12:17 1,000 ML Acetaminophen (Tylenol Soln) 650 mg Q6H PRN OG 08/23/16 17:00 09/22/16 16:59 08/23/16 17:43 650 MG Bacitracin (Bacitracin Oint) 1 appln BID EXT 08/23/16 21:00 09/22/16 20:59 08/25/16 09:00 1 APPLN Bacitracin 1 appln 1 appln QS PRN EXT 08/23/16 19:00 09/22/16 18:59 Dextrose/Sodium Chloride 1,000 ml @ 75 mls/hr [id number] IV 08/23/16 23:30 09/22/16 23:29 08/25/16 02:15 75 MLS/HR Acetaminophen/ Empty Bag (Ofirmev Iv/ Empty Iv Bag 100ml) 65 ml @ 260 mls/hr Q6H PRN IV 08/24/16 00:30 09/23/16 00:29 08/24/16 08:12 260 MLS/HR Piperacillin Sod/ Tazobactam Sod (Consult) 1 ea UD PRN N/A 08/24/16 00:30 09/23/16 00:29 Vancomycin HCl (Consult) 1 ea UD PRN N/A 08/24/16 00:30 09/23/16 00:29 Metoprolol Succinate 50 mg 50 mg QAM PO 08/24/16 09:00 09/23/16 08:59 08/25/16 10:17 50 MG Acetaminophen/ Empty Bag (Ofirmev Iv/ Empty Iv Bag 100ml) 100 ml @ 400 mls/hr Q8H IV 08/24/16 16:00 09/23/16 15:59 08/25/16 10:15 400 MLS/HR Metoprolol Tartrate 5 mg 5 mg Q6 PRN IV 08/24/16 12:00 09/23/16 11:59 08/24/16 15:58 5 MG Vancomycin HCl 1400 mg/Sodium Chloride 528 ml @ 200 mls/hr Q12H IV 08/24/16 14:00 08/31/16 13:59 08/25/16 02:00 200 MLS/HR Piperacillin Sod/ Tazobactam Sod/ Dextrose (Zosyn Iv/D5 100ml) 120 ml @ 30 mls/hr Q8H IV 08/24/16 14:00 08/31/16 13:59 08/25/16 06:04 30 MLS/HR Gadobutrol (Gadavist) 10 mmol UD PRN IV 08/24/16 15:15 08/28/16 15:14 Lorazepam 2 mg 2 mg Q4H PRN IV 08/25/16 00:30 09/24/16 00:29 08/25/16 00:52 2 MG Nicardipine HCl 25 mg/Sodium Chloride 250 ml @ 0 mls/hr Q0M PRN IV 08/25/16 00:33 09/24/16 00:32 Dexmedetomidine HCl/Sodium Chloride (PreCEDEX INJ/ Nss 100ml) 100 ml @ 0 mls/hr Q0M PRN IV 08/25/16 00:45 08/29/16 00:44 Chlorhexidine Gluconate 15 ml 15 ml BID PO 08/25/16 09:00 09/24/16 08:59 Magnesium Sulfate/ Prmx (Magnesium Sulfate/Premixed D5W) 100 ml @ 100 mls/hr TODAY@0930,1030 IV 08/25/16 09:30 08/25/16 13:00 08/25/16 10:18 100 MLS/HR Polyethylene 17 gm 17 gm DAILY PO 08/25/16 09:00 09/24/16 08:59 08/25/16 10:16 17 GM Sodium Phosphate/ Sodium Chloride (Sodium Phosphate Inj/Nss 250ml) 255 ml @ 88 mls/hr TODAY@1000 IV 08/25/16 10:00 08/25/16 18:00 08/25/16 10:18 88 MLS/HR Impression Anoxic encephalopathy. Patient appears to have an element of left-sided neglect probably due to nondominant posterior parietal lobe ischemic injury. No evidence for seizure activity on yesterday's EEG. 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 Plan If patient develops myoclonic type movements would initiate treatment with Keppra. Otherwise, there does not appear to be an indication for anticonvulsant therapy at this point in time. This patient's prognosis for recovery is probably poor. I will continue to monitor this patient's neurological condition.
[2016-08-25] MEDS: CHLORHEXIDINE GLUCONATE 0.12% 15 ML UDP PO SCH ×2 (11:20→21:06)
--- NOTE | 2016-08-25 13:35 | Critical Care Progress Note ---
Critical Care Progress Note Date of Service August 25, 2016. Attending Dr. Shaggy Navarro 26-year-old male currently incarcerated presented to the ER after he had collapsed while on a treadmill, received 1 shock with ROSC. status post hypothermic protocol Echo findings confirmation of hypertrophic obstructive cardiomyopathy. rewarming finished. Continues to be intubated. Objective General Appearance: other (intubated) Head: normocephalic, other (abrasion 1 cm x 2 cm over left zygomatic arch) ENT: other (intubated with 7.5 Hi-Lo tube) Neck: trachea midline, no thyromegaly Respiratory: breath sounds normal Cardiovasular: regular rhythm, normal S1S2, no gallop, no rub, no JVD, tachycardia Abdomen: normal bowel sounds, no rebound, no masses, no guarding Genitourinary - Male: external genitalia normal, other (Avelar present) Upper Extremities: no edema, other (approximately 2 cm x 2 cm abrasion on the right wrist) no response to painful stimuli Lower Extremities: no edema, normal ROM, other (3 cm x 3 cm abrasion to the right hip) withdraw to painful stimuli Pulses: carotid (R) (2+), carotid (L) (2+), radial (R) (2+), radial (L) (2+), dorsalis pedis (R) (2+), dorsalis pedis (L) (2+) Neuro: Withdraws lower extremities to pain, opens eyes to voice Psychiatric: other (unable to evaluate) Current SOFA Score SOFA Score Response (Comments) Value PaO2/FiO2 (mmHg) < 300 2 Platelets (x10) < 150 1 Bilirubin (mg/dL) 2.0 - 5.9 2 Dinorah Coma Score 6 - 9 3 Level of Hypotension No Hypotension 0 Creatinine (mg/dL) 1.2 - 1.9 1 Total 9 Previous SOFA Scores 5 on 08/23/2016 Assessment & Plan 26-year-old male currently incarcerated presented to the ER after he had collapsed while on a treadmill, received 1 shock with ROSC. status post hypothermic protocol Echo findings confirmatory of hypertrophic obstructive cardiomyopathy. Neuro: Acute hypoxic encephalopathy - Status post therapeutic hypothermia protocol - Hyperthermia: IV Tylenol as needed every 8 hours and ice packs - EEG: this study shows evidence for a moderate encephalopathy, without focal problems or potentially epileptogenic discharges - MRI brain:faint restricted diffusion within the medial aspect of the bilateral occipital lobes and right posterior parietal lobe. could represent a small amount increased T2 signal within the cortex suggested on the FLAIR sequences. This is nonspecific but could related to mild ischemic change/infarct. This could also be seen in the setting of posterior reversible encephalopathy syndrome. - MRI C-spine: Tiny disc bulge at C3-C4. No significant central canal or neural foraminal narrowing. Otherwise, normal cervical spine MRI. Neurology consult- appreciate recommendations. - Sedation with Demerol, penicillin, Precedex Resp :currently intubated, mechanically ventilated RR 24, TV 600 PEEP of 5, FiO2 30 Status post bronchoscopy CXR: 1. Persistent bibasal airspace opacities 2. Endotracheal tube 6.2 cm above the al. Continue vancomycin and Zosyn CVS: Tachycardia - Continue metoprolol 50 mg every morning - Lopressor IV as needed Hypertrophic obstructive cardiomyopathy: Confirmed on echocardiogram - Genetic testing advised to family Renal: WILLARD: - renal US: 1. Severe right hydronephrosis of uncertain etiology. Echogenic right kidney. 2. Partially obscured left kidney but no left hydronephrosis. - Abdominal CT:. Severe right hydronephrosis to the level of the ureteropelvic junction. There is no obstructing stones identified. This could be congenital or less likely a nonvisualized obstructing lesion given the patient's age. - Urology consult- status post stent placement in right UPJ - Creatinine today at 1.5 from 1.7 yesterday - monitor creatinine Electrolytes: Phosphorus at 2.3: Sodium phosphate ordered Magnesium at 1.7- 2g MgSO4 added Concerns of hypoglycemia, continue D5 +NSS ID: Pneumonia: - Status post bronchoscopy, pending cultures - Continue vancomycin and Zosyn GI FEN: - Advance Tube feeds - GI prophylaxis with Protonix - Transaminitis: ALT 106, AST 71 - Likely secondary to hypoperfusion - Hep B and Hep C negative Endocrine: Episodes of hypoglycemia : - continue D5 NSS - Advance tube feeds Heme: DVT prophylaxis: Heparin subcutaneous Lines: Right internal jugular triple-lumen central venous catheter placed 08/21 Right 20-gauge radial arterial line placed 08/21 Dispo: Monitor in ICU Resident Physician Supervision Note/Straw Hat Machine Operator Attending I interviewed and examined the patient. Discussed with Dr. Storm and generally agree with assessment and plan. Exceptions or clarifications can be found in my dictated addendum. Documented By: Mirna Coon Consults & Procedures Consultants: Neurology Cardiology. Urology Procedures: Right internal jugular vein CVL, 08/21/2016 Right radial arterial line 08/21/2016 Bronchoscopy secondary to new infiltrate 08/24/2016 Data Medications: Current Inpatient Medications Medications (Trade) Dose Ordered Sig/Shireen Route Start Time Stop Time Status Last Admin Dose Admin Pantoprazole Sodium 40 mg/ Syringe 10 ml @ 5 mls/min DAILY@1100 IV 08/22/16 11:00 09/21/16 10:59 08/25/16 10:19 5 MLS/MIN Fentanyl Citrate (Fentanyl Drip 1250MCG/250 Nss) 250 ml @ 0 mls/hr Q0M PRN IV 08/21/16 17:15 09/04/16 17:14 08/23/16 10:24 20 MLS/HR Artificial Tears (Lacri-Lube Oph Oint) 1 appln Q2H PRN OPB 08/21/16 17:15 09/20/16 17:14 08/22/16 00:28 1 APPLN Heparin Sodium (Porcine) (Heparin Sq 5000 Unit/0.5ml) 5,000 unit Q8H SQ 08/21/16 22:00 09/20/16 21:59 08/25/16 06:12 5,000 UNIT Albuterol (Ventolin Hfa Inhaler) 4 puffs QIDR INH 08/21/16 20:20 09/20/16 20:19 08/25/16 07:31 4 PUFFS Glucose (Glucose 40% Gel) UD PRN PO 08/23/16 10:30 09/22/16 10:29 Glucose (Glucose Chew Tab) 1 tabs UD PRN PO 08/23/16 10:30 09/22/16 10:29 Dextrose (Dextrose 50% 50ML Syringe) 50 ml UD PRN IV 08/23/16 10:30 09/22/16 10:29 08/23/16 12:13 50 ML Glucagon (Glucagon Inj) 1 mg UD PRN SQ 08/23/16 10:30 09/22/16 10:29 Enteral Nutritional Formula (Peptamen Intense VHP) 1,000 ml UD OG 08/23/16 11:45 09/22/16 11:44 08/23/16 12:17 1,000 ML Acetaminophen (Tylenol Soln) 650 mg Q6H PRN OG 08/23/16 17:00 09/22/16 16:59 08/23/16 17:43 650 MG Bacitracin (Bacitracin Oint) 1 appln BID EXT 08/23/16 21:00 09/22/16 20:59 08/25/16 09:00 1 APPLN Bacitracin 1 appln 1 appln QS PRN EXT 08/23/16 19:00 09/22/16 18:59 Dextrose/Sodium Chloride 1,000 ml @ 75 mls/hr [id number] IV 08/23/16 23:30 09/22/16 23:29 08/25/16 02:15 75 MLS/HR Acetaminophen/ Empty Bag (Ofirmev Iv/ Empty Iv Bag 100ml) 65 ml @ 260 mls/hr Q6H PRN IV 08/24/16 00:30 09/23/16 00:29 08/24/16 08:12 260 MLS/HR Piperacillin Sod/ Tazobactam Sod (Consult) 1 ea UD PRN N/A 08/24/16 00:30 09/23/16 00:29 Vancomycin HCl (Consult) 1 ea UD PRN N/A 08/24/16 00:30 09/23/16 00:29 Metoprolol Succinate 50 mg 50 mg QAM PO 08/24/16 09:00 09/23/16 08:59 08/25/16 10:17 50 MG Acetaminophen/ Empty Bag (Ofirmev Iv/ Empty Iv Bag 100ml) 100 ml @ 400 mls/hr Q8H IV 08/24/16 16:00 09/23/16 15:59 08/25/16 10:15 400 MLS/HR Metoprolol Tartrate 5 mg 5 mg Q6 PRN IV 08/24/16 12:00 09/23/16 11:59 08/24/16 15:58 5 MG Vancomycin HCl 1400 mg/Sodium Chloride 528 ml @ 200 mls/hr Q12H IV 08/24/16 14:00 08/31/16 13:59 08/25/16 02:00 200 MLS/HR Piperacillin Sod/ Tazobactam Sod/ Dextrose (Zosyn Iv/D5 100ml) 120 ml @ 30 mls/hr Q8H IV 08/24/16 14:00 08/31/16 13:59 08/25/16 06:04 30 MLS/HR Gadobutrol (Gadavist) 10 mmol UD PRN IV 08/24/16 15:15 08/28/16 15:14 Lorazepam 2 mg 2 mg Q4H PRN IV 08/25/16 00:30 09/24/16 00:29 08/25/16 00:52 2 MG Nicardipine HCl 25 mg/Sodium Chloride 250 ml @ 0 mls/hr Q0M PRN IV 08/25/16 00:33 09/24/16 00:32 Dexmedetomidine HCl/Sodium Chloride (PreCEDEX INJ/ Nss 100ml) 100 ml @ 0 mls/hr Q0M PRN IV 08/25/16 00:45 08/29/16 00:44 Chlorhexidine Gluconate (Peridex Oral Soln 15ML Udp) 15 ml BID PO 08/25/16 09:00 09/24/16 08:59 08/25/16 11:20 15 ML Polyethylene 17 gm 17 gm DAILY PO 08/25/16 09:00 09/24/16 08:59 08/25/16 10:16 17 GM Sodium Phosphate/ Sodium Chloride (Sodium Phosphate Inj/Nss 250ml) 255 ml @ 88 mls/hr TODAY@1000 IV 08/25/16 10:00 08/25/16 18:00 08/25/16 10:18 88 MLS/HR I & O: 24-Hour Column 08/25/16 07:58 Intake Total 3602 ml Output Total 2875 ml Balance 727 ml Vital Signs: Date Time Temp Pulse Resp B/P Pulse Ox O2 Delivery O2 Flow Rate FiO2 08/25/16 12:27 30 08/25/16 12:27 100 Mechanical Ventilator 30 08/25/16 12:00 36.7 75 24 100 91/49 08/25/16 11:07 37.7 84 24 126/58 100 99/47 08/25/16 11:06 37.7 87 24 127/56 100 90/40 08/25/16 11:01 37.8 91 24 118/59 100 98/44 08/25/16 11:00 37.8 87 24 100 97/43 08/25/16 10:01 37.8 139 29 192/92 88 207/61 08/25/16 10:00 37.7 139 29 89 190/62 08/25/16 09:01 37.1 99 24 151/71 100 111/51 08/25/16 09:01 37.1 99 24 151/71 100 111/51 08/25/16 09:00 37.1 98 24 100 132/53 08/25/16 09:00 37.1 98 24 100 132/53 08/25/16 08:01 36.7 91 24 155/77 100 124/61 08/25/16 08:01 36.7 91 24 155/77 100 124/61 08/25/16 08:00 36.7 93 24 100 117/59 08/25/16 08:00 100 Mechanical Ventilator 30 08/25/16 08:00 Mechanical Ventilator 30 08/25/16 08:00 30 08/25/16 08:00 36.7 93 24 100 117/59 08/25/16 08:00 117/59 08/25/16 07:31 30 08/25/16 07:01 36.8 80 24 139/53 100 94/45 08/25/16 07:01 36.8 80 24 139/53 100 94/45 08/25/16 07:00 36.8 85 24 100 102/50 08/25/16 07:00 36.8 85 24 100 102/50 08/25/16 06:00 37.1 85 24 128/58 100 08/25/16 05:00 30 08/25/16 04:00 100 Mechanical Ventilator 30 08/25/16 04:00 30 08/25/16 04:00 37.5 108 27 134/58 100 08/25/16 02:17 35 08/25/16 02:01 37.8 100 24 118/53 100 08/25/16 02:00 37.8 102 24 132/53 100 08/25/16 01:31 38.0 99 24 138/55 100 08/25/16 01:21 38.1 94 24 139/53 100 08/25/16 01:10 38.3 93 24 151/80 100 08/25/16 01:01 38.5 99 24 137/51 99 08/25/16 01:00 38.5 97 24 138/50 99 08/25/16 00:50 38.8 105 24 127/60 98 08/25/16 00:47 38.9 108 24 111/43 97 08/25/16 00:41 39.1 109 24 133/45 95 08/25/16 00:31 39.2 131 21 173/61 94 08/25/16 00:20 39.2 130 18 182/98 94 08/25/16 00:11 39.2 128 21 170/56 94 08/25/16 00:00 39.2 126 23 177/91 95 08/25/16 00:00 100 Mechanical Ventilator 35 08/25/16 00:00 45 08/24/16 23:25 45 08/24/16 22:01 39.3 103 24 124/43 100 08/24/16 21:55 39.3 103 24 123/42 100 08/24/16 21:51 39.3 104 24 132/46 100 08/24/16 21:41 39.4 113 24 153/52 100 08/24/16 21:30 39.4 125 22 171/84 99 08/24/16 21:21 39.2 120 24 167/58 100 08/24/16 21:10 39.1 121 24 166/84 100 08/24/16 21:00 39.0 117 23 168/83 100 08/24/16 20:55 38.9 121 27 168/58 99 08/24/16 20:51 38.8 118 24 178/59 100 08/24/16 20:40 38.7 123 27 170/89 98 08/24/16 20:30 38.6 119 177/78 99 08/24/16 20:21 38.5 116 22 176/68 98 08/24/16 20:11 38.3 104 23 149/56 99 08/24/16 20:01 38.1 104 24 153/56 99 08/24/16 20:00 45 08/24/16 20:00 100 Mechanical Ventilator 45 08/24/16 19:55 37.9 114 21 177/69 100 08/24/16 19:35 45 08/24/16 16:25 45 08/24/16 16:11 38.8 97 92/39 99 08/24/16 16:04 38.9 96 172/76 100 08/24/16 16:01 38.9 101 145/58 100 08/24/16 16:00 99 Mechanical Ventilator 45 08/24/16 16:00 45 08/24/16 16:00 38.9 101 138/55 100 08/24/16 15:58 97 134/80 08/24/16 15:30 39.1 107 148/57 96 08/24/16 15:24 39.1 107 127/64 97 Laboratory Results: Last 24 Hours Test 08/24/16 17:49 08/24/16 18:08 08/25/16 00:34 08/25/16 05:40 Blood Gas Sample Site Art Line Bedside Blood Gas pH (LAB) 7.32 Bedside Blood Gas pCO2 (LAB) 34 mmHg Bedside Blood Gas pO2 (LAB) 76 mmHg Bedside Blood Gas HCO3 (LAB) 17 meq/L Bedside Blood Gas Total CO2 18 mEq/l Bedside Blood Gas Base Excess (LAB) -9.0 meq/L Bedside Blood Gas O2 Saturation 93.0 % Mohan Test NA Oxygen Delivery Device Ventilator Bedside Oxygen Rate (breaths/min) 24 Blood Gas Minute Ventilation 18.4 Bedside FiO2 45 % Blood Gas Tidal Volume 600 Blood Gas PEEP 5 Bedside Glucose 117 mg/dl Sodium Level 141 mmol/L 139 mmol/L Potassium Level 4.5 mmol/L 4.5 mmol/L Chloride Level 109 mmol/L 109 mmol/L Carbon Dioxide Level 22 mmol/L 25 mmol/L Anion Gap 10.0 mmol/L 5.0 mmol/L Blood Urea Nitrogen 14 mg/dl 15 mg/dl Creatinine 1.70 mg/dl 1.50 mg/dl Est Creatinine Clear Calc Drug Dose 73.8 ml/min 83.6 ml/min Estimated GFR () 62.7 72.9 Estimated GFR (Non- 54.1 62.9 BUN/Creatinine Ratio 8.3 9.7 Random Glucose 108 mg/dl 92 mg/dl Calcium Level 8.2 mg/dl 8.2 mg/dl Phosphorus Level 2.5 mg/dl 2.3 mg/dl Magnesium Level 1.6 mg/dl 1.7 mg/dl White Blood Count 7.92 K/uL Red Blood Count 4.16 M/uL Hemoglobin 12.0 g/dL Hematocrit 35.7 % Mean Corpuscular Volume 85.8 fL Mean Corpuscular Hemoglobin 28.8 pg Mean Corpuscular Hemoglobin Concent 33.6 g/dl Platelet Count 123 K/uL Mean Platelet Volume 12.2 fL Neutrophils (%) (Auto) 77.2 % Lymphocytes (%) (Auto) 15.9 % Monocytes (%) (Auto) 6.2 % Eosinophils (%) (Auto) 0.3 % Basophils (%) (Auto) 0.1 % Neutrophils # (Auto) 6.12 K/uL Lymphocytes # (Auto) 1.26 K/uL Monocytes # (Auto) 0.49 K/uL Eosinophils # (Auto) 0.02 K/uL Basophils # (Auto) 0.01 K/uL RDW Standard Deviation 43.1 fL RDW Coefficient of Variation 13.6 % Immature Granulocyte % (Auto) 0.3 % Immature Granulocyte # (Auto) 0.02 K/uL Platelet Estimate DECREASED Prothrombin Time 14.8 SECONDS Prothromb Time International Ratio 1.4 Activated Partial Thromboplast Time 39.5 SECONDS Partial Thromboplastin Ratio 1.5 Total Bilirubin 2.2 mg/dl Direct Bilirubin 1.3 mg/dl Aspartate Amino Transf (AST/SGOT) 71 U/L Alanine Aminotransferase (ALT/SGPT) 106 U/L Alkaline Phosphatase 84 U/L Total Protein 6.1 gm/dl Albumin 2.6 gm/dl Lipase 63 U/L Procalcitonin 1.76 ng/ml Test 08/25/16 09:07 Blood Gas Sample Site Art Line Bedside Blood Gas pH (LAB) 7.33 Bedside Blood Gas pCO2 (LAB) 36 mmHg Bedside Blood Gas pO2 (LAB) 74 mmHg Bedside Blood Gas HCO3 (LAB) 19 meq/L Bedside Blood Gas Total CO2 20 mEq/l Bedside Blood Gas Base Excess (LAB) -7.0 meq/L Bedside Blood Gas O2 Saturation 94.0 % Mohan Test NA Oxygen Delivery Device Ventilator Bedside Oxygen Rate (breaths/min) 24 Blood Gas Minute Ventilation 13.7 Bedside FiO2 30 % Blood Gas Tidal Volume 600 Blood Gas PEEP 5 Resident Tracking Resident Involvement: Resident Care Provided Care Provided: Adult Hospital Medicine
--- NOTE | 2016-08-25 17:29 | CRITICAL CARE CONSULTATION ---
DATE OF CONSULTATION: 08/25/2016 Please accept this as an addendum to the critical care consultation done by Dr. Storm earlier today. The patient's care was discussed in detail on multidisciplinary rounds today. I personally examined him and reviewed his vital signs, I's and O's, medications, labs, microbiology, pathology, imaging, and other reports. I have also reviewed Dr. Storm's note and generally agreed with what is presented there. HISTORY OF PRESENT ILLNESS: This is a 26-year-old man who is status post out of hospital cardiac arrest, hypothermia protocol and who remains on the ventilator, intubated and sedated. He had a sedation vacation today and was placed on CPAP at 5/5. He eventually became tachypneic with the respiratory rate in the 30s, although his tidal volumes were sufficient. He was also tachycardic to a heart rate of 135. He was placed back on assist control and was re-sedated. He is not having any significant endotracheal tube secretions. PHYSICAL EXAMINATION: His exam was significant for opening his eyes and primarily looking to the right. He has no spontaneous movement of the upper or lower extremities. He would withdraw to pain more briskly than he had been previously with all 4 extremities when he was off sedation. Of note, he has few gram positive cocci, few gram positive bacilli and few gram negative bacilli on the Gram stain from the right middle lobe BAL. He remains on Zosyn and vancomycin. IMPRESSION: 1. Status post out of hospital cardiac arrest likely secondary to ventricular fibrillation or pulseless ventricular tachycardia associated with his hypertrophic obstructive cardiomyopathy. 2. Anoxic encephalopathy which may be improving. 3. Likely aspiration pneumonia, infiltrates developing on his chest x-ray. 4. Acute kidney injury, improved. Status post ureteral stent secondary to hydronephrosis. 5. Fever, possibly secondary to infection, but his brain injury may also be contributing. 6. Constipation. 7. Tube feed intolerance, mildly elevated liver function tests, improving. PLAN: 1. Neurologic: Try to minimize sedation and we will continue to follow his neuro status. Many thanks to the neurology service for their assistance in his care. Tylenol for fever along with cooling blanket when necessary. Watch for any seizure activity. If he developed myoclonus, we will give him Keppra per neurology recommendations. 2. Pulmonary: Continue daily weaning trials. Today is day 5 in the ICU and we may need to think about tracheostomy in the future depending on family wishes. 3. Cardiovascular: Avoid tachycardia if at all possible. Also, avoid volume depletion. 4. Infectious Disease: Continue Zosyn and vancomycin. Follow BAL cultures. 5. GI: Resume tube feeds, consider Reglan. MiraLax and Colace were added today. 6. Renal: Replete electrolytes and watch volume status. Continue IV fluids at 75 mL per hour. 7. Heme: No acute active issues. Please call me with any questions or concerns. Critical care time 40 minutes.
[2016-08-25] MEDS ORDERED: NURSING VERBAL MED ORDER ONE (20:30)
[2016-08-25] MEDS ORDERED: MEPERIDINE HCL 50 MG/ML CARP ONE (20:34)
[2016-08-25] MEDS: DexMEDEtomidine HCL INJ 400 MCG in SODIUM CHLORIDE 0.9% 100ML 96 ML IV PRN (21:00)
[2016-08-25] MEDS: FENTANYL 1250MCG/250ML NSS 250 ML IV PRN (23:39)
[2016-08-26] VITALS (19 sets, daily range): BP systolic 102–200; BP diastolic 42–86; PULSE 74–246; TEMP 37.5–39.7; O2SAT 90–100
[2016-08-26] MEDS: LORAZEPAM 2 MG/ML 1 ML VIAL IV PRN ×3 (00:42→21:39)
[2016-08-26] MEDS ORDERED: VANCOMYCIN TROUGH ONE (01:30)
[2016-08-26] MEDS: VANCOMYCIN INJ 1,400 MG in SODIUM CHLORIDE 0.9% 500ML 500 ML IV SCH (02:35)
[2016-08-26] MEDS: D5W AND NSS 1,000 ML IV SCH (03:52)
[2016-08-26] MEDS: HEPARIN SOD 5000 UNIT/0.5 ML CARP SQ SCH ×3 (06:22→21:38)
[2016-08-26] MEDS: PIPERACILL/TAZOBAC IV 4.5 GM in DEXTROSE 5% 100ML IV SCH ×3 (06:23→21:34)
[2016-08-26] MEDS: DexMEDEtomidine HCL INJ 400 MCG in SODIUM CHLORIDE 0.9% 100ML 96 ML IV PRN (06:23)
[2016-08-26 06:30] LABS: BASO % 0.1 %; BASO ABS # 0.01 K/uL (0-0.2); COMPLETE YES; EOS % 0.3 %; HEMATOCRIT 33.9 % (42-52); IG% 0.2 %; LYMPH % 11.9 %; MEAN CELL VOLUME 85.2 fL (80-100); MEAN CORPUSCULAR HEMOGLOBIN 27.9 pg (25-34); MEAN CORPUSCULAR HGB CONC 32.7 g/dl (32-36); MEAN PLATELET VOLUME 11.3 fL (7.4-10.4); MONO % 7.9 %; NEUT % 79.6 %; PLATELET COUNT 137 K/uL (130-400); RED BLOOD COUNT 3.98 M/uL (4.7-6.1); WHITE BLOOD COUNT 9.27 K/uL (4.8-10.8)
[2016-08-26 06:40] LABS: INR 1.1 (0.9-1.1); PARTIAL THROMBOPLASTIN RATIO 1.4
--- NOTE | 2016-08-26 06:44 | DIAGNOSTIC IMAGING REPORT ---
CHEST ONE VIEW PORTABLE CLINICAL HISTORY: Adjusted ETT tube position COMPARISON STUDY: 08/25/2016 FINDINGS: Endotracheal tube 5 cm above the al. Persistent bibasilar infiltrates. Upper lungs are clear. Central catheter remains in superior vena cava. There is a nasogastric tube within the stomach IMPRESSION: Endotracheal tube 5 cm above the al. Nasogastric tube within the stomach. Unchanging basilar infiltrates Electronically signed by: Spencer Dalton M.D. 08/26/2016 6:43 AM Dictated Date/Time: 08/26/2016 6:42 AM
[2016-08-26 07:07] LABS: BUN/CREATININE RATIO 12.4 (10-20); CALCIUM 8.7 mg/dl (8.5-10.1); CREATININE 1.4 mg/dl (0.60-1.40); MAGNESIUM 2.2 mg/dl (1.8-2.4); POTASSIUM 4.1 mmol/L (3.5-5.1)
[2016-08-26 07:20] LABS: PHOSPHORUS 2.1 mg/dl (2.5-4.9)
[2016-08-26] MEDS: ALBUTEROL HFA 8 GM INHALER INH SCH ×4 (07:52→20:17)
[2016-08-26] MEDS: POLYETHYLENE (MIRALAX) 17 GM PACK PO SCH (08:44)
[2016-08-26] MEDS: CHLORHEXIDINE GLUCONATE 0.12% 15 ML UDP PO SCH ×2 (08:44→21:00)
[2016-08-26] MEDS: PANTOprazole INJ 40 MG in SYRINGE 0 ML IV SCH (08:45)
[2016-08-26] MEDS: ACETAMINOPHEN IV 1,000 MG in EMPTY BAG 0 ML IV SCH ×2 (08:45→15:46)
[2016-08-26] MEDS: BACITRACIN OINT 15 GM TUBE EXT SCH ×2 (08:46→21:00)
[2016-08-26] MEDS ORDERED: SODIUM PHOSPHATE 3 MMOL/1 ML INFUSION IV STA (09:16)
[2016-08-26] MEDS ORDERED: FUROSEMIDE 40 MG/4 ML VIAL IV ONE (10:00)
[2016-08-26] MEDS ORDERED: SODIUM PHOSPHATE INJ 15 MMOL in SODIUM CHLORIDE 0.9% 250ML 250 ML IV SCH (10:00)
[2016-08-26] MEDS ORDERED: DOCUSATE SODIUM 100 MG/10 ML UDC PO ONE (10:00)
--- NOTE | 2016-08-26 10:50 | Critical Care Progress Note ---
Critical Care Progress Note Date of Service August 26, 2016. Attending Dr. Shaggy Navarro 26-year-old male currently incarcerated presented to the ER after he had collapsed while on a treadmill, received 1 shock with ROSC. status post hypothermic protocol Echo findings confirmation of hypertrophic obstructive cardiomyopathy. Continues to be intubated . Overnight he became tachycardic and hypertensive and Had dropped to 82, FiO2 was increased to 100% and he received Tylenol, Demerol and ,fentanyl and PEEP was increased to 8 and sedation was restarted. responds to voice and looks in the direction of the examiner but continues to have a left sided gaze. frequent myoclonic jerks Objective General Appearance: other (intubated) Head: normocephalic, other (abrasion 1 cm x 2 cm over left zygomatic arch) ENT: other (intubated with 7.5 Hi-Lo tube) Neck: trachea midline, no thyromegaly Respiratory: breath sounds normal Cardiovasular: regular rhythm, normal S1S2, no gallop, no rub, no JVD, tachycardia Abdomen: normal bowel sounds, no rebound, no masses, no guarding Genitourinary - Male: external genitalia normal, other (Avelar present) Upper Extremities: no edema, other (approximately 2 cm x 2 cm abrasion on the right wrist) Lower Extremities: no edema, normal ROM, other (3 cm x 3 cm abrasion to the right hip) Pulses: carotid (R) (2+), carotid (L) (2+), radial (R) (2+), radial (L) (2+), dorsalis pedis (R) (2+), dorsalis pedis (L) (2+) Neuro: responds to voice and follows commands , left side gaze, myoclonic jerks with tactile stimulus Psychiatric: other (unable to evaluate) Current SOFA Score SOFA Score Response (Comments) Value PaO2/FiO2 (mmHg) < 300 2 Platelets (x10) < 150 1 Bilirubin (mg/dL) 2.0 - 5.9 2 Keller Coma Score 6 - 9 3 Level of Hypotension No Hypotension 0 Creatinine (mg/dL) 1.2 - 1.9 1 Total 9 Previous SOFA Scores 5 on 08/23/2016 Assessment & Plan 26-year-old male currently incarcerated presented to the ER after he had collapsed while on a treadmill, received 1 shock with ROSC. status post hypothermic protocol Echo findings confirmatory of hypertrophic obstructive cardiomyopathy. Neuro: Acute hypoxic encephalopathy - Status post therapeutic hypothermia protocol - Hyperthermia: IV Tylenol as needed every 8 hours and ice packs - EEG: this study shows evidence for a moderate encephalopathy, without focal problems or potentially epileptogenic discharges - MRI brain:faint restricted diffusion within the medial aspect of the bilateral occipital lobes and right posterior parietal lobe. could represent a small amount increased T2 signal within the cortex suggested on the FLAIR sequences. This is nonspecific but could related to mild ischemic change/infarct. This could also be seen in the setting of posterior reversible encephalopathy syndrome. - MRI C-spine: Tiny disc bulge at C3-C4. No significant central canal or neural foraminal narrowing. Otherwise, normal cervical spine MRI. Neurology consult- appreciate recommendations. - Keppra 1g loading dose with 500 mg BID for myoclonic jerks - sedation vacation today Resp :currently intubated, mechanically ventilated AC, RR 24, TV 600, PEEP of 8 , FiO2 50 Status post bronchoscopy- staph aureus ,Gram negative bacilli and Gram positive bacilli on gram stain ETT repositioned CXR: : Endotracheal tube 5 cm above the al. Nasogastric tube within the stomach. Unchanging basilar infiltrates Continue vancomycin and Zosyn - plan for CPAP trial CVS: Tachycardia - Continue metoprolol 50 mg every morning - Lopressor IV as needed Hypertrophic obstructive cardiomyopathy: Confirmed on echocardiogram - Genetic testing advised to family Renal: WILLARD: - renal US: 1. Severe right hydronephrosis of uncertain etiology. Echogenic right kidney. 2. Partially obscured left kidney but no left hydronephrosis. - Abdominal CT:. Severe right hydronephrosis to the level of the ureteropelvic junction. There is no obstructing stones identified. This could be congenital or less likely a nonvisualized obstructing lesion given the patient's age. - Urology consult- status post stent placement in right UPJ - Creatinine today at 1.4 from 1.5 yesterday - monitor creatinine - positive fluid balance- IV lasix 40 mg Onetime Electrolytes: Phosphorus at 2.1: Sodium phosphate ordered Magnesium at 2.2 IVF d/c ID: Pneumonia: - Status post bronchoscopy, pending cultures - Continue vancomycin and Zosyn GI FEN: - Advance Tube feeds - GI prophylaxis with Protonix - Transaminitis: improving ALT 64 , AST 83 - Likely secondary to hypoperfusion - Hep B and Hep C negative - Continue tube feeds/peptamen - Bowel regimen PT/OT Heme: DVT prophylaxis: Heparin subcutaneous Lines: Right internal jugular triple-lumen central venous catheter placed 08/21 Right 20-gauge radial arterial line placed 08/21 Dispo: Monitor in ICU Resident Physician Supervision Note/[employer] Attending I interviewed and examined the patient. Discussed with Dr. Storm and agree with findings and plan as documented in the note. Any exceptions or clarifications are listed here: The patient's care was discussed in detail on multidisciplinary rounds. I have reviewed the VS, I/O, notes, meds, imaging, micro and other reports. Last night he was febrile to 39.7 and he had an episode of hypertension, tachycardia , desaturation and probable mucous plugging. Humidification was added to his vent circuit and he was lavaged and suctioned for a few "chunks" per RN last night. Today, his sedation is off and his mental status is improving - nodded head to questions and is trying to follow some commands. Has myoclonic jerking and is being started on Keppra. His temp is still difficult to regulate - may be neurogenic vs. infectious and he is on broad spectrum antibiotics for aspiration PNA. Will try PRN fentanyl before putting him back on any sedative infusions. He did well on CPAP today with TV 600 RR 25 but probably aspirated today when attempt was made to place the coresafe feeding tube. Will wait until this afternoon and attempt again. PRN lopressor while we do no have enteral access. Will diurese today and IVF discontinued. He needs aggressive ROM. Will need to mendez culture if he becomes febrile again. Critical Care Time 40min. Documented By: Mirna Coon Consults & Procedures Consultants: Neurology Cardiology. Urology Procedures: Right internal jugular vein CVL, 08/21/2016 Right radial arterial line 08/21/2016 Bronchoscopy secondary to new infiltrate 08/24/2016 Data Medications: Current Inpatient Medications Medications (Trade) Dose Ordered Sig/Shireen Route Start Time Stop Time Status Last Admin Dose Admin Pantoprazole Sodium 40 mg/ Syringe 10 ml @ 5 mls/min DAILY@1100 IV 08/22/16 11:00 09/21/16 10:59 08/26/16 08:45 5 MLS/MIN Fentanyl Citrate (Fentanyl Drip 1250MCG/250 Nss) 250 ml @ 0 mls/hr Q0M PRN IV 08/21/16 17:15 09/04/16 17:14 08/25/16 23:39 20 MLS/HR Artificial Tears (Lacri-Lube Oph Oint) 1 appln Q2H PRN OPB 08/21/16 17:15 09/20/16 17:14 08/22/16 00:28 1 APPLN Heparin Sodium (Porcine) (Heparin Sq 5000 Unit/0.5ml) 5,000 unit Q8H SQ 08/21/16 22:00 09/20/16 21:59 08/26/16 06:22 5,000 UNIT Albuterol (Ventolin Hfa Inhaler) 4 puffs QIDR INH 08/21/16 20:20 09/20/16 20:19 08/26/16 07:52 4 PUFFS Glucose (Glucose 40% Gel) UD PRN PO 08/23/16 10:30 09/22/16 10:29 Glucose (Glucose Chew Tab) 1 tabs UD PRN PO 08/23/16 10:30 09/22/16 10:29 Dextrose (Dextrose 50% 50ML Syringe) 50 ml UD PRN IV 08/23/16 10:30 09/22/16 10:29 08/23/16 12:13 50 ML Glucagon (Glucagon Inj) 1 mg UD PRN SQ 08/23/16 10:30 09/22/16 10:29 Enteral Nutritional Formula (Peptamen Intense VHP) 1,000 ml UD OG 08/23/16 11:45 09/22/16 11:44 08/23/16 12:17 1,000 ML Acetaminophen (Tylenol Soln) 650 mg Q6H PRN OG 08/23/16 17:00 09/22/16 16:59 08/23/16 17:43 650 MG Bacitracin (Bacitracin Oint) 1 appln BID EXT 08/23/16 21:00 09/22/16 20:59 08/26/16 08:46 1 APPLN Bacitracin 1 appln 1 appln QS PRN EXT 08/23/16 19:00 09/22/16 18:59 Acetaminophen/ Empty Bag (Ofirmev Iv/ Empty Iv Bag 100ml) 65 ml @ 260 mls/hr Q6H PRN IV 08/24/16 00:30 09/23/16 00:29 08/24/16 08:12 260 MLS/HR Piperacillin Sod/ Tazobactam Sod (Consult) 1 ea UD PRN N/A 08/24/16 00:30 09/23/16 00:29 Vancomycin HCl (Consult) 1 ea UD PRN N/A 08/24/16 00:30 09/23/16 00:29 Metoprolol Succinate 50 mg 50 mg QAM PO 08/24/16 09:00 09/23/16 08:59 08/25/16 10:17 50 MG Acetaminophen/ Empty Bag (Ofirmev Iv/ Empty Iv Bag 100ml) 100 ml @ 400 mls/hr Q8H IV 08/24/16 16:00 09/23/16 15:59 08/26/16 08:45 400 MLS/HR Metoprolol Tartrate 5 mg 5 mg Q6 PRN IV 08/24/16 12:00 09/23/16 11:59 08/24/16 15:58 5 MG Vancomycin HCl 1400 mg/Sodium Chloride 528 ml @ 200 mls/hr Q12H IV 08/24/16 14:00 08/31/16 13:59 08/26/16 02:35 200 MLS/HR Piperacillin Sod/ Tazobactam Sod/ Dextrose (Zosyn Iv/D5 100ml) 120 ml @ 30 mls/hr Q8H IV 08/24/16 14:00 08/31/16 13:59 08/26/16 06:23 30 MLS/HR Gadobutrol (Gadavist) 10 mmol UD PRN IV 08/24/16 15:15 08/28/16 15:14 Lorazepam 2 mg 2 mg Q4H PRN IV 08/25/16 00:30 09/24/16 00:29 08/26/16 00:42 2 MG Nicardipine HCl 25 mg/Sodium Chloride 250 ml @ 0 mls/hr Q0M PRN IV 08/25/16 00:33 09/24/16 00:32 Dexmedetomidine HCl/Sodium Chloride (PreCEDEX INJ/ Nss 100ml) 100 ml @ 0 mls/hr Q0M PRN IV 08/25/16 00:45 08/29/16 00:44 08/26/16 06:23 11.9 MLS/HR Chlorhexidine Gluconate (Peridex Oral Soln 15ML Udp) 15 ml BID PO 08/25/16 09:00 09/24/16 08:59 08/26/16 08:44 15 ML Polyethylene (Miralax Powder Packet) 17 gm DAILY PO 08/25/16 09:00 09/24/16 08:59 08/26/16 08:44 17 GM Docusate Sodium 100 mg 100 mg BID PO 08/26/16 21:00 09/25/16 20:59 Sodium Phosphate/ Sodium Chloride (Sodium Phosphate Inj/Nss 250ml) 255 ml @ 127.5 mls/ hr TODAY@1000 IV 08/26/16 10:00 08/26/16 11:59 08/26/16 10:35 127.5 MLS/HR I & O: 24-Hour Column 08/26/16 07:58 Intake Total 4087 ml Output Total 1425 ml Balance 2662 ml Vital Signs: Date Time Temp Pulse Resp B/P Pulse Ox O2 Delivery O2 Flow Rate FiO2 08/26/16 10:04 38.8 97 21 118/62 98 CPAP Mechanical Ventilator 08/26/16 09:35 50 08/26/16 08:00 60 08/26/16 08:00 Mechanical Ventilator 60 08/26/16 08:00 38.2 80 24 142/86 100 Mechanical Ventilator 08/26/16 07:55 50 08/26/16 06:00 37.5 80 24 135/78 99 08/26/16 05:25 50 08/26/16 05:01 38.1 81 24 112/46 100 08/26/16 05:00 38.1 84 24 111/49 100 08/26/16 05:00 38.1 84 24 111/49 100 08/26/16 04:00 60 08/26/16 04:00 38.5 101 24 130/54 97 08/26/16 04:00 Mechanical Ventilator 60 08/26/16 03:00 38.3 105 27 123/59 93 08/26/16 02:00 39.4 213 109/51 94 08/26/16 01:40 60 08/26/16 01:00 39.7 246 24 108/79 90 08/26/16 00:01 39.4 97 24 106/42 100 08/26/16 00:00 39.3 96 24 102/50 100 08/25/16 23:59 60 08/25/16 23:59 Mechanical Ventilator 60 08/25/16 23:00 38.8 96 24 141/58 100 08/25/16 22:35 80 08/25/16 21:01 38.3 94 24 116/40 100 08/25/16 21:00 38.3 92 24 116/41 100 08/25/16 20:00 36.2 130 19 152/93 94 08/25/16 20:00 100 08/25/16 20:00 87 Mechanical Ventilator 100 08/25/16 19:05 30 08/25/16 19:00 34.1 72 24 118/67 100 08/25/16 18:12 30 08/25/16 18:00 33.6 65 24 123/75 100 Mechanical Ventilator 08/25/16 16:00 30 08/25/16 16:00 100 Mechanical Ventilator 30 08/25/16 16:00 34.0 46 24 142/70 100 Mechanical Ventilator 08/25/16 15:38 30 08/25/16 14:00 35.2 62 24 100 124/60 08/25/16 13:45 35.3 65 24 100 133/71 08/25/16 13:30 35.4 63 24 100 118/58 08/25/16 13:15 35.6 65 24 100 126/64 08/25/16 13:01 35.8 66 24 144/62 100 112/56 08/25/16 13:00 35.8 65 24 100 125/60 08/25/16 13:00 35.8 65 24 100 125/60 08/25/16 12:27 30 08/25/16 12:27 100 Mechanical Ventilator 30 08/25/16 12:00 36.7 75 24 100 91/49 08/25/16 11:55 30 08/25/16 11:07 37.7 84 24 126/58 100 99/47 08/25/16 11:06 37.7 87 24 127/56 100 90/40 08/25/16 11:01 37.8 91 24 118/59 100 98/44 08/25/16 11:00 37.8 87 24 100 97/43 Laboratory Results: Last 24 Hours Test 08/26/16 01:40 08/26/16 06:17 Vancomycin Level Trough 13.9 mcg/ml White Blood Count 9.27 K/uL Red Blood Count 3.98 M/uL Hemoglobin 11.1 g/dL Hematocrit 33.9 % Mean Corpuscular Volume 85.2 fL Mean Corpuscular Hemoglobin 27.9 pg Mean Corpuscular Hemoglobin Concent 32.7 g/dl Platelet Count 137 K/uL Mean Platelet Volume 11.3 fL Neutrophils (%) (Auto) 79.6 % Lymphocytes (%) (Auto) 11.9 % Monocytes (%) (Auto) 7.9 % Eosinophils (%) (Auto) 0.3 % Basophils (%) (Auto) 0.1 % Neutrophils # (Auto) 7.38 K/uL Lymphocytes # (Auto) 1.10 K/uL Monocytes # (Auto) 0.73 K/uL Eosinophils # (Auto) 0.03 K/uL Basophils # (Auto) 0.01 K/uL RDW Standard Deviation 42.1 fL RDW Coefficient of Variation 13.5 % Immature Granulocyte % (Auto) 0.2 % Immature Granulocyte # (Auto) 0.02 K/uL Prothrombin Time 12.0 SECONDS Prothromb Time International Ratio 1.1 Activated Partial Thromboplast Time 36.2 SECONDS Partial Thromboplastin Ratio 1.4 Sodium Level 139 mmol/L Potassium Level 4.1 mmol/L Chloride Level 110 mmol/L Carbon Dioxide Level 21 mmol/L Anion Gap 8.0 mmol/L Blood Urea Nitrogen 17 mg/dl Creatinine 1.40 mg/dl Est Creatinine Clear Calc Drug Dose 89.6 ml/min Estimated GFR () 79.2 Estimated GFR (Non- 68.4 BUN/Creatinine Ratio 12.4 Random Glucose 107 mg/dl Calcium Level 8.7 mg/dl Phosphorus Level 2.1 mg/dl Magnesium Level 2.2 mg/dl Total Bilirubin 1.5 mg/dl Direct Bilirubin 0.8 mg/dl Aspartate Amino Transf (AST/SGOT) 64 U/L Alanine Aminotransferase (ALT/SGPT) 83 U/L Alkaline Phosphatase 80 U/L Total Protein 6.4 gm/dl Albumin 2.5 gm/dl Lipase 123 U/L Procalcitonin 1.54 ng/ml Resident Tracking Resident Involvement: Resident Care Provided Care Provided: Adult [facility]
[2016-08-26] MEDS ORDERED: LEVETIRACETAM ORAL SOLN 100MG/ML PO ONE (11:00)
[2016-08-26] MEDS: METOPROLOL TARTRATE 1 MG/ML VIAL IV PRN ×2 (11:20→22:00)
[2016-08-26] MEDS ORDERED: LEVETIRACETAM IV 1,000 MG in DEXTROSE 5% 100ML 100 ML IV ONE (11:30)
--- NOTE | 2016-08-26 11:45 | Neurology Progress Notes ---
Neurology Progress Note Date of Service August 26, 2016. Subjective Follow-up for anoxic encephalopathy, myoclonic movements 26-year-old male prisoner, status post cardiac arrest 5 days ago, status post hypothermia protocol, rewarming, remains encephalopathic, on the ventilator, in the intensive care unit. Patient has been exhibiting periodic jerking and twitching movements of the limbs and facial musculature, typically induced by stimulation and movement. He has been a bit more alert and attentive and does follow simple commands such as opening his eyes and looking to the left and right. No volitional movement of the limbs, however. Objective Date Time Temp Pulse Resp B/P Pulse Ox O2 Delivery O2 Flow Rate FiO2 08/26/16 11:20 105 141/78 08/26/16 11:16 100 08/26/16 10:04 38.8 97 21 118/62 98 CPAP Mechanical Ventilator 08/26/16 09:35 50 08/26/16 08:00 Mechanical Ventilator 50 08/26/16 08:00 60 08/26/16 08:00 Mechanical Ventilator 60 08/26/16 08:00 38.2 80 24 142/86 100 Mechanical Ventilator 08/26/16 07:55 50 08/26/16 06:00 37.5 80 24 135/78 99 08/26/16 05:25 50 08/26/16 05:01 38.1 81 24 112/46 100 08/26/16 05:00 38.1 84 24 111/49 100 08/26/16 05:00 38.1 84 24 111/49 100 08/26/16 04:00 60 08/26/16 04:00 38.5 101 24 130/54 97 08/26/16 04:00 Mechanical Ventilator 60 08/26/16 03:00 38.3 105 27 123/59 93 08/26/16 02:00 39.4 213 109/51 94 08/26/16 01:40 60 08/26/16 01:00 39.7 246 24 108/79 90 08/26/16 00:01 39.4 97 24 106/42 100 08/26/16 00:00 39.3 96 24 102/50 100 08/25/16 23:59 60 08/25/16 23:59 Mechanical Ventilator 60 08/25/16 23:00 38.8 96 24 141/58 100 08/25/16 22:35 80 08/25/16 21:01 38.3 94 24 116/40 100 08/25/16 21:00 38.3 92 24 116/41 100 08/25/16 20:00 36.2 130 19 152/93 94 08/25/16 20:00 100 08/25/16 20:00 87 Mechanical Ventilator 100 08/25/16 19:05 30 08/25/16 19:00 34.1 72 24 118/67 100 08/25/16 18:12 30 08/25/16 18:00 33.6 65 24 123/75 100 Mechanical Ventilator 08/25/16 16:00 30 08/25/16 16:00 100 Mechanical Ventilator 30 08/25/16 16:00 34.0 46 24 142/70 100 Mechanical Ventilator 08/25/16 15:38 30 08/25/16 14:00 35.2 62 24 100 124/60 08/25/16 13:45 35.3 65 24 100 133/71 08/25/16 13:30 35.4 63 24 100 118/58 08/25/16 13:15 35.6 65 24 100 126/64 08/25/16 13:01 35.8 66 24 144/62 100 112/56 08/25/16 13:00 35.8 65 24 100 125/60 08/25/16 13:00 35.8 65 24 100 125/60 08/25/16 12:27 30 08/25/16 12:27 100 Mechanical Ventilator 30 08/25/16 12:00 36.7 75 24 100 91/49 08/25/16 11:55 30 Last 24 Hours Test 08/26/16 01:40 08/26/16 06:17 Vancomycin Level Trough 13.9 mcg/ml White Blood Count 9.27 K/uL Red Blood Count 3.98 M/uL Hemoglobin 11.1 g/dL Hematocrit 33.9 % Mean Corpuscular Volume 85.2 fL Mean Corpuscular Hemoglobin 27.9 pg Mean Corpuscular Hemoglobin Concent 32.7 g/dl Platelet Count 137 K/uL Mean Platelet Volume 11.3 fL Neutrophils (%) (Auto) 79.6 % Lymphocytes (%) (Auto) 11.9 % Monocytes (%) (Auto) 7.9 % Eosinophils (%) (Auto) 0.3 % Basophils (%) (Auto) 0.1 % Neutrophils # (Auto) 7.38 K/uL Lymphocytes # (Auto) 1.10 K/uL Monocytes # (Auto) 0.73 K/uL Eosinophils # (Auto) 0.03 K/uL Basophils # (Auto) 0.01 K/uL RDW Standard Deviation 42.1 fL RDW Coefficient of Variation 13.5 % Immature Granulocyte % (Auto) 0.2 % Immature Granulocyte # (Auto) 0.02 K/uL Prothrombin Time 12.0 SECONDS Prothromb Time International Ratio 1.1 Activated Partial Thromboplast Time 36.2 SECONDS Partial Thromboplastin Ratio 1.4 Sodium Level 139 mmol/L Potassium Level 4.1 mmol/L Chloride Level 110 mmol/L Carbon Dioxide Level 21 mmol/L Anion Gap 8.0 mmol/L Blood Urea Nitrogen 17 mg/dl Creatinine 1.40 mg/dl Est Creatinine Clear Calc Drug Dose 89.6 ml/min Estimated GFR () 79.2 Estimated GFR (Non- 68.4 BUN/Creatinine Ratio 12.4 Random Glucose 107 mg/dl Calcium Level 8.7 mg/dl Phosphorus Level 2.1 mg/dl Magnesium Level 2.2 mg/dl Total Bilirubin 1.5 mg/dl Direct Bilirubin 0.8 mg/dl Aspartate Amino Transf (AST/SGOT) 64 U/L Alanine Aminotransferase (ALT/SGPT) 83 U/L Alkaline Phosphatase 80 U/L Total Protein 6.4 gm/dl Albumin 2.5 gm/dl Lipase 123 U/L Procalcitonin 1.54 ng/ml Exam: The patient opens his eyes to voice. Pupils equal round reactive to light. He gazes to the left and to the right to command. No nystagmus. Patient exhibits minimal volitional movement of the right hand, able to move a few fingers of the right hand to command. He withdraws both lower limbs to plantar stimulation. Corneal reflexes intact. Oculocephalic reflexes intact. Gag reflex intact. Periodic, regular, jerking/twitching movements of the limbs and facial musculature appreciated. These movements can be triggered by tactile stimulation and passive movement of the limbs. Current Inpatient Medications Medications (Trade) Dose Ordered Sig/Shireen Route Start Time Stop Time Status Last Admin Dose Admin Pantoprazole Sodium 40 mg/ Syringe 10 ml @ 5 mls/min DAILY@1100 IV 08/22/16 11:00 09/21/16 10:59 08/26/16 08:45 5 MLS/MIN Fentanyl Citrate (Fentanyl Drip 1250MCG/250 Nss) 250 ml @ 0 mls/hr Q0M PRN IV 08/21/16 17:15 09/04/16 17:14 08/25/16 23:39 20 MLS/HR Artificial Tears (Lacri-Lube Oph Oint) 1 appln Q2H PRN OPB 08/21/16 17:15 09/20/16 17:14 08/22/16 00:28 1 APPLN Heparin Sodium (Porcine) (Heparin Sq 5000 Unit/0.5ml) 5,000 unit Q8H SQ 08/21/16 22:00 09/20/16 21:59 08/26/16 06:22 5,000 UNIT Albuterol (Ventolin Hfa Inhaler) 4 puffs QIDR INH 08/21/16 20:20 09/20/16 20:19 08/26/16 11:02 4 PUFFS Glucose (Glucose 40% Gel) UD PRN PO 08/23/16 10:30 09/22/16 10:29 Glucose (Glucose Chew Tab) 1 tabs UD PRN PO 08/23/16 10:30 09/22/16 10:29 Dextrose (Dextrose 50% 50ML Syringe) 50 ml UD PRN IV 08/23/16 10:30 09/22/16 10:29 08/23/16 12:13 50 ML Glucagon (Glucagon Inj) 1 mg UD PRN SQ 08/23/16 10:30 09/22/16 10:29 Enteral Nutritional Formula (Peptamen Intense VHP) 1,000 ml UD OG 08/23/16 11:45 09/22/16 11:44 08/23/16 12:17 1,000 ML Bacitracin (Bacitracin Oint) 1 appln BID EXT 08/23/16 21:00 09/22/16 20:59 08/26/16 08:46 1 APPLN Bacitracin (Bacitracin Oint) 1 appln QS PRN EXT 08/23/16 19:00 09/22/16 18:59 Piperacillin Sod/ Tazobactam Sod (Consult) 1 ea UD PRN N/A 08/24/16 00:30 09/23/16 00:29 Vancomycin HCl (Consult) 1 ea UD PRN N/A 08/24/16 00:30 09/23/16 00:29 Metoprolol Succinate 50 mg 50 mg QAM PO 08/24/16 09:00 09/23/16 08:59 08/25/16 10:17 50 MG Acetaminophen/ Empty Bag (Ofirmev Iv/ Empty Iv Bag 100ml) 100 ml @ 400 mls/hr Q8H IV 08/24/16 16:00 09/23/16 15:59 08/26/16 08:45 400 MLS/HR Metoprolol Tartrate 5 mg 5 mg Q6 PRN IV 08/24/16 12:00 09/23/16 11:59 08/26/16 11:20 5 MG Piperacillin Sod/ Tazobactam Sod/ Dextrose (Zosyn Iv/D5 100ml) 120 ml @ 30 mls/hr Q8H IV 08/24/16 14:00 08/31/16 13:59 08/26/16 06:23 30 MLS/HR Gadobutrol (Gadavist) 10 mmol UD PRN IV 08/24/16 15:15 08/28/16 15:14 Lorazepam 2 mg 2 mg Q4H PRN IV 08/25/16 00:30 09/24/16 00:29 08/26/16 00:42 2 MG Dexmedetomidine HCl/Sodium Chloride (PreCEDEX INJ/ Nss 100ml) 100 ml @ 0 mls/hr Q0M PRN IV 08/25/16 00:45 08/29/16 00:44 08/26/16 06:23 11.9 MLS/HR Chlorhexidine Gluconate (Peridex Oral Soln 15ML Udp) 15 ml BID PO 08/25/16 09:00 09/24/16 08:59 08/26/16 08:44 15 ML Polyethylene (Miralax Powder Packet) 17 gm DAILY PO 08/25/16 09:00 09/24/16 08:59 08/26/16 08:44 17 GM Docusate Sodium 100 mg 100 mg BID PO 08/26/16 21:00 09/25/16 20:59 Sodium Phosphate/ Sodium Chloride (Sodium Phosphate Inj/Nss 250ml) 255 ml @ 127.5 mls/ hr TODAY@1000 IV 08/26/16 10:00 08/26/16 11:59 08/26/16 10:35 127.5 MLS/HR Fentanyl Citrate 50 mcg 50 mcg Q2H PRN IV 08/26/16 11:00 09/09/16 10:59 Levetiracetam 1000 mg/Dextrose 110 ml @ 440 mls/hr ONE ONCE IV 08/26/16 11:30 08/26/16 11:44 Levetiracetam 500 mg/Dextrose 105 ml @ 420 mls/hr Q12H IV 08/26/16 22:00 09/25/16 21:59 Vancomycin HCl/ Sodium Chloride (Vancomycin Inj/ Nss 500ml) 532 ml @ 200 mls/hr Q12H IV 08/26/16 14:00 09/02/16 13:59 Impression Persistent anoxic encephalopathy although appears mildly improved compared with yesterday. The previously observed left asya-neglect seems improved. Anoxic myoclonus. Plan Case discussed with coverage analyst service. Would start Keppra to address anoxic myoclonus. 1000 mg load followed by 500 mg every 12 hours. I will continue to monitor this patient's neurological status.
[2016-08-26] MEDS: FENTANYL CITRATE INJ 50 MCG/1 ML 2 ML VIAL IV PRN ×2 (12:49→21:39)
[2016-08-26] MEDS: VANCOMYCIN INJ 1,600 MG in SODIUM CHLORIDE 0.9% 500ML 500 ML IV SCH (12:49)
[2016-08-26] MEDS ORDERED: BISACODYL 10 MG SUPP PR STA (13:05)
[2016-08-26] MEDS ORDERED: ONDANSETRON INJ 2 MG/ML 2 ML VIAL IV STA (13:05)
[2016-08-26] MEDS ORDERED: ONDANSETRON INJ 2 MG/ML 2 ML VIAL ONE (13:06)
[2016-08-26] MEDS ORDERED: ONDANSETRON INJ 2 MG/ML 2 ML VIAL IV PRN (13:15)
[2016-08-26] MEDS: METOPROLOL SUCC 50MG EXT REL TAB PO SCH (13:15)
--- NOTE | 2016-08-26 14:24 | Progress Note ---
Subjective Date of Service: August 26, 2016. Subjective Pt evaluation today including: physical exam, lab review, review of studies, conversation w/ surgery consultant, review of inpatient medication list Pain: sedated this AM PO Intake: coresafe feeding tube, 10cc/hr Voiding: ruffin catheter in place discussed case with Dr. Coon and Mike MIGUEL in the ICU reviewed note from neurology planning for sedation vacation today, did have some appropriate responses, continues to have left gaze now with myoclonic jerks, started on Keppra continues to spike fevers, mendez cultured Problem List Medical Problems: (1) Altered mental status Status: Acute (2) Cardiac arrest Status: Acute Review of Systems cannot review, intubated and encephalopathy Medications Current Inpatient Medications Medications (Trade) Dose Ordered Sig/Shireen Route Start Time Stop Time Status Last Admin Dose Admin Pantoprazole Sodium 40 mg/ Syringe 10 ml @ 5 mls/min DAILY@1100 IV 08/22/16 11:00 09/21/16 10:59 08/26/16 08:45 5 MLS/MIN Fentanyl Citrate (Fentanyl Drip 1250MCG/250 Nss) 250 ml @ 0 mls/hr Q0M PRN IV 08/21/16 17:15 09/04/16 17:14 08/25/16 23:39 20 MLS/HR Artificial Tears (Lacri-Lube Oph Oint) 1 appln Q2H PRN OPB 08/21/16 17:15 09/20/16 17:14 08/22/16 00:28 1 APPLN Heparin Sodium (Porcine) (Heparin Sq 5000 Unit/0.5ml) 5,000 unit Q8H SQ 08/21/16 22:00 09/20/16 21:59 08/26/16 12:49 5,000 UNIT Albuterol (Ventolin Hfa Inhaler) 4 puffs QIDR INH 08/21/16 20:20 09/20/16 20:19 08/26/16 11:02 4 PUFFS Glucose (Glucose 40% Gel) UD PRN PO 08/23/16 10:30 09/22/16 10:29 Glucose (Glucose Chew Tab) 1 tabs UD PRN PO 08/23/16 10:30 09/22/16 10:29 Dextrose (Dextrose 50% 50ML Syringe) 50 ml UD PRN IV 08/23/16 10:30 09/22/16 10:29 08/23/16 12:13 50 ML Glucagon (Glucagon Inj) 1 mg UD PRN SQ 08/23/16 10:30 09/22/16 10:29 Enteral Nutritional Formula (Peptamen Intense VHP) 1,000 ml UD OG 08/23/16 11:45 09/22/16 11:44 08/23/16 12:17 1,000 ML Bacitracin (Bacitracin Oint) 1 appln BID EXT 08/23/16 21:00 09/22/16 20:59 08/26/16 08:46 1 APPLN Bacitracin (Bacitracin Oint) 1 appln QS PRN EXT 08/23/16 19:00 09/22/16 18:59 Piperacillin Sod/ Tazobactam Sod (Consult) 1 ea UD PRN N/A 08/24/16 00:30 09/23/16 00:29 Vancomycin HCl (Consult) 1 ea UD PRN N/A 08/24/16 00:30 09/23/16 00:29 Metoprolol Succinate 50 mg 50 mg QAM PO 08/24/16 09:00 09/23/16 08:59 08/25/16 10:17 50 MG Acetaminophen/ Empty Bag (Ofirmev Iv/ Empty Iv Bag 100ml) 100 ml @ 400 mls/hr Q8H IV 08/24/16 16:00 09/23/16 15:59 08/26/16 08:45 400 MLS/HR Metoprolol Tartrate 5 mg 5 mg Q6 PRN IV 08/24/16 12:00 09/23/16 11:59 08/26/16 11:20 5 MG Piperacillin Sod/ Tazobactam Sod/ Dextrose (Zosyn Iv/D5 100ml) 120 ml @ 30 mls/hr Q8H IV 08/24/16 14:00 08/31/16 13:59 08/26/16 12:49 30 MLS/HR Gadobutrol (Gadavist) 10 mmol UD PRN IV 08/24/16 15:15 08/28/16 15:14 Lorazepam 2 mg 2 mg Q4H PRN IV 08/25/16 00:30 09/24/16 00:29 08/26/16 00:42 2 MG Dexmedetomidine HCl/Sodium Chloride (PreCEDEX INJ/ Nss 100ml) 100 ml @ 0 mls/hr Q0M PRN IV 08/25/16 00:45 08/29/16 00:44 08/26/16 06:23 11.9 MLS/HR Chlorhexidine Gluconate (Peridex Oral Soln 15ML Udp) 15 ml BID PO 08/25/16 09:00 09/24/16 08:59 08/26/16 08:44 15 ML Polyethylene (Miralax Powder Packet) 17 gm DAILY PO 08/25/16 09:00 09/24/16 08:59 08/26/16 08:44 17 GM Docusate Sodium (coLACE SYRUP) 100 mg BID PO 08/26/16 21:00 09/25/16 20:59 Fentanyl Citrate 50 mcg 50 mcg Q2H PRN IV 08/26/16 11:00 09/09/16 10:59 08/26/16 12:49 50 MCG Levetiracetam 500 mg/Dextrose 105 ml @ 420 mls/hr Q12H IV 08/26/16 22:00 09/25/16 21:59 Vancomycin HCl/ Sodium Chloride (Vancomycin Inj/ Nss 500ml) 532 ml @ 200 mls/hr Q12H IV 08/26/16 14:00 09/02/16 13:59 08/26/16 12:49 200 MLS/HR Ondansetron HCl (Zofran Inj) 4 mg Q6H PRN IV 08/26/16 13:15 09/25/16 13:14 Objective Vital Signs Date Time Temp Pulse Resp B/P Pulse Ox O2 Delivery O2 Flow Rate FiO2 08/26/16 12:00 38.3 93 24 146/73 96 Mechanical Ventilator 08/26/16 12:00 60 08/26/16 12:00 Mechanical Ventilator 60 08/26/16 11:20 105 141/78 08/26/16 11:16 100 08/26/16 10:04 38.8 97 21 118/62 98 CPAP Mechanical Ventilator 08/26/16 09:35 50 08/26/16 08:00 Mechanical Ventilator 50 08/26/16 08:00 60 08/26/16 08:00 Mechanical Ventilator 60 08/26/16 08:00 38.2 80 24 142/86 100 Mechanical Ventilator 08/26/16 07:55 50 08/26/16 06:00 37.5 80 24 135/78 99 08/26/16 05:25 50 08/26/16 05:01 38.1 81 24 112/46 100 08/26/16 05:00 38.1 84 24 111/49 100 08/26/16 05:00 38.1 84 24 111/49 100 08/26/16 04:00 60 08/26/16 04:00 38.5 101 24 130/54 97 08/26/16 04:00 Mechanical Ventilator 60 08/26/16 03:00 38.3 105 27 123/59 93 08/26/16 02:00 39.4 213 109/51 94 08/26/16 01:40 60 08/26/16 01:00 39.7 246 24 108/79 90 08/26/16 00:01 39.4 97 24 106/42 100 08/26/16 00:00 39.3 96 24 102/50 100 08/25/16 23:59 60 08/25/16 23:59 Mechanical Ventilator 60 08/25/16 23:00 38.8 96 24 141/58 100 08/25/16 22:35 80 08/25/16 21:01 38.3 94 24 116/40 100 08/25/16 21:00 38.3 92 24 116/41 100 08/25/16 20:00 36.2 130 19 152/93 94 08/25/16 20:00 100 08/25/16 20:00 87 Mechanical Ventilator 100 08/25/16 19:05 30 08/25/16 19:00 34.1 72 24 118/67 100 08/25/16 18:12 30 08/25/16 18:00 33.6 65 24 123/75 100 Mechanical Ventilator 08/25/16 16:00 30 08/25/16 16:00 100 Mechanical Ventilator 30 08/25/16 16:00 34.0 46 24 142/70 100 Mechanical Ventilator 08/25/16 15:38 30 Physical Exam General Appearance: WD/WN, no apparent distress Neck: supple, no adenopathy, no JVD, trachea midline, + pertinent finding ( intubated) Respiratory/Chest: chest non-tender, no respiratory distress, no accessory muscle use Cardiovascular: no edema, no gallop, no JVD, no murmur, + tachycardia Abdomen: normal bowel sounds, non tender, soft, no organomegaly Extremities: normal range of motion, non-tender, normal inspection, no pedal edema, no calf tenderness, pelvis stable Neurologic/Psychiatric: + pertinent finding (nods head, improving left- hemineglect, myoclonic jerks observed) Skin: normal color, warm/dry, no rash Laboratory Results Last 24 Hours Test 08/26/16 01:40 08/26/16 06:17 Vancomycin Level Trough 13.9 mcg/ml White Blood Count 9.27 K/uL Red Blood Count 3.98 M/uL Hemoglobin 11.1 g/dL Hematocrit 33.9 % Mean Corpuscular Volume 85.2 fL Mean Corpuscular Hemoglobin 27.9 pg Mean Corpuscular Hemoglobin Concent 32.7 g/dl Platelet Count 137 K/uL Mean Platelet Volume 11.3 fL Neutrophils (%) (Auto) 79.6 % Lymphocytes (%) (Auto) 11.9 % Monocytes (%) (Auto) 7.9 % Eosinophils (%) (Auto) 0.3 % Basophils (%) (Auto) 0.1 % Neutrophils # (Auto) 7.38 K/uL Lymphocytes # (Auto) 1.10 K/uL Monocytes # (Auto) 0.73 K/uL Eosinophils # (Auto) 0.03 K/uL Basophils # (Auto) 0.01 K/uL RDW Standard Deviation 42.1 fL RDW Coefficient of Variation 13.5 % Immature Granulocyte % (Auto) 0.2 % Immature Granulocyte # (Auto) 0.02 K/uL Prothrombin Time 12.0 SECONDS Prothromb Time International Ratio 1.1 Activated Partial Thromboplast Time 36.2 SECONDS Partial Thromboplastin Ratio 1.4 Sodium Level 139 mmol/L Potassium Level 4.1 mmol/L Chloride Level 110 mmol/L Carbon Dioxide Level 21 mmol/L Anion Gap 8.0 mmol/L Blood Urea Nitrogen 17 mg/dl Creatinine 1.40 mg/dl Est Creatinine Clear Calc Drug Dose 89.6 ml/min Estimated GFR () 79.2 Estimated GFR (Non- 68.4 BUN/Creatinine Ratio 12.4 Random Glucose 107 mg/dl Calcium Level 8.7 mg/dl Phosphorus Level 2.1 mg/dl Magnesium Level 2.2 mg/dl Total Bilirubin 1.5 mg/dl Direct Bilirubin 0.8 mg/dl Aspartate Amino Transf (AST/SGOT) 64 U/L Alanine Aminotransferase (ALT/SGPT) 83 U/L Alkaline Phosphatase 80 U/L Total Protein 6.4 gm/dl Albumin 2.5 gm/dl Lipase 123 U/L Procalcitonin 1.54 ng/ml Assessment and Plan 26 yo male who unfortunately suffered a cardiac arrest while on the treadmill at residential, likely ventricular arrhythmia, 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 after admission - s/p cardiac arrest, likely ventricular arrhythmia in setting of HCOM completed cooling process, now for Tylenol for any hyperthermia no further arrhythmias since admission tachycardia, treat with Metoprolol via tube and give IV PRN BP stable - Acute hypoxic respiratory failure continue ventilatory, may need to consider tracheostomy if unable to wean soon desaturated overnight, FiO2 increased to 100% and PEEP to 8 improved with suctioning, likely some mucous plugging management per ICU - Anoxic brain injury, cord injury mild improvement today compared to yesterday Keppra started for anoxic myoclonic jerks MRI with possible occipital (bilateral) and right parietal ischemia but no other findings neurology following still with guarded prognosis, although mild improvement today - Pneumonia, likely aspiration: continue Vancomycin and Zosyn bronchoscopy on 08/24 continues to spike fevers, Tylenol and cooling blanket applied - Elevated LFT: due to cardiac arrest, trending down appropriately - WILLARD: Cr peaked at 1.7, now 1.4, adequate UO, lasix given today injury due to cardiac arrest - DVT prophylaxis: heparin discussed case with advertising specialist and reviewed note from Neurology management per ICU, continue to follow for continuity of care if he is able to leave ICU
[2016-08-26] MEDS: FENTANYL 1250MCG/250ML NSS 250 ML IV PRN (15:47)
[2016-08-26] MEDS ORDERED: PEPTAMEN INTENSE VHP 1000ML BAG NG PRN (16:30)
--- NOTE | 2016-08-26 16:56 | DIAGNOSTIC IMAGING REPORT ---
KUB CLINICAL HISTORY: Study for nasogastric tube placement COMPARISON STUDY: No previous studies for comparison. FINDINGS: The study is performed in a portable fashion and is limited from a technical standpoint. There is a nasogastric tube with its tip projected over the gastric cardia. The proximal aspect of a presumed right-sided nephroureteral stent is visualized. IMPRESSION: The nasogastric tube is positioned within the stomach. Electronically signed by: Abdoulaye Sotomayor M.D. 08/26/2016 4:55 PM Dictated Date/Time: 08/26/2016 4:54 PM
--- NOTE | 2016-08-26 18:11 | DIAGNOSTIC IMAGING REPORT ---
KUB CLINICAL HISTORY: NG tube placement COMPARISON STUDY: 08/26/2016 FINDINGS: The study was performed in a portable fashion. The nasogastric tube has been advanced, and now projects either over the gastric antrum or proximal duodenum. There is no pathologic bowel dilatation. The proximal aspect of a presumed right-sided nephroureteral stent is again visualized. IMPRESSION: The nasogastric tube has been advanced to the level of the gastric antrum or proximal duodenum. Electronically signed by: Abdoulaye Sotomayor M.D. 08/26/2016 6:10 PM Dictated Date/Time: 08/26/2016 6:09 PM
[2016-08-26] MEDS: PEPTAMEN INTENSE VHP 1000ML BAG OG SCH (18:23)
[2016-08-26] MEDS ORDERED: FUROSEMIDE 40 MG/4 ML VIAL ONE (18:46)
[2016-08-26] MEDS ORDERED: FUROSEMIDE 40 MG/4 ML VIAL IV STA (18:48)
[2016-08-26 19:20] LABS: BUN/CREATININE RATIO 10.8 (10-20); CALCIUM 8.5 mg/dl (8.5-10.1); CREATININE 1.6 mg/dl (0.60-1.40); POTASSIUM 3.4 mmol/L (3.5-5.1)
[2016-08-26] MEDS ORDERED: LEVETIRACETAM SOLN 500 MG/5 ML UDP PO SCH (21:00)
[2016-08-26] MEDS ORDERED: NURSING VERBAL MED ORDER ONE ×2 (21:30→22:15)
[2016-08-26] MEDS: LEVETIRACETAM IV 500 MG in DEXTROSE 5% 100ML 100 ML IV SCH (21:34)
[2016-08-26] MEDS: DOCUSATE SODIUM 100 MG/10 ML UDC PO SCH (21:34)
[2016-08-26] MEDS ORDERED: POTASSIUM CHLORIDE 20 MEQ/15 ML UDC PO STA (21:37)
[2016-08-26] MEDS ORDERED: FENTANYL CITRATE INJ 50 MCG/1 ML 2 ML VIAL IV STA (22:16)
[2016-08-27] VITALS (39 sets, daily range): BP systolic 94–202; BP diastolic 41–81; PULSE 63–238; TEMP 36.7–39.1; O2SAT 88–100
[2016-08-27] MEDS: ACETAMINOPHEN IV 1,000 MG in EMPTY BAG 0 ML IV SCH ×3 (00:08→15:49)
[2016-08-27] MEDS: VANCOMYCIN INJ 1,600 MG in SODIUM CHLORIDE 0.9% 500ML 500 ML IV SCH ×2 (02:13→13:44)
[2016-08-27] MEDS: LORAZEPAM 2 MG/ML 1 ML VIAL IV PRN ×2 (04:52→21:12)
[2016-08-27] MEDS: METOPROLOL TARTRATE 1 MG/ML VIAL IV PRN (05:18)
[2016-08-27] MEDS: PIPERACILL/TAZOBAC IV 4.5 GM in DEXTROSE 5% 100ML IV SCH ×3 (05:19→22:00)
[2016-08-27] MEDS: HEPARIN SOD 5000 UNIT/0.5 ML CARP SQ SCH ×2 (05:20→13:44)
[2016-08-27 05:50] LABS: HEMATOCRIT 29.3 % (42-52); MEAN CELL VOLUME 83.2 fL (80-100); MEAN CORPUSCULAR HEMOGLOBIN 28.4 pg (25-34); MEAN CORPUSCULAR HGB CONC 34.1 g/dl (32-36); MEAN PLATELET VOLUME 10.2 fL (7.4-10.4); PLATELET COUNT 141 K/uL (130-400); RED BLOOD COUNT 3.52 M/uL (4.7-6.1); WHITE BLOOD COUNT 8.76 K/uL (4.8-10.8)
[2016-08-27 06:19] LABS: BUN/CREATININE RATIO 11.5 (10-20); CALCIUM 8.4 mg/dl (8.5-10.1); CREATININE 1.6 mg/dl (0.60-1.40); MAGNESIUM 2.1 mg/dl (1.8-2.4); PHOSPHORUS 1.7 mg/dl (2.5-4.9); POTASSIUM 3.3 mmol/L (3.5-5.1)
--- NOTE | 2016-08-27 07:11 | DIAGNOSTIC IMAGING REPORT ---
CHEST ONE VIEW PORTABLE HISTORY: s/p intubation COMPARISON: Chest 08/26/2016. FINDINGS: Endotracheal tube terminates 6 cm from the al. Nasogastric tube terminates below the diaphragm. The tip is not included on this study. Right jugular central venous catheter terminates in the proximal SVC. No pneumothorax. Patchy bibasilar densities persist. No pleural effusions. The heart remains mildly enlarged. IMPRESSION: 1. Endotracheal tube terminates 6 cm from the al. This should be advanced by approximately 3 cm. 2. Nasogastric tube and the right jugular central venous catheter are in good position. 3. Bibasilar airspace opacities persist and likely represents a pneumonia. Electronically signed by: Darrell Hough M.D. 08/27/2016 7:10 AM Dictated Date/Time: 08/27/2016 7:08 AM
[2016-08-27] MEDS: ALBUTEROL HFA 8 GM INHALER INH SCH ×4 (07:51→18:55)
[2016-08-27] MEDS ORDERED: POTASSIUM PHOSPHATE INJ 21 MMOL in SODIUM CHLORIDE 0.9% 500ML 500 ML IV ONE (08:15)
[2016-08-27] MEDS ORDERED: ONDANSETRON INJ 2 MG/ML 2 ML VIAL IV ONE (08:30)
[2016-08-27] MEDS ORDERED: MEPERIDINE HCL 50 MG/ML CARP IV ONE (08:30)
[2016-08-27] MEDS: FENTANYL 1250MCG/250ML NSS 250 ML IV PRN (08:54)
[2016-08-27] MEDS ORDERED: POTASSIUM PHOS 3 MMOL/1 ML INFUSION IV SCH (09:00)
[2016-08-27] MEDS: DOCUSATE SODIUM 100 MG/10 ML UDC PO SCH ×2 (09:00→21:14)
[2016-08-27] MEDS: POLYETHYLENE (MIRALAX) 17 GM PACK PO SCH (09:00)
[2016-08-27] MEDS: BACITRACIN OINT 15 GM TUBE EXT SCH ×2 (09:29→21:15)
[2016-08-27] MEDS: CHLORHEXIDINE GLUCONATE 0.12% 15 ML UDP PO SCH ×2 (09:30→22:33)
[2016-08-27] MEDS: LEVETIRACETAM IV 500 MG in DEXTROSE 5% 100ML 100 ML IV SCH ×2 (10:20→22:00)
[2016-08-27] MEDS: PANTOprazole INJ 40 MG in SYRINGE 0 ML IV SCH (10:20)
[2016-08-27 10:25] LABS: INR 1.1 (0.9-1.1); PARTIAL THROMBOPLASTIN RATIO 1.3; PROTHROMBIN TIME (PATIENT) 11.4 SECONDS (9.0-12.0)
[2016-08-27] MEDS: DexMEDEtomidine HCL INJ 400 MCG in SODIUM CHLORIDE 0.9% 100ML 96 ML IV PRN ×2 (11:00→19:46)
[2016-08-27 11:51] LABS: URINE APPEARANCE CLEAR (CLEAR); URINE BILIRUBIN NEG (NEG); URINE COLOR ORANGE; URINE EPITHELIAL CELL AUTO 20-30 /lpf (0-5); URINE NITRITE NEG (NEG); URINE PH 6.5 (4.5-7.5); URINE SPECIFIC GRAVITY 1.021 (1.000-1.030); UROBILINOGEN POS (NEG); ZZURINE CULT IF INDIC CATH YES
[2016-08-27 11:52] LABS: MANUAL MICROSCOPIC REQUIRED? NO; REVIEW REQ? NO
--- NOTE | 2016-08-27 12:32 | DIAGNOSTIC IMAGING REPORT ---
ABDOMEN AND PELVIS CT WITHOUT CONTRAST CT DOSE: HISTORY: tube feed intolerance TECHNIQUE: Multiaxial CT images of the abdomen and pelvis were performed without contrast. COMPARISON STUDY: Abdomen and pelvis CT 08/24/2016. FINDINGS: Dense consolidation within the bilateral lower lobes is again noted. This has slightly improved on the right. There are also patchy airspace opacities within the base of the right middle lobe. No pneumoperitoneum. No pneumatosis. No fractures within the visualized osseous structures. Streak artifact from the patient's overlapping arms results in suboptimal evaluation. The unenhanced liver, gallbladder, spleen, adrenal glands, pancreas, left kidney are unremarkable. Severe right hydronephrosis, unchanged. The proximal right ureteral stent is located at the expected UPJ obstruction. This does not extend into the right renal pelvis which may account for the persistent right-sided hydronephrosis. The distal portion of the stent terminates in the bladder. There is a Avelar catheter within the partially decompressed bladder. Small amount of pelvic fluid. Mild body wall edema. Mildly distended gas and fluid-filled loops of large and small bowel. This favors a mild ileus. No definite bowel wall thickening or obstruction identified. Small hypodense areas within the bilateral psoas muscles suggesting intramuscular hematomas. The largest on the right measures 3 cm. IMPRESSION: 1. Severe right hydronephrosis, unchanged. The proximal right ureteral stent is located at the expected UPJ obstruction. This does not extend into the right renal pelvis which may account for the persistent right-sided hydronephrosis. Therefore, the stent should be advanced into the distended right renal collecting system/pelvis. 2. Interval development of a small hypodense areas within the bilateral psoas muscles measure up to 3 cm. These likely represents intramuscular hematomas. 3. Bilateral lower lobe dense consolidation is again noted. This is slightly improved on the right. 4. Multiple mildly dilated gas and fluid-filled loops of large and small bowel seen throughout the abdomen. This favors an ileus. 5. Small amount pelvic free fluid. Electronically signed by: Darrell Hough M.D. 08/27/2016 12:30 PM Dictated Date/Time: 08/27/2016 12:22 PM
--- NOTE | 2016-08-27 12:45 | DIAGNOSTIC IMAGING REPORT ---
CT OF THE CHEST WITHOUT IV CONTRAST CLINICAL HISTORY: aspiration COMPARISON STUDY: Chest x-ray dated 08/27/2016 CT DOSE: 1411.91 mGy.cm TECHNIQUE: CT of the thorax was performed from the thoracic inlet to the lung bases. Images are reviewed in the axial, sagittal, and coronal planes. IV contrast was not administered for this examination. FINDINGS: Thyroid: Imaged portions of the thyroid gland are normal in appearance. Thoracic aorta: The thoracic aorta is normal in course and caliber, noting standard 3 vessel arch anatomy. Heart: The heart is enlarged. There is mild prominence of the main pulmonary artery segment. Lungs and pleural spaces: There are dependent bilateral pulmonary airspace opacities with air bronchograms. Airspace opacities are also present within the right middle lobe. A few wispy opacities are also present within the right upper lobe and left upper lobe. Mediastinum: There is no mediastinal lymphadenopathy. Rula: Evaluation the rula is limited due to the lack of intravenous contrast. Axilla: Clear. Upper abdomen: Partially visualized upper abdominal viscera is within normal limits. Skeletal structures: There are no lytic or blastic osseous lesions. There is an endotracheal tube 2.5 cm above the al. There is a right internal jugular central venous catheter within superior vena cava. IMPRESSION: Multilobar airspace opacities, most pronounced within both lower lobes dependently with air bronchograms. This likely represents a pneumonia. Electronically signed by: Abdoulaye Sotomayor M.D. 08/27/2016 12:44 PM Dictated Date/Time: 08/27/2016 12:39 PM
--- NOTE | 2016-08-27 13:14 | Neurology Progress Notes ---
Neurology Progress Note Date of Service August 27, 2016. Subjective Follow-up for anoxic myoclonus Keppra was started yesterday to address post anoxic myoclonus. This medication appears to have been helpful as he has had last spontaneous jerking and twitching of the limb and facial musculature. Patient remains in the intensive care unit on life support. He will open his eyes to voice and is able to follow some simple commands as described below in the physical exam. Objective Date Time Temp Pulse Resp B/P Pulse Ox O2 Delivery O2 Flow Rate FiO2 08/27/16 10:01 37.4 83 24 124/59 98 08/27/16 10:00 37.3 85 23 126/51 99 08/27/16 09:30 37.5 77 24 109/52 100 08/27/16 09:00 37.8 79 109/55 100 08/27/16 08:30 38.6 90 94/41 98 08/27/16 08:01 39.1 238 0 157/41 89 08/27/16 08:00 60 08/27/16 08:00 39.1 224 114/49 88 08/27/16 08:00 95 Mechanical Ventilator 60 08/27/16 07:49 60 08/27/16 07:30 38.9 113 7 202/62 91 08/27/16 07:00 38.4 94 24 138/81 100 08/27/16 06:00 38.3 80 24 127/70 99 08/27/16 05:18 86 136/83 08/27/16 05:05 60 08/27/16 05:00 37.9 76 24 131/70 100 08/27/16 04:26 37.6 64 24 147/63 100 124/70 08/27/16 04:00 Mechanical Ventilator 60 08/27/16 04:00 60 08/27/16 04:00 37.6 67 24 111/54 100 08/27/16 03:00 37.7 69 24 127/55 100 60 116/58 08/27/16 02:00 37.0 68 24 133/67 100 08/27/16 01:50 60 08/27/16 01:01 36.7 64 24 127/53 100 08/27/16 01:00 36.7 63 24 128/55 100 08/27/16 00:00 37.3 66 24 102/50 99 113/48 5/16/17 23:59 60 08/26/16 23:59 Mechanical Ventilator 60 08/26/16 23:00 38.7 81 24 127/46 99 08/26/16 22:05 60 08/26/16 22:00 39.0 86 33 146/86 91 Mechanical Ventilator 60 200/81 08/26/16 22:00 125 200/85 08/26/16 20:00 50 08/26/16 20:00 38.1 84 24 150/84 99 Mechanical Ventilator 50 144/62 08/26/16 20:00 99 Mechanical Ventilator 50 08/26/16 19:15 60 08/26/16 18:00 37.5 74 24 127/61 98 Mechanical Ventilator 83 08/26/16 17:40 80 08/26/16 16:04 80 100 08/26/16 16:00 Mechanical Ventilator 83 08/26/16 16:00 38.6 86 24 110/62 98 Mechanical Ventilator 83 08/26/16 16:00 83 08/26/16 15:28 80 08/26/16 14:00 38.3 82 24 129/42 97 Mechanical Ventilator Last 24 Hours Test 08/26/16 18:14 08/27/16 05:40 08/27/16 10:03 08/27/16 11:30 Sodium Level 141 mmol/L 142 mmol/L Potassium Level 3.4 mmol/L 3.3 mmol/L Chloride Level 108 mmol/L 110 mmol/L Carbon Dioxide Level 24 mmol/L 25 mmol/L Anion Gap 9.0 mmol/L 7.0 mmol/L Blood Urea Nitrogen 17 mg/dl 18 mg/dl Creatinine 1.60 mg/dl 1.60 mg/dl Est Creatinine Clear Calc Drug Dose 78.4 ml/min 78.4 ml/min Estimated GFR () 67.4 67.4 Estimated GFR (Non- 58.2 58.2 BUN/Creatinine Ratio 10.8 11.5 Random Glucose 106 mg/dl 102 mg/dl Calcium Level 8.5 mg/dl 8.4 mg/dl White Blood Count 8.76 K/uL Red Blood Count 3.52 M/uL Hemoglobin 10.0 g/dL Hematocrit 29.3 % Mean Corpuscular Volume 83.2 fL Mean Corpuscular Hemoglobin 28.4 pg Mean Corpuscular Hemoglobin Concent 34.1 g/dl RDW Standard Deviation 40.4 fL RDW Coefficient of Variation 13.2 % Platelet Count 141 K/uL Mean Platelet Volume 10.2 fL Phosphorus Level 1.7 mg/dl Magnesium Level 2.1 mg/dl Procalcitonin 1.18 ng/ml Prothrombin Time 11.4 SECONDS Prothromb Time International Ratio 1.1 Activated Partial Thromboplast Time 34.5 SECONDS Partial Thromboplastin Ratio 1.3 Urine Color ORANGE Urine Appearance CLEAR Urine pH 6.5 Urine Specific [place] 1.021 Urine Protein 1+ Urine Glucose (UA) NEG Urine Ketones 1+ Urine Occult Blood 3+ Urine Nitrite NEG Urine Bilirubin NEG Urine Urobilinogen POS Urine Leukocyte Esterase SMALL Urine WBC (Auto) 10-30 /hpf Urine RBC (Auto) >30 /hpf Urine Hyaline Casts (Auto) 1-5 /lpf Urine Epithelial Cells (Auto) 20-30 /lpf Urine Bacteria (Auto) NEG Exam: The patient is intubated, ventilated, in the ICU on life support. He opens his eyes to voice and will look to either the left or right to command. He opens and closes his eyes to command as well. The patient is able to wiggle the fingers of his right hand to command is unable to move the left hand. He is able to wiggle the toes of both feet to command. The patient withdrawals both lower limbs to plantar stimulation. Muscle tone is increased for the left lower limb as compared to the right. A minimal amount of myoclonic jerking of the lower limbs is inducible with passive movement. Corneal reflexes intact bilaterally. Pupils equal round reactive to light bilaterally. Eye movements normal. Current Inpatient Medications Medications (Trade) Dose Ordered Sig/Shireen Route Start Time Stop Time Status Last Admin Dose Admin Pantoprazole Sodium 40 mg/ Syringe 10 ml @ 5 mls/min DAILY@1100 IV 08/22/16 11:00 09/21/16 10:59 08/27/16 10:20 5 MLS/MIN Fentanyl Citrate (Fentanyl Drip 1250MCG/250 Nss) 250 ml @ 0 mls/hr Q0M PRN IV 08/21/16 17:15 09/04/16 17:14 08/27/16 08:54 10 MLS/HR Artificial Tears (Lacri-Lube Oph Oint) 1 appln Q2H PRN OPB 08/21/16 17:15 6/10/17 17:14 08/22/16 00:28 1 APPLN Heparin Sodium (Porcine) (Heparin Sq 5000 Unit/0.5ml) 5,000 unit Q8H SQ 08/21/16 22:00 09/20/16 21:59 08/27/16 05:20 5,000 UNIT Albuterol (Ventolin Hfa Inhaler) 4 puffs QIDR INH 08/21/16 20:20 09/20/16 20:19 08/27/16 07:51 4 PUFFS Glucose (Glucose 40% Gel) UD PRN PO 08/23/16 10:30 09/22/16 10:29 Glucose (Glucose Chew Tab) 1 tabs UD PRN PO 08/23/16 10:30 09/22/16 10:29 Dextrose (Dextrose 50% 50ML Syringe) 50 ml UD PRN IV 08/23/16 10:30 09/22/16 10:29 08/23/16 12:13 50 ML Glucagon (Glucagon Inj) 1 mg UD PRN SQ 08/23/16 10:30 09/22/16 10:29 Enteral Nutritional Formula (Peptamen Intense VHP) 1,000 ml UD OG 08/23/16 11:45 09/22/16 11:44 08/26/16 18:23 1,000 ML Bacitracin (Bacitracin Oint) 1 appln BID EXT 08/23/16 21:00 09/22/16 20:59 08/27/16 09:29 1 APPLN Bacitracin (Bacitracin Oint) 1 appln QS PRN EXT 08/23/16 19:00 09/22/16 18:59 Piperacillin Sod/ Tazobactam Sod (Consult) 1 ea UD PRN N/A 08/24/16 00:30 09/23/16 00:29 Vancomycin HCl (Consult) 1 ea UD PRN N/A 08/24/16 00:30 09/23/16 00:29 Metoprolol Succinate 50 mg 50 mg QAM PO 08/24/16 09:00 09/23/16 08:59 08/25/16 10:17 50 MG Acetaminophen/ Empty Bag (Ofirmev Iv/ Empty Iv Bag 100ml) 100 ml @ 400 mls/hr Q8H IV 08/24/16 16:00 09/23/16 15:59 08/27/16 08:52 400 MLS/HR Metoprolol Tartrate 5 mg 5 mg Q6 PRN IV 08/24/16 12:00 09/23/16 11:59 08/26/16 22:00 5 MG Piperacillin Sod/ Tazobactam Sod/ Dextrose (Zosyn Iv/D5 100ml) 120 ml @ 30 mls/hr Q8H IV 08/24/16 14:00 08/31/16 13:59 08/27/16 05:19 30 MLS/HR Gadobutrol (Gadavist) 10 mmol UD PRN IV 08/24/16 15:15 08/28/16 15:14 Lorazepam 2 mg 2 mg Q4H PRN IV 08/25/16 00:30 09/24/16 00:29 08/27/16 04:52 2 MG Dexmedetomidine HCl/Sodium Chloride (PreCEDEX INJ/ Nss 100ml) 100 ml @ 0 mls/hr Q0M PRN IV 08/25/16 00:45 08/29/16 00:44 08/27/16 11:00 11.5 MLS/HR Chlorhexidine Gluconate (Peridex Oral Soln 15ML Udp) 15 ml BID PO 08/25/16 09:00 09/24/16 08:59 08/27/16 09:30 15 ML Polyethylene (Miralax Powder Packet) 17 gm DAILY PO 08/25/16 09:00 09/24/16 08:59 08/26/16 08:44 17 GM Docusate Sodium (coLACE SYRUP) 100 mg BID PO 08/26/16 21:00 09/25/16 20:59 08/26/16 21:34 100 MG Fentanyl Citrate 50 mcg 50 mcg Q2H PRN IV 08/26/16 11:00 09/09/16 10:59 08/26/16 21:39 50 MCG Levetiracetam 500 mg/Dextrose 105 ml @ 420 mls/hr Q12H IV 08/26/16 22:00 09/25/16 21:59 08/27/16 10:20 420 MLS/HR Vancomycin HCl/ Sodium Chloride (Vancomycin Inj/ Nss 500ml) 532 ml @ 200 mls/hr Q12H IV 08/26/16 14:00 09/02/16 13:59 08/27/16 02:13 200 MLS/HR Ondansetron HCl (Zofran Inj) 4 mg Q6H PRN IV 08/26/16 13:15 09/25/16 13:14 08/27/16 08:54 4 MG Enteral Nutritional Formula (Peptamen Intense VHP) 1,000 ml UD PRN NG 08/26/16 16:30 09/25/16 16:29 Impression Anoxic myoclonus, improved with Keppra. Anoxic encephalopathy, seems to be improving. Patient appears to have significant motor deficits, however. Resembles "man in a barrel" weakness pattern which would be consistent with diffuse cerebral anoxia and injury to bilateral watershed zones although presumably greater injury for the right cerebral hemisphere. Plan Continue with Keppra 500 mg IV every 12 hours. The dosage of this medication could be increased, however, if this patient's myoclonus appears to worsen. Prognosis for a good motor recovery seems poor.
[2016-08-27] MEDS: METOPROLOL SUCC 50MG EXT REL TAB PO SCH (13:42)
--- NOTE | 2016-08-27 13:51 | Progress Note ---
Subjective Date of Service: August 27, 2016. Subjective Pt evaluation today including: physical exam, lab review, review of studies, conversation w/ provider contracting consultant, review of inpatient medication list Pain: no obvious discomfort PO Intake: TF on hold due to aspiration Voiding: ruffin catheter in place patient again febrile and tachycardic CT scan of chest and a/p reviewed, has pneumonia in chest and abdomen shows ileus, likely why he is aspirating from neurologic standpoint, discussed with RN and reviewed neurology note patient following simple commands which is improvement and less myoclonic activity however, still poor prognosis for motor recovery discussed with ICU resident, ENT consult placed for tracheostomy placement Problem List Medical Problems: (1) Altered mental status Status: Acute (2) Cardiac arrest Status: Acute Review of Systems cannot review, intubated, encephalopathy Medications Current Inpatient Medications Medications (Trade) Dose Ordered Sig/Shireen Route Start Time Stop Time Status Last Admin Dose Admin Pantoprazole Sodium 40 mg/ Syringe 10 ml @ 5 mls/min DAILY@1100 IV 08/22/16 11:00 09/21/16 10:59 08/27/16 10:20 5 MLS/MIN Fentanyl Citrate (Fentanyl Drip 1250MCG/250 Nss) 250 ml @ 0 mls/hr Q0M PRN IV 08/21/16 17:15 09/04/16 17:14 08/27/16 08:54 10 MLS/HR Artificial Tears (Lacri-Lube Oph Oint) 1 appln Q2H PRN OPB 08/21/16 17:15 09/20/16 17:14 08/22/16 00:28 1 APPLN Heparin Sodium (Porcine) (Heparin Sq 5000 Unit/0.5ml) 5,000 unit Q8H SQ 08/21/16 22:00 09/20/16 21:59 08/27/16 05:20 5,000 UNIT Albuterol (Ventolin Hfa Inhaler) 4 puffs QIDR INH 08/21/16 20:20 09/20/16 20:19 08/27/16 07:51 4 PUFFS Glucose (Glucose 40% Gel) UD PRN PO 08/23/16 10:30 09/22/16 10:29 Glucose (Glucose Chew Tab) 1 tabs UD PRN PO 08/23/16 10:30 09/22/16 10:29 Dextrose (Dextrose 50% 50ML Syringe) 50 ml UD PRN IV 08/23/16 10:30 09/22/16 10:29 08/23/16 12:13 50 ML Glucagon (Glucagon Inj) 1 mg UD PRN SQ 08/23/16 10:30 09/22/16 10:29 Enteral Nutritional Formula (Peptamen Intense VHP) 1,000 ml UD OG 08/23/16 11:45 09/22/16 11:44 08/26/16 18:23 1,000 ML Bacitracin (Bacitracin Oint) 1 appln BID EXT 08/23/16 21:00 09/22/16 20:59 08/27/16 09:29 1 APPLN Bacitracin (Bacitracin Oint) 1 appln QS PRN EXT 08/23/16 19:00 09/22/16 18:59 Piperacillin Sod/ Tazobactam Sod (Consult) 1 ea UD PRN N/A 08/24/16 00:30 09/23/16 00:29 Vancomycin HCl (Consult) 1 ea UD PRN N/A 08/24/16 00:30 09/23/16 00:29 Metoprolol Succinate 50 mg 50 mg QAM PO 08/24/16 09:00 09/23/16 08:59 08/25/16 10:17 50 MG Acetaminophen/ Empty Bag (Ofirmev Iv/ Empty Iv Bag 100ml) 100 ml @ 400 mls/hr Q8H IV 08/24/16 16:00 09/23/16 15:59 08/27/16 08:52 400 MLS/HR Metoprolol Tartrate 5 mg 5 mg Q6 PRN IV 08/24/16 12:00 09/23/16 11:59 08/26/16 22:00 5 MG Piperacillin Sod/ Tazobactam Sod/ Dextrose (Zosyn Iv/D5 100ml) 120 ml @ 30 mls/hr Q8H IV 08/24/16 14:00 08/31/16 13:59 08/27/16 05:19 30 MLS/HR Gadobutrol (Gadavist) 10 mmol UD PRN IV 08/24/16 15:15 08/28/16 15:14 Lorazepam 2 mg 2 mg Q4H PRN IV 08/25/16 00:30 09/24/16 00:29 08/27/16 04:52 2 MG Dexmedetomidine HCl/Sodium Chloride (PreCEDEX INJ/ Nss 100ml) 100 ml @ 0 mls/hr Q0M PRN IV 08/25/16 00:45 08/29/16 00:44 08/27/16 11:00 11.5 MLS/HR Chlorhexidine Gluconate (Peridex Oral Soln 15ML Udp) 15 ml BID PO 08/25/16 09:00 09/24/16 08:59 08/27/16 09:30 15 ML Polyethylene (Miralax Powder Packet) 17 gm DAILY PO 08/25/16 09:00 09/24/16 08:59 08/26/16 08:44 17 GM Docusate Sodium (coLACE SYRUP) 100 mg BID PO 08/26/16 21:00 09/25/16 20:59 08/26/16 21:34 100 MG Fentanyl Citrate 50 mcg 50 mcg Q2H PRN IV 08/26/16 11:00 09/09/16 10:59 08/26/16 21:39 50 MCG Levetiracetam 500 mg/Dextrose 105 ml @ 420 mls/hr Q12H IV 08/26/16 22:00 09/25/16 21:59 08/27/16 10:20 420 MLS/HR Vancomycin HCl/ Sodium Chloride (Vancomycin Inj/ Nss 500ml) 532 ml @ 200 mls/hr Q12H IV 08/26/16 14:00 09/02/16 13:59 08/27/16 02:13 200 MLS/HR Ondansetron HCl (Zofran Inj) 4 mg Q6H PRN IV 08/26/16 13:15 09/25/16 13:14 08/27/16 08:54 4 MG Enteral Nutritional Formula (Peptamen Intense VHP) 1,000 ml UD PRN NG 08/26/16 16:30 09/25/16 16:29 Dornase Luis Felipe (Pulmozyme Inhalation Soln 2.5ml Amp) 2.5 ml BID INH 08/27/16 21:00 09/26/16 20:59 UNV Objective Vital Signs Date Time Temp Pulse Resp B/P Pulse Ox O2 Delivery O2 Flow Rate FiO2 08/27/16 10:01 37.4 83 24 124/59 98 08/27/16 10:00 37.3 85 23 126/51 99 08/27/16 09:30 37.5 77 24 109/52 100 08/27/16 09:00 37.8 79 109/55 100 08/27/16 08:30 38.6 90 94/41 98 08/27/16 08:01 39.1 238 0 157/41 89 08/27/16 08:00 60 08/27/16 08:00 39.1 224 114/49 88 08/27/16 08:00 95 Mechanical Ventilator 60 08/27/16 07:49 60 08/27/16 07:30 38.9 113 7 202/62 91 08/27/16 07:00 38.4 94 24 138/81 100 08/27/16 06:00 38.3 80 24 127/70 99 08/27/16 05:18 86 136/83 08/27/16 05:05 60 08/27/16 05:00 37.9 76 24 131/70 100 08/27/16 04:26 37.6 64 24 147/63 100 124/70 08/27/16 04:00 Mechanical Ventilator 60 08/27/16 04:00 60 08/27/16 04:00 37.6 67 24 111/54 100 08/27/16 03:00 37.7 69 24 127/55 100 60 116/58 08/27/16 02:00 37.0 68 24 133/67 100 08/27/16 01:50 60 08/27/16 01:01 36.7 64 24 127/53 100 08/27/16 01:00 36.7 63 24 128/55 100 08/27/16 00:00 37.3 66 24 102/50 99 113/48 08/26/16 23:59 60 08/26/16 23:59 Mechanical Ventilator 60 08/26/16 23:00 38.7 81 24 127/46 99 08/26/16 22:05 60 08/26/16 22:00 39.0 86 33 146/86 91 Mechanical Ventilator 60 200/81 08/26/16 22:00 125 200/85 08/26/16 20:00 50 08/26/16 20:00 38.1 84 24 150/84 99 Mechanical Ventilator 50 144/62 08/26/16 20:00 99 Mechanical Ventilator 50 5/16/17 19:15 60 08/26/16 18:00 37.5 74 24 127/61 98 Mechanical Ventilator 83 08/26/16 17:40 80 08/26/16 16:04 80 100 08/26/16 16:00 Mechanical Ventilator 83 08/26/16 16:00 38.6 86 24 110/62 98 Mechanical Ventilator 83 08/26/16 16:00 83 08/26/16 15:28 80 08/26/16 14:00 38.3 82 24 129/42 97 Mechanical Ventilator Physical Exam General Appearance: WD/WN, no apparent distress Eyes: normal inspection, PERRL, EOMI, sclerae normal ENT: + pertinent finding (dry cracked lips, ET tube with secretions) Neck: supple, no adenopathy, no JVD, trachea midline Respiratory/Chest: chest non-tender, lungs clear, normal breath sounds, no respiratory distress, no accessory muscle use Cardiovascular: no edema, no gallop, no JVD, no murmur, + tachycardia Abdomen: non tender, soft, no organomegaly, + abnormal bowel sounds (hypoactive ) Extremities: normal inspection, no pedal edema, no calf tenderness, normal capillary refill, pelvis stable Neurologic/Psychiatric: + pertinent finding (moving eyes left and right on command, moving toes and hands on command, withdraws appropriately) Skin: normal color, warm/dry, no rash Laboratory Results Last 24 Hours Test 08/26/16 18:14 08/27/16 05:40 08/27/16 10:03 08/27/16 11:30 Sodium Level 141 mmol/L 142 mmol/L Potassium Level 3.4 mmol/L 3.3 mmol/L Chloride Level 108 mmol/L 110 mmol/L Carbon Dioxide Level 24 mmol/L 25 mmol/L Anion Gap 9.0 mmol/L 7.0 mmol/L Blood Urea Nitrogen 17 mg/dl 18 mg/dl Creatinine 1.60 mg/dl 1.60 mg/dl Est Creatinine Clear Calc Drug Dose 78.4 ml/min 78.4 ml/min Estimated GFR () 67.4 67.4 Estimated GFR (Non- 58.2 58.2 BUN/Creatinine Ratio 10.8 11.5 Random Glucose 106 mg/dl 102 mg/dl Calcium Level 8.5 mg/dl 8.4 mg/dl White Blood Count 8.76 K/uL Red Blood Count 3.52 M/uL Hemoglobin 10.0 g/dL Hematocrit 29.3 % Mean Corpuscular Volume 83.2 fL Mean Corpuscular Hemoglobin 28.4 pg Mean Corpuscular Hemoglobin Concent 34.1 g/dl RDW Standard Deviation 40.4 fL RDW Coefficient of Variation 13.2 % Platelet Count 141 K/uL Mean Platelet Volume 10.2 fL Phosphorus Level 1.7 mg/dl Magnesium Level 2.1 mg/dl Procalcitonin 1.18 ng/ml Prothrombin Time 11.4 SECONDS Prothromb Time International Ratio 1.1 Activated Partial Thromboplast Time 34.5 SECONDS Partial Thromboplastin Ratio 1.3 Urine Color ORANGE Urine Appearance CLEAR Urine pH 6.5 Urine Specific [place] 1.021 Urine Protein 1+ Urine Glucose (UA) NEG Urine Ketones 1+ Urine Occult Blood 3+ Urine Nitrite NEG Urine Bilirubin NEG Urine Urobilinogen POS Urine Leukocyte Esterase SMALL Urine WBC (Auto) 10-30 /hpf Urine RBC (Auto) >30 /hpf Urine Hyaline Casts (Auto) 1-5 /lpf Urine Epithelial Cells (Auto) 20-30 /lpf Urine Bacteria (Auto) NEG Assessment and Plan 26 yo male who unfortunately suffered a cardiac arrest while on the treadmill at alf, likely ventricular arrhythmia, 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 after admission - s/p cardiac arrest, likely ventricular arrhythmia in setting of HCOM completed cooling process, now for Tylenol for any hyperthermia no further arrhythmias since admission tachycardia, treat with Metoprolol BP stable - Acute hypoxic respiratory failure continue ventilator, plan for tracheostomy since extubation unlikely continues to require FiO2 of 60%, due to pneumonia, aspiration continue vent management per ICU team, much appreciated - Anoxic brain injury, cord injury continues to show small improvements, following commands, less left sided neglect, withdraws appropriately Keppra started for anoxic myoclonic jerks, less jerks now MRI with possible occipital (bilateral) and right parietal ischemia but no other findings neurology following still with poor prognosis for motor recovery described as "man in barrel" weakness to suggest motor cortex affected in watershed areas the worst - Pneumonia, likely aspiration: continue Vancomycin and Zosyn bronchoscopy on 08/24 continues to spike fevers, Tylenol and cooling blanket applied infiltrates seen on CT chest, multilobar most pronounced in lower lobes - Elevated LFT: due to cardiac arrest, trending down appropriately - WILLARD: Cr peaked at 1.7, 1.6 today, responded well to Lasix yesterday with 3.3 liters diuresis - Ileus: seen on CT scan and also hypoactive BS on exam, TFs on hold, resume per ICU team would assume he would get a PEG once the tracheostomy done - DVT prophylaxis: heparin discussed case with salesperson florist supplies and reviewed note from Neurology management per ICU, continue to follow for continuity of care if he is able to leave ICU
--- NOTE | 2016-08-27 14:59 | Critical Care Progress Note ---
Critical Care Progress Note Date of Service August 27, 2016. Attending Dr. Shaggy Navarro 26-year-old male currently incarcerated presented to the ER after he had collapsed while on a treadmill, received 1 shock with ROSC. status post hypothermic protocol Echo findings confirmation of hypertrophic obstructive cardiomyopathy. Continues to be intubated . responds to voice and follows commands. had episodes of coughing with bilious emesis this morning Objective General Appearance: other (intubated) Head: normocephalic, other (abrasion 1 cm x 2 cm over left zygomatic arch) ENT: other (intubated with 7.5 Hi-Lo tube) Neck: trachea midline, no thyromegaly Respiratory: breath sounds normal Cardiovasular: regular rhythm, normal S1S2, no gallop, no rub, no JVD, tachycardia Abdomen: normal bowel sounds, no rebound, no masses, no guarding Genitourinary - Male: external genitalia normal, other (Avelar present) Upper Extremities: no edema, other (approximately 2 cm x 2 cm abrasion on the right wrist) Lower Extremities: no edema, normal ROM, other (3 cm x 3 cm abrasion to the right hip) Pulses: carotid (R) (2+), carotid (L) (2+), radial (R) (2+), radial (L) (2+), dorsalis pedis (R) (2+), dorsalis pedis (L) (2+) Neuro: responds to voice and follows commands , left side gaze, myoclonic jerks with tactile stimulus Psychiatric: other (unable to evaluate) Current SOFA Score SOFA Score Response (Comments) Value PaO2/FiO2 (mmHg) < 300 2 Platelets (x10) < 150 1 Bilirubin (mg/dL) 2.0 - 5.9 2 Dinorah Coma Score 6 - 9 3 Level of Hypotension No Hypotension 0 Creatinine (mg/dL) 1.2 - 1.9 1 Total 9 Previous SOFA Scores 5 on 08/23/2016 Assessment & Plan 26-year-old male currently incarcerated presented to the ER after he had collapsed while on a treadmill, received 1 shock with ROSC. status post hypothermic protocol Echo findings confirmatory of hypertrophic obstructive cardiomyopathy. Neuro: Acute hypoxic encephalopathy - Status post therapeutic hypothermia protocol - Hyperthermia: IV Tylenol as needed every 8 hours and ice packs - EEG: this study shows evidence for a moderate encephalopathy, without focal problems or potentially epileptogenic discharges - MRI brain:faint restricted diffusion within the medial aspect of the bilateral occipital lobes and right posterior parietal lobe. could represent a small amount increased T2 signal within the cortex suggested on the FLAIR sequences. This is nonspecific but could related to mild ischemic change/infarct. This could also be seen in the setting of posterior reversible encephalopathy syndrome. - MRI C-spine: Tiny disc bulge at C3-C4. No significant central canal or neural foraminal narrowing. Otherwise, normal cervical spine MRI. Neurology consult- appreciate recommendations. - Keppra 1g loading dose with 500 mg BID for myoclonic jerks Resp :currently intubated, mechanically ventilated AC, RR 24, TV 600, PEEP of 8 , FiO2 50 Status post bronchoscopy- staph aureus ,Gram negative bacilli and Gram positive bacilli on gram stain ETT repositioned Chest CT:Multilobar airspace opacities, most pronounced within both lower lobes dependently with air bronchograms. This likely represents a pneumonia. Continue vancomycin and Zosyn ENT consult for possible trach - Sputum culture - Pulmozyme with chest percussion CVS: Tachycardia - Lopressor 12.5 mg BID - Lopressor IV as needed Hypertrophic obstructive cardiomyopathy: Confirmed on echocardiogram - Genetic testing advised to family Renal: WILLARD: - renal US: 1. Severe right hydronephrosis of uncertain etiology. Echogenic right kidney. 2. Partially obscured left kidney but no left hydronephrosis. - Abdominal CT:. Severe right hydronephrosis to the level of the ureteropelvic junction. There is no obstructing stones identified. This could be congenital or less likely a nonvisualized obstructing lesion given the patient's age. - Urology consult- status post stent placement in right UPJ - Creatinine today at 1.4 from 1.6 yesterday - UA/UC Electrolytes: Phosphorus at 1.7: Sodium phosphate ordered Magnesium at 2.2 IVF d/c ID: Pneumonia: - CT chest : suggestive of pneumonia - Status post bronchoscopy, pending cultures - Continue vancomycin and Zosyn GI FEN: - Abd pelvis CT: 1. Severe right hydronephrosis, unchanged. The proximal right ureteral stent is located at the expected UPJ obstruction. This does not extend into the right renal pelvis which may account for the persistent right-sided hydronephrosis. 2. Interval development of a small hypodense areas within the bilateral psoas muscles measure up to 3 cm. These likely represents intramuscular hematomas. 3. Multiple mildly dilated gas and fluid-filled loops of large and small bowel seen throughout the abdomen. This favors an ileus. - GI prophylaxis with Protonix - Transaminitis: improving ALT 64 , AST 83 - Likely secondary to hypoperfusion - Hep B and Hep C negative Constipation: had BM X2 - Bowel regimen PT/OT Heme: DVT prophylaxis: Heparin subcutaneous - hold for stent reversal /advancement tomorrow Lines: Right internal jugular triple-lumen central venous catheter placed 08/21 Right 20-gauge radial arterial line placed 08/21- dc today Dispo: Monitor in ICU Resident Physician Supervision Note/Scowman Attending I interviewed and examined the patient. Discussed with Dr. Storm and agree with findings and plan as documented in the note. Any exceptions or clarifications can be found in my note from today. Documented By: Mirna Coon Consults & Procedures Consultants: Neurology Cardiology. Urology Procedures: Right internal jugular vein CVL, 08/21/2016 Right radial arterial line 08/21/2016 Bronchoscopy secondary to new infiltrate 08/24/2016 Data Medications: Current Inpatient Medications Medications (Trade) Dose Ordered Sig/Shireen Route Start Time Stop Time Status Last Admin Dose Admin Pantoprazole Sodium 40 mg/ Syringe 10 ml @ 5 mls/min DAILY@1100 IV 08/22/16 11:00 09/21/16 10:59 08/27/16 10:20 5 MLS/MIN Fentanyl Citrate (Fentanyl Drip 1250MCG/250 Nss) 250 ml @ 0 mls/hr Q0M PRN IV 08/21/16 17:15 09/04/16 17:14 08/27/16 08:54 10 MLS/HR Artificial Tears (Lacri-Lube Oph Oint) 1 appln Q2H PRN OPB 08/21/16 17:15 09/20/16 17:14 08/22/16 00:28 1 APPLN Heparin Sodium (Porcine) (Heparin Sq 5000 Unit/0.5ml) 5,000 unit Q8H SQ 08/21/16 22:00 09/20/16 21:59 08/27/16 13:44 5,000 UNIT Albuterol (Ventolin Hfa Inhaler) 4 puffs QIDR INH 08/21/16 20:20 09/20/16 20:19 08/27/16 07:51 4 PUFFS Glucose (Glucose 40% Gel) UD PRN PO 08/23/16 10:30 09/22/16 10:29 Glucose (Glucose Chew Tab) 1 tabs UD PRN PO 08/23/16 10:30 09/22/16 10:29 Dextrose (Dextrose 50% 50ML Syringe) 50 ml UD PRN IV 08/23/16 10:30 09/22/16 10:29 08/23/16 12:13 50 ML Glucagon (Glucagon Inj) 1 mg UD PRN SQ 08/23/16 10:30 09/22/16 10:29 Enteral Nutritional Formula (Peptamen Intense VHP) 1,000 ml UD OG 08/23/16 11:45 09/22/16 11:44 08/26/16 18:23 1,000 ML Bacitracin (Bacitracin Oint) 1 appln BID EXT 08/23/16 21:00 09/22/16 20:59 08/27/16 09:29 1 APPLN Bacitracin (Bacitracin Oint) 1 appln QS PRN EXT 08/23/16 19:00 09/22/16 18:59 Piperacillin Sod/ Tazobactam Sod (Consult) 1 ea UD PRN N/A 08/24/16 00:30 09/23/16 00:29 Vancomycin HCl (Consult) 1 ea UD PRN N/A 08/24/16 00:30 09/23/16 00:29 Metoprolol Succinate 50 mg 50 mg QAM PO 08/24/16 09:00 09/23/16 08:59 08/25/16 10:17 50 MG Acetaminophen/ Empty Bag (Ofirmev Iv/ Empty Iv Bag 100ml) 100 ml @ 400 mls/hr Q8H IV 08/24/16 16:00 09/23/16 15:59 08/27/16 08:52 400 MLS/HR Metoprolol Tartrate 5 mg 5 mg Q6 PRN IV 08/24/16 12:00 09/23/16 11:59 08/26/16 22:00 5 MG Piperacillin Sod/ Tazobactam Sod/ Dextrose (Zosyn Iv/D5 100ml) 120 ml @ 30 mls/hr Q8H IV 08/24/16 14:00 08/31/16 13:59 08/27/16 13:43 30 MLS/HR Gadobutrol (Gadavist) 10 mmol UD PRN IV 08/24/16 15:15 08/28/16 15:14 Lorazepam 2 mg 2 mg Q4H PRN IV 08/25/16 00:30 09/24/16 00:29 08/27/16 04:52 2 MG Dexmedetomidine HCl/Sodium Chloride (PreCEDEX INJ/ Nss 100ml) 100 ml @ 0 mls/hr Q0M PRN IV 08/25/16 00:45 08/29/16 00:44 08/27/16 11:00 11.5 MLS/HR Chlorhexidine Gluconate (Peridex Oral Soln 15ML Udp) 15 ml BID PO 08/25/16 09:00 09/24/16 08:59 08/27/16 09:30 15 ML Polyethylene (Miralax Powder Packet) 17 gm DAILY PO 08/25/16 09:00 09/24/16 08:59 08/26/16 08:44 17 GM Docusate Sodium (coLACE SYRUP) 100 mg BID PO 08/26/16 21:00 09/25/16 20:59 08/26/16 21:34 100 MG Fentanyl Citrate 50 mcg 50 mcg Q2H PRN IV 08/26/16 11:00 09/09/16 10:59 08/26/16 21:39 50 MCG Levetiracetam 500 mg/Dextrose 105 ml @ 420 mls/hr Q12H IV 08/26/16 22:00 09/25/16 21:59 08/27/16 10:20 420 MLS/HR Vancomycin HCl/ Sodium Chloride (Vancomycin Inj/ Nss 500ml) 532 ml @ 200 mls/hr Q12H IV 08/26/16 14:00 09/02/16 13:59 08/27/16 13:44 200 MLS/HR Ondansetron HCl (Zofran Inj) 4 mg Q6H PRN IV 08/26/16 13:15 09/25/16 13:14 08/27/16 08:54 4 MG Enteral Nutritional Formula (Peptamen Intense VHP) 1,000 ml UD PRN NG 08/26/16 16:30 09/25/16 16:29 Dornase Luis Felipe (Pulmozyme Inhalation Soln 2.5ml Amp) 2.5 ml BID INH 08/27/16 21:00 09/26/16 20:59 I & O: 24-Hour Column 08/27/16 07:59 Intake Total 3306 ml Output Total 7100 ml Balance -3794 ml Vital Signs: Date Time Temp Pulse Resp B/P Pulse Ox O2 Delivery O2 Flow Rate FiO2 08/27/16 10:01 37.4 83 24 124/59 98 08/27/16 10:00 37.3 85 23 126/51 99 08/27/16 09:30 37.5 77 24 109/52 100 08/27/16 09:00 37.8 79 109/55 100 08/27/16 08:30 38.6 90 94/41 98 08/27/16 08:01 39.1 238 0 157/41 89 08/27/16 08:00 Mechanical Ventilator 60 08/27/16 08:00 60 08/27/16 08:00 39.1 224 114/49 88 08/27/16 08:00 95 Mechanical Ventilator 60 08/27/16 07:49 60 08/27/16 07:30 38.9 113 7 202/62 91 08/27/16 07:00 38.4 94 24 138/81 100 08/27/16 06:00 38.3 80 24 127/70 99 08/27/16 05:18 86 136/83 08/27/16 05:05 60 08/27/16 05:00 37.9 76 24 131/70 100 08/27/16 04:26 37.6 64 24 147/63 100 124/70 08/27/16 04:00 Mechanical Ventilator 60 08/27/16 04:00 60 08/27/16 04:00 37.6 67 24 111/54 100 08/27/16 03:00 37.7 69 24 127/55 100 60 116/58 08/27/16 02:00 37.0 68 24 133/67 100 08/27/16 01:50 60 08/27/16 01:01 36.7 64 24 127/53 100 08/27/16 01:00 36.7 63 24 128/55 100 08/27/16 00:00 37.3 66 24 102/50 99 113/48 08/26/16 23:59 60 08/26/16 23:59 Mechanical Ventilator 60 08/26/16 23:00 38.7 81 24 127/46 99 08/26/16 22:05 60 08/26/16 22:00 39.0 86 33 146/86 91 Mechanical Ventilator 60 200/81 08/26/16 22:00 125 200/85 08/26/16 20:00 50 08/26/16 20:00 38.1 84 24 150/84 99 Mechanical Ventilator 50 144/62 08/26/16 20:00 99 Mechanical Ventilator 50 08/26/16 19:15 60 08/26/16 18:00 37.5 74 24 127/61 98 Mechanical Ventilator 83 08/26/16 17:40 80 08/26/16 16:04 80 100 08/26/16 16:00 Mechanical Ventilator 83 08/26/16 16:00 38.6 86 24 110/62 98 Mechanical Ventilator 83 08/26/16 16:00 83 08/26/16 15:28 80 Laboratory Results: Last 24 Hours Test 08/26/16 18:14 08/27/16 05:40 08/27/16 10:03 08/27/16 11:30 Sodium Level 141 mmol/L 142 mmol/L Potassium Level 3.4 mmol/L 3.3 mmol/L Chloride Level 108 mmol/L 110 mmol/L Carbon Dioxide Level 24 mmol/L 25 mmol/L Anion Gap 9.0 mmol/L 7.0 mmol/L Blood Urea Nitrogen 17 mg/dl 18 mg/dl Creatinine 1.60 mg/dl 1.60 mg/dl Est Creatinine Clear Calc Drug Dose 78.4 ml/min 78.4 ml/min Estimated GFR () 67.4 67.4 Estimated GFR (Non- 58.2 58.2 BUN/Creatinine Ratio 10.8 11.5 Random Glucose 106 mg/dl 102 mg/dl Calcium Level 8.5 mg/dl 8.4 mg/dl White Blood Count 8.76 K/uL Red Blood Count 3.52 M/uL Hemoglobin 10.0 g/dL Hematocrit 29.3 % Mean Corpuscular Volume 83.2 fL Mean Corpuscular Hemoglobin 28.4 pg Mean Corpuscular Hemoglobin Concent 34.1 g/dl RDW Standard Deviation 40.4 fL RDW Coefficient of Variation 13.2 % Platelet Count 141 K/uL Mean Platelet Volume 10.2 fL Phosphorus Level 1.7 mg/dl Magnesium Level 2.1 mg/dl Procalcitonin 1.18 ng/ml Prothrombin Time 11.4 SECONDS Prothromb Time International Ratio 1.1 Activated Partial Thromboplast Time 34.5 SECONDS Partial Thromboplastin Ratio 1.3 Urine Color ORANGE Urine Appearance CLEAR Urine pH 6.5 Urine Specific [place] 1.021 Urine Protein 1+ Urine Glucose (UA) NEG Urine Ketones 1+ Urine Occult Blood 3+ Urine Nitrite NEG Urine Bilirubin NEG Urine Urobilinogen POS Urine Leukocyte Esterase SMALL Urine WBC (Auto) 10-30 /hpf Urine RBC (Auto) >30 /hpf Urine Hyaline Casts (Auto) 1-5 /lpf Urine Epithelial Cells (Auto) 20-30 /lpf Urine Bacteria (Auto) NEG Resident Tracking Resident Involvement: Resident Care Provided Care Provided: Adult Hospital Medicine
--- NOTE | 2016-08-27 15:43 | CRITICAL CARE PROGRESS NOTE ---
DATE: 08/27/2016 SUBJECTIVE: This is an ICU day #7 for this unfortunate 26-year-old man who had an out of hospital cardiac arrest. He remains critically ill and on the ventilator. He is febrile as well. His care was discussed in detail on multidisciplinary rounds today and he is having some bloody espinal secretions from his endotracheal tube. He had some smears for bowel movements and while we were on rounds today, he vomited and may have aspirated. Last night, he required a cooling blankets both anteriorly and posteriorly in order to control his temperature. OBJECTIVE: VITAL SIGNS: Maximum temperature 39, heart rate 76-80, respiratory rate 24-28, blood pressure 127-147/50s, and oxygen saturation 99%. 24-hour fluid balance is -3.3 liters. VENTILATOR SETTINGS: Assist control rate 24, tidal volume 600, FiO2 60%, and PEEP 8. NEUROLOGIC: He will open his eyes and look at me. He follows simple commands with both extremities, but is profoundly weak. He has little if any myoclonic jerking compared to yesterday. His pupils react bilaterally. He is able to track around the room as well. LUNGS: Coarse bilaterally with bibasilar rales. No rhonchi or wheezes. HEART: Regular rate and rhythm. ABDOMEN: Firm, nondistended, and mildly diffusely tender. No rebound or guarding. Hypoactive bowel sounds. EXTREMITIES: Slightly contracted and hands have 1+ edema. He has waffle boots on. LABORATORY DATA: White blood cell count 8.76, hemoglobin 10, hematocrit 29.3, and platelets 141. Sodium 142, potassium 3.3, chloride 110, CO2 of 25, BUN 18, creatinine 1.6, blood sugar 102, calcium 8.4, phosphorus 1.7, and magnesium 2.1. PT 11.4, INR 1.1, and PTT 34.5. Portable chest x-ray from this morning was reviewed and shows the endotracheal tube to be approximately 6 cm above the al. He has bibasilar infiltrates. CT of the chest from today shows multilobar airspace opacities pronounced within the bilateral lower lobes dependently with air bronchograms and CT of the abdomen revealed severe right hydronephrosis, unchanged. The proximal right ureteral stent is located with the expected UPJ obstruction. This does not extend into the right renal pelvis. The stent may be advanced into the distended right renal collecting system, interval development of small hypodense areas within the bilateral psoas muscles, measuring up to 3 cm. These likely represent intramuscular hematomas. Bilateral lower lobe consolidation, slightly improved on the right. Multiple mildly dilated and fluid-filled loops of large and small bowel throughout the abdomen, favoring an ileus and small amount of pelvic free fluid. MEDICATIONS: Acetaminophen, Ventolin, Lacri-Lube, bacitracin, chlorhexidine, Precedex, Colace, Peptamen VHS on hold, fentanyl infusion, p.r.n. fentanyl, subcutaneous heparin, Keppra, Ativan, Lopressor, Zofran, Protonix, Zosyn day #4, and vancomycin day #4. MICROBIOLOGY DATA: Urine sputum and blood cultures from August 26 and are pending. Bronchial washing of right lower lobe on August 24 with pansensitive staph aureus, otherwise no new data. IMPRESSION: 1. Status post out of hospital cardiac arrest with successful resuscitation, likely secondary to ventricular tachycardia or ventricular fibrillation. He has hypertrophic obstructive cardiomyopathy. Acute hypoxemic respiratory failure, now with bilateral aspiration pneumonia, presently being treated with Zosyn and vancomycin. 2. Persistent fever, recultured yesterday and today. This may be a central fever. 3. Ileus. 4. Possible malpositioned right ureteral stent. I have discussed this with the urology service and they are considering replacing it secondary to his persistent hydronephrosis and fever. It may not be related to the etiology of his fever, but I favor adjusting it and taking that out of the equation as far as the etiology of his fever. 5. Hypoxic encephalopathy with improving neurologic status and now less myoclonus. He was started on Keppra yesterday and at this point, neurology service feels his neurological outcome for a good motor outcome is poor. 6. Elevated liver function test, they have trended down. 7. Acute kidney injury, which is slowly improving. He responded appropriately to diuresis. PLAN: NEUROLOGIC: Continue to attempt to minimize sedation. Continue Keppra as well. PULMONARY: Continue bronchodilators and antibiotics. I will add Pulmozyme and bed percussion. Continue attempts at weaning. He may require tracheostomy, although when he has been on CPAP, he has done relatively well. His fever may be contributing to his tachypnea. CARDIOVASCULAR: Change Toprol-XL to short acting beta fatemeh. Discontinue arterial line and check EKG, specifically for the corrected QT interval. Replete electrolytes. GASTROINTESTINAL: Place NG tube to suction and maintain n.p.o. status with the exception of meds. Consider Reglan. Hold tube feeds. RENAL: Intermittent diuresis as needed. Replete electrolytes INFECTIOUS DISEASE: Continue Zosyn and vancomycin day #4. Follow up most recent cultures. Consider infectious disease consult should his fevers continue. HEMATOLOGY: Subcutaneous heparin for DVT prophylaxis. He has had some improvement in his neurologic status, although his overall prognosis for a full recovery is poor. I will talk to his mother as I understand she is coming in today. I anticipate that they will continue to desire aggressive support, which I believe may require tracheostomy and PEG tube placement. Will continue to reassess. Critical care time 1 hour. Addendum: Mother updated in detail this afternoon. Continue aggressive and supportive care. The possibility of trach and PEG also introduced. MTDD
--- NOTE | 2016-08-27 17:26 | Anesthesiology Progress Note ---
Pre-OP Anesthesia Assessment Date of Note August 27, 2016. Review patient information reviewed, chart reviewed, labs reviewed, acceptable for surgery Notes Pt had out of hospital cardiac arrest 08/21/16 attributed to HOCM. Resuscitated but has signs of [employer] injury and pneumonia and remains on mechanical ventilation. Has some renal insufficiency and CT scan finding of hydronephrosis. For that reason he had ureteral stent placed 08/24/16 under MAC. There were no anesthesia related complications. Reportedly that stent may be malpositioned and urologist plans to reposition or replace stent. Anticipate MAC as was administered previously. There is no family present at this time for consent. Will await family or attempt to reach by phone if needed for consent.
[2016-08-27] MEDS: DORNASE ALFA (2500U) 2.5MG/2.5ML INH SCH (21:00)
[2016-08-28] VITALS (51 sets, daily range): BP systolic 114–162; BP diastolic 48–111; PULSE 61–171; TEMP 36.4–38.4; O2SAT 92–100
[2016-08-28] MEDS: ACETAMINOPHEN IV 1,000 MG in EMPTY BAG 0 ML IV SCH ×3 (00:07→15:44)
[2016-08-28] MEDS ORDERED: VANCOMYCIN TROUGH ONE (01:30)
[2016-08-28] MEDS: VANCOMYCIN INJ 1,600 MG in SODIUM CHLORIDE 0.9% 500ML 500 ML IV SCH ×2 (02:25→13:29)
[2016-08-28] MEDS: PIPERACILL/TAZOBAC IV 4.5 GM in DEXTROSE 5% 100ML IV SCH ×3 (05:32→22:41)
[2016-08-28 06:33] LABS: BASO % 0.2 %; BASO ABS # 0.02 K/uL (0-0.2); COMPLETE YES; HEMATOCRIT 29.4 % (42-52); IG% 0.6 %; LYMPH % 23.8 %; LYMPH ABS # 1.95 K/uL (1.2-3.4); MEAN CELL VOLUME 84.5 fL (80-100); MEAN CORPUSCULAR HEMOGLOBIN 28.2 pg (25-34); MEAN CORPUSCULAR HGB CONC 33.3 g/dl (32-36); MEAN PLATELET VOLUME 10.9 fL (7.4-10.4); MONO % 10.5 %; NEUT % 63.9 %; PLATELET COUNT 150 K/uL (130-400); RED BLOOD COUNT 3.48 M/uL (4.7-6.1); WHITE BLOOD COUNT 8.21 K/uL (4.8-10.8)
[2016-08-28] MEDS: DORNASE ALFA (2500U) 2.5MG/2.5ML INH SCH ×2 (07:00→20:40)
[2016-08-28 07:09] LABS: BUN/CREATININE RATIO 12.9 (10-20); CALCIUM 8.3 mg/dl (8.5-10.1); CREATININE 1.4 mg/dl (0.60-1.40); MAGNESIUM 2.3 mg/dl (1.8-2.4); POTASSIUM 3.4 mmol/L (3.5-5.1)
--- NOTE | 2016-08-28 07:23 | DIAGNOSTIC IMAGING REPORT ---
CHEST ONE VIEW PORTABLE CLINICAL HISTORY: Respiratory failure COMPARISON STUDY: 08/27/2016 FINDINGS: There is an endotracheal tube 21 mm above the al. There is a nasogastric tube which passes into the stomach. There is a right internal jugular central venous catheter. The tip has been pulled back and now projects over the right internal jugular vein at the T2 level. The heart is mildly enlarged. There is bilateral lower lobe pulmonary consolidation. There are bilateral lower lobe air bronchograms.[ IMPRESSION: 1. Bilateral lower lobe pulmonary consolidation with air bronchograms 2. The right internal jugular central venous catheter has been pulled back and now is positioned with its tip at the T2 level. Electronically signed by: Abdoulaye Sotomayor M.D. 08/28/2016 7:22 AM Dictated Date/Time: 08/28/2016 7:20 AM
[2016-08-28 07:25] LABS: PHOSPHORUS 2.5 mg/dl (2.5-4.9)
[2016-08-28] MEDS: DOCUSATE SODIUM 100 MG/10 ML UDC PO SCH ×2 (07:26→20:58)
[2016-08-28] MEDS: POLYETHYLENE (MIRALAX) 17 GM PACK PO SCH (07:26)
[2016-08-28] MEDS: PANTOprazole INJ 40 MG in SYRINGE 0 ML IV SCH (07:38)
[2016-08-28] MEDS: ALBUTEROL HFA 8 GM INHALER INH SCH ×4 (07:38→19:10)
[2016-08-28] MEDS: CHLORHEXIDINE GLUCONATE 0.12% 15 ML UDP PO SCH ×2 (07:39→21:00)
[2016-08-28] MEDS: BACITRACIN OINT 15 GM TUBE EXT SCH ×2 (07:40→21:00)
--- NOTE | 2016-08-28 09:40 | Progress Note ---
Subjective Date of Service: August 28, 2016. Subjective Pt evaluation today including: conversation w/ patient, physical exam, lab review, review of studies, conversation w/ reimbursement consultant, review of inpatient medication list Pain: denies pain PO Intake: NPO, OG tube for suction only Voiding: ruffin catheter in place patient more alert this AM, following commands, denies pain moving all four extremities spontaneously, no myoclonic jerks, temperature better regulated, HR and BP stable plan to exchange right ureteral stent today for persistent hydronephrosis as of now, no plans for tracheostomy today unfortunately he continues to struggle to tolerate any tube feeds due to ileus, had emesis yesterday Problem List Medical Problems: (1) Altered mental status Status: Acute (2) Cardiac arrest Status: Acute Review of Systems Constitutional: + fatigue, + weakness cannot complete detailed ROS due to intubation, denies pain, appears calm, following commands Medications Current Inpatient Medications Medications (Trade) Dose Ordered Sig/Shireen Route Start Time Stop Time Status Last Admin Dose Admin Pantoprazole Sodium 40 mg/ Syringe 10 ml @ 5 mls/min DAILY@1100 IV 08/22/16 11:00 09/21/16 10:59 08/28/16 07:38 5 MLS/MIN Fentanyl Citrate (Fentanyl Drip 1250MCG/250 Nss) 250 ml @ 0 mls/hr Q0M PRN IV 08/21/16 17:15 09/04/16 17:14 08/27/16 08:54 10 MLS/HR Artificial Tears (Lacri-Lube Oph Oint) 1 appln Q2H PRN OPB 08/21/16 17:15 09/20/16 17:14 08/22/16 00:28 1 APPLN Heparin Sodium (Porcine) (Heparin Sq 5000 Unit/0.5ml) 5,000 unit Q8H SQ 08/21/16 22:00 09/20/16 21:59 Future Hold 08/27/16 13:44 5,000 UNIT Albuterol (Ventolin Hfa Inhaler) 4 puffs QIDR INH 08/21/16 20:20 09/20/16 20:19 08/28/16 07:38 4 PUFFS Glucose (Glucose 40% Gel) UD PRN PO 08/23/16 10:30 09/22/16 10:29 Glucose (Glucose Chew Tab) 1 tabs UD PRN PO 08/23/16 10:30 09/22/16 10:29 Dextrose (Dextrose 50% 50ML Syringe) 50 ml UD PRN IV 08/23/16 10:30 09/22/16 10:29 08/23/16 12:13 50 ML Glucagon (Glucagon Inj) 1 mg UD PRN SQ 08/23/16 10:30 09/22/16 10:29 Enteral Nutritional Formula (Peptamen Intense VHP) 1,000 ml UD OG 08/23/16 11:45 09/22/16 11:44 08/26/16 18:23 1,000 ML Bacitracin (Bacitracin Oint) 1 appln BID EXT 08/23/16 21:00 09/22/16 20:59 08/28/16 07:40 1 APPLN Bacitracin (Bacitracin Oint) 1 appln QS PRN EXT 08/23/16 19:00 09/22/16 18:59 Piperacillin Sod/ Tazobactam Sod (Consult) 1 ea UD PRN N/A 08/24/16 00:30 09/23/16 00:29 Vancomycin HCl 1 ea 1 ea UD PRN N/A 08/24/16 00:30 09/23/16 00:29 Acetaminophen/ Empty Bag (Ofirmev Iv/ Empty Iv Bag 100ml) 100 ml @ 400 mls/hr Q8H IV 08/24/16 16:00 09/23/16 15:59 08/28/16 07:37 400 MLS/HR Metoprolol Tartrate 5 mg 5 mg Q6 PRN IV 08/24/16 12:00 09/23/16 11:59 08/26/16 22:00 5 MG Piperacillin Sod/ Tazobactam Sod/ Dextrose (Zosyn Iv/D5 100ml) 120 ml @ 30 mls/hr Q8H IV 08/24/16 14:00 08/31/16 13:59 08/28/16 05:32 30 MLS/HR Gadobutrol (Gadavist) 10 mmol UD PRN IV 08/24/16 15:15 08/28/16 15:14 Lorazepam 2 mg 2 mg Q4H PRN IV 08/25/16 00:30 09/24/16 00:29 08/27/16 21:12 2 MG Dexmedetomidine HCl/Sodium Chloride (PreCEDEX INJ/ Nss 100ml) 100 ml @ 0 mls/hr Q0M PRN IV 08/25/16 00:45 08/29/16 00:44 08/27/16 19:46 11.9 MLS/HR Chlorhexidine Gluconate (Peridex Oral Soln 15ML Udp) 15 ml BID PO 08/25/16 09:00 09/24/16 08:59 08/28/16 07:39 15 ML Polyethylene (Miralax Powder Packet) 17 gm DAILY PO 08/25/16 09:00 09/24/16 08:59 08/26/16 08:44 17 GM Docusate Sodium (coLACE SYRUP) 100 mg BID PO 08/26/16 21:00 09/25/16 20:59 08/27/16 21:14 100 MG Fentanyl Citrate 50 mcg 50 mcg Q2H PRN IV 08/26/16 11:00 09/09/16 10:59 08/26/16 21:39 50 MCG Levetiracetam 500 mg/Dextrose 105 ml @ 420 mls/hr Q12H IV 08/26/16 22:00 09/25/16 21:59 08/27/16 22:00 420 MLS/HR Vancomycin HCl/ Sodium Chloride (Vancomycin Inj/ Nss 500ml) 532 ml @ 200 mls/hr Q12H IV 08/26/16 14:00 09/02/16 13:59 08/28/16 02:25 200 MLS/HR Ondansetron HCl (Zofran Inj) 4 mg Q6H PRN IV 08/26/16 13:15 09/25/16 13:14 08/27/16 08:54 4 MG Enteral Nutritional Formula (Peptamen Intense VHP) 1,000 ml UD PRN NG 08/26/16 16:30 09/25/16 16:29 Dornase Luis Felipe (Pulmozyme Inhalation Soln 2.5ml Amp) 2.5 ml BID INH 08/27/16 21:00 09/26/16 20:59 Heparin Sodium (Porcine) (Heparin 10 Unit/ ml 5 ml Flush) 5 ml PRN PRN FLUSH 08/28/16 02:00 09/27/16 01:59 Metoprolol Tartrate (Lopressor Tab) 12.5 mg BID PO 08/28/16 09:00 09/27/16 08:59 Objective Vital Signs Date Time Temp Pulse Resp B/P Pulse Ox O2 Delivery O2 Flow Rate FiO2 08/28/16 07:00 50 08/28/16 06:14 50 08/28/16 06:01 71 24 142/88 95 08/28/16 05:01 68 24 142/68 98 08/28/16 04:01 37.2 69 24 149/71 99 08/28/16 04:00 50 08/28/16 04:00 Mechanical Ventilator 50 08/28/16 03:01 69 24 146/69 99 08/28/16 02:41 37.5 08/28/16 02:15 50 08/28/16 02:01 71 24 131/65 99 08/28/16 00:01 38.1 75 24 162/79 100 08/28/16 00:00 72 99 08/27/16 23:59 Mechanical Ventilator 50 08/27/16 23:59 50 08/27/16 23:37 50 08/27/16 23:30 78 99 08/27/16 23:01 91 129/67 98 08/27/16 23:01 91 24 129/67 98 Mechanical Ventilator 50 08/27/16 23:00 90 98 08/27/16 22:01 38.6 82 24 150/72 99 Mechanical Ventilator 50 08/27/16 21:40 50 08/27/16 21:01 101 24 148/75 93 Mechanical Ventilator 50 08/27/16 20:01 38.5 91 23 122/65 99 08/27/16 20:00 Mechanical Ventilator 08/27/16 20:00 50 08/27/16 19:15 37.8 08/27/16 19:01 77 24 127/67 100 08/27/16 19:00 80 24 100 08/27/16 18:00 78 24 132/65 98 08/27/16 17:58 50 08/27/16 17:09 97 27 112/67 91 08/27/16 17:01 38.9 100 33 112/67 88 08/27/16 17:00 38.9 98 32 88 08/27/16 16:01 39.0 100 34 109/57 93 08/27/16 16:00 39.0 103 29 92 08/27/16 16:00 95 Mechanical Ventilator 50 08/27/16 15:01 38.5 95 11 103/68 100 08/27/16 15:00 38.5 93 5 100 08/27/16 15:00 60 08/27/16 14:01 38.1 91 28 111/66 100 08/27/16 14:00 38.1 88 25 100 08/27/16 13:00 37.9 79 119/57 100 08/27/16 12:54 37.9 81 119/59 100 08/27/16 11:49 60 08/27/16 10:01 37.4 83 24 124/59 98 08/27/16 10:00 37.3 85 23 126/51 99 08/27/16 09:30 37.5 77 24 109/52 100 Physical Exam General Appearance: WD/WN, no apparent distress Eyes: normal inspection, PERRL, EOMI, sclerae normal ENT: normal ENT inspection, hearing grossly normal, pharynx normal Neck: supple, no adenopathy, no JVD, trachea midline Respiratory/Chest: chest non-tender, no respiratory distress, no accessory muscle use, + decreased breath sounds, + rhonchi Cardiovascular: regular rate, rhythm, no edema, no gallop, no JVD, no murmur Abdomen: non tender, soft, no organomegaly, + abnormal bowel sounds (hypoactive ) Extremities: non-tender, normal inspection, no pedal edema, no calf tenderness , pelvis stable, + pertinent finding (soft restraints) Neurologic/Psychiatric: steamboat inspector II-XII nml as tested, alert, + motor weakness, + pertinent finding (following commands, tracking eyes left and right) Skin: normal color, warm/dry, no rash Laboratory Results Last 24 Hours Test 08/27/16 10:03 08/27/16 11:30 08/27/16 17:50 08/28/16 00:01 Prothrombin Time 11.4 SECONDS Prothromb Time International Ratio 1.1 Activated Partial Thromboplast Time 34.5 SECONDS Partial Thromboplastin Ratio 1.3 Urine Color ORANGE Urine Appearance CLEAR Urine pH 6.5 Urine Specific [place] 1.021 Urine Protein 1+ Urine Glucose (UA) NEG Urine Ketones 1+ Urine Occult Blood 3+ Urine Nitrite NEG Urine Bilirubin NEG Urine Urobilinogen POS Urine Leukocyte Esterase SMALL Urine WBC (Auto) 10-30 /hpf Urine RBC (Auto) >30 /hpf Urine Hyaline Casts (Auto) 1-5 /lpf Urine Epithelial Cells (Auto) 20-30 /lpf Urine Bacteria (Auto) NEG Bedside Glucose 94 mg/dl 99 mg/dl Test 08/28/16 01:44 08/28/16 06:24 Vancomycin Level Trough 14.7 mcg/ml White Blood Count 8.21 K/uL Red Blood Count 3.48 M/uL Hemoglobin 9.8 g/dL Hematocrit 29.4 % Mean Corpuscular Volume 84.5 fL Mean Corpuscular Hemoglobin 28.2 pg Mean Corpuscular Hemoglobin Concent 33.3 g/dl Platelet Count 150 K/uL Mean Platelet Volume 10.9 fL Neutrophils (%) (Auto) 63.9 % Lymphocytes (%) (Auto) 23.8 % Monocytes (%) (Auto) 10.5 % Eosinophils (%) (Auto) 1.0 % Basophils (%) (Auto) 0.2 % Neutrophils # (Auto) 5.25 K/uL Lymphocytes # (Auto) 1.95 K/uL Monocytes # (Auto) 0.86 K/uL Eosinophils # (Auto) 0.08 K/uL Basophils # (Auto) 0.02 K/uL RDW Standard Deviation 42.0 fL RDW Coefficient of Variation 13.6 % Immature Granulocyte % (Auto) 0.6 % Immature Granulocyte # (Auto) 0.05 K/uL Sodium Level 145 mmol/L Potassium Level 3.4 mmol/L Chloride Level 111 mmol/L Carbon Dioxide Level 24 mmol/L Anion Gap 10.0 mmol/L Blood Urea Nitrogen 18 mg/dl Creatinine 1.40 mg/dl Est Creatinine Clear Calc Drug Dose 89.6 ml/min Estimated GFR () 79.2 Estimated GFR (Non- 68.4 BUN/Creatinine Ratio 12.9 Random Glucose 98 mg/dl Calcium Level 8.3 mg/dl Phosphorus Level 2.5 mg/dl Magnesium Level 2.3 mg/dl Procalcitonin 0.50 ng/ml Assessment and Plan 26 yo male who unfortunately suffered a cardiac arrest while on the treadmill at shelter, likely ventricular arrhythmia, 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 after admission - s/p cardiac arrest, likely ventricular arrhythmia in setting of HCOM completed cooling process, now for Tylenol for any hyperthermia as well as cooling blankets no further arrhythmias since admission tachycardia - resolved this AM, HR in the 70's, sinus BP stable - Acute hypoxic respiratory failure continue ventilator, breathing comfortably today, calm, alert continues to require FiO2 of 60%, due to pneumonia, aspiration continue vent management per ICU team, much appreciated tentative plan for tracheostomy, defer to ICU - Anoxic brain injury, cord injury much improved today, awake, alert, following commands, tracking left and right Keppra started for anoxic myoclonic jerks, no jerks reported per RN MRI with possible occipital (bilateral) and right parietal ischemia but no other findings neurology following still with poor prognosis for motor recovery described as "man in barrel" weakness to suggest motor cortex affected in watershed areas the worst continue to monitor for signs of improvement, certainly seems better today - Pneumonia, likely aspiration: continue Vancomycin and Zosyn bronchoscopy on 08/24 continues to spike fevers, Tylenol and cooling blanket applied, less febrile in past 24 hours infiltrates seen on CT chest, multilobar most pronounced in lower lobes - Elevated LFT: due to cardiac arrest, trending down appropriately - WILLARD: Cr peaked at 1.7, 1.4 today, responded well to Lasix 08/26 with 3.3 liters diuresis diurese as needed - Right hydronephrosis: replace stent today since he still has hydronephrosis r/o as cause of fevers - Ileus: seen on CT scan and also hypoactive BS on exam, TFs on hold, OG for suction will get PEG if tracheostomy done - DVT prophylaxis: heparin discussed case with global commodity manager and reviewed note from Neurology management per ICU, continue to follow for continuity of care if he is able to leave ICU
[2016-08-28] MEDS ORDERED: CONRAY 30% 150ML BOTTLE ONE (09:58)
[2016-08-28] MEDS: DexMEDEtomidine HCL INJ 400 MCG in SODIUM CHLORIDE 0.9% 100ML 96 ML IV PRN ×3 (10:00→22:41)
[2016-08-28] MEDS: LEVETIRACETAM IV 500 MG in DEXTROSE 5% 100ML 100 ML IV SCH ×2 (10:02→21:39)
--- NOTE | 2016-08-28 10:05 | Progress Note ---
Progress Note Date of Service August 28, 2016. Progress Note S: pt appears to be progressing - responding to verbal cues - moving all 4 extremities - following commands - nodding that he understands our discussion - fevers overnight O: 08/28/16 06:24 Red Blood Count 3.48, Mean Corpuscular Volume 84.5, Mean Corpuscular Hemoglobin 28.2, Mean Corpuscular Hemoglobin Concent 33.3, Mean Platelet Volume 10.9, Neutrophils (%) (Auto) 63.9, Lymphocytes (%) (Auto) 23.8, Monocytes (%) (Auto) 10.5, Eosinophils (%) (Auto) 1.0, Basophils (%) (Auto) 0.2, Neutrophils # (Auto ) 5.25, Lymphocytes # (Auto) 1.95, Monocytes # (Auto) 0.86, Eosinophils # (Auto ) 0.08, Basophils # (Auto) 0.02 08/28/16 06:24 Test 08/27/16 10:03 08/27/16 11:30 08/28/16 00:01 08/28/16 01:44 Prothrombin Time 11.4 SECONDS (9.0-12.0) Prothromb Time International Ratio 1.1 (0.9-1.1) Activated Partial Thromboplast Time 34.5 SECONDS (21.0-31.0) Partial Thromboplastin Ratio 1.3 Urine Color ORANGE Urine Appearance CLEAR (CLEAR) Urine pH 6.5 (4.5-7.5) Urine Specific [place] 1.021 (1.000-1.030) Urine Protein 1+ (NEG) Urine Glucose (UA) NEG (NEG) Urine Ketones 1+ (NEG) Urine Occult Blood 3+ (NEG) Urine Nitrite NEG (NEG) Urine Bilirubin NEG (NEG) Urine Urobilinogen POS (NEG) Urine Leukocyte Esterase SMALL (NEG) Urine WBC (Auto) 10-30 /hpf (0-5) Urine RBC (Auto) >30 /hpf (0-4) Urine Hyaline Casts (Auto) 1-5 /lpf (0-5) Urine Epithelial Cells (Auto) 20-30 /lpf (0-5) Urine Bacteria (Auto) NEG (NEG) Bedside Glucose 99 mg/dl (70-99) Vancomycin Level Trough 14.7 mcg/ml (SEE COMMENT) Test 08/28/16 06:24 White Blood Count 8.21 K/uL (4.8-10.8) Red Blood Count 3.48 M/uL (4.7-6.1) Hemoglobin 9.8 g/dL (14.0-18.0) Hematocrit 29.4 % (42-52) Mean Corpuscular Volume 84.5 fL (80-100) Mean Corpuscular Hemoglobin 28.2 pg (25-34) Mean Corpuscular Hemoglobin Concent 33.3 g/dl (32-36) Platelet Count 150 K/uL (130-400) Mean Platelet Volume 10.9 fL (7.4-10.4) Neutrophils (%) (Auto) 63.9 % Lymphocytes (%) (Auto) 23.8 % Monocytes (%) (Auto) 10.5 % Eosinophils (%) (Auto) 1.0 % Basophils (%) (Auto) 0.2 % Neutrophils # (Auto) 5.25 K/uL (1.4-6.5) Lymphocytes # (Auto) 1.95 K/uL (1.2-3.4) Monocytes # (Auto) 0.86 K/uL (0.11-0.59) Eosinophils # (Auto) 0.08 K/uL (0-0.5) Basophils # (Auto) 0.02 K/uL (0-0.2) RDW Standard Deviation 42.0 fL (36.4-46.3) RDW Coefficient of Variation 13.6 % (11.5-14.5) Immature Granulocyte % (Auto) 0.6 % Immature Granulocyte # (Auto) 0.05 K/uL (0.00-0.02) Anion Gap 10.0 mmol/L (3-11) Est Creatinine Clear Calc Drug Dose 89.6 ml/min Estimated GFR () 79.2 Estimated GFR (Non- 68.4 BUN/Creatinine Ratio 12.9 (10-20) Calcium Level 8.3 mg/dl (8.5-10.1) Phosphorus Level 2.5 mg/dl (2.5-4.9) Magnesium Level 2.3 mg/dl (1.8-2.4) Procalcitonin 0.50 ng/ml (0-0.5) Vital Signs Past 12 Hours Date Time Temp Pulse Resp B/P Pulse Ox O2 Delivery O2 Flow Rate FiO2 08/28/16 07:00 50 08/28/16 06:14 50 08/28/16 06:01 71 24 142/88 95 08/28/16 05:01 68 24 142/68 98 08/28/16 04:01 37.2 69 24 149/71 99 08/28/16 04:00 50 08/28/16 04:00 Mechanical Ventilator 50 08/28/16 03:01 69 24 146/69 99 08/28/16 02:41 37.5 08/28/16 02:15 50 08/28/16 02:01 71 24 131/65 99 08/28/16 00:01 38.1 75 24 162/79 100 08/28/16 00:00 72 99 08/27/16 23:59 Mechanical Ventilator 50 08/27/16 23:59 50 08/27/16 23:37 50 08/27/16 23:30 78 99 08/27/16 23:01 91 129/67 98 08/27/16 23:01 91 24 129/67 98 Mechanical Ventilator 50 08/27/16 23:00 90 98 08/27/16 22:01 38.6 82 24 150/72 99 Mechanical Ventilator 50 Intubated responding to commands, opening eyes and following - nodding appropriately - moving all 4 extremities - abd soft - no responses to imply pain in his abdomen - some edema of lower extremities A/P: s/p cardiac arrest; fevers - aspiration pneumonia; hydronephrosis - s/p stent over the weekend - anatomically, I suspect this is a chronic condition (UPJ obstruction) rather than an acute contributor to his condition - stent appears to be around the UPJ - with some persistent hydronephrosis - no significant stranding or visible debris in the kidney - ICU team has requested stent replacement to confirm that these findings are not contributing negatively to his overall status - plan for cystoscopy and stent replacement/repositioning now
--- NOTE | 2016-08-28 11:06 | Pharmacy Progress Note ---
Pharmacy Abx Dose Short Note Date of Service August 28, 2016. Assessment & Plan Assessment: * 26 year old male receiving Vancomycin/Zosyn IV for treatment of pneumonia * Day # 5 of antimicrobial therapy. * Blood and urine cultures have been negative thus far. Bronch washings positive for MSSA (Vanc MELANIE=1). MRSA nasal swab negative x2. Plan: Vancomycin * Trough level of 14.7 mcg/mL is ~ therapeutic * Continue dose of 1600 mg IV every 12 hours * Goal trough level for pneumonia: 15 to 20 mcg/mL * No further levels have been ordered at this time. If patient continues on vanc, will re-consider additional monitoring in a few days. * Consider de-escalating antibiotics for MSSA infection. Sputum cx pending. Zosyn * 4.5gm IV x1 dose over 30 min, then * 4.5gm IV q8h, extended 4-hr infusion Pharmacy will continue to follow and will adjust dose/frequency as necessary. Thank you.
--- NOTE | 2016-08-28 11:07 | [facility] Post Operative Brief Note ---
Immediate Operative Summary Operative Date August 28, 2016. Pre-Operative Diagnosis Hydronephrosis; Stent misplaced Post-Operative Diagnosis Same as preop Procedure(s) Performed Cystoscopy, Right Stent Exchange ([id number]) Surgeon Dr. Farah Ripper Operator Surgeon(s) none Estimated Blood Loss 0 ml Findings Previous stent appeared to be pulled down slightly. tip was likely reaching the renal pelvis, but the curl was somewhat unraveled and may have been in the proximal ureter. On retrograde, he appears to have a high ureteral insertion with UPJ type conformation. New stent placed with a curl seen in the renal pelvis as well as the bladder. He is very tall and required nearly the full length of a [id number] stent. Specimens None per Surgeon Drains [id number] stent; ruffin Anesthesia sedation (already intubated) Complication(s) None Disposition Surgical ICU (stable)
--- NOTE | 2016-08-28 11:12 | Critical Care Progress Note ---
Critical Care Progress Note Date of Service August 28, 2016. Attending Dr. Shaggy Navarro 26-year-old male currently incarcerated presented to the ER after he had collapsed while on a treadmill, received 1 shock with ROSC. status post hypothermic protocol Echo findings confirmation of hypertrophic obstructive cardiomyopathy. Continues to be intubated . responds to voice and follows commands. denies any pain . Objective General Appearance: other (intubated) Head: normocephalic, other (abrasion 1 cm x 2 cm over left zygomatic arch) ENT: other (intubated with 7.5 Hi-Lo tube) Neck: trachea midline, no thyromegaly Respiratory: breath sounds normal Cardiovasular: regular rhythm, normal S1S2, no gallop, no rub, no JVD Abdomen: normal bowel sounds, no rebound, no masses, no guarding Genitourinary - Male: external genitalia normal, other (Avelar present) Upper Extremities: no edema, other (approximately 2 cm x 2 cm abrasion on the right wrist) Lower Extremities: no edema, normal ROM, other (3 cm x 3 cm abrasion to the right hip) Pulses: carotid (R) (2+), carotid (L) (2+), radial (R) (2+), radial (L) (2+), dorsalis pedis (R) (2+), dorsalis pedis (L) (2+) Neuro: responds to voice and follows commands with occasional myoclonic jerks Psychiatric: other (unable to evaluate) Current SOFA Score SOFA Score Response (Comments) Value PaO2/FiO2 (mmHg) < 300 2 Platelets (x10) < 150 1 Bilirubin (mg/dL) 2.0 - 5.9 2 Dinorah Coma Score 6 - 9 3 Level of Hypotension No Hypotension 0 Creatinine (mg/dL) 1.2 - 1.9 1 Total 9 Previous SOFA Scores 5 on 08/23/2016 Assessment & Plan 26-year-old male currently incarcerated presented to the ER after he had collapsed while on a treadmill, received 1 shock with ROSC. status post hypothermic protocol Echo findings confirmatory of hypertrophic obstructive cardiomyopathy. Neuro: Acute hypoxic encephalopathy - Status post therapeutic hypothermia protocol - Hyperthermia: IV Tylenol as needed every 8 hours and ice packs - EEG: this study shows evidence for a moderate encephalopathy, without focal problems or potentially epileptogenic discharges - MRI brain:faint restricted diffusion within the medial aspect of the bilateral occipital lobes and right posterior parietal lobe. could represent a small amount increased T2 signal within the cortex suggested on the FLAIR sequences. This is nonspecific but could related to mild ischemic change/infarct. This could also be seen in the setting of posterior reversible encephalopathy syndrome. - MRI C-spine: Tiny disc bulge at C3-C4. No significant central canal or neural foraminal narrowing. Otherwise, normal cervical spine MRI. Neurology consult- appreciate recommendations. - Keppra 1g loading dose with 500 mg BID for myoclonic jerks - Plan to decrease sedation Resp :currently intubated, mechanically ventilated AC, RR 24, TV 600, PEEP of 5 , FiO2 50 Status post bronchoscopy- MSSA,Gram negative bacilli and Gram positive bacilli on gram stain ETT repositioned Chest CT:Multilobar airspace opacities, most pronounced within both lower lobes dependently with air bronchograms. This likely represents a pneumonia. CXR 08/28: 1. Bilateral lower lobe pulmonary consolidation with air bronchograms 2. The right internal jugular central venous catheter has been pulled back and now is positioned with its tip at the T2 level. - Continue vancomycin and Zosyn - ENT consult for possible trach - Sputum culture - Pulmozyme with chest percussion -Weaning trial today CVS: Tachycardia - metoprolol tartrate 12.5 mg BID - Lopressor IV as needed Hypertrophic obstructive cardiomyopathy: Confirmed on echocardiogram - Genetic testing advised to family Renal: WILLARD: - renal US: 1. Severe right hydronephrosis of uncertain etiology. Echogenic right kidney. 2. Partially obscured left kidney but no left hydronephrosis. - Abdominal CT:. Severe right hydronephrosis to the level of the ureteropelvic junction. There is no obstructing stones identified. This could be congenital or less likely a nonvisualized obstructing lesion given the patient's age. - Urology consult- plan for revision of Stent/advancement today - Creatinine today at 1.4 from 1.6 yesterday - UA/UC Electrolytes: Phosphorus at 2.5 Magnesium at 2.2 K at 3.4- replaced ID: Pneumonia: - CT chest : suggestive of pneumonia - Status post bronchoscopy,MSSA - Continue Zosyn GI FEN: - Abd pelvis CT: 1. Severe right hydronephrosis, unchanged. The proximal right ureteral stent is located at the expected UPJ obstruction. This does not extend into the right renal pelvis which may account for the persistent right-sided hydronephrosis. 2. Interval development of a small hypodense areas within the bilateral psoas muscles measure up to 3 cm. These likely represents intramuscular hematomas. 3. Multiple mildly dilated gas and fluid-filled loops of large and small bowel seen throughout the abdomen. This favors an ileus. - GI prophylaxis with Protonix - Transaminitis: improving - Likely secondary to hypoperfusion - Hep B and Hep C negative Constipation: resolved PT/OT Heme: DVT prophylaxis: Heparin subcutaneous - held for stent reversal /advancement Lines: Right internal jugular triple-lumen central venous catheter placed 08/21 Full code Dispo: Monitor in ICU Resident Physician Supervision Note/Butter Maker Attending I interviewed and examined the patient. Discussed with Dr. Storm and agree with findings and plan as documented in the note. Any exceptions or clarifications are listed here: I have reviewed the Vs, I/O, notes, labs, micro, imaging and other reports. His care was discussed in detail on multidisciplinary rounds. He had his R ureteral stent replaced today and his temperature seems to be less labile in the past 24 hours. He is more awake and has enough strength to require restraints for the upper extremities. He still has myoclonus. Secretions are better and he will have a SBT today. He did remarkably well yesterday but became agitated, hypertensive and tachycardic. PICC line consent has been obtained. D/C TLC after it is placed and culture the tip. He has had a BM and denies nausea - continue NPO except meds for ileus. Continuing abx for PNA - 5 days of Zithromax and 7 of Unasyn. Sedation vacation today. Overall he continues to improve. Critical care time 40 min. Documented By: Mirna Coon Consults & Procedures Consultants: Neurology Cardiology. Urology Procedures: Right internal jugular vein CVL, 08/21/2016 Right radial arterial line 08/21/2016 Bronchoscopy secondary to new infiltrate 08/24/2016 Data Medications: Current Inpatient Medications Medications (Trade) Dose Ordered Sig/Shireen Route Start Time Stop Time Status Last Admin Dose Admin Pantoprazole Sodium 40 mg/ Syringe 10 ml @ 5 mls/min DAILY@1100 IV 08/22/16 11:00 09/21/16 10:59 08/28/16 07:38 5 MLS/MIN Fentanyl Citrate (Fentanyl Drip 1250MCG/250 Nss) 250 ml @ 0 mls/hr Q0M PRN IV 08/21/16 17:15 09/04/16 17:14 08/27/16 08:54 10 MLS/HR Artificial Tears (Lacri-Lube Oph Oint) 1 appln Q2H PRN OPB 08/21/16 17:15 09/20/16 17:14 08/22/16 00:28 1 APPLN Heparin Sodium (Porcine) (Heparin Sq 5000 Unit/0.5ml) 5,000 unit Q8H SQ 08/21/16 22:00 09/20/16 21:59 Future Hold 08/27/16 13:44 5,000 UNIT Albuterol (Ventolin Hfa Inhaler) 4 puffs QIDR INH 08/21/16 20:20 09/20/16 20:19 08/28/16 07:38 4 PUFFS Glucose (Glucose 40% Gel) UD PRN PO 08/23/16 10:30 09/22/16 10:29 Glucose (Glucose Chew Tab) 1 tabs UD PRN PO 08/23/16 10:30 09/22/16 10:29 Dextrose (Dextrose 50% 50ML Syringe) 50 ml UD PRN IV 08/23/16 10:30 09/22/16 10:29 08/23/16 12:13 50 ML Glucagon (Glucagon Inj) 1 mg UD PRN SQ 08/23/16 10:30 09/22/16 10:29 Enteral Nutritional Formula (Peptamen Intense VHP) 1,000 ml UD OG 08/23/16 11:45 09/22/16 11:44 08/26/16 18:23 1,000 ML Bacitracin (Bacitracin Oint) 1 appln BID EXT 08/23/16 21:00 09/22/16 20:59 08/28/16 07:40 1 APPLN Bacitracin (Bacitracin Oint) 1 appln QS PRN EXT 08/23/16 19:00 09/22/16 18:59 Piperacillin Sod/ Tazobactam Sod (Consult) 1 ea UD PRN N/A 08/24/16 00:30 09/23/16 00:29 Vancomycin HCl 1 ea 1 ea UD PRN N/A 08/24/16 00:30 09/23/16 00:29 Acetaminophen/ Empty Bag (Ofirmev Iv/ Empty Iv Bag 100ml) 100 ml @ 400 mls/hr Q8H IV 08/24/16 16:00 09/23/16 15:59 08/28/16 07:37 400 MLS/HR Metoprolol Tartrate 5 mg 5 mg Q6 PRN IV 08/24/16 12:00 09/23/16 11:59 08/26/16 22:00 5 MG Piperacillin Sod/ Tazobactam Sod/ Dextrose (Zosyn Iv/D5 100ml) 120 ml @ 30 mls/hr Q8H IV 08/24/16 14:00 08/31/16 13:59 08/28/16 05:32 30 MLS/HR Gadobutrol (Gadavist) 10 mmol UD PRN IV 08/24/16 15:15 08/28/16 15:14 Lorazepam 2 mg 2 mg Q4H PRN IV 08/25/16 00:30 09/24/16 00:29 08/27/16 21:12 2 MG Dexmedetomidine HCl/Sodium Chloride (PreCEDEX INJ/ Nss 100ml) 100 ml @ 0 mls/hr Q0M PRN IV 08/25/16 00:45 08/29/16 00:44 08/28/16 10:00 23.8 MLS/HR Chlorhexidine Gluconate (Peridex Oral Soln 15ML Udp) 15 ml BID PO 08/25/16 09:00 09/24/16 08:59 08/28/16 07:39 15 ML Polyethylene (Miralax Powder Packet) 17 gm DAILY PO 08/25/16 09:00 09/24/16 08:59 08/26/16 08:44 17 GM Docusate Sodium (coLACE SYRUP) 100 mg BID PO 08/26/16 21:00 09/25/16 20:59 08/27/16 21:14 100 MG Fentanyl Citrate 50 mcg 50 mcg Q2H PRN IV 08/26/16 11:00 09/09/16 10:59 08/26/16 21:39 50 MCG Levetiracetam 500 mg/Dextrose 105 ml @ 420 mls/hr Q12H IV 08/26/16 22:00 09/25/16 21:59 08/28/16 10:02 420 MLS/HR Vancomycin HCl/ Sodium Chloride (Vancomycin Inj/ Nss 500ml) 532 ml @ 200 mls/hr Q12H IV 08/26/16 14:00 09/02/16 13:59 08/28/16 02:25 200 MLS/HR Ondansetron HCl (Zofran Inj) 4 mg Q6H PRN IV 08/26/16 13:15 09/25/16 13:14 08/27/16 08:54 4 MG Enteral Nutritional Formula (Peptamen Intense VHP) 1,000 ml UD PRN NG 08/26/16 16:30 09/25/16 16:29 Dornase Luis Felipe (Pulmozyme Inhalation Soln 2.5ml Amp) 2.5 ml BID INH 08/27/16 21:00 09/26/16 20:59 Heparin Sodium (Porcine) (Heparin 10 Unit/ ml 5 ml Flush) 5 ml PRN PRN FLUSH 08/28/16 02:00 09/27/16 01:59 Metoprolol Tartrate 12.5 mg 12.5 mg BID PO 08/28/16 09:00 09/27/16 08:59 Potassium Chloride/Prmx (Kcl 10 Meq / Wtr/Premixed Water) 100 ml @ 100 mls/hr Q1H IV 08/28/16 10:30 08/28/16 12:29 I & O: 24-Hour Column 08/28/16 07:59 Intake Total 3095 ml Output Total 2260 ml Balance 835 ml Vital Signs: Date Time Temp Pulse Resp B/P Pulse Ox O2 Delivery O2 Flow Rate FiO2 08/28/16 10:15 69 100 08/28/16 10:01 71 131/68 99 08/28/16 10:00 37.4 67 99 08/28/16 09:45 70 99 08/28/16 09:30 37.6 72 98 08/28/16 09:15 74 100 08/28/16 09:01 75 26 121/57 99 08/28/16 09:00 37.7 69 24 98 08/28/16 08:45 76 24 99 08/28/16 08:30 75 24 98 08/28/16 08:15 84 24 96 08/28/16 08:01 95 145/76 95 08/28/16 08:00 Mechanical Ventilator 50 08/28/16 08:00 94 94 5/18/17 07:45 84 99 08/28/16 07:30 37.4 77 100 08/28/16 07:15 72 24 100 08/28/16 07:01 77 0 135/63 100 08/28/16 07:00 76 100 08/28/16 07:00 50 08/28/16 06:14 50 08/28/16 06:01 71 24 142/88 95 08/28/16 05:01 68 24 142/68 98 08/28/16 04:01 37.2 69 24 149/71 99 08/28/16 04:00 50 08/28/16 04:00 Mechanical Ventilator 50 08/28/16 03:01 69 24 146/69 99 08/28/16 02:41 37.5 08/28/16 02:15 50 08/28/16 02:01 71 24 131/65 99 08/28/16 00:01 38.1 75 24 162/79 100 08/28/16 00:00 72 99 08/27/16 23:59 Mechanical Ventilator 50 08/27/16 23:59 50 08/27/16 23:37 50 08/27/16 23:30 78 99 08/27/16 23:01 91 129/67 98 08/27/16 23:01 91 24 129/67 98 Mechanical Ventilator 50 08/27/16 23:00 90 98 08/27/16 22:01 38.6 82 24 150/72 99 Mechanical Ventilator 50 08/27/16 21:40 50 08/27/16 21:01 101 24 148/75 93 Mechanical Ventilator 50 08/27/16 20:01 38.5 91 23 122/65 99 08/27/16 20:00 Mechanical Ventilator 08/27/16 20:00 50 08/27/16 19:15 37.8 08/27/16 19:01 77 24 127/67 100 08/27/16 19:00 80 24 100 08/27/16 18:00 78 24 132/65 98 08/27/16 17:58 50 08/27/16 17:09 97 27 112/67 91 08/27/16 17:01 38.9 100 33 112/67 88 08/27/16 17:00 38.9 98 32 88 08/27/16 16:01 39.0 100 34 109/57 93 08/27/16 16:00 39.0 103 29 92 08/27/16 16:00 95 Mechanical Ventilator 50 08/27/16 15:01 38.5 95 11 103/68 100 08/27/16 15:00 38.5 93 5 100 08/27/16 15:00 60 08/27/16 14:01 38.1 91 28 111/66 100 08/27/16 14:00 38.1 88 25 100 08/27/16 13:00 37.9 79 119/57 100 08/27/16 12:54 37.9 81 119/59 100 08/27/16 11:49 60 Laboratory Results: Last 24 Hours Test 08/27/16 11:30 08/27/16 17:50 08/28/16 00:01 08/28/16 01:44 Urine Color ORANGE Urine Appearance CLEAR Urine pH 6.5 Urine Specific [place] 1.021 Urine Protein 1+ Urine Glucose (UA) NEG Urine Ketones 1+ Urine Occult Blood 3+ Urine Nitrite NEG Urine Bilirubin NEG Urine Urobilinogen POS Urine Leukocyte Esterase SMALL Urine WBC (Auto) 10-30 /hpf Urine RBC (Auto) >30 /hpf Urine Hyaline Casts (Auto) 1-5 /lpf Urine Epithelial Cells (Auto) 20-30 /lpf Urine Bacteria (Auto) NEG Bedside Glucose 94 mg/dl 99 mg/dl Vancomycin Level Trough 14.7 mcg/ml Test 08/28/16 06:24 White Blood Count 8.21 K/uL Red Blood Count 3.48 M/uL Hemoglobin 9.8 g/dL Hematocrit 29.4 % Mean Corpuscular Volume 84.5 fL Mean Corpuscular Hemoglobin 28.2 pg Mean Corpuscular Hemoglobin Concent 33.3 g/dl Platelet Count 150 K/uL Mean Platelet Volume 10.9 fL Neutrophils (%) (Auto) 63.9 % Lymphocytes (%) (Auto) 23.8 % Monocytes (%) (Auto) 10.5 % Eosinophils (%) (Auto) 1.0 % Basophils (%) (Auto) 0.2 % Neutrophils # (Auto) 5.25 K/uL Lymphocytes # (Auto) 1.95 K/uL Monocytes # (Auto) 0.86 K/uL Eosinophils # (Auto) 0.08 K/uL Basophils # (Auto) 0.02 K/uL RDW Standard Deviation 42.0 fL RDW Coefficient of Variation 13.6 % Immature Granulocyte % (Auto) 0.6 % Immature Granulocyte # (Auto) 0.05 K/uL Sodium Level 145 mmol/L Potassium Level 3.4 mmol/L Chloride Level 111 mmol/L Carbon Dioxide Level 24 mmol/L Anion Gap 10.0 mmol/L Blood Urea Nitrogen 18 mg/dl Creatinine 1.40 mg/dl Est Creatinine Clear Calc Drug Dose 89.6 ml/min Estimated GFR () 79.2 Estimated GFR (Non- 68.4 BUN/Creatinine Ratio 12.9 Random Glucose 98 mg/dl Calcium Level 8.3 mg/dl Phosphorus Level 2.5 mg/dl Magnesium Level 2.3 mg/dl Procalcitonin 0.50 ng/ml Resident Tracking Resident Involvement: Resident Care Provided Care Provided: Adult Hospital Medicine
[2016-08-28] MEDS ORDERED: ATROPINE SULFATE 0.1 MG/ML 5ML SYR IV PRN (11:15)
[2016-08-28] MEDS ORDERED: EpHEDrine SULFATE INJ 50 MG/ML AMP IV PRN (11:15)
--- NOTE | 2016-08-28 11:15 | DIAGNOSTIC IMAGING REPORT ---
RETROGRADE INCLUDES KUB HISTORY: STENT EXCHANGE FLUOROSCOPY TIME: 33 seconds. FINDINGS: A single fluoroscopic spot image was submitted for review. Overlying artifact partially obscures the single image. There appears to be a proximal ureteral stent within the dilated right renal pelvis. This is likely in good position. IMPRESSION: Fluoroscopy provided for right ureteral stent exchange. Electronically signed by: Darrell Hough M.D. 08/28/2016 11:14 AM Dictated Date/Time: 08/28/2016 11:13 AM
[2016-08-28] MEDS: POTASSIUM CHLR 10 MEQ / WTR 10 MEQ in PREMIXED WATER 100 ML IV SCH ×2 (11:23→12:06)
[2016-08-28] MEDS ORDERED: FENTANYL CITRATE INJ 50 MCG/1 ML 2 ML VIAL ONE (11:26)
[2016-08-28] MEDS ORDERED: MIDAZOLAM HCL 1 MG/ML 2ML VIAL ONE (11:26)
[2016-08-28] MEDS: METOPROLOL TARTRATE 25 MG TAB PO SCH ×2 (11:26→20:58)
[2016-08-28] MEDS ORDERED: KETAMINE HCL INJ 50 MG/ML 10 ML VIAL ONE (11:26)
--- NOTE | 2016-08-28 11:39 | OPERATIVE REPORT ---
DATE OF OPERATION: 08/28/2016 PREOPERATIVE DIAGNOSIS: Right hydronephrosis. POSTOPERATIVE DIAGNOSES: Right hydronephrosis, suspected chronic ureteropelvic junction obstruction. PROCEDURE PERFORMED: Cystoscopy, right retrograde pyelogram, right ureteral stent exchange, 6 Cuban x 22-32 cm. ANESTHESIA: Sedation. PROCEDURE: The patient was noted to be intubated upon arrival in the ER. DESCRIPTION OF THE PROCEDURE: Mi Spear was identified in his ICU bed. Appropriate informed consents were reviewed and completed with the help of the patient's mother, performing a phone consent. Of note, the patient is status post recent cardiac arrest and continues to be intubated. He had his initial right ureteral stent placed over the weekend; however, on repeat imaging recently, he was noted to have persistent hydronephrosis and there was some question of whether the stent had been moved antegrade down the ureter and was now in a somewhat proximal ureteral location rather than in the renal pelvis as desired. We are taking him to the operating room to reposition the stent to rule this out as any contributing factor to his current condition. To begin the procedure, I passed a 22-Cuban cystoscope with 30-degree lens. Inspection of the urethra revealed no gross abnormalities. He has an appropriately small prostate for his age. Inspection of the bladder revealed stent easily seen protruding from the right orifice. There was a fair amount of stent visible within the bladder itself. The curl actually extended over into the left half of the bladder and the distal aspect of this was grasped, and under fluoroscopy, I then withdrew the stent to the meatus. I was able to intubate the stent with a sensor wire and advanced the wire to the kidney. Of note, looking on fluoroscopy where the curl was previously seen in the proximal ureter, it seems that the true UPJ may be just above this, although the tip of this previously placed stent may have been extending into the renal pelvis with the curl crossing the UPJ. I was able to manipulate a wire up into what I felt to be the renal pelvis. Then, I subsequently placed a 6-Cuban open-ended catheter up to the proximal ureter and performed a retrograde pyelogram. This revealed what appears to be a very high insertion with a dilated renal pelvis consistent with the standard UPJ obstruction of a chronic nature. I then re-placed the wire with significant amount up in the renal pelvis and I placed a 6-Cuban 22-32 cm double-J ureteral stent. This after deployment revealed a good curl in the renal pelvis above the UPJ as well as a single curl within the bladder. Of note, the patient is extremely tall and he required the full length of this multilength stent which may have contributed previously to any proximal migration. To conclude the case, I did re-place 16-Cuban Avelar catheter. He was left intubated and taken to the ICU in stable condition. I attest to the content of the Intraoperative Record and any orders documented therein. Any exceptio ns are noted below.
--- NOTE | 2016-08-28 11:39 | Anesthesiology Progress Note ---
Anesthesia Post Op Note Date & Time August 28, 2016 at 11:38 Vital Signs Pain Intensity: 0.0 Vital Signs Past 12 Hours Date Time Temp Pulse Resp B/P Pulse Ox O2 Delivery O2 Flow Rate FiO2 08/28/16 11:18 50 08/28/16 10:15 69 100 08/28/16 10:01 71 131/68 99 08/28/16 10:00 37.4 67 99 08/28/16 09:45 70 99 08/28/16 09:30 37.6 72 98 08/28/16 09:15 74 100 08/28/16 09:01 75 26 121/57 99 08/28/16 09:00 37.7 69 24 98 08/28/16 08:45 76 24 99 08/28/16 08:30 75 24 98 08/28/16 08:15 84 24 96 08/28/16 08:01 95 145/76 95 08/28/16 08:00 Mechanical Ventilator 50 08/28/16 08:00 94 94 08/28/16 07:45 84 99 08/28/16 07:30 37.4 77 100 08/28/16 07:15 72 24 100 08/28/16 07:01 77 0 135/63 100 08/28/16 07:00 76 100 08/28/16 07:00 50 08/28/16 06:14 50 08/28/16 06:01 71 24 142/88 95 08/28/16 05:01 68 24 142/68 98 08/28/16 04:01 37.2 69 24 149/71 99 08/28/16 04:00 50 08/28/16 04:00 Mechanical Ventilator 50 08/28/16 03:01 69 24 146/69 99 08/28/16 02:41 37.5 08/28/16 02:15 50 08/28/16 02:01 71 24 131/65 99 08/28/16 00:01 38.1 75 24 162/79 100 08/28/16 00:00 72 99 08/27/16 23:59 Mechanical Ventilator 50 08/27/16 23:59 50 Notes Mental Status: see Notes Pt Amnestic to Procedure: Yes Nausea / Vomiting: adequately controlled Pain: adequately controlled Airway Patency, RR, SpO2: stable & adequate BP & HR: stable & adequate Hydration State: stable & adequate Anesthetic Complications: no major complications apparent pt returned to ICU and placed on ventilator still anesthetized
--- NOTE | 2016-08-28 11:47 | Neurology Progress Notes ---
Neurology Progress Note Date of Service August 28, 2016. Subjective No significant neurological changes. No episodes concerning for seizures. Patient denies an bothered by myoclonic jerks. Patient is still intubated. Objective Date Time Temp Pulse Resp B/P Pulse Ox O2 Delivery O2 Flow Rate FiO2 08/28/16 11:18 50 08/28/16 10:15 69 100 08/28/16 10:01 71 131/68 99 08/28/16 10:00 37.4 67 99 08/28/16 09:45 70 99 08/28/16 09:30 37.6 72 98 08/28/16 09:15 74 100 08/28/16 09:01 75 26 121/57 99 08/28/16 09:00 37.7 69 24 98 08/28/16 08:45 76 24 99 08/28/16 08:30 75 24 98 08/28/16 08:15 84 24 96 08/28/16 08:01 95 145/76 95 08/28/16 08:00 Mechanical Ventilator 50 08/28/16 08:00 94 94 08/28/16 07:45 84 99 08/28/16 07:30 37.4 77 100 08/28/16 07:15 72 24 100 08/28/16 07:01 77 0 135/63 100 08/28/16 07:00 76 100 08/28/16 07:00 50 08/28/16 06:14 50 08/28/16 06:01 71 24 142/88 95 08/28/16 05:01 68 24 142/68 98 08/28/16 04:01 37.2 69 24 149/71 99 08/28/16 04:00 50 08/28/16 04:00 Mechanical Ventilator 50 08/28/16 03:01 69 24 146/69 99 08/28/16 02:41 37.5 08/28/16 02:15 50 08/28/16 02:01 71 24 131/65 99 08/28/16 00:01 38.1 75 24 162/79 100 08/28/16 00:00 72 99 08/27/16 23:59 Mechanical Ventilator 50 08/27/16 23:59 50 08/27/16 23:37 50 08/27/16 23:30 78 99 08/27/16 23:01 91 129/67 98 08/27/16 23:01 91 24 129/67 98 Mechanical Ventilator 50 08/27/16 23:00 90 98 08/27/16 22:01 38.6 82 24 150/72 99 Mechanical Ventilator 50 08/27/16 21:40 50 08/27/16 21:01 101 24 148/75 93 Mechanical Ventilator 50 08/27/16 20:01 38.5 91 23 122/65 99 08/27/16 20:00 Mechanical Ventilator 08/27/16 20:00 50 08/27/16 19:15 37.8 08/27/16 19:01 77 24 127/67 100 08/27/16 19:00 80 24 100 08/27/16 18:00 78 24 132/65 98 08/27/16 17:58 50 08/27/16 17:09 97 27 112/67 91 08/27/16 17:01 38.9 100 33 112/67 88 08/27/16 17:00 38.9 98 32 88 08/27/16 16:01 39.0 100 34 109/57 93 08/27/16 16:00 39.0 103 29 92 08/27/16 16:00 95 Mechanical Ventilator 50 08/27/16 15:01 38.5 95 11 103/68 100 08/27/16 15:00 38.5 93 5 100 08/27/16 15:00 60 08/27/16 14:01 38.1 91 28 111/66 100 08/27/16 14:00 38.1 88 25 100 08/27/16 13:00 37.9 79 119/57 100 08/27/16 12:54 37.9 81 119/59 100 08/27/16 11:49 60 Last 24 Hours Test 08/27/16 17:50 08/28/16 00:01 08/28/16 01:44 08/28/16 06:24 Bedside Glucose 94 mg/dl 99 mg/dl Vancomycin Level Trough 14.7 mcg/ml White Blood Count 8.21 K/uL Red Blood Count 3.48 M/uL Hemoglobin 9.8 g/dL Hematocrit 29.4 % Mean Corpuscular Volume 84.5 fL Mean Corpuscular Hemoglobin 28.2 pg Mean Corpuscular Hemoglobin Concent 33.3 g/dl Platelet Count 150 K/uL Mean Platelet Volume 10.9 fL Neutrophils (%) (Auto) 63.9 % Lymphocytes (%) (Auto) 23.8 % Monocytes (%) (Auto) 10.5 % Eosinophils (%) (Auto) 1.0 % Basophils (%) (Auto) 0.2 % Neutrophils # (Auto) 5.25 K/uL Lymphocytes # (Auto) 1.95 K/uL Monocytes # (Auto) 0.86 K/uL Eosinophils # (Auto) 0.08 K/uL Basophils # (Auto) 0.02 K/uL RDW Standard Deviation 42.0 fL RDW Coefficient of Variation 13.6 % Immature Granulocyte % (Auto) 0.6 % Immature Granulocyte # (Auto) 0.05 K/uL Sodium Level 145 mmol/L Potassium Level 3.4 mmol/L Chloride Level 111 mmol/L Carbon Dioxide Level 24 mmol/L Anion Gap 10.0 mmol/L Blood Urea Nitrogen 18 mg/dl Creatinine 1.40 mg/dl Est Creatinine Clear Calc Drug Dose 89.6 ml/min Estimated GFR () 79.2 Estimated GFR (Non- 68.4 BUN/Creatinine Ratio 12.9 Random Glucose 98 mg/dl Calcium Level 8.3 mg/dl Phosphorus Level 2.5 mg/dl Magnesium Level 2.3 mg/dl Procalcitonin 0.50 ng/ml Exam: Gen.: Patient is intubated in ICU in no acute distress HEENT: Normocephalic/atraumatic no scleral icterus Neurological examination: Mental status: Patient is alert and appears to be oriented. Follows simple commands correctly. Appears to be moving all extremities equally. Sensation grossly intact. Patient does have some mild intermittent nonrhythmic myoclonic jerks. Current Inpatient Medications Medications (Trade) Dose Ordered Sig/Shireen Route Start Time Stop Time Status Last Admin Dose Admin Pantoprazole Sodium 40 mg/ Syringe 10 ml @ 5 mls/min DAILY@1100 IV 08/22/16 11:00 09/21/16 10:59 08/28/16 07:38 5 MLS/MIN Fentanyl Citrate (Fentanyl Drip 1250MCG/250 Nss) 250 ml @ 0 mls/hr Q0M PRN IV 08/21/16 17:15 09/04/16 17:14 08/27/16 08:54 10 MLS/HR Artificial Tears (Lacri-Lube Oph Oint) 1 appln Q2H PRN OPB 08/21/16 17:15 09/20/16 17:14 08/22/16 00:28 1 APPLN Heparin Sodium (Porcine) (Heparin Sq 5000 Unit/0.5ml) 5,000 unit Q8H SQ 08/21/16 22:00 09/20/16 21:59 Future Hold 08/27/16 13:44 5,000 UNIT Albuterol (Ventolin Hfa Inhaler) 4 puffs QIDR INH 08/21/16 20:20 09/20/16 20:19 08/28/16 11:18 4 PUFFS Glucose (Glucose 40% Gel) UD PRN PO 08/23/16 10:30 09/22/16 10:29 Glucose (Glucose Chew Tab) 1 tabs UD PRN PO 08/23/16 10:30 09/22/16 10:29 Dextrose (Dextrose 50% 50ML Syringe) 50 ml UD PRN IV 08/23/16 10:30 09/22/16 10:29 08/23/16 12:13 50 ML Glucagon (Glucagon Inj) 1 mg UD PRN SQ 08/23/16 10:30 09/22/16 10:29 Enteral Nutritional Formula (Peptamen Intense VHP) 1,000 ml UD OG 08/23/16 11:45 09/22/16 11:44 08/26/16 18:23 1,000 ML Bacitracin (Bacitracin Oint) 1 appln BID EXT 08/23/16 21:00 09/22/16 20:59 08/28/16 07:40 1 APPLN Bacitracin (Bacitracin Oint) 1 appln QS PRN EXT 08/23/16 19:00 09/22/16 18:59 Piperacillin Sod/ Tazobactam Sod (Consult) 1 ea UD PRN N/A 08/24/16 00:30 09/23/16 00:29 Vancomycin HCl 1 ea 1 ea UD PRN N/A 08/24/16 00:30 09/23/16 00:29 Acetaminophen/ Empty Bag (Ofirmev Iv/ Empty Iv Bag 100ml) 100 ml @ 400 mls/hr Q8H IV 08/24/16 16:00 09/23/16 15:59 08/28/16 07:37 400 MLS/HR Metoprolol Tartrate 5 mg 5 mg Q6 PRN IV 5/14/17 12:00 09/23/16 11:59 08/26/16 22:00 5 MG Piperacillin Sod/ Tazobactam Sod/ Dextrose (Zosyn Iv/D5 100ml) 120 ml @ 30 mls/hr Q8H IV 08/24/16 14:00 08/31/16 13:59 08/28/16 05:32 30 MLS/HR Gadobutrol (Gadavist) 10 mmol UD PRN IV 08/24/16 15:15 08/28/16 15:14 Lorazepam 2 mg 2 mg Q4H PRN IV 08/25/16 00:30 09/24/16 00:29 08/27/16 21:12 2 MG Dexmedetomidine HCl/Sodium Chloride (PreCEDEX INJ/ Nss 100ml) 100 ml @ 0 mls/hr Q0M PRN IV 08/25/16 00:45 08/29/16 00:44 08/28/16 10:00 23.8 MLS/HR Chlorhexidine Gluconate (Peridex Oral Soln 15ML Udp) 15 ml BID PO 08/25/16 09:00 09/24/16 08:59 08/28/16 07:39 15 ML Polyethylene (Miralax Powder Packet) 17 gm DAILY PO 08/25/16 09:00 09/24/16 08:59 08/26/16 08:44 17 GM Docusate Sodium (coLACE SYRUP) 100 mg BID PO 08/26/16 21:00 09/25/16 20:59 08/27/16 21:14 100 MG Fentanyl Citrate 50 mcg 50 mcg Q2H PRN IV 08/26/16 11:00 09/09/16 10:59 08/26/16 21:39 50 MCG Levetiracetam 500 mg/Dextrose 105 ml @ 420 mls/hr Q12H IV 08/26/16 22:00 09/25/16 21:59 08/28/16 10:02 420 MLS/HR Vancomycin HCl/ Sodium Chloride (Vancomycin Inj/ Nss 500ml) 532 ml @ 200 mls/hr Q12H IV 08/26/16 14:00 09/02/16 13:59 08/28/16 02:25 200 MLS/HR Ondansetron HCl (Zofran Inj) 4 mg Q6H PRN IV 08/26/16 13:15 09/25/16 13:14 08/27/16 08:54 4 MG Enteral Nutritional Formula (Peptamen Intense VHP) 1,000 ml UD PRN NG 08/26/16 16:30 09/25/16 16:29 Dornase Luis Felipe (Pulmozyme Inhalation Soln 2.5ml Amp) 2.5 ml BID INH 08/27/16 21:00 09/26/16 20:59 08/28/16 07:00 2.5 ML Heparin Sodium (Porcine) (Heparin 10 Unit/ ml 5 ml Flush) 5 ml PRN PRN FLUSH 08/28/16 02:00 09/27/16 01:59 Metoprolol Tartrate 12.5 mg 12.5 mg BID PO 08/28/16 09:00 09/27/16 08:59 08/28/16 11:26 12.5 MG Potassium Chloride/Prmx (Kcl 10 Meq / Wtr/Premixed Water) 100 ml @ 100 mls/hr Q1H IV 08/28/16 10:30 08/28/16 12:29 08/28/16 11:23 100 MLS/HR Ephedrine Sulfate (EpHEDrine SULFATE INJ) 5 mg Q5M PRN IV 08/28/16 11:15 08/28/16 16:15 Atropine Sulfate (Atropine Sulfate 0.1MG/Ml Inj) 0.5 mg Q1M PRN IV 08/28/16 11:15 08/28/16 16:15 Impression This is a 26-year-old 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 Has been noted to have a partial "man in a barrel" deficits on previous examination likely consistent with anoxic injury. No reported medication side effects. No seizure activity noted in the last 24 hours. Plan Continue Keppra without change. Anticipate that anoxic myoclonus will improve with time. May follow up in neurology clinic as an outpatient for Keppra management and determination on when it would be appropriate to do a trial off. No other neurological recommendations at this time. Please call/page me if there is any concerns or questions.
[2016-08-28] MEDS: HEPARIN SOD 5000 UNIT/0.5 ML CARP SQ SCH (22:51)
[2016-08-29] VITALS (24 sets, daily range): BP systolic 113–163; BP diastolic 48–82; PULSE 59–120; TEMP 36.7–39.1; O2SAT 90–100
[2016-08-29] MEDS: VANCOMYCIN INJ 1,600 MG in SODIUM CHLORIDE 0.9% 500ML 500 ML IV SCH (01:36)
[2016-08-29] MEDS: ACETAMINOPHEN IV 100 ML IV PRN ×2 (01:37→14:13)
[2016-08-29] MEDS ORDERED: NURSING VERBAL MED ORDER ONE (03:15)
[2016-08-29] MEDS: DexMEDEtomidine HCL INJ 400 MCG in SODIUM CHLORIDE 0.9% 100ML 96 ML IV PRN ×3 (04:04→21:11)
[2016-08-29] MEDS: PIPERACILL/TAZOBAC IV 4.5 GM in DEXTROSE 5% 100ML IV SCH ×3 (05:24→22:00)
[2016-08-29] MEDS: HEPARIN SOD 5000 UNIT/0.5 ML CARP SQ SCH ×3 (05:25→22:32)
[2016-08-29 06:27] LABS: BASO % 0.2 %; BASO ABS # 0.02 K/uL (0-0.2); COMPLETE YES; HEMATOCRIT 26.6 % (42-52); IG% 0.6 %; LYMPH % 21.7 %; LYMPH ABS # 2.21 K/uL (1.2-3.4); MEAN CELL VOLUME 84.7 fL (80-100); MEAN CORPUSCULAR HEMOGLOBIN 28.7 pg (25-34); MEAN CORPUSCULAR HGB CONC 33.8 g/dl (32-36); MEAN PLATELET VOLUME 11.9 fL (7.4-10.4); NEUT % 69.5 %; PLATELET COUNT 175 K/uL (130-400); RED BLOOD COUNT 3.14 M/uL (4.7-6.1); WHITE BLOOD COUNT 10.18 K/uL (4.8-10.8)
[2016-08-29 07:02] LABS: CREATININE 1.2 mg/dl (0.60-1.40)
[2016-08-29 07:03] LABS: CALCIUM 7.8 mg/dl (8.5-10.1); MAGNESIUM 2.1 mg/dl (1.8-2.4); PHOSPHORUS 2.5 mg/dl (2.5-4.9); POTASSIUM 3.2 mmol/L (3.5-5.1)
--- NOTE | 2016-08-29 07:14 | DIAGNOSTIC IMAGING REPORT ---
SINGLE VIEW CHEST CLINICAL HISTORY: Cardiac arrest. Respiratory failure. FINDINGS: An AP, portable, upright chest radiograph is compared to study dated 08/28/2016 and correlated with chest CT dated 08/27/2016. The examination is degraded by portable technique and patient rotation. Endotracheal and enteric tubes are unchanged in position. A right internal jugular central venous catheter has been removed. A right PICC line is new from previous. The tip projects over the cavoatrial junction. The heart is enlarged. The pulmonary vasculature is noncongested. There is bibasilar airspace consolidation and trace pleural effusions. No pneumothorax is seen. The bony thorax is grossly intact. IMPRESSION: 1. Cardiomegaly without radiographic evidence of congestive failure. 2. Bibasilar airspace consolidation and trace pleural effusions. This has modestly cleared from yesterday. 3. A right PICC line is new from previous. Electronically signed by: Mike Saldana M.D. 08/29/2016 7:13 AM Dictated Date/Time: 08/29/2016 7:11 AM
[2016-08-29] MEDS: DORNASE ALFA (2500U) 2.5MG/2.5ML INH SCH (07:35)
[2016-08-29] MEDS: ALBUTEROL HFA 8 GM INHALER INH SCH ×4 (07:35→19:54)
--- NOTE | 2016-08-29 07:35 | Anesthesiology Progress Note ---
Anesthesia Post Op Note Date & Time August 29, 2016 at 07:33 Vital Signs Pain Intensity: 0.0 Vital Signs Past 12 Hours Date Time Temp Pulse Resp B/P Pulse Ox O2 Delivery O2 Flow Rate FiO2 08/29/16 06:01 64 24 151/57 99 08/29/16 06:00 37.0 08/29/16 06:00 50 08/29/16 05:01 64 24 150/58 98 08/29/16 04:01 73 24 147/58 98 08/29/16 04:00 98 Mechanical Ventilator 50 08/29/16 04:00 37.5 08/29/16 04:00 50 08/29/16 03:00 80 24 139/48 99 08/29/16 02:30 38.6 08/29/16 02:15 50 08/29/16 02:01 80 24 138/61 97 08/29/16 01:30 39.1 08/29/16 01:01 86 24 136/56 100 08/29/16 00:01 76 24 122/53 100 08/29/16 00:01 38.8 08/28/16 23:59 50 08/28/16 23:59 100 Mechanical Ventilator 50 08/28/16 23:12 50 08/28/16 23:01 75 24 123/55 100 08/28/16 22:01 81 24 136/60 100 08/28/16 21:01 74 24 124/68 100 08/28/16 20:01 71 24 123/53 100 08/28/16 20:00 100 Mechanical Ventilator 50 08/28/16 20:00 50 08/28/16 20:00 38.1 Notes Mental Status: see Notes Pt Amnestic to Procedure: Yes Nausea / Vomiting: see Notes Pain: see Notes Airway Patency, RR, SpO2: see Notes BP & HR: stable & adequate Hydration State: stable & adequate Anesthetic Complications: no major complications apparent patient continues to be sedated and intubated on ventilator in ICU. Per RN patient is the same s/p anesthesia without issues.
[2016-08-29] MEDS: CHLORHEXIDINE GLUCONATE 0.12% 15 ML UDP PO SCH ×2 (08:56→20:19)
[2016-08-29] MEDS: POLYETHYLENE (MIRALAX) 17 GM PACK PO SCH (08:56)
[2016-08-29] MEDS: DOCUSATE SODIUM 100 MG/10 ML UDC PO SCH (08:56)
[2016-08-29] MEDS: BACITRACIN OINT 15 GM TUBE EXT SCH ×2 (08:57→20:20)
[2016-08-29] MEDS: METOPROLOL TARTRATE 25 MG TAB PO SCH ×2 (08:57→20:19)
[2016-08-29] MEDS: POTASSIUM CHLR 10 MEQ / WTR 10 MEQ in PREMIXED WATER 100 ML IV SCH ×6 (08:57→14:11)
--- NOTE | 2016-08-29 09:44 | Progress Note ---
Subjective Date of Service: August 29, 2016. Subjective POD#1 right ureteral stent change. Pt had right ureteral stent changed yesterday due to right hydro seen on imaging and possible stent migration. Per Dr. Farah operative report pt has suspected chronic UPJ obstruction. 16 bahamian catheter replaced during surgery. Creatinine remains stable at 1.3 He continues to have intermittent fevers as he did pre-op. Urine culture was negative Continues on ventilator but able to make simple needs known. Problem List Medical Problems: (1) Altered mental status Status: Acute (2) Cardiac arrest Status: Acute Review of Systems Constitutional: + fever (pt on vent and only able to make simple needs known. ) ENT: No hearing loss Objective Vital Signs Date Time Temp Pulse Resp B/P Pulse Ox O2 Delivery O2 Flow Rate FiO2 08/29/16 08:35 40 08/29/16 07:35 50 08/29/16 07:12 45 08/29/16 06:01 64 24 151/57 99 08/29/16 06:00 37.0 08/29/16 06:00 50 08/29/16 05:01 64 24 150/58 98 08/29/16 04:01 73 24 147/58 98 08/29/16 04:00 98 Mechanical Ventilator 50 08/29/16 04:00 37.5 08/29/16 04:00 50 08/29/16 03:00 80 24 139/48 99 08/29/16 02:30 38.6 08/29/16 02:15 50 08/29/16 02:01 80 24 138/61 97 08/29/16 01:30 39.1 08/29/16 01:01 86 24 136/56 100 08/29/16 00:01 76 24 122/53 100 08/29/16 00:01 38.8 08/28/16 23:59 50 08/28/16 23:59 100 Mechanical Ventilator 50 08/28/16 23:12 50 08/28/16 23:01 75 24 123/55 100 08/28/16 22:01 81 24 136/60 100 08/28/16 21:01 74 24 124/68 100 08/28/16 20:01 71 24 123/53 100 08/28/16 20:00 100 Mechanical Ventilator 50 08/28/16 20:00 50 08/28/16 20:00 38.1 5/18/17 19:10 50 518/17 19:01 79 24 117/57 99 518/17 18:00 38.4 91 24 125/59 94 518/17 17:38 50 18/17 17:15 38.4 96 130/56 94 Arterial Line 08/28/17 17:01 96 120/111 92 518/17 17:00 38.2 171 92 18/17 16:01 93 134/68 93 18/17 16:00 94 93 18/17 16:00 CPAP 50 08/28/17 16:00 50 08/28/17 15:48 38.4 91 15 136/65 94 18/17 15:48 38.3 91 15 136/65 94 18/17 15:35 50 18/17 15:00 77 24 100 18/17 15:00 77 24 100 18/17 14:00 38.0 81 3 98 18/17 14:00 50 08/28/17 14:00 81 3 98 518/17 13:55 80 24 128/69 98 5/18/17 13:55 80 24 128/69 98 518/17 13:25 77 24 138/64 99 5/18/17 13:25 77 24 138/64 99 18/17 13:00 76 24 97 518/17 13:00 76 24 97 18/17 12:01 66 24 133/73 97 518/17 12:01 36.4 66 24 133/73 97 518/17 12:00 65 24 97 518/17 12:00 65 24 97 518/17 12:00 Mechanical Ventilator 50 18/17 11:46 61 2 131/61 97 5/18/17 11:45 60 24 518/17 11:45 59 24 97 518/17 11:35 61 24 518/17 11:35 61 24 96 5/18/17 11:31 128/54 5/18/17 11:31 61 24 128/54 96 5/18/17 11:26 62 24 126/56 95 5/18/17 11:26 126/56 518/17 11:25 64 24 518/17 11:25 63 24 95 5/18/17 11:18 50 08/28/16 11:15 36.4 62 24 94 08/28/16 11:15 62 24 124/59 97 08/28/16 11:10 70 114/48 92 08/28/16 10:15 69 100 08/28/16 10:01 71 131/68 99 08/28/16 10:01 37.4 71 131/68 99 08/28/16 10:00 37.4 67 99 08/28/16 10:00 37.4 67 99 08/28/16 09:45 70 99 08/28/16 09:30 37.6 72 98 Physical Exam General Appearance: + mild distress (awake and aware of the vent) ENT: hearing grossly normal Neck: no JVD Respiratory/Chest: no respiratory distress (on vent), + pertinent finding Neurologic/Psychiatric: alert Skin: normal color Laboratory Results Last 24 Hours Test 08/28/16 12:14 08/28/16 18:14 08/29/16 05:35 Bedside Glucose 104 mg/dl 91 mg/dl White Blood Count 10.18 K/uL Red Blood Count 3.14 M/uL Hemoglobin 9.0 g/dL Hematocrit 26.6 % Mean Corpuscular Volume 84.7 fL Mean Corpuscular Hemoglobin 28.7 pg Mean Corpuscular Hemoglobin Concent 33.8 g/dl Platelet Count 175 K/uL Mean Platelet Volume 11.9 fL Neutrophils (%) (Auto) 69.5 % Lymphocytes (%) (Auto) 21.7 % Monocytes (%) (Auto) 7.0 % Eosinophils (%) (Auto) 1.0 % Basophils (%) (Auto) 0.2 % Neutrophils # (Auto) 7.08 K/uL Lymphocytes # (Auto) 2.21 K/uL Monocytes # (Auto) 0.71 K/uL Eosinophils # (Auto) 0.10 K/uL Basophils # (Auto) 0.02 K/uL RDW Standard Deviation 42.1 fL RDW Coefficient of Variation 13.7 % Immature Granulocyte % (Auto) 0.6 % Immature Granulocyte # (Auto) 0.06 K/uL Sodium Level 146 mmol/L Potassium Level 3.2 mmol/L Chloride Level 114 mmol/L Carbon Dioxide Level 22 mmol/L Anion Gap 10.0 mmol/L Blood Urea Nitrogen 18 mg/dl Creatinine 1.20 mg/dl Est Creatinine Clear Calc Drug Dose 104.5 ml/min Estimated GFR () 95.5 Estimated GFR (Non- 82.4 BUN/Creatinine Ratio 15.0 Random Glucose 84 mg/dl Calcium Level 7.8 mg/dl Phosphorus Level 2.5 mg/dl Magnesium Level 2.1 mg/dl Assessment and Plan S/P right ureteral stent exchange No issues due to yesterday's surgery. Found to have chronic UPJ obstruction. Pt is very tall and therefore required the full length of the stent which may have contributed previously to migration. Nothing further needed from standpoint. Please recall prn.
--- NOTE | 2016-08-29 10:32 | Progress Note ---
Progress Note Date of Service August 29, 2016. Progress Note ID Consult Dictated #[id number] A/P: 1.Fever - infectious vs non infectious post cardia arrest -Continue abx for now, will change vanco to ctx as bronch culture with mssa -Fever curve somewhat improved after stent change, urine culture negative but will continue zosyn for now and follow repeat blood cultures, negative to date -If diarrhea, check c diff -Would also consider non infectious sources as well, ?DVT, ? meds (although less likely), ? line (blood cultures negative x 4), ? central, was initially hypothermic but appears more awake than I would expect if fever was central in nature, ? psoas hematoma b/l, ? wound/skin breakdown -will follow, thank you
--- NOTE | 2016-08-29 10:50 | Critical Care Progress Note ---
Critical Care Progress Note Date of Service August 29, 2016. Attending Dr. Shaggy Navarro 26-year-old male currently incarcerated presented to the ER after he had collapsed while on a treadmill, received 1 shock with ROSC. status post hypothermic protocol Echo findings confirmation of hypertrophic obstructive cardiomyopathy. Continues to be intubated . awake , alert and oriented, responds to commands . still on MV but plans for CPAP trail and extubation today. denies any pain currently Objective General Appearance: other (intubated) Head: normocephalic, other (abrasion 1 cm x 2 cm over left zygomatic arch) ENT: other (intubated with 7.5 Hi-Lo tube) Neck: trachea midline, no thyromegaly Respiratory: breath sounds normal Cardiovasular: regular rhythm, normal S1S2, no gallop, no rub, no JVD Abdomen: normal bowel sounds, no rebound, no masses, no guarding Genitourinary - Male: external genitalia normal, other (Avelar present) Upper Extremities: no edema, other (approximately 2 cm x 2 cm abrasion on the right wrist) Lower Extremities: no edema, normal ROM, other (3 cm x 3 cm abrasion to the right hip) Pulses: carotid (R) (2+), carotid (L) (2+), radial (R) (2+), radial (L) (2+), dorsalis pedis (R) (2+), dorsalis pedis (L) (2+) Neuro: responds to voice and follows commands with occasional myoclonic jerks Psychiatric: other (unable to evaluate) Current SOFA Score SOFA Score Response (Comments) Value PaO2/FiO2 (mmHg) < 300 2 Platelets (x10) < 150 1 Bilirubin (mg/dL) 2.0 - 5.9 2 [place] Coma Score 6 - 9 3 Level of Hypotension No Hypotension 0 Creatinine (mg/dL) 1.2 - 1.9 1 Total 9 Previous SOFA Scores 5 on 08/23/2016 Assessment & Plan 26-year-old male currently incarcerated presented to the ER after he had collapsed while on a treadmill, received 1 shock with ROSC. status post hypothermic protocol Echo findings confirmatory of hypertrophic obstructive cardiomyopathy. Improving by the day, CPAP trial and plan to extubate today Neuro: Acute hypoxic encephalopathy - Status post therapeutic hypothermia protocol - Hyperthermia: IV Tylenol as needed every 8 hours and ice packs - EEG: this study shows evidence for a moderate encephalopathy, without focal problems or potentially epileptogenic discharges - MRI brain:faint restricted diffusion within the medial aspect of the bilateral occipital lobes and right posterior parietal lobe. could represent a small amount increased T2 signal within the cortex suggested on the FLAIR sequences. This is nonspecific but could related to mild ischemic change/infarct. This could also be seen in the setting of posterior reversible encephalopathy syndrome. - MRI C-spine: Tiny disc bulge at C3-C4. No significant central canal or neural foraminal narrowing. Otherwise, normal cervical spine MRI. Neurology consult- appreciate recommendations. - Keppra 1g loading dose with 500 mg BID for myoclonic jerks - sedation vacation Resp :currently intubated, mechanically ventilated AC, RR 24, TV 600, PEEP of 5 , FiO2 40 Status post bronchoscopy- MSSA,Gram negative bacilli and Gram positive bacilli on gram stain ETT repositioned Chest CT:Multilobar airspace opacities, most pronounced within both lower lobes dependently with air bronchograms. This likely represents a pneumonia. CXR 08/28: 1. Bilateral lower lobe pulmonary consolidation with air bronchograms 2. The right internal jugular central venous catheter has been pulled back and now is positioned with its tip at the T2 level. - ID consult - Continue Zosyn, Vanc switched to Rocephin - ENT consult for possible trach - Sputum culture - Pulmozyme with chest percussion -Weaning trial and plan for extubation today CVS: Tachycardia - metoprolol tartrate 12.5 mg BID - Lopressor IV as needed Hypertrophic obstructive cardiomyopathy: Confirmed on echocardiogram - Genetic testing advised to family - cardiology consult for defibrillator Renal: WILLARD: improving - renal US: 1. Severe right hydronephrosis of uncertain etiology. Echogenic right kidney. 2. Partially obscured left kidney but no left hydronephrosis. - Urology consult- s/p revision of Stent/advancement yesterday - Creatinine today at 1.2 from 1.4 yesterday - UA/UC - free water 200 c q4h Electrolytes: K at 3.2- replaced ID: Pneumonia: - CT chest : suggestive of pneumonia - Status post bronchoscopy,MSSA - Continue Zosyn and rocephin - ID consult GI FEN: - Abd pelvis CT: 1. Severe right hydronephrosis, unchanged. The proximal right ureteral stent is located at the expected UPJ obstruction. This does not extend into the right renal pelvis which may account for the persistent right-sided hydronephrosis. 2. Interval development of a small hypodense areas within the bilateral psoas muscles measure up to 3 cm. These likely represents intramuscular hematomas. 3. Multiple mildly dilated gas and fluid-filled loops of large and small bowel seen throughout the abdomen. This favors an ileus. - GI prophylaxis with Protonix - Transaminitis: improving - Likely secondary to hypoperfusion - Hep B and Hep C negative Diarrhea: stool culture, WBCs, c.diff ordered PT/OT Heme: DVT prophylaxis: Heparin subcutaneous - held for stent reversal /advancement Lines: Right internal jugular triple-lumen central venous catheter placed 08/21 - dc PICC placed yesterday Full code Dispo: Monitor in ICU Resident Physician Supervision Note/[employer] Attending I interviewed and examined the patient. Discussed with Dr. Storm and agree with most of the findings and plan as documented in the note. Any exceptions or clarifications are listed here: His care was discussed in detail on multidisciplinary rounds today and I have reviewed the VS, I/O, notes, meds, labs, micro, pathology, imaging and other reports. He started to have diarrhea today which continues. A fecal management system was placed but did not remain - he pooped or coughed it out. With every BM he becomes agitated and wants to get up and go to the commode. Cdif, fecal leuks pending. He has not had sound nutrition in a week and had ileus on CT abdomen 2 days ago. Will stop bowel regimen due to diarrhea and consider TPN. I was hoping to possibly extubate him today but each time he is cleaned up and rolled by the nursing staff he becomes tachypneic with RR in high 30's and HR goes to 120's while on Cpap 5/5 40%. He has also desaturated to high 80's. The ENT consult for trach was cancelled because he has shown neurologic improvement over the week and his secretions have improved as well. His CAM assessment is negative and his strength continues to improve but he still has myoclonus. Fevers continue and ID is involved - many thanks for their input and recommendations. I was hoping to see improvement in his temperature after replacement of the ureteral stent yesterday but don't see much change so far. Will need to reconsult cardiology for defibrillator but it' s unlikely they will place the device until his fevers jadon or we are certain it is central etiology. I updated his mother in detail 2 days ago. Critical care time 60min. Documented By: Mirna Coon Consults & Procedures Consultants: Neurology Cardiology. Urology Procedures: Right internal jugular vein CVL, 08/21/2016 Right radial arterial line 08/21/2016 Bronchoscopy secondary to new infiltrate 08/24/2016 Data Medications: Current Inpatient Medications Medications (Trade) Dose Ordered Sig/Shireen Route Start Time Stop Time Status Last Admin Dose Admin Pantoprazole Sodium 40 mg/ Syringe 10 ml @ 5 mls/min DAILY@1100 IV 08/22/16 11:00 09/21/16 10:59 08/28/16 07:38 5 MLS/MIN Fentanyl Citrate (Fentanyl Drip 1250MCG/250 Nss) 250 ml @ 0 mls/hr Q0M PRN IV 08/21/16 17:15 09/04/16 17:14 08/27/16 08:54 10 MLS/HR Heparin Sodium (Porcine) (Heparin Sq 5000 Unit/0.5ml) 5,000 unit Q8H SQ 08/21/16 22:00 09/20/16 21:59 Future hold 08/29/16 05:25 5,000 UNIT Albuterol (Ventolin Hfa Inhaler) 4 puffs QIDR INH 08/21/16 20:20 09/20/16 20:19 08/29/16 07:35 4 PUFFS Glucose (Glucose 40% Gel) UD PRN PO 08/23/16 10:30 09/22/16 10:29 Glucose (Glucose Chew Tab) 1 tabs UD PRN PO 08/23/16 10:30 09/22/16 10:29 Dextrose (Dextrose 50% 50ML Syringe) 50 ml UD PRN IV 08/23/16 10:30 09/22/16 10:29 08/23/16 12:13 50 ML Glucagon (Glucagon Inj) 1 mg UD PRN SQ 08/23/16 10:30 09/22/16 10:29 Enteral Nutritional Formula (Peptamen Intense VHP) 1,000 ml UD OG 08/23/16 11:45 09/22/16 11:44 08/26/16 18:23 1,000 ML Bacitracin (Bacitracin Oint) 1 appln BID EXT 08/23/16 21:00 09/22/16 20:59 08/29/16 08:57 1 APPLN Bacitracin (Bacitracin Oint) 1 appln QS PRN EXT 08/23/16 19:00 09/22/16 18:59 Piperacillin Sod/ Tazobactam Sod (Consult) 1 ea UD PRN N/A 08/24/16 00:30 09/23/16 00:29 Metoprolol Tartrate 5 mg 5 mg Q6 PRN IV 08/24/16 12:00 09/23/16 11:59 08/26/16 22:00 5 MG Piperacillin Sod/ Tazobactam Sod/ Dextrose (Zosyn Iv/D5 100ml) 120 ml @ 30 mls/hr Q8H IV 08/24/16 14:00 08/31/16 13:59 08/29/16 05:24 30 MLS/HR Chlorhexidine Gluconate (Peridex Oral Soln 15ML Udp) 15 ml BID PO 08/25/16 09:00 09/24/16 08:59 08/29/16 08:56 15 ML Polyethylene (Miralax Powder Packet) 17 gm DAILY PO 08/25/16 09:00 09/24/16 08:59 08/29/16 08:56 17 GM Docusate Sodium (coLACE SYRUP) 100 mg BID PO 08/26/16 21:00 09/25/16 20:59 08/29/16 08:56 100 MG Fentanyl Citrate 50 mcg 50 mcg Q2H PRN IV 08/26/16 11:00 09/09/16 10:59 08/26/16 21:39 50 MCG Levetiracetam/ Dextrose (Keppra Iv/D5 100ml) 105 ml @ 420 mls/hr Q12H IV 08/26/16 22:00 09/25/16 21:59 08/28/16 21:39 420 MLS/HR Ondansetron HCl (Zofran Inj) 4 mg Q6H PRN IV 08/26/16 13:15 09/25/16 13:14 08/27/16 08:54 4 MG Enteral Nutritional Formula (Peptamen Intense VHP) 1,000 ml UD PRN NG 08/26/16 16:30 09/25/16 16:29 Dornase Luis Felipe (Pulmozyme Inhalation Soln 2.5ml Amp) 2.5 ml BID INH 08/27/16 21:00 09/26/16 20:59 08/29/16 07:35 2.5 ML Heparin Sodium (Porcine) (Heparin 10 Unit/ ml 5 ml Flush) 5 ml PRN PRN FLUSH 08/28/16 02:00 09/27/16 01:59 Metoprolol Tartrate 12.5 mg 12.5 mg BID PO 08/28/16 09:00 09/27/16 08:59 08/29/16 08:57 12.5 MG Acetaminophen 100 ml @ 400 mls/hr Q8H PRN IV 08/29/16 00:00 09/28/16 00:00 08/29/16 01:37 400 MLS/HR Dexmedetomidine HCl 400 mcg/ Sodium Chloride 100 ml @ 0 mls/hr Q0M PRN IV 08/29/16 03:15 09/02/16 03:14 08/29/16 04:04 23.8 MLS/HR Potassium Chloride 10 meq/ Prmx 100 ml @ 100 mls/hr Q1H IV 08/29/16 09:00 08/29/16 12:59 08/29/16 08:57 100 MLS/HR Potassium Chloride/Prmx (Kcl 10 Meq / Wtr/Premixed Water) 100 ml @ 100 mls/hr Q1H IV 08/29/16 13:00 08/29/16 14:59 Sterile Water 1 ea 1 ea Q4H NG 08/29/16 10:00 09/28/16 09:59 Ceftriaxone Sodium/Dextrose (Rocephin Inj/D5 50ml) 70 ml @ 100 mls/hr Q24H IV 08/29/16 11:00 09/05/16 10:59 I & O: 24-Hour Column 08/29/16 08:00 Intake Total 3207 ml Output Total 2150 ml Balance 1057 ml Vital Signs: Date Time Temp Pulse Resp B/P Pulse Ox O2 Delivery O2 Flow Rate FiO2 08/29/16 08:35 40 08/29/16 08:00 Mechanical Ventilator 40 08/29/16 08:00 40 08/29/16 08:00 37.2 59 24 148/56 98 Mechanical Ventilator 40 5/19/17 07:35 50 08/29/16 07:12 45 08/29/16 06:01 64 24 151/57 99 08/29/16 06:00 37.0 08/29/16 06:00 50 08/29/16 05:01 64 24 150/58 98 08/29/16 04:01 73 24 147/58 98 08/29/16 04:00 98 Mechanical Ventilator 50 08/29/16 04:00 37.5 08/29/16 04:00 50 08/29/16 03:00 80 24 139/48 99 08/29/16 02:30 38.6 08/29/16 02:15 50 08/29/16 02:01 80 24 138/61 97 08/29/16 01:30 39.1 08/29/16 01:01 86 24 136/56 100 08/29/16 00:01 76 24 122/53 100 08/29/16 00:01 38.8 08/28/16 23:59 50 08/28/16 23:59 100 Mechanical Ventilator 50 08/28/16 23:12 50 08/28/16 23:01 75 24 123/55 100 08/28/16 22:01 81 24 136/60 100 08/28/16 21:01 74 24 124/68 100 08/28/16 20:01 71 24 123/53 100 08/28/16 20:00 100 Mechanical Ventilator 50 08/28/16 20:00 50 08/28/16 20:00 38.1 08/28/16 19:10 50 08/28/16 19:01 79 24 117/57 99 08/28/16 18:00 38.4 91 24 125/59 94 08/28/16 17:38 50 08/28/16 17:15 38.4 96 130/56 94 Arterial Line 08/28/16 17:01 96 120/111 92 18 17:00 38.2 171 92 08/28/16 16:01 93 134/68 93 08/28/16 16:00 94 93 08/28/16 16:00 CPAP 50 08/28/16 16:00 50 08/28/16 15:48 38.4 91 15 136/65 94 08/28/16 15:48 38.3 91 15 136/65 94 18 15:35 50 08/28/16 15:00 77 24 100 08/28/16 15:00 77 24 100 08/28/16 14:00 38.0 81 3 98 08/28/16 14:00 50 08/28/16 14:00 81 3 98 08/28/16 13:55 80 24 128/69 98 08/28/16 13:55 80 24 128/69 98 08/28/16 13:25 77 24 138/64 99 08/28/16 13:25 77 24 138/64 99 08/28/16 13:00 76 24 97 08/28/16 13:00 76 24 97 08/28/16 12:01 66 24 133/73 97 08/28/16 12:01 36.4 66 24 133/73 97 08/28/16 12:00 65 24 97 08/28/16 12:00 65 24 97 08/28/16 12:00 Mechanical Ventilator 50 08/28/16 11:46 61 2 131/61 97 08/28/16 11:45 60 24 08/28/16 11:45 59 24 97 08/28/16 11:35 61 24 08/28/16 11:35 61 24 96 08/28/16 11:31 128/54 08/28/16 11:31 61 24 128/54 96 08/28/16 11:26 62 24 126/56 95 08/28/16 11:26 126/56 08/28/16 11:25 64 24 08/28/16 11:25 63 24 95 08/28/16 11:18 50 08/28/16 11:15 36.4 62 24 94 08/28/16 11:15 62 24 124/59 97 08/28/16 11:10 70 114/48 92 Laboratory Results: Last 24 Hours Test 08/28/16 12:14 08/28/16 18:14 08/29/16 05:35 Bedside Glucose 104 mg/dl 91 mg/dl White Blood Count 10.18 K/uL Red Blood Count 3.14 M/uL Hemoglobin 9.0 g/dL Hematocrit 26.6 % Mean Corpuscular Volume 84.7 fL Mean Corpuscular Hemoglobin 28.7 pg Mean Corpuscular Hemoglobin Concent 33.8 g/dl Platelet Count 175 K/uL Mean Platelet Volume 11.9 fL Neutrophils (%) (Auto) 69.5 % Lymphocytes (%) (Auto) 21.7 % Monocytes (%) (Auto) 7.0 % Eosinophils (%) (Auto) 1.0 % Basophils (%) (Auto) 0.2 % Neutrophils # (Auto) 7.08 K/uL Lymphocytes # (Auto) 2.21 K/uL Monocytes # (Auto) 0.71 K/uL Eosinophils # (Auto) 0.10 K/uL Basophils # (Auto) 0.02 K/uL RDW Standard Deviation 42.1 fL RDW Coefficient of Variation 13.7 % Immature Granulocyte % (Auto) 0.6 % Immature Granulocyte # (Auto) 0.06 K/uL Sodium Level 146 mmol/L Potassium Level 3.2 mmol/L Chloride Level 114 mmol/L Carbon Dioxide Level 22 mmol/L Anion Gap 10.0 mmol/L Blood Urea Nitrogen 18 mg/dl Creatinine 1.20 mg/dl Est Creatinine Clear Calc Drug Dose 104.5 ml/min Estimated GFR () 95.5 Estimated GFR (Non- 82.4 BUN/Creatinine Ratio 15.0 Random Glucose 84 mg/dl Calcium Level 7.8 mg/dl Phosphorus Level 2.5 mg/dl Magnesium Level 2.1 mg/dl Resident Tracking Resident Involvement: Resident Care Provided Care Provided: Adult Hospital Medicine
--- NOTE | 2016-08-29 10:57 | INFECT. DISEASE CONSULTATION ---
DATE OF CONSULTATION: 08/29/2016 DATE OF CONSULTATION: 08/29/2016. REQUESTING PHYSICIAN: Dr. Coon. HISTORY OF PRESENT ILLNESS: This is a 26-year-old gentleman who was admitted from [facility] after he suffered a cardiac arrest while on a treadmill. This was witnessed, and he had significant downtime of questionable 35-40 minutes. He was resuscitated and intubated and brought to the intensive care unit. He has been in the ICU since admission to the hospital. He is awake on the ventilator in restraints on my examination. I am unable to obtain any review of systems from the patient. He was followed by cardiology and neurology during this admission. An echocardiogram done on the showed hypertrophic cardiomyopathy and this was the suspected reasoning for cardiac arrest while exercising prior to admission. He has undergone a significant workup. He did have elevated LFTs and cardiac enzymes on arrival to the hospital, but those have been resolving. His LFTs are back to normal. He has a reported history of hepatitis B; however, I cannot confirm this with the patient and I do not know if he has received treatment prior. He has had multiple cultures this admission. A bronchoscopy specimen dated 08/24/2016 is growing MSSA. He has had chest x-ray and CAT scans of the chest consistent with bilateral patchy infiltrates. Per the ICU he has also had episodes of aspiration throughout his hospital stay. He did have blood cultures on the and the which are negative. Urine culture on the is negative as well. He has had many imaging studies this admission. Most recently a CAT scan of the abdomen and pelvis on the showed significant right hydronephrosis with stent obstruction. He was followed by urology and had a new stent placed yesterday. He tolerated this well. Again, his urine cultures have been negative. His CAT scan also showed psoas hematomas bilaterally measuring as large as 3 cm. With regards to his fever curve he initially presented on the with hypothermia with a minimal temperature of 33.6 and on the his minimal temperature was 33.1 and on the his minimal temperature was 33.2. He did not have any fevers during those days. On the , he developed fevers with a T-max on the of 39.4, on the it was 39.3, on the 39.7 and on the 37.7. He has been persistently febrile with a cooling blankets and around the clock acetaminophen. He remains on empiric antibiotics consisting of vancomycin and Zosyn. Per the ICU he was initially constipated and was given a bowel regimen. He now has looser stool. He has not been tested for C. diff to date. He is to be extubated later today. PAST MEDICAL HISTORY, SOCIAL HISTORY, FAMILY HISTORY AND SURGICAL HISTORY: Essentially unknown. CURRENT MEDICATIONS: Include potassium, acetaminophen, Lopressor, subQ heparin, Keppra, Colace, vancomycin, Zofran, Fentanyl, peridex, MiraLax, Zosyn, tube feeds, Protonix, albuterol. PHYSICAL EXAMINATION: VITAL SIGNS: In the last 24 hours his T-max is 39.1. He currently is afebrile at 37.2 and has been afebrile since 4:00 this morning. Pulse is 59, respiratory rate is 24, blood pressure is 148/56. Oxygen saturation is 98% on 40% FIO2. GENERAL: He is awake on the ventilator. He does appear agitated. HEAD, EYES, EARS, NOSE, AND THROAT: Extraocular muscles are intact. He does follow some simple commands. HEART: Regular. LUNGS: Clear with decreased breath sounds at the bases bilaterally. ABDOMEN: Soft and nondistended. There is no lower extremity edema. SKIN: Without rash. A PICC line is in place in the right upper extremity. This is clean, dry and intact. Again, he is in restraints. LABORATORY STUDIES: CBC today reveals a white blood cell count of 10.1, hemoglobin 9, hematocrit 26.6 and platelets are 175. Chemistry panel reveals a sodium of 146, potassium 3.2, chloride 114, bicarbonate 22, BUN 18, creatinine 1.2, glucose is 84. His most recent LFTs were done on the , AST is 64, ALT is 83 and this was markedly improved from admission. Procalcitonin done on the was 1.5, on the it was 1.8, on the it was 0.5. Hepatitis C antibody is negative and hepatitis B testing here is negative as well. Urine culture from the is no growth. Sputum culture from the is no growth. Blood cultures from the are no growth x2 sets. Urine culture from the is no growth. Blood cultures from the are no growth x2 sets. Fungal smear and AFB smear are negative. Bronchoscopy culture is growing MSSA. Most recent chest x-ray was done this morning and shows bibasilar airspace consolidation, improved from yesterday. A CT of the abdomen and pelvis is as reported previously. ASSESSMENT AND PLAN: Persistent fever and question infectious versus noninfectious etiology. Certainly he does have MSSA growing from the bronchoscopy with evidence of infiltrate on radiographic studies. He should be continued on antibiotics. I will place him on Rocephin as he did grow MSSA and discontinue his vancomycin. All bloody urine and repeat sputum cultures have been negative, which would suggest against a kidney infection. He does remain on Zosyn secondary to aspiration events while in the intensive care unit. Certainly psoas hematoma could cause fever as could cardiac arrest; however, he is more awake than I would expect for someone having central related fevers. Certainly Dopplers could be obtained to rule out DVT as this would be noninfectious etiology. Medication fever can also be a potential etiology in the intensive care unit. Certainly a beta lactam antibiotics could be the cause; however, I do not suspect in this case. Should he have any diarrhea, C. diff should be sent. We will follow the results of cultures. I would prefer an additional 7 days of antibiotics to cover the staph aureus that grew from bronchoscopy. Thank you for this consultation.
[2016-08-29] MEDS: PANTOprazole INJ 40 MG in SYRINGE 0 ML IV SCH (11:13)
[2016-08-29] MEDS: CEFTRIAXONE SOD INJ 2,000 MG in DEXTROSE 5% 50ML 50 ML IV SCH (11:13)
[2016-08-29] MEDS: LEVETIRACETAM IV 500 MG in DEXTROSE 5% 100ML 100 ML IV SCH ×2 (12:13→22:00)
[2016-08-29] MEDS: TUBE FEEDING WATER FLUSH NG SCH ×4 (12:13→21:48)
[2016-08-29] MEDS: FENTANYL CITRATE INJ 50 MCG/1 ML 2 ML VIAL IV PRN ×3 (12:16→23:39)
[2016-08-29] MEDS: METOPROLOL TARTRATE 1 MG/ML VIAL IV PRN (12:58)
[2016-08-29] MEDS ORDERED: LORAZEPAM 2 MG/ML 1 ML VIAL IV STA (13:27)
[2016-08-29] MEDS ORDERED: LORAZEPAM 2 MG/ML 1 ML VIAL ONE (13:29)
--- NOTE | 2016-08-29 16:32 | Progress Note ---
Subjective Date of Service: August 29, 2016. Subjective Pt evaluation today including: conversation w/ patient, physical exam, lab review, review of studies, conversation w/ [facility] health consultant, review of inpatient medication list Pain: appears comfortable PO Intake: NPO Voiding: ruffin catheter in place agitation every time he moves bowels trying to extubate but vitals become unstable with his agitation following commands, excellent strength appreciate consult from infectious disease, still with fevers Problem List Medical Problems: (1) Altered mental status Status: Acute (2) Cardiac arrest Status: Acute Review of Systems cannot review in detail due to intubation, Fentanyl All Other Systems: Reviewed and Negative Medications Current Inpatient Medications Medications (Trade) Dose Ordered Sig/Shireen Route Start Time Stop Time Status Last Admin Dose Admin Pantoprazole Sodium 40 mg/ Syringe 10 ml @ 5 mls/min DAILY@1100 IV 08/22/16 11:00 09/21/16 10:59 08/29/16 11:13 5 MLS/MIN Fentanyl Citrate (Fentanyl Drip 1250MCG/250 Nss) 250 ml @ 0 mls/hr Q0M PRN IV 08/21/16 17:15 09/04/16 17:14 08/27/16 08:54 10 MLS/HR Heparin Sodium (Porcine) (Heparin Sq 5000 Unit/0.5ml) 5,000 unit Q8H SQ 08/21/16 22:00 09/20/16 21:59 Future hold 08/29/16 14:14 5,000 UNIT Albuterol (Ventolin Hfa Inhaler) 4 puffs QIDR INH 08/21/16 20:20 09/20/16 20:19 08/29/16 15:20 4 PUFFS Glucose (Glucose 40% Gel) UD PRN PO 08/23/16 10:30 09/22/16 10:29 Glucose (Glucose Chew Tab) 1 tabs UD PRN PO 08/23/16 10:30 09/22/16 10:29 Dextrose (Dextrose 50% 50ML Syringe) 50 ml UD PRN IV 08/23/16 10:30 09/22/16 10:29 08/23/16 12:13 50 ML Glucagon (Glucagon Inj) 1 mg UD PRN SQ 08/23/16 10:30 09/22/16 10:29 Enteral Nutritional Formula (Peptamen Intense VHP) 1,000 ml UD OG 08/23/16 11:45 09/22/16 11:44 08/26/16 18:23 1,000 ML Bacitracin (Bacitracin Oint) 1 appln BID EXT 08/23/16 21:00 09/22/16 20:59 08/29/16 08:57 1 APPLN Bacitracin (Bacitracin Oint) 1 appln QS PRN EXT 08/23/16 19:00 09/22/16 18:59 Piperacillin Sod/ Tazobactam Sod (Consult) 1 ea UD PRN N/A 08/24/16 00:30 09/23/16 00:29 Metoprolol Tartrate 5 mg 5 mg Q6 PRN IV 08/24/16 12:00 09/23/16 11:59 08/29/16 12:58 5 MG Piperacillin Sod/ Tazobactam Sod/ Dextrose (Zosyn Iv/D5 100ml) 120 ml @ 30 mls/hr Q8H IV 08/24/16 14:00 08/31/16 13:59 08/29/16 13:35 30 MLS/HR Chlorhexidine Gluconate (Peridex Oral Soln 15ML Udp) 15 ml BID PO 08/25/16 09:00 09/24/16 08:59 08/29/16 08:56 15 ML Polyethylene (Miralax Powder Packet) 17 gm DAILY PO 08/25/16 09:00 09/24/16 08:59 Future Hold 08/29/16 08:56 17 GM Docusate Sodium (coLACE SYRUP) 100 mg BID PO 08/26/16 21:00 09/25/16 20:59 Future Hold 08/29/16 08:56 100 MG Fentanyl Citrate 50 mcg 50 mcg Q2H PRN IV 08/26/16 11:00 09/09/16 10:59 08/29/16 12:16 50 MCG Levetiracetam/ Dextrose (Keppra Iv/D5 100ml) 105 ml @ 420 mls/hr Q12H IV 08/26/16 22:00 09/25/16 21:59 08/29/16 12:13 420 MLS/HR Ondansetron HCl (Zofran Inj) 4 mg Q6H PRN IV 08/26/16 13:15 09/25/16 13:14 08/27/16 08:54 4 MG Enteral Nutritional Formula (Peptamen Intense VHP) 1,000 ml UD PRN NG 08/26/16 16:30 09/25/16 16:29 Heparin Sodium (Porcine) (Heparin 10 Unit/ ml 5 ml Flush) 5 ml PRN PRN FLUSH 08/28/16 02:00 09/27/16 01:59 Metoprolol Tartrate 12.5 mg 12.5 mg BID PO 08/28/16 09:00 09/27/16 08:59 08/29/16 08:57 12.5 MG Acetaminophen 100 ml @ 400 mls/hr Q8H PRN IV 08/29/16 00:00 09/28/16 00:00 08/29/16 14:13 400 MLS/HR Dexmedetomidine HCl/Sodium Chloride (PreCEDEX INJ/ Nss 100ml) 100 ml @ 0 mls/hr Q0M PRN IV 08/29/16 03:15 09/02/16 03:14 08/29/16 04:04 23.8 MLS/HR Sterile Water 1 ea 1 ea Q4H NG 08/29/16 10:00 09/28/16 09:59 08/29/16 14:14 1 EA Ceftriaxone Sodium/Dextrose (Rocephin Inj/D5 50ml) 70 ml @ 100 mls/hr Q24H IV 08/29/16 11:00 09/05/16 10:59 08/29/16 11:13 100 MLS/HR Objective Vital Signs Date Time Temp Pulse Resp B/P Pulse Ox O2 Delivery O2 Flow Rate FiO2 08/29/16 15:21 40 08/29/16 15:00 38.6 97 19 129/68 90 Mechanical Ventilator 40 08/29/16 14:00 38.5 119 37 163/74 90 CPAP 40 Mechanical Ventilator 08/29/16 12:58 121 142/80 08/29/16 12:45 37.8 120 37 142/80 90 CPAP 40 Mechanical Ventilator 08/29/16 12:15 40 08/29/16 12:00 Mechanical Ventilator 40 08/29/16 12:00 40 08/29/16 10:10 37.8 92 22 153/82 98 CPAP 35 Mechanical Ventilator 08/29/16 09:45 35 08/29/16 08:35 40 08/29/16 08:00 Mechanical Ventilator 40 08/29/16 08:00 Mechanical Ventilator 40 08/29/16 08:00 40 08/29/16 08:00 37.2 59 24 148/56 98 Mechanical Ventilator 40 08/29/16 07:35 50 08/29/16 07:12 45 08/29/16 06:01 64 24 151/57 99 08/29/16 06:00 37.0 08/29/16 06:00 50 08/29/16 05:01 64 24 150/58 98 08/29/16 04:01 73 24 147/58 98 08/29/16 04:00 98 Mechanical Ventilator 50 08/29/16 04:00 37.5 08/29/16 04:00 50 08/29/16 03:00 80 24 139/48 99 08/29/16 02:30 38.6 08/29/16 02:15 50 08/29/16 02:01 80 24 138/61 97 08/29/16 01:30 39.1 08/29/16 01:01 86 24 136/56 100 08/29/16 00:01 76 24 122/53 100 08/29/16 00:01 38.8 08/28/16 23:59 50 08/28/16 23:59 100 Mechanical Ventilator 50 08/28/16 23:12 50 08/28/16 23:01 75 24 123/55 100 08/28/16 22:01 81 24 136/60 100 08/28/16 21:01 74 24 124/68 100 08/28/16 20:01 71 24 123/53 100 08/28/16 20:00 100 Mechanical Ventilator 50 08/28/16 20:00 50 08/28/16 20:00 38.1 08/28/16 19:10 50 08/28/16 19:01 79 24 117/57 99 08/28/16 18:00 38.4 91 24 125/59 94 08/28/16 17:38 50 08/28/16 17:15 38.4 96 130/56 94 Arterial Line 08/28/16 17:01 96 120/111 92 08/28/16 17:00 38.2 171 92 Physical Exam General Appearance: WD/WN, + mild distress (when he moves bowels, trying to get up) Eyes: normal inspection, PERRL, EOMI, sclerae normal ENT: normal ENT inspection, hearing grossly normal, pharynx normal, + pertinent finding (intubated) Neck: supple, no adenopathy, no JVD, trachea midline Respiratory/Chest: chest non-tender, lungs clear, normal breath sounds, no respiratory distress, no accessory muscle use, + respiratory distress (with agitation, otherwise stable) Cardiovascular: no edema, no gallop, no JVD, no murmur, + tachycardia Abdomen: normal bowel sounds, non tender, soft, no organomegaly Extremities: normal range of motion, non-tender, normal inspection, no pedal edema, no calf tenderness Neurologic/Psychiatric: screening representative II-XII nml as tested, no motor/sensory deficits, alert, oriented x 3, + pertinent finding (agitated) Skin: normal color, warm/dry, no rash Laboratory Results Last 24 Hours Test 08/28/16 18:14 08/29/16 05:35 08/29/16 11:05 Bedside Glucose 91 mg/dl 97 mg/dl White Blood Count 10.18 K/uL Red Blood Count 3.14 M/uL Hemoglobin 9.0 g/dL Hematocrit 26.6 % Mean Corpuscular Volume 84.7 fL Mean Corpuscular Hemoglobin 28.7 pg Mean Corpuscular Hemoglobin Concent 33.8 g/dl Platelet Count 175 K/uL Mean Platelet Volume 11.9 fL Neutrophils (%) (Auto) 69.5 % Lymphocytes (%) (Auto) 21.7 % Monocytes (%) (Auto) 7.0 % Eosinophils (%) (Auto) 1.0 % Basophils (%) (Auto) 0.2 % Neutrophils # (Auto) 7.08 K/uL Lymphocytes # (Auto) 2.21 K/uL Monocytes # (Auto) 0.71 K/uL Eosinophils # (Auto) 0.10 K/uL Basophils # (Auto) 0.02 K/uL RDW Standard Deviation 42.1 fL RDW Coefficient of Variation 13.7 % Immature Granulocyte % (Auto) 0.6 % Immature Granulocyte # (Auto) 0.06 K/uL Sodium Level 146 mmol/L Potassium Level 3.2 mmol/L Chloride Level 114 mmol/L Carbon Dioxide Level 22 mmol/L Anion Gap 10.0 mmol/L Blood Urea Nitrogen 18 mg/dl Creatinine 1.20 mg/dl Est Creatinine Clear Calc Drug Dose 104.5 ml/min Estimated GFR () 95.5 Estimated GFR (Non- 82.4 BUN/Creatinine Ratio 15.0 Random Glucose 84 mg/dl Calcium Level 7.8 mg/dl Phosphorus Level 2.5 mg/dl Magnesium Level 2.1 mg/dl Assessment and Plan 26 yo male who unfortunately suffered a cardiac arrest while on the treadmill at snf, likely ventricular arrhythmia, 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 after admission - s/p cardiac arrest, likely ventricular arrhythmia in setting of HCOM completed cooling process, now for Tylenol for any hyperthermia as well as cooling blankets no further arrhythmias since admission tachycardia - resolved this AM, HR in the 70's, sinus BP stable - Acute hypoxic respiratory failure continue ventilator, breathing comfortably today, calm, alert continues to require FiO2 of 60%, due to pneumonia, aspiration continue vent management per ICU team, much appreciated tried to extubate today but vitals unstable whenever he moves bowels, gets agitated plans for tracheostomy on hold - Anoxic brain injury, cord injury continues to improve, awake, alert, following commands, tracking left and right much more strength today Keppra started for anoxic myoclonic jerks, no jerks reported per RN MRI with possible occipital (bilateral) and right parietal ischemia but no other findings neurology following - Pneumonia, likely aspiration: change to Rocephin per ID, culture grew MSSA, stop Vanco and Zosyn needs 7 more days of Rocephin bronchoscopy on 08/24 - Fevers: appreciate ID note, will continue to treat with Tylenol and cooling - Elevated LFT: due to cardiac arrest, trending down appropriately - WILLARD: Cr peaked at 1.7, 1.2 today, making adequate urine diurese as needed - Right hydronephrosis: replace stent 08/28 since he still has hydronephrosis r/o as cause of fevers - Ileus: seen on CT scan and also hypoactive BS on exam, TFs on hold, OG for suction having diarrhea now, send for cultures attempted rectal tube, will not stay in place - DVT prophylaxis: heparin
--- NOTE | 2016-08-29 16:50 | DIAGNOSTIC IMAGING REPORT ---
BILATERAL LOWER EXTREMITY VENOUS DOPPLER HISTORY: fever COMPARISON STUDY: None. FINDINGS: There is normal compressibility, flow, and augmentation within the bilateral lower extremity deep venous systems. IMPRESSION: No DVT within the right or left lower extremity. Electronically signed by: Darrell Hough M.D. 08/29/2016 4:49 PM Dictated Date/Time: 08/29/2016 4:49 PM
[2016-08-29] MEDS ORDERED: FUROSEMIDE 40 MG/4 ML VIAL IV ONE (18:00)
[2016-08-29 18:06] LABS: POTASSIUM 4.2 mmol/L (3.5-5.1)
[2016-08-29 19:55] LABS: BUN/CREATININE RATIO 11.7 (10-20); CALCIUM 8.1 mg/dl (8.5-10.1); CREATININE 1.3 mg/dl (0.60-1.40)
[2016-08-30] VITALS (17 sets, daily range): BP systolic 92–172; BP diastolic 47–106; PULSE 62–104; TEMP 36.4–38.2; O2SAT 92–100
[2016-08-30] MEDS: DexMEDEtomidine HCL INJ 400 MCG in SODIUM CHLORIDE 0.9% 100ML 96 ML IV PRN ×3 (00:59→14:23)
[2016-08-30] MEDS: TUBE FEEDING WATER FLUSH NG SCH ×6 (01:31→21:11)
[2016-08-30] MEDS: PIPERACILL/TAZOBAC IV 4.5 GM in DEXTROSE 5% 100ML IV SCH ×3 (05:49→21:11)
[2016-08-30] MEDS: HEPARIN SOD 5000 UNIT/0.5 ML CARP SQ SCH ×3 (05:49→21:11)
[2016-08-30 05:51] LABS: BASO % 0.2 %; BASO ABS # 0.02 K/uL (0-0.2); COMPLETE YES; EOS % 1.1 %; HEMATOCRIT 28.8 % (42-52); IG% 0.6 %; LYMPH % 19.5 %; LYMPH ABS # 2.22 K/uL (1.2-3.4); MEAN CELL VOLUME 86.5 fL (80-100); MEAN CORPUSCULAR HEMOGLOBIN 29.1 pg (25-34); MEAN CORPUSCULAR HGB CONC 33.7 g/dl (32-36); MEAN PLATELET VOLUME 11.5 fL (7.4-10.4); MONO % 6.3 %; NEUT % 72.3 %; PLATELET COUNT 242 K/uL (130-400); RED BLOOD COUNT 3.33 M/uL (4.7-6.1); WHITE BLOOD COUNT 11.37 K/uL (4.8-10.8)
[2016-08-30 06:23] LABS: CALCIUM 8.5 mg/dl (8.5-10.1); CREATININE 1.2 mg/dl (0.60-1.40); POTASSIUM 3.9 mmol/L (3.5-5.1)
[2016-08-30 06:25] LABS: ALB/GLOB RATIO 0.6 (0.9-2)
--- NOTE | 2016-08-30 07:13 | DIAGNOSTIC IMAGING REPORT ---
CHEST ONE VIEW PORTABLE CLINICAL HISTORY: f/u infiltrates pneumonia COMPARISON STUDY: 08/29/2016 FINDINGS: Endotracheal tube 4 cm above the al. PICC catheter within the sphenoid vena cava. Similar left and to lesser extent right basilar infiltrative change. Mid and upper lungs are clear. IMPRESSION: Unchanged exam from the prior study. Stable basilar infiltrates. Endotracheal tube 4 cm above the al. Electronically signed by: Spencer Dalton M.D. 08/30/2016 7:12 AM Dictated Date/Time: 08/30/2016 7:11 AM
[2016-08-30] MEDS: ALBUTEROL HFA 8 GM INHALER INH SCH ×3 (07:32→21:22)
[2016-08-30] MEDS: METOPROLOL TARTRATE 25 MG TAB PO SCH ×2 (08:28→21:10)
[2016-08-30] MEDS: BACITRACIN OINT 15 GM TUBE EXT SCH ×2 (08:29→21:12)
[2016-08-30] MEDS: CHLORHEXIDINE GLUCONATE 0.12% 15 ML UDP PO SCH (08:30)
--- NOTE | 2016-08-30 10:33 | DIAGNOSTIC IMAGING REPORT ---
ABDOMEN 2 VIEWS CLINICAL HISTORY: distention pain COMPARISON STUDY: 08/26/2016 FINDINGS: Generalized nonobstructive ileus. Right ureteral stent in good position. Nasogastric tube within the mid stomach. IMPRESSION: Nonobstructive ileus. Electronically signed by: Spencer Dalton M.D. 08/30/2016 10:31 AM Dictated Date/Time: 08/30/2016 10:31 AM
[2016-08-30] MEDS: LEVETIRACETAM IV 500 MG in DEXTROSE 5% 100ML 100 ML IV SCH ×2 (12:11→21:13)
[2016-08-30] MEDS: PANTOprazole INJ 40 MG in SYRINGE 0 ML IV SCH (12:11)
[2016-08-30] MEDS: CEFTRIAXONE SOD INJ 2,000 MG in DEXTROSE 5% 50ML 50 ML IV SCH (12:12)
--- NOTE | 2016-08-30 13:53 | CRITICAL CARE PROGRESS NOTE ---
DATE: 08/30/2016 SUBJECTIVE: The patient's care was discussed in detail with his bedside nurse, Amy. He was successfully extubated this morning and had no complaints of pain when I saw him. He has not had any bowel movements since midnight and only one bowel movement is charted for yesterday, but I am sure he had more than that. There is no NG drainage reported for yesterday. Tube feeds have been on hold secondary to ileus. PHYSICAL EXAMINATION: VITAL SIGNS: Maximum temperature 38.9, heart rate 60-124, respiratory rate 18-24, blood pressure 121-172/50-100, oxygen saturation 92% on 40% facemask. GENERAL: He is awake and alert. NEUROLOGIC: CAM assessment is negative. He has 4/5 strength in the upper and lower extremities with myoclonus. He has twitching movements of his face as well. Post-extubation, he is oriented to person and place. LUNGS: Clear anteriorly. No rales, rhonchi or wheezes. HEART: Regular rate and rhythm, no murmur. ABDOMEN: Firm, moderately distended, nontender, hypoactive bowel sounds. No rebound or guarding. EXTREMITIES: Warm, waffle boots are in place. There is 2+ edema of both hands. LABORATORY DATA: White blood cell count 11.37, hemoglobin 9.7, hematocrit 28.9, platelets 242. Sodium 144, potassium 3.9, chloride 109, CO2 of 28, BUN 16, creatinine 1.2, blood sugar 104, calcium 8.5, total bilirubin 0.7, AST 44, total protein 6.3, albumin 2.3. Portable chest x-ray from this morning was reviewed and is unchanged with bibasilar infiltrates. Abdominal x-ray from today shows nonobstructive ileus. MICROBIOLOGY DATA: Reviewed, cath tip final culture shows no growth. Right lower lobe bronchial washings for Mycobacterium and fungus remain pending. MEDICATIONS: Acetaminophen, albuterol, bacitracin, Rocephin day #2, Precedex, Peptamen, on hold; p.r.n. fentanyl, Keppra, Lopressor, Zofran, Protonix, Zosyn day #6. IMPRESSION: 1. Status post out of hospital resuscitated cardiac arrest, targeted temperature management with anoxic encephalopathy, neurologically improving throughout this week. He is on Keppra for myoclonus and getting physical therapy and occupational therapy. 2. Acute hypoxemic respiratory failure secondary to #1 and aspiration pneumonia, improved and extubated today. 3. Methicillin sensitive Staph aureus pneumonia s/p bronchoscopy on 08/24. 4. Hypertrophic obstructive cardiomyopathy for which he will eventually need a defibrillator. 5. Ongoing fever, the infectious disease service is seeing him. He remains on Zosyn day 6, ceftriaxone day 2. Lower extremity venous Dopplers are negative. 6. Ileus, intermittently he had been receiving tube feeds; however, they are presently on hold. He had diarrhea yesterday which is improved. 7. Leukocytosis with left shift. 8. 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 9. Transaminitis, resolved. 10. Acute kidney injury, resolved. PLAN: Neurologic: Wean off Precedex. P.r.n. fentanyl for pain with judicious use. Pulmonary: Encourage pulmonary toilet. I will order incentive spirometry. Continue bronchodilators. Infectious disease: Continue ceftriaxone and Zosyn. Await any further culture data. His temperature seems to be more easily regulated and is not climbing quite so high. Acetaminophen p.r.n. Cardiovascular: Continue Lopressor and reconsult cardiology this week regarding defibrillator. Hopefully, he will be afebrile by then. Gastrointestinal: Speech and swallow evaluation and n.p.o. with the exception of medications. Heme: Continue subcutaneous heparin for DVT prophylaxis. Endocrine: No acute active issues. Miscellaneous: Physical therapy, occupational therapy, chair position and out of bed soon. PICC line placed on 08/29. Arterial line and triple lumen catheter have been discontinued. Critical care time 1 hour. MTDD
--- NOTE | 2016-08-30 16:01 | Progress Note ---
Subjective Date of Service: August 30, 2016. Subjective Pt evaluation today including: conversation w/ patient, physical exam, lab review, review of studies, conversation w/ hearing consultant, review of inpatient medication list Pain: denies pain PO Intake: NPO, needs swallow evaluation Voiding: ruffin catheter in place patient successfully extubated this AM after he was calm for CPAP trial abdominal x-ray showed non-obstructive ileus spoke with patient this AM, he is calm, has lots of questions, cannot recall that he was incarcerated however, he recognized one of the guards from [facility] told him that his mother had been kept aware of his status and she had visited him he kept asking for something to drink, explained that a formal swallow evaluation was necessary Problem List Medical Problems: (1) Altered mental status Status: Acute (2) Cardiac arrest Status: Acute Review of Systems Constitutional: + fatigue, + weakness Abdomen: + diarrhea Neurologic: + memory loss, + weakness All Other Systems: Reviewed and Negative Medications Current Inpatient Medications Medications (Trade) Dose Ordered Sig/Shireen Route Start Time Stop Time Status Last Admin Dose Admin Pantoprazole Sodium/Syringe (Protonix Inj/ Syringe) 10 ml @ 5 mls/min DAILY@1100 IV 08/22/16 11:00 09/21/16 10:59 08/30/16 12:11 5 MLS/MIN Heparin Sodium (Porcine) (Heparin Sq 5000 Unit/0.5ml) 5,000 unit Q8H SQ 08/21/16 22:00 09/20/16 21:59 Future hold 08/30/16 14:22 5,000 UNIT Albuterol (Ventolin Hfa Inhaler) 4 puffs QIDR INH 08/21/16 20:20 09/20/16 20:19 08/30/16 12:00 4 PUFFS Glucose (Glucose 40% Gel) UD PRN PO 08/23/16 10:30 09/22/16 10:29 Glucose (Glucose Chew Tab) 1 tabs UD PRN PO 08/23/16 10:30 09/22/16 10:29 Dextrose (Dextrose 50% 50ML Syringe) 50 ml UD PRN IV 08/23/16 10:30 09/22/16 10:29 08/23/16 12:13 50 ML Glucagon (Glucagon Inj) 1 mg UD PRN SQ 08/23/16 10:30 09/22/16 10:29 Enteral Nutritional Formula (Peptamen Intense VHP) 1,000 ml UD OG 08/23/16 11:45 09/22/16 11:44 08/26/16 18:23 1,000 ML Bacitracin (Bacitracin Oint) 1 appln BID EXT 08/23/16 21:00 09/22/16 20:59 08/30/16 08:29 1 APPLN Bacitracin (Bacitracin Oint) 1 appln QS PRN EXT 08/23/16 19:00 09/22/16 18:59 Piperacillin Sod/ Tazobactam Sod (Consult) 1 ea UD PRN N/A 08/24/16 00:30 09/23/16 00:29 Metoprolol Tartrate 5 mg 5 mg Q6 PRN IV 08/24/16 12:00 09/23/16 11:59 08/29/16 12:58 5 MG Piperacillin Sod/ Tazobactam Sod/ Dextrose (Zosyn Iv/D5 100ml) 120 ml @ 30 mls/hr Q8H IV 08/24/16 14:00 09/01/16 23:59 08/30/16 14:21 30 MLS/HR Polyethylene (Miralax Powder Packet) 17 gm DAILY PO 08/25/16 09:00 09/24/16 08:59 Future Hold 08/29/16 08:56 17 GM Docusate Sodium (coLACE SYRUP) 100 mg BID PO 08/26/16 21:00 09/25/16 20:59 Future Hold 08/29/16 08:56 100 MG Fentanyl Citrate 50 mcg 50 mcg Q2H PRN IV 08/26/16 11:00 09/09/16 10:59 08/29/16 23:39 50 MCG Levetiracetam/ Dextrose (Keppra Iv/D5 100ml) 105 ml @ 420 mls/hr Q12H IV 08/26/16 22:00 09/25/16 21:59 08/30/16 12:11 420 MLS/HR Ondansetron HCl (Zofran Inj) 4 mg Q6H PRN IV 08/26/16 13:15 09/25/16 13:14 08/27/16 08:54 4 MG Enteral Nutritional Formula (Peptamen Intense VHP) 1,000 ml UD PRN NG 08/26/16 16:30 6/15/17 16:29 Heparin Sodium (Porcine) (Heparin 10 Unit/ ml 5 ml Flush) 5 ml PRN PRN FLUSH 08/28/16 02:00 09/27/16 01:59 Metoprolol Tartrate 12.5 mg 12.5 mg BID PO 08/28/16 09:00 09/27/16 08:59 08/30/16 08:28 12.5 MG Acetaminophen 100 ml @ 400 mls/hr Q8H PRN IV 08/29/16 00:00 09/28/16 00:00 08/29/16 14:13 400 MLS/HR Dexmedetomidine HCl/Sodium Chloride (PreCEDEX INJ/ Nss 100ml) 100 ml @ 0 mls/hr Q0M PRN IV 08/29/16 03:15 09/02/16 03:14 08/30/16 14:23 19 MLS/HR Sterile Water 1 ea 1 ea Q4H NG 08/29/16 10:00 09/28/16 09:59 08/30/16 06:00 1 EA Ceftriaxone Sodium/Dextrose (Rocephin Inj/D5 50ml) 70 ml @ 100 mls/hr Q24H IV 08/29/16 11:00 09/05/16 10:59 08/30/16 12:12 100 MLS/HR Objective Vital Signs Date Time Temp Pulse Resp B/P Pulse Ox O2 Delivery O2 Flow Rate FiO2 08/30/16 12:00 36.9 76 20 92/47 92 Mask 12.0 40 08/30/16 12:00 Mask 12.0 40 08/30/16 10:00 70 21 110/55 100 Mechanical Ventilator 40 08/30/16 08:25 40 08/30/16 08:00 40 08/30/16 08:00 Mechanical Ventilator 40 08/30/16 08:00 37.0 62 16 127/63 100 Mechanical Ventilator 40 08/30/16 07:32 40 08/30/16 06:00 67 24 172/106 99 08/30/16 05:15 40 08/30/16 04:00 40 08/30/16 04:00 100 Mechanical Ventilator 08/30/16 03:04 22 100 08/30/16 02:12 40 08/30/16 02:00 36.4 77 18 122/60 100 08/30/16 01:00 16 100 08/30/16 00:00 37.6 72 17 112/48 99 08/30/16 00:00 40 08/30/16 00:00 97 Mechanical Ventilator 15.0 40 08/29/16 23:05 40 08/29/16 23:00 16 100 08/29/16 22:00 77 16 113/54 100 08/29/16 21:00 17 99 08/29/16 20:10 36.7 88 20 122/59 100 Mechanical Ventilator 08/29/16 20:06 40 08/29/16 20:03 Mechanical Ventilator 15.0 40 08/29/16 19:55 40 08/29/16 18:00 37.3 90 20 121/58 97 Mechanical Ventilator 08/29/16 17:00 37.7 92 22 140/71 94 Mechanical Ventilator 40 08/29/16 16:45 37.7 08/29/16 16:00 38.9 87 19 136/67 96 Mechanical Ventilator 40 08/29/16 16:00 40 08/29/16 16:00 97 Mechanical Ventilator 40 Physical Exam General Appearance: WD/WN, no apparent distress Eyes: normal inspection, PERRL, EOMI, sclerae normal ENT: normal ENT inspection, hearing grossly normal, pharynx normal Neck: supple, no adenopathy, no JVD Respiratory/Chest: chest non-tender, lungs clear, normal breath sounds, no respiratory distress, no accessory muscle use Cardiovascular: regular rate, rhythm, no edema, no gallop, no JVD, no murmur Abdomen: normal bowel sounds, non tender, soft, no organomegaly Extremities: normal range of motion, non-tender, normal inspection, no pedal edema, no calf tenderness Neurologic/Psychiatric: supervisor webbing II-XII nml as tested, no motor/sensory deficits, alert, normal mood/affect Skin: normal color, warm/dry, no rash Laboratory Results Last 24 Hours Test 08/29/16 17:47 08/30/16 05:32 Sodium Level 144 mmol/L 144 mmol/L Potassium Level 4.2 mmol/L 3.9 mmol/L Chloride Level 109 mmol/L 109 mmol/L Carbon Dioxide Level 22 mmol/L 28 mmol/L Anion Gap 13.0 mmol/L 7.0 mmol/L Blood Urea Nitrogen 15 mg/dl 16 mg/dl Creatinine 1.30 mg/dl 1.20 mg/dl Est Creatinine Clear Calc Drug Dose 96.5 ml/min 104.5 ml/min Estimated GFR () 86.7 95.5 Estimated GFR (Non- 74.8 82.4 BUN/Creatinine Ratio 11.7 13.0 Random Glucose 150 mg/dl 104 mg/dl Calcium Level 8.1 mg/dl 8.5 mg/dl White Blood Count 11.37 K/uL Red Blood Count 3.33 M/uL Hemoglobin 9.7 g/dL Hematocrit 28.8 % Mean Corpuscular Volume 86.5 fL Mean Corpuscular Hemoglobin 29.1 pg Mean Corpuscular Hemoglobin Concent 33.7 g/dl Platelet Count 242 K/uL Mean Platelet Volume 11.5 fL Neutrophils (%) (Auto) 72.3 % Lymphocytes (%) (Auto) 19.5 % Monocytes (%) (Auto) 6.3 % Eosinophils (%) (Auto) 1.1 % Basophils (%) (Auto) 0.2 % Neutrophils # (Auto) 8.21 K/uL Lymphocytes # (Auto) 2.22 K/uL Monocytes # (Auto) 0.72 K/uL Eosinophils # (Auto) 0.13 K/uL Basophils # (Auto) 0.02 K/uL RDW Standard Deviation 44.4 fL RDW Coefficient of Variation 13.9 % Immature Granulocyte % (Auto) 0.6 % Immature Granulocyte # (Auto) 0.07 K/uL Total Bilirubin 0.7 mg/dl Aspartate Amino Transf (AST/SGOT) 44 U/L Alanine Aminotransferase (ALT/SGPT) 57 U/L Alkaline Phosphatase 111 U/L Total Protein 6.3 gm/dl Albumin 2.3 gm/dl Globulin 4.0 gm/dl Albumin/Globulin Ratio 0.6 Assessment and Plan 26 yo male who unfortunately suffered a cardiac arrest while on the treadmill at detention, likely ventricular arrhythmia, 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 after admission - s/p cardiac arrest, likely ventricular arrhythmia in setting of HCOM completed cooling process, now for Tylenol for any hyperthermia as well as cooling blankets no further arrhythmias since admission tachycardia - resolved, HR in the 70's, sinus BP stable will need ICD placement but will hold on cardiology consult until no fevers/ infection - Acute hypoxic respiratory failure: resolved, extubated on 08/30 continue supplemental oxygen needs swallow evaluation prior to allowing to drink and eat - Anoxic brain injury, cord injury continues to improve, awake, alert, following commands, tracking left and right much more strength today Keppra started for anoxic myoclonic jerks, no jerks reported per RN MRI with possible occipital (bilateral) and right parietal ischemia but no other findings neurology following - Pneumonia, likely aspiration: change to Rocephin per ID, culture grew MSSA, stop Vanco and Zosyn needs 6 more days of Rocephin bronchoscopy on 08/24 - Fevers: appreciate ID note, will continue to treat with Tylenol and cooling no DVT on dopplers follow up cultures, no growth yet on multiple cultures - Elevated LFT: due to cardiac arrest, trended down appropriately - WILLARD: Cr peaked at 1.7, 1.0 today, making adequate urine diurese as needed if he continues to get stronger could pull catheter - Right hydronephrosis: replace stent 08/28 since he still has hydronephrosis r/o as cause of fevers - Ileus: seen on CT scan and also hypoactive BS on exam stool cultures and c diff negative will attempt to feed but needs swallow evaluation first - DVT prophylaxis: heparin
[2016-08-30] MEDS: ACETAMINOPHEN IV 100 ML IV PRN (19:42)
[2016-08-31] VITALS (19 sets, daily range): BP systolic 93–151; BP diastolic 55–110; PULSE 93–159; TEMP 37.3–37.9; O2SAT 78–97
[2016-08-31] MEDS: TUBE FEEDING WATER FLUSH NG SCH ×2 (02:00→06:00)
[2016-08-31] MEDS: FENTANYL CITRATE INJ 50 MCG/1 ML 2 ML VIAL IV PRN ×2 (02:29→05:51)
[2016-08-31] MEDS ORDERED: NURSING VERBAL MED ORDER ONE ×4 (03:00→23:15)
[2016-08-31] MEDS ORDERED: LORAZEPAM 2 MG/ML 1 ML VIAL ONE (03:03)
[2016-08-31] MEDS ORDERED: LORAZEPAM INJ 0.5 MG in SYRINGE 0.75 ML IV PRN (03:30)
[2016-08-31] MEDS ORDERED: LORAZEPAM 2 MG/ML 1 ML VIAL IV PRN (03:30)
[2016-08-31 05:39] LABS: HEMATOCRIT 31.5 % (42-52); MEAN CELL VOLUME 85.4 fL (80-100); MEAN CORPUSCULAR HEMOGLOBIN 28.5 pg (25-34); MEAN CORPUSCULAR HGB CONC 33.3 g/dl (32-36); MEAN PLATELET VOLUME 11.2 fL (7.4-10.4); PLATELET COUNT 390 K/uL (130-400); RED BLOOD COUNT 3.69 M/uL (4.7-6.1); WHITE BLOOD COUNT 12.83 K/uL (4.8-10.8)
[2016-08-31 05:40] LABS: BASO % 0.3 %; BASO ABS # 0.04 K/uL (0-0.2); COMPLETE YES; EOS % 0.7 %; IG% 0.5 %; LYMPH % 18.7 %; MONO % 6.5 %; NEUT % 73.3 %
[2016-08-31 05:57] LABS: BUN/CREATININE RATIO 11.9 (10-20); CALCIUM 8.2 mg/dl (8.5-10.1); CREATININE 1.2 mg/dl (0.60-1.40); PHOSPHORUS 2.5 mg/dl (2.5-4.9); POTASSIUM 3.5 mmol/L (3.5-5.1)
[2016-08-31] MEDS: PIPERACILL/TAZOBAC IV 4.5 GM in DEXTROSE 5% 100ML IV SCH (06:17)
[2016-08-31] MEDS: HEPARIN SOD 5000 UNIT/0.5 ML CARP SQ SCH (06:20)
[2016-08-31] MEDS ORDERED: MoRPHine SULFATE 2 MG/ML CARP ONE ×2 (07:30→08:05)
[2016-08-31] MEDS: BACITRACIN OINT 15 GM TUBE EXT SCH ×2 (07:33→20:08)
[2016-08-31] MEDS: METOPROLOL TARTRATE 25 MG TAB PO SCH ×2 (07:34→20:07)
[2016-08-31] MEDS: ALBUTEROL HFA 8 GM INHALER INH SCH ×5 (07:37→20:08)
[2016-08-31] MEDS ORDERED: MoRPHine SULFATE 2 MG/ML CARP IV STA (07:59)
[2016-08-31] MEDS ORDERED: MoRPHine SULFATE 2 MG/ML CARP IV PRN (08:00)
[2016-08-31] MEDS ORDERED: ENOXAPARIN 40 MG/0.4 ML SYR SQ SCH (09:00)
[2016-08-31] MEDS: LEVETIRACETAM IV 500 MG in DEXTROSE 5% 100ML 100 ML IV SCH ×2 (09:06→21:11)
[2016-08-31] MEDS ORDERED: KETOROLAC TROMETHAMINE 30 MG/ML VIAL IV STA (09:36)
[2016-08-31] MEDS ORDERED: CLONAZEPAM 0.5 MG TAB PO STA (09:36)
--- NOTE | 2016-08-31 10:04 | DIAGNOSTIC IMAGING REPORT ---
CHEST ONE VIEW PORTABLE HISTORY: Atypical chest pain COMPARISON: Chest 08/30/2016. FINDINGS: Endotracheal tube is been interval. The heart remains mildly enlarged. No pneumothorax. No pleural effusions. Mild interstitial thickening and hazy bibasilar densities persist. A right PICC terminates in the SVC. IMPRESSION: 1. The endotracheal tube has been removed. 2. Mild interstitial thickening and hazy bibasilar densities persist. This could be due to mild congestive change or a pneumonia. Electronically signed by: Darrell Hough M.D. 08/31/2016 10:03 AM Dictated Date/Time: 08/31/2016 10:00 AM
--- NOTE | 2016-08-31 10:07 | DIAGNOSTIC IMAGING REPORT ---
ABDOMEN 2 VIEWS HISTORY: Abdominal distention. COMPARISON: Abdominal series 08/30/2016. FINDINGS: Multiple mildly dilated gas-filled loops of large and small bowel. This is slightly improved. There are bibasilar densities. No pneumoperitoneum. No pneumatosis. Right ureteral stent appears to be in good position. IMPRESSION: Slight improvement in the nonobstructive ileus. Bibasilar densities persist. Electronically signed by: Darrell Hough M.D. 08/31/2016 10:05 AM Dictated Date/Time: 08/31/2016 10:04 AM
[2016-08-31] MEDS: PANTOprazole INJ 40 MG in SYRINGE 0 ML IV SCH (10:36)
[2016-08-31] MEDS: CEFTRIAXONE SOD INJ 2,000 MG in DEXTROSE 5% 50ML 50 ML IV SCH (10:36)
[2016-08-31] MEDS ORDERED: FUROSEMIDE INJ 20 MG in SYRINGE 0 ML IV SCH (13:00)
[2016-08-31] MEDS: POTASSIUM CHLR 20 MEQ / WTR 20 MEQ in PREMIXED WATER 100 ML IV SCH ×3 (13:14→17:20)
[2016-08-31] MEDS: ENOXAPARIN 40 MG/0.4 ML SYR SQ SCH (13:15)
--- NOTE | 2016-08-31 13:51 | CRITICAL CARE PROGRESS NOTE ---
DATE: 08/31/2016 SUBJECTIVE: This is hospital day #10 for this 26-year-old male, who had an [id number] cardiac arrest with return of circulation. He underwent targeted temperature management and was extubated yesterday. There were no acute events overnight, although he did begin to complain of some left-sided chest pain, worse with positioning in the bed and when pressing on the left chest. EKG last night without acute changes. He continues to report that he is starving. He also expressed concern about his myoclonic movements to me this morning - wondering if they will ever stop. He had hiccups last night which seem to have resolved, but they were very problematic for him. He has been seen by speech therapy today and cleared to take a regular diet when clinically indicated. He had an ileus develop over the past few days and is having bowel movements. He denies nausea or vomiting. His biggest complaint was that he did not sleep at all last night. OBJECTIVE: VITAL SIGNS: Maximum temperature 38.2, heart rate 93-113, respiratory rate 21-29, blood pressure 118-149/50-60s and oxygen saturation 92% on two liters nasal cannula, 24-hour fluid balance negative 916 mL, two bowel movements overnight. GENERAL: He is awake and speaks very softly. NEUROLOGIC: He is able to follow commands and move all four extremities, but he certainly has a myoclonus including twitching of the face. He is oriented to person and the hospital. He knows he is in [place]. He knows that he had a cardiac arrest while on the treadmill. He can tell me his address. His strength is 5/5 in the distal upper extremities and 4+/5 in the distal lower extremities. He is uncoordinated and continues to have myoclonic jerking. He has some trunk instability with trying to sit up on his own. LUNGS: Bibasilar rales. No rhonchi or wheezes. HEART: Tachycardic, regular. No murmurs. CHEST: Tender to palpation about 2 cm below the left nipple along the rib. ABDOMEN: Firm, mildly distended, nontender and hypoactive bowel sounds. EXTREMITIES: Waffle boots are in place. Has 1+ edema of the hands and trace pretibial edema. LABORATORY DATA: White blood cell count 12.83, hemoglobin 10.5, hematocrit 31.5 and platelets 390. Sodium 145, potassium 3.5, chloride 110, CO2 25, BUN 14, creatinine 1.2 and calcium 8.2. MICROBIOLOGY DATA: Reviewed. C. diff assay is negative. Stool culture pending, no fecal leukocytes identified. MEDICATIONS AND INFUSIONS: Acetaminophen p.r.n., albuterol, Bacitracin, ceftriaxone day #3, Lovenox, Keppra, Ativan p.r.n., metoprolol, morphine p.r.n., Zofran, Protonix, Zosyn day #7 and potassium chloride. Abdominal x-ray shows improvement in the nonobstructed ileus. Portable chest x-ray shows bibasilar infiltrates. IMPRESSION: 1. Status post [id number] cardiac arrest, successfully resuscitated and treated by targeted temperature management. He has hypertrophic obstructive cardiomyopathy and is on a beta fatemeh. 2. Anoxic brain injury with myoclonus. It is difficult to tell what his cognitive functioning is compared to baseline. 3. Chest pain, musculoskeletal. One dose of Toradol was given today and morphine was given as well. He may have a fractured rib; consider formal rib films in the future, although I do not think that would change his management presently. 4. Acute respiratory failure, resolved. Extubated yesterday. He is using the incentive spirometer. 5. Ileus, improving by radiographs but still has a lot of air throughout the large and small bowel. He is very persistent and fixated about eating a more substantial diet. He was advanced to full liquids today. 6. Aspiration pneumonia day #7 of Zosyn. Methicillin sensitive staph aureus obtained from bronchial washing on 08/14/2016. He continues on ceftriaxone day #3. Infectious Disease service is following - he should have 5 more days of the Rocephin per my discussion with them. 7. Right hydronephrosis, possible congenital UPJ obstruction status post ureteral stent x2. 8. Fever, it seems to be improving. He did not require a cooling blanket for temperature regulation over the past 24 hours. No cultures in the past few days other than C. Dif which was negative. Still culture pending. 8. Acute kidney injury, resolved. PLAN: NEURO: Continue morphine for pain and discontinue fentanyl. Judicious use of Toradol for chest pain. Consider Lidoderm patch or heating pad to the left chest. Keppra for myoclonus. I also gave him one dose of Clonazapam today but didn't see much change. PULMONARY: Continue incentive spirometry and mobilization. Continue bronchodilators. CARDIOVASCULAR: Will nee to reconsult cardiology for defibrillator placement once fevers jadon. Continue scheduled and PRN lopressor. INFECTIOUS DISEASE: Discontinue Zosyn today and continue ceftriaxone. The infectious disease service has seen the patient and favor 14 days of antibiotics for the methicillin sensitive staph aureus. NEUROLOGIC: He has received clonazepam 0.5 mg p.o. x1 for ongoing myoclonus; he remains on Keppra 500 mg IV b.i.d. for this as well. Await any further neurology recommendations. RENAL: Follow creatinine carefully, status post Toradol today. Continue intermittent diuresis. GASTROINTESTINAL: Continue full liquid diet and I will add some nutritional supplements. Proton pump inhibitor p.o. for GI prophylaxis. HEMATOLOGY: Change heparin to lovenox for DVT prophylaxis. ENDOCRINE: No active issues. : Will need follow up with urology once discharged. MISCELLANEOUS: Continue physical therapy, occupational therapy and mobilization. PICC line insertion on 08/29/2016. Discharge plan in progress. Please call me with any questions or concerns. MTDD
[2016-08-31] MEDS: BOOST VANILLA PO SCH ×2 (15:37)
--- NOTE | 2016-08-31 15:57 | Progress Note ---
Subjective Date of Service: August 31, 2016. Subjective Pt evaluation today including: conversation w/ patient, conversation w/ family , physical exam, lab review, review of studies, conversation w/ network security consultant, review of inpatient medication list Pain: denies pain PO Intake: improving, tolerating liquids Voiding: ruffin catheter in place had some chest pain in left side and hiccups last night, got agitated, relieved with Toradol, Morphine, Klonopin and then he slept this morning OOB to chair this afternoon, tolerating Boost with ice cream, hungry for real food bowels moving but slowing down, all cultures negative breathing better, titrated off of oxygen Problem List Medical Problems: (1) Altered mental status Status: Acute (2) Cardiac arrest Status: Acute Review of Systems Constitutional: + fatigue, + weakness Respiratory: + shortness of breath Cardiac: + chest pain (resolved with morphine) Abdomen: + diarrhea (slowing down), + nausea All Other Systems: Reviewed and Negative Medications Current Inpatient Medications Medications (Trade) Dose Ordered Sig/Shireen Route Start Time Stop Time Status Last Admin Dose Admin Pantoprazole Sodium/Syringe (Protonix Inj/ Syringe) 10 ml @ 5 mls/min DAILY@1100 IV 08/22/16 11:00 09/21/16 10:59 08/31/16 10:36 5 MLS/MIN Glucose (Glucose 40% Gel) UD PRN PO 08/23/16 10:30 09/22/16 10:29 Glucose (Glucose Chew Tab) 1 tabs UD PRN PO 08/23/16 10:30 09/22/16 10:29 Dextrose (Dextrose 50% 50ML Syringe) 50 ml UD PRN IV 08/23/16 10:30 09/22/16 10:29 08/23/16 12:13 50 ML Glucagon (Glucagon Inj) 1 mg UD PRN SQ 08/23/16 10:30 09/22/16 10:29 Bacitracin (Bacitracin Oint) 1 appln BID EXT 08/23/16 21:00 09/22/16 20:59 08/31/16 07:33 1 APPLN Bacitracin (Bacitracin Oint) 1 appln QS PRN EXT 08/23/16 19:00 09/22/16 18:59 Metoprolol Tartrate (Lopressor Iv) 5 mg Q6 PRN IV 08/24/16 12:00 09/23/16 11:59 08/29/16 12:58 5 MG Polyethylene (Miralax Powder Packet) 17 gm DAILY PO 08/25/16 09:00 09/24/16 08:59 Future Hold 08/29/16 08:56 17 GM Docusate Sodium 100 mg 100 mg BID PO 08/26/16 21:00 09/25/16 20:59 Future Hold 08/29/16 08:56 100 MG Levetiracetam/ Dextrose (Keppra Iv/D5 100ml) 105 ml @ 420 mls/hr Q12H IV 08/26/16 22:00 09/25/16 21:59 08/31/16 09:06 420 MLS/HR Ondansetron HCl (Zofran Inj) 4 mg Q6H PRN IV 08/26/16 13:15 09/25/16 13:14 08/27/16 08:54 4 MG Heparin Sodium (Porcine) (Heparin 10 Unit/ ml 5 ml Flush) 5 ml PRN PRN FLUSH 08/28/16 02:00 09/27/16 01:59 Metoprolol Tartrate 12.5 mg 12.5 mg BID PO 08/28/16 09:00 09/27/16 08:59 08/31/16 07:34 12.5 MG Acetaminophen 100 ml @ 400 mls/hr Q8H PRN IV 08/29/16 00:00 09/28/16 00:00 08/30/16 19:42 400 MLS/HR Ceftriaxone Sodium 2000 mg/ Dextrose 70 ml @ 100 mls/hr Q24H IV 08/29/16 11:00 09/05/16 10:59 08/31/16 10:36 100 MLS/HR Lorazepam/Syringe (Ativan Inj/ Syringe) 1 ml @ 1 mls/min Q6H PRN IV 08/31/16 03:30 09/30/16 03:29 Lorazepam (Ativan Inj) 0.5 mg Q6H PRN IV 08/31/16 03:30 09/30/16 03:29 08/31/16 09:05 0.5 MG Albuterol (Ventolin Hfa Inhaler) 2 puffs QIDR INH 08/31/16 08:00 09/30/16 07:59 08/31/16 15:37 2 PUFFS Enoxaparin Sodium (Lovenox Inj) 40 mg DAILY@1400 SQ 08/31/16 14:00 09/30/16 13:59 08/31/16 13:15 40 MG Morphine Sulfate 4 mg 4 mg Q4H PRN IV 08/31/16 12:00 09/14/16 11:59 Potassium Chloride/Prmx (Kcl 20 Meq / Wtr/Premixed Water) 100 ml @ 50 mls/hr Q2H IV 08/31/16 13:00 08/31/16 18:59 08/31/16 15:37 50 MLS/HR Enteral Nutritional Formula (Boost) 1 can TIDM PO 08/31/16 16:30 09/30/16 16:29 08/31/16 15:37 1 CAN Objective Vital Signs Date Time Temp Pulse Resp B/P Pulse Ox O2 Delivery O2 Flow Rate FiO2 08/31/16 12:00 Nasal Cannula 2.0 08/31/16 12:00 37.3 95 30 111/60 94 Nasal Cannula 2.0 08/31/16 10:00 101 27 115/68 94 Nasal Cannula 2.0 08/31/16 08:00 37.9 115 31 133/67 95 Nasal Cannula 2.0 08/31/16 08:00 Nasal Cannula 2.0 08/31/16 06:01 111 21 149/60 92 Nasal Cannula 2.0 08/31/16 05:56 113 22 151/62 91 Nasal Cannula 2.0 08/31/16 04:01 37.6 112 23 143/110 94 Nasal Cannula 2.0 08/31/16 04:00 Nasal Cannula 2.0 08/31/16 03:01 115 29 118/93 92 Nasal Cannula 2.0 08/31/16 02:01 107 21 117/55 93 Nasal Cannula 2.0 08/31/16 01:01 106 22 114/101 94 Nasal Cannula 2.0 08/31/16 00:01 Nasal Cannula 2.0 08/31/16 00:01 37.7 98 32 132/64 95 Nasal Cannula 2.0 08/30/16 23:01 97 23 124/64 97 Nasal Cannula 08/30/16 22:48 94 38 128/63 96 Nasal Cannula 2.0 08/30/16 21:01 37.0 99 22 124/65 96 Nasal Cannula 2.0 08/30/16 20:01 103 18 106/55 98 Nasal Cannula 2.0 08/30/16 20:00 Nasal Cannula 2.0 08/30/16 19:01 38.2 104 21 121/59 95 Nasal Cannula 2.0 08/30/16 18:00 93 22 93/54 94 Nasal Cannula 2.0 08/30/16 16:00 Nasal Cannula 2.0 08/30/16 16:00 37.5 93 20 118/48 94 Nasal Cannula 2.0 Physical Exam General Appearance: WD/WN, no apparent distress Eyes: normal inspection, PERRL, EOMI, sclerae normal ENT: normal ENT inspection, hearing grossly normal, pharynx normal Neck: supple, no adenopathy, no JVD, trachea midline Respiratory/Chest: chest non-tender, normal breath sounds, no respiratory distress, no accessory muscle use, + rhonchi (bases), + pertinent finding (mild tachypnea) Cardiovascular: no edema, no gallop, no JVD, no murmur, + tachycardia Abdomen: normal bowel sounds, non tender, soft, no organomegaly Extremities: normal range of motion, non-tender, normal inspection, no pedal edema, no calf tenderness, pelvis stable Neurologic/Psychiatric: hot cell technician II-XII nml as tested, alert, normal mood/affect, oriented x 3, + motor weakness (generalized, required 3 people to get in chair, but able to sit in chair independently) Skin: normal color, warm/dry, no rash Laboratory Results Last 24 Hours Test 08/31/16 05:10 White Blood Count 12.83 K/uL Red Blood Count 3.69 M/uL Hemoglobin 10.5 g/dL Hematocrit 31.5 % Mean Corpuscular Volume 85.4 fL Mean Corpuscular Hemoglobin 28.5 pg Mean Corpuscular Hemoglobin Concent 33.3 g/dl Platelet Count 390 K/uL Mean Platelet Volume 11.2 fL Neutrophils (%) (Auto) 73.3 % Lymphocytes (%) (Auto) 18.7 % Monocytes (%) (Auto) 6.5 % Eosinophils (%) (Auto) 0.7 % Basophils (%) (Auto) 0.3 % Neutrophils # (Auto) 9.40 K/uL Lymphocytes # (Auto) 2.40 K/uL Monocytes # (Auto) 0.83 K/uL Eosinophils # (Auto) 0.09 K/uL Basophils # (Auto) 0.04 K/uL RDW Standard Deviation 41.8 fL RDW Coefficient of Variation 13.6 % Immature Granulocyte % (Auto) 0.5 % Immature Granulocyte # (Auto) 0.07 K/uL Sodium Level 145 mmol/L Potassium Level 3.5 mmol/L Chloride Level 110 mmol/L Carbon Dioxide Level 25 mmol/L Anion Gap 10.0 mmol/L Blood Urea Nitrogen 14 mg/dl Creatinine 1.20 mg/dl Est Creatinine Clear Calc Drug Dose 104.5 ml/min Estimated GFR () 95.5 Estimated GFR (Non- 82.4 BUN/Creatinine Ratio 11.9 Random Glucose 90 mg/dl Calcium Level 8.2 mg/dl Phosphorus Level 2.5 mg/dl Magnesium Level 2.0 mg/dl Assessment and Plan 26 yo male who unfortunately suffered a cardiac arrest while on the treadmill at group home, likely ventricular arrhythmia, 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 after admission - s/p cardiac arrest, likely ventricular arrhythmia in setting of HCOM completed cooling process, now for Tylenol for any hyperthermia as well as cooling blankets no further arrhythmias since admission tachycardia - resolved, HR in the 70's, sinus BP stable will need ICD placement but will hold on cardiology consult until no fevers/ infection - Acute hypoxic respiratory failure: resolved, extubated on 08/30, breathing room air today this was due to arrest and then pneumonia - Anoxic brain injury, cord injury continues to improve, awake, alert, following commands, tracking left and right, sitting in chair, oriented much more strength today Keppra started for anoxic myoclonic jerks, no jerks reported per RN MRI with possible occipital (bilateral) and right parietal ischemia but no other findings neurology signed off will need PT/OT and rehabilitation - Pneumonia, likely aspiration: change to Rocephin per ID, culture grew MSSA, stop Vanco and Zosyn needs 5 more days of Rocephin bronchoscopy on 08/24 - Fevers: appreciate ID note, will continue to treat with Tylenol and cooling no DVT on dopplers follow up cultures, no growth yet on multiple cultures temperature better today overall, T max was 38.2 which is considerable better - Elevated LFT: due to cardiac arrest, trended down appropriately - WILLARD: Cr peaked at 1.7, 1.0 today, making adequate urine diurese as needed if he continues to get stronger could pull catheter but keep in today - Right hydronephrosis: replace stent 08/28 since he still has hydronephrosis r/o as cause of fevers - Ileus: seen on CT scan and also hypoactive BS on exam stool cultures and c diff negative tolerating liquid diet and hungry for more but hesitant to advance too quickly still with evidence of ileus on x-ray today - DVT prophylaxis: heparin keep in ICU, therapy evaluations, advance diet slowly as ileus resolves, complete course of Rocephin will ultimately need rehabilitation
[2016-08-31] MEDS: MoRPHine SULFATE 4 MG/ML 1 ML CARP\\VIAL IV PRN (19:58)
[2016-08-31] MEDS: CHLORPROMAZINE HCL 25 MG TAB PO PRN (21:11)
[2016-09-01] VITALS (16 sets, daily range): BP systolic 101–148; BP diastolic 47–81; PULSE 86–109; TEMP 36.9–37.6; O2SAT 93–98
[2016-09-01] MEDS ORDERED: NURSING VERBAL MED ORDER ONE (02:00)
[2016-09-01] MEDS ORDERED: VANCOMYCIN CONSULT ACTIVE PRN (03:00)
[2016-09-01] MEDS ORDERED: VANCOMYCIN INJ 2,000 MG in SODIUM CHLORIDE 0.9% 500ML 500 ML IV ONE (03:30)
[2016-09-01] MEDS: CHLORPROMAZINE HCL 25 MG TAB PO PRN ×4 (04:16→20:05)
[2016-09-01] MEDS: MoRPHine SULFATE 4 MG/ML 1 ML CARP\\VIAL IV PRN ×2 (05:15→20:13)
[2016-09-01 05:43] LABS: BASO % 0.3 %; BASO ABS # 0.03 K/uL (0-0.2); COMPLETE YES; EOS % 1.9 %; HEMATOCRIT 34.4 % (42-52); IG% 0.4 %; LYMPH % 26.9 %; LYMPH ABS # 3.04 K/uL (1.2-3.4); MEAN CELL VOLUME 86.2 fL (80-100); MEAN CORPUSCULAR HEMOGLOBIN 28.3 pg (25-34); MEAN CORPUSCULAR HGB CONC 32.8 g/dl (32-36); MEAN PLATELET VOLUME 10.7 fL (7.4-10.4); MONO % 5.4 %; NEUT % 65.1 %; PLATELET COUNT 489 K/uL (130-400); RED BLOOD COUNT 3.99 M/uL (4.7-6.1); WHITE BLOOD COUNT 11.31 K/uL (4.8-10.8)
[2016-09-01 06:18] LABS: BUN/CREATININE RATIO 11.8 (10-20); CALCIUM 8.8 mg/dl (8.5-10.1); CREATININE 1.2 mg/dl (0.60-1.40); MAGNESIUM 2.2 mg/dl (1.8-2.4); POTASSIUM 3.7 mmol/L (3.5-5.1)
--- NOTE | 2016-09-01 08:00 | DIAGNOSTIC IMAGING REPORT ---
SINGLE VIEW CHEST CLINICAL HISTORY: Cardiac arrest. Pneumonia. Respiratory failure. FINDINGS: An AP, portable, upright chest radiograph is compared to study dated 08/31/2016 and correlated with chest CT dated 08/27/2016. The examination is degraded by portable technique and patient rotation. A right PICC line is unchanged in position. The heart is enlarged. The pulmonary vasculature is noncongested. Bibasilar airspace opacities are again seen, left greater than right. This is modestly cleared from yesterday. No large pleural effusion or pneumothorax is seen. The bony thorax is grossly intact. IMPRESSION: 1. Mild cardiac enlargement without radiographic evidence of congestive failure. 2. Bibasilar airspace opacities persist, left greater than right. This has modestly cleared from yesterday. Electronically signed by: Mike Saldana M.D. 09/01/2016 7:58 AM Dictated Date/Time: 09/01/2016 7:57 AM
[2016-09-01] MEDS: BOOST VANILLA PO SCH ×6 (08:30→16:28)
[2016-09-01] MEDS: BACITRACIN OINT 15 GM TUBE EXT SCH ×2 (08:31→20:03)
[2016-09-01] MEDS: ALBUTEROL HFA 8 GM INHALER INH SCH ×4 (08:31→20:03)
[2016-09-01] MEDS ORDERED: CHLOROTHIAZIDE 250 MG PO ONE (08:45)
[2016-09-01] MEDS: DOCUSATE SODIUM 100 MG CAP PO SCH ×2 (09:28→20:04)
[2016-09-01] MEDS: PANTOprazole SOD 40 MG TAB PO SCH (09:28)
[2016-09-01] MEDS: METOPROLOL TARTRATE 50 MG TAB PO SCH ×2 (09:28→20:04)
[2016-09-01] MEDS: LEVETIRACETAM IV 500 MG in DEXTROSE 5% 100ML 100 ML IV SCH (09:29)
--- NOTE | 2016-09-01 09:39 | Critical Care Progress Note ---
Critical Care Progress Note Date of Service September 01, 2016. ICU Day ICU Day Number: [address] Cutler Subjective No complaints at this time Nursing notes that patient was having difficulty sleeping overnight Patient breathing comfortably on room air Has resolving ileus; had BM x 2 yesterday; denies any abdominal complaints at this time. Objective Constitutional: Vital signs as above were reviewed. Eyes: Pupils equal, round, and reactive to light. Extraocular muscles are intact. No proptosis. No photophobia. ENT: Mucous membranes are moist. Oropharynx is clear. No sinus tenderness. TMs are clear bilaterally. Mouth twitching, bilaterally Cardiovascular: Heart with a regular rate and rhythm. Pulses are palpable and symmetric in all 4 extremities. No pedal edema appreciated. Respiratory: Lungs clear to auscultation bilaterally. No wheezes, rales, or rhonchi appreciated. No accessory muscle use. No retractions. No increased work of breathing. GI: Abdomen soft, nontender, nondistended. Normal active bowel sounds. No abdominal hernias appreciated. No rebound. No guarding. : No CVA tenderness appreciated. Musculoskeletal: No midline cervical or vertebral tenderness. No gross deformities. No bony tenderness. No calf swelling or tenderness. Integumentary: Warm, dry, no rashes appreciated. Neurological: Patient awake, alert, and oriented x 3. Cranial nerves two through 12 grossly intact. Motor 4+ out of 5 strength bilateral upper and lower extremities. Gait difficulties with ambulation noted Mild dysdiadokinesis; Finger-nose could not be tested as patient is handcuffed Lymph: No cervical lymphadenopathy appreciated. 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 - Continue Keppra prophylaxis 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 Sleeping difficulties - Discontinue Benzodiazepines as he cannot have in residential - Start Atarax q HS PRN for sleep Hiccups - Continue Thorazine - QTc from 08/31 487 - Repeat EKG today to monitor QTc - Pain regimen: Morphine 4 mg q4 hrs PRN (pain 2/2 chest compression on arrival) CARDIOVASCULAR - BP: 120-30 systolic, MAP 80s HR: 90-100s - Vasopressor support: None - IV Fluids: None - Repeat EKG to monitor for prolonged QTc - Increased Metoprolol to 50 mg BID PO; 5 mg q6 PRN for tacchycardia Hypertrophic Obstructive Cardiomyopathy - Echo: left ventricle is normal in size; severe concentric left ventricular hypertrophy; Ejection Fraction = >70 %; Left ventricular systolic function is normal. - Cardiology consulted; recommendations appreciated - On Metoprolol; currently being titrated up - Possible candidate for ICD; needs cardiolgy re-assessment once once stable Cardiac arrest - Resolved - Hypothermia protocol with re-warming completed - 2/ HOCM above; cardiology following RESPIRATORY - RR: 20 SpO2: > 93% on RA Resolving PNA, in addition to deconditioning/atelectasis from prolonged supine positioning - Continue Albuterol inhaler BID GASTROINTESTINAL - Diet: Full Liquid Diet; AHA Heart Healthy - GI Prophylaxis: Change Protonix to PO - Bowel regimen: Resume Miralax Ileus - Resolving; BM x 2 yesterday - Resume Miralax RENAL//ENDOCRINE - Fluid Balance 24 hour: In 1.6 L / Out 2.2 L / Net - 580 ml Cumulative balance: + 2.6 L Single dose PO Diuril given today WILLARD - Resolved; Cr: 1.2 - Electrolytes: Normal; follow daily BMP Mild hypernatremia Na 147 Diuril given to prevent further hypernatremia Follow daily BMP - IV Fluids: None - BSs, stable Right Hydronephrosis - S/p ureteral stent placement on 08/24 with exchange on 08/28 - Patient to see urology as outpatient in 3 weeks - Discontinue Avelar catheter HEMATOLOGY/INFECTIOUS DISEASE - Tmax: 37.9 WBC: 11 - Bronchial washings positive for suspected MSSA - ID Consulted; recommendations appreciated - Started on Rocephin therapy yesterday; patient swabbed positive for MRSA nares so got Vancomycin overnight - Vancomycin discontinued as pulmonary infection suspected to be MSSA - Currently day 9 of therapy; PICC line place - Continued to spike fevers despite antibiotic treatment; consider central thermostat dysregulation 2/2 anoxic brain injury - Hb/Hct 11/34; stable - Platelets 489 - Antibiotics: Rocephin, as above, day 9 of antibiotic therapy VT Prophylaxis: Lovenox 40 mg qAM LINES/IV ACCESS - Triple Lumen PICC line CODE STATUS - Full Code DISPOSITION - OT/PT: Ordered - Stable for transfer to telemetry today Resident Physician Supervision Note: Dr. Vasquez was resident physician during care of patient. I separately evaluated patient and did history and exam. I discussed the case with the resident and generally agree with the findings and plan. Significant improvement. Planning D/C soon after follow-up with Urology and Cardiology Documented By: Ankit Cutler DO Consults & Procedures Consultants: Neurology Cardiology. Urology Procedures: Right internal jugular vein CVL, 08/21/2016 Right radial arterial line 08/21/2016 Bronchoscopy secondary to new infiltrate 08/24/2016 Data Medications: Current Inpatient Medications Medications (Trade) Dose Ordered Sig/Shireen Route Start Time Stop Time Status Last Admin Dose Admin Glucose (Glucose 40% Gel) UD PRN PO 08/23/16 10:30 09/22/16 10:29 Glucose (Glucose Chew Tab) 1 tabs UD PRN PO 08/23/16 10:30 09/22/16 10:29 Dextrose (Dextrose 50% 50ML Syringe) 50 ml UD PRN IV 08/23/16 10:30 09/22/16 10:29 08/23/16 12:13 50 ML Glucagon (Glucagon Inj) 1 mg UD PRN SQ 08/23/16 10:30 09/22/16 10:29 Bacitracin (Bacitracin Oint) 1 appln BID EXT 08/23/16 21:00 09/22/16 20:59 09/01/16 08:31 1 APPLN Bacitracin (Bacitracin Oint) 1 appln QS PRN EXT 08/23/16 19:00 09/22/16 18:59 Metoprolol Tartrate (Lopressor Iv) 5 mg Q6 PRN IV 08/24/16 12:00 09/23/16 11:59 08/29/16 12:58 5 MG Polyethylene 17 gm 17 gm DAILY PO 08/25/16 09:00 09/24/16 08:59 Future hold 08/29/16 08:56 17 GM Levetiracetam/ Dextrose (Keppra Iv/D5 100ml) 105 ml @ 420 mls/hr Q12H IV 08/26/16 22:00 09/01/16 11:00 08/31/16 21:11 420 MLS/HR Ondansetron HCl (Zofran Inj) 4 mg Q6H PRN IV 08/26/16 13:15 09/25/16 13:14 08/27/16 08:54 4 MG Heparin Sodium (Porcine) 5 ml 5 ml PRN PRN FLUSH 08/28/16 02:00 09/27/16 01:59 Acetaminophen 100 ml @ 400 mls/hr Q8H PRN IV 08/29/16 00:00 09/28/16 00:00 08/30/16 19:42 400 MLS/HR Ceftriaxone Sodium/Dextrose (Rocephin Inj/D5 50ml) 70 ml @ 100 mls/hr Q24H IV 08/29/16 11:00 09/05/16 10:59 08/31/16 10:36 100 MLS/HR Albuterol (Ventolin Hfa Inhaler) 2 puffs QIDR INH 08/31/16 08:00 09/30/16 07:59 09/01/16 08:31 2 PUFFS Enoxaparin Sodium (Lovenox Inj) 40 mg DAILY@1400 SQ 08/31/16 14:00 09/30/16 13:59 08/31/16 13:15 40 MG Morphine Sulfate (MoRPHine SULFATE INJ) 4 mg Q4H PRN IV 08/31/16 12:00 09/14/16 11:59 09/01/16 05:15 4 MG Enteral Nutritional Formula (Boost) 1 can TIDM PO 08/31/16 16:30 09/30/16 16:29 09/01/16 08:30 1 CAN Chlorpromazine HCl (Thorazine Tab) 25 mg Q4H PRN PO 08/31/16 21:00 09/30/16 20:59 09/01/16 04:16 25 MG Lorazepam (Ativan Inj) 1 mg HS IV 09/01/16 21:00 10/01/16 20:59 Future Hold 08/31/16 23:20 1 MG Hydroxyzine HCl (Vistaril Tab) 25 mg HS PRN PO 09/01/16 08:30 10/01/16 08:29 Metoprolol Tartrate (Lopressor Tab) 50 mg BID PO 09/01/16 09:00 10/01/16 08:59 Docusate Sodium (coLACE CAP) 100 mg BID PO 09/01/16 09:00 10/01/16 08:59 Pantoprazole Sodium (Protonix Tab) 40 mg QAM PO 09/01/16 09:00 10/01/16 08:59 Levetiracetam (Keppra Tab) 500 mg BID PO 09/01/16 21:00 10/01/16 20:59 I & O: 24-Hour Column 09/01/16 07:59 Intake Total 2626 ml Output Total 1800 ml Balance 826 ml Vital Signs: Date Time Temp Pulse Resp B/P Pulse Ox O2 Delivery O2 Flow Rate FiO2 09/01/16 08:01 37.1 100 28 148/81 94 Room Air 09/01/16 08:00 Room Air 09/01/16 06:02 109 20 119/76 95 Room Air 09/01/16 04:01 36.9 96 24 131/75 94 Room Air 09/01/16 04:00 Room Air 09/01/16 03:01 92 21 120/66 96 Room Air 09/01/16 02:01 88 28 115/64 95 Room Air 09/01/16 01:01 95 30 119/61 94 Room Air 09/01/16 00:01 Room Air 09/01/16 00:01 37.6 106 22 127/69 93 Room Air 08/31/16 23:01 159 22 141/69 97 Room Air 08/31/16 22:01 97 24 130/71 95 Room Air 08/31/16 21:01 93 14 142/74 92 Room Air 08/31/16 20:01 37.8 100 20 124/81 96 Room Air 08/31/16 20:00 Room Air 08/31/16 19:46 97 21 141/70 96 Room Air 08/31/16 19:01 103 21 94/75 78 Room Air 08/31/16 18:00 107 22 93/82 97 Room Air 08/31/16 16:00 37.5 111 27 147/81 97 Room Air 08/31/16 16:00 Room Air 08/31/16 14:00 97 33 131/63 95 Room Air 08/31/16 12:00 Nasal Cannula 2.0 08/31/16 12:00 37.3 95 30 111/60 94 Nasal Cannula 2.0 08/31/16 10:00 101 27 115/68 94 Nasal Cannula 2.0 Laboratory Results: Last 24 Hours Test 09/01/16 05:15 White Blood Count 11.31 K/uL Red Blood Count 3.99 M/uL Hemoglobin 11.3 g/dL Hematocrit 34.4 % Mean Corpuscular Volume 86.2 fL Mean Corpuscular Hemoglobin 28.3 pg Mean Corpuscular Hemoglobin Concent 32.8 g/dl Platelet Count 489 K/uL Mean Platelet Volume 10.7 fL Neutrophils (%) (Auto) 65.1 % Lymphocytes (%) (Auto) 26.9 % Monocytes (%) (Auto) 5.4 % Eosinophils (%) (Auto) 1.9 % Basophils (%) (Auto) 0.3 % Neutrophils # (Auto) 7.37 K/uL Lymphocytes # (Auto) 3.04 K/uL Monocytes # (Auto) 0.61 K/uL Eosinophils # (Auto) 0.21 K/uL Basophils # (Auto) 0.03 K/uL RDW Standard Deviation 43.5 fL RDW Coefficient of Variation 13.8 % Immature Granulocyte % (Auto) 0.4 % Immature Granulocyte # (Auto) 0.05 K/uL Sodium Level 147 mmol/L Potassium Level 3.7 mmol/L Chloride Level 112 mmol/L Carbon Dioxide Level 27 mmol/L Anion Gap 8.0 mmol/L Blood Urea Nitrogen 14 mg/dl Creatinine 1.20 mg/dl Est Creatinine Clear Calc Drug Dose 103.5 ml/min Estimated GFR () 95.5 Estimated GFR (Non- 82.4 BUN/Creatinine Ratio 11.8 Random Glucose 109 mg/dl Calcium Level 8.8 mg/dl Phosphorus Level 3.1 mg/dl Magnesium Level 2.2 mg/dl
--- NOTE | 2016-09-01 10:36 | Neurology Progress Notes ---
Neurology Progress Note Date of Service September 01, 2016. Subjective Follow-up for anoxic encephalopathy, myoclonus This patient has been extubated, he remains in the surgical ICU. He is much more alert and interacts appropriately. The patient continues to exhibit brief involuntary jerking and twitching of the limbs typically induced with movement. He has been receiving Keppra for post anoxic myoclonus. He has been having some mild difficulty with persistent hiccups as well. Objective Date Time Temp Pulse Resp B/P Pulse Ox O2 Delivery O2 Flow Rate FiO2 09/01/16 08:01 37.1 100 28 148/81 94 Room Air 09/01/16 08:00 Room Air 09/01/16 06:02 109 20 119/76 95 Room Air 09/01/16 04:01 36.9 96 24 131/75 94 Room Air 09/01/16 04:00 Room Air 09/01/16 03:01 92 21 120/66 96 Room Air 09/01/16 02:01 88 28 115/64 95 Room Air 09/01/16 01:01 95 30 119/61 94 Room Air 09/01/16 00:01 Room Air 09/01/16 00:01 37.6 106 22 127/69 93 Room Air 08/31/16 23:01 159 22 141/69 97 Room Air 08/31/16 22:01 97 24 130/71 95 Room Air 08/31/16 21:01 93 14 142/74 92 Room Air 08/31/16 20:01 37.8 100 20 124/81 96 Room Air 08/31/16 20:00 Room Air 08/31/16 19:46 97 21 141/70 96 Room Air 08/31/16 19:01 103 21 94/75 78 Room Air 08/31/16 18:00 107 22 93/82 97 Room Air 08/31/16 16:00 37.5 111 27 147/81 97 Room Air 08/31/16 16:00 Room Air 08/31/16 14:00 97 33 131/63 95 Room Air 08/31/16 12:00 Nasal Cannula 2.0 08/31/16 12:00 37.3 95 30 111/60 94 Nasal Cannula 2.0 Last 24 Hours Test 09/01/16 05:15 White Blood Count 11.31 K/uL Red Blood Count 3.99 M/uL Hemoglobin 11.3 g/dL Hematocrit 34.4 % Mean Corpuscular Volume 86.2 fL Mean Corpuscular Hemoglobin 28.3 pg Mean Corpuscular Hemoglobin Concent 32.8 g/dl Platelet Count 489 K/uL Mean Platelet Volume 10.7 fL Neutrophils (%) (Auto) 65.1 % Lymphocytes (%) (Auto) 26.9 % Monocytes (%) (Auto) 5.4 % Eosinophils (%) (Auto) 1.9 % Basophils (%) (Auto) 0.3 % Neutrophils # (Auto) 7.37 K/uL Lymphocytes # (Auto) 3.04 K/uL Monocytes # (Auto) 0.61 K/uL Eosinophils # (Auto) 0.21 K/uL Basophils # (Auto) 0.03 K/uL RDW Standard Deviation 43.5 fL RDW Coefficient of Variation 13.8 % Immature Granulocyte % (Auto) 0.4 % Immature Granulocyte # (Auto) 0.05 K/uL Sodium Level 147 mmol/L Potassium Level 3.7 mmol/L Chloride Level 112 mmol/L Carbon Dioxide Level 27 mmol/L Anion Gap 8.0 mmol/L Blood Urea Nitrogen 14 mg/dl Creatinine 1.20 mg/dl Est Creatinine Clear Calc Drug Dose 103.5 ml/min Estimated GFR () 95.5 Estimated GFR (Non- 82.4 BUN/Creatinine Ratio 11.8 Random Glucose 109 mg/dl Calcium Level 8.8 mg/dl Phosphorus Level 3.1 mg/dl Magnesium Level 2.2 mg/dl Exam: The patient is alert and oriented to person and hospital. Speech is fluent. He is able to follow simple commands. Attention is normal. Visual garza full to confrontation. Pupils equal round reactive to light. Eye movements normal. There is normal facial symmetry and strength. Tongue and palate are midline. Shoulder shrug and hearing intact. The patient is able to use his hands to manipulate objects such as a towel. He has some difficulty lifting his hands out of the bed as his movements become more clumsy. He exhibits some intermittent myoclonic jerking movements of the arms and legs which are worse with passive movement. He appears to have greater difficulty lifting his legs out of the bed and moving the lower limbs to command then with the arms. Deep tendon reflexes are diffusely increased. Current Inpatient Medications Medications (Trade) Dose Ordered Sig/Shireen Route Start Time Stop Time Status Last Admin Dose Admin Glucose (Glucose 40% Gel) UD PRN PO 08/23/16 10:30 09/22/16 10:29 Glucose (Glucose Chew Tab) 1 tabs UD PRN PO 08/23/16 10:30 09/22/16 10:29 Dextrose (Dextrose 50% 50ML Syringe) 50 ml UD PRN IV 08/23/16 10:30 09/22/16 10:29 08/23/16 12:13 50 ML Glucagon (Glucagon Inj) 1 mg UD PRN SQ 08/23/16 10:30 09/22/16 10:29 Bacitracin (Bacitracin Oint) 1 appln BID EXT 08/23/16 21:00 09/22/16 20:59 09/01/16 08:31 1 APPLN Bacitracin (Bacitracin Oint) 1 appln QS PRN EXT 08/23/16 19:00 09/22/16 18:59 Metoprolol Tartrate (Lopressor Iv) 5 mg Q6 PRN IV 08/24/16 12:00 09/23/16 11:59 08/29/16 12:58 5 MG Polyethylene 17 gm 17 gm DAILY PO 08/25/16 09:00 09/24/16 08:59 Future hold 08/29/16 08:56 17 GM Levetiracetam/ Dextrose (Keppra Iv/D5 100ml) 105 ml @ 420 mls/hr Q12H IV 08/26/16 22:00 09/01/16 11:00 09/01/16 09:29 420 MLS/HR Ondansetron HCl (Zofran Inj) 4 mg Q6H PRN IV 08/26/16 13:15 09/25/16 13:14 08/27/16 08:54 4 MG Heparin Sodium (Porcine) 5 ml 5 ml PRN PRN FLUSH 08/28/16 02:00 09/27/16 01:59 Acetaminophen 100 ml @ 400 mls/hr Q8H PRN IV 08/29/16 00:00 09/28/16 00:00 08/30/16 19:42 400 MLS/HR Ceftriaxone Sodium/Dextrose (Rocephin Inj/D5 50ml) 70 ml @ 100 mls/hr Q24H IV 08/29/16 11:00 09/05/16 10:59 08/31/16 10:36 100 MLS/HR Albuterol (Ventolin Hfa Inhaler) 2 puffs QIDR INH 08/31/16 08:00 09/30/16 07:59 09/01/16 08:31 2 PUFFS Enoxaparin Sodium (Lovenox Inj) 40 mg DAILY@1400 SQ 08/31/16 14:00 09/30/16 13:59 08/31/16 13:15 40 MG Morphine Sulfate (MoRPHine SULFATE INJ) 4 mg Q4H PRN IV 08/31/16 12:00 09/14/16 11:59 09/01/16 05:15 4 MG Enteral Nutritional Formula (Boost) 1 can TIDM PO 08/31/16 16:30 09/30/16 16:29 09/01/16 08:30 1 CAN Chlorpromazine HCl (Thorazine Tab) 25 mg Q4H PRN PO 08/31/16 21:00 09/30/16 20:59 09/01/16 09:29 25 MG Lorazepam (Ativan Inj) 1 mg HS IV 09/01/16 21:00 10/01/16 20:59 Future Hold 08/31/16 23:20 1 MG Hydroxyzine HCl (Vistaril Tab) 25 mg HS PRN PO 09/01/16 08:30 10/01/16 08:29 Metoprolol Tartrate (Lopressor Tab) 50 mg BID PO 09/01/16 09:00 10/01/16 08:59 09/01/16 09:28 50 MG Docusate Sodium (coLACE CAP) 100 mg BID PO 09/01/16 09:00 10/01/16 08:59 09/01/16 09:28 100 MG Pantoprazole Sodium (Protonix Tab) 40 mg QAM PO 09/01/16 09:00 10/01/16 08:59 09/01/16 09:28 40 MG Levetiracetam (Keppra Tab) 500 mg BID PO 09/01/16 21:00 10/01/16 20:59 Impression Anoxic myoclonus, 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 Anoxic encephalopathy, improving. Persistent upper and lower extremity weakness resembling "man in a barrel "pattern. Singultus, or hiccups, probably post anoxic as well. Plan Continue with current dosage of Keppra. Over time, this medication may be tapered off as his myoclonus should eventually resolve. May continue with chlorpromazine for hiccups. No further recommendations. Please contact me if I may be of further assistance.
--- NOTE | 2016-09-01 11:14 | Progress Note ---
Subjective Date of Service: September 01, 2016. Subjective remains extubated. still with jerking movements, likely related to anoxic injury per neuro. remains on ctx, tolerating well. no LE dvts noted. remains with fevers but curve is overall improving. currently afebrile. zosyn stopped. repeat cultures negative, 08/24, 08/26 final. cath tip cutlure negative as well. cxr improving. c diff negative. Problem List Medical Problems: (1) Altered mental status Status: Acute (2) Cardiac arrest Status: Acute Objective Vital Signs Date Time Temp Pulse Resp B/P Pulse Ox O2 Delivery O2 Flow Rate FiO2 09/01/16 10:02 100 23 144/59 97 Room Air 09/01/16 08:01 37.1 100 28 148/81 94 Room Air 09/01/16 08:00 Room Air 09/01/16 06:02 109 20 119/76 95 Room Air 09/01/16 04:01 36.9 96 24 131/75 94 Room Air 09/01/16 04:00 Room Air 09/01/16 03:01 92 21 120/66 96 Room Air 09/01/16 02:01 88 28 115/64 95 Room Air 09/01/16 01:01 95 30 119/61 94 Room Air 09/01/16 00:01 Room Air 09/01/16 00:01 37.6 106 22 127/69 93 Room Air 08/31/16 23:01 159 22 141/69 97 Room Air 08/31/16 22:01 97 24 130/71 95 Room Air 08/31/16 21:01 93 14 142/74 92 Room Air 08/31/16 20:01 37.8 100 20 124/81 96 Room Air 08/31/16 20:00 Room Air 08/31/16 19:46 97 21 141/70 96 Room Air 08/31/16 19:01 103 21 94/75 78 Room Air 08/31/16 18:00 107 22 93/82 97 Room Air 08/31/16 16:00 37.5 111 27 147/81 97 Room Air 08/31/16 16:00 Room Air 08/31/16 14:00 97 33 131/63 95 Room Air 08/31/16 12:00 Nasal Cannula 2.0 08/31/16 12:00 37.3 95 30 111/60 94 Nasal Cannula 2.0 Laboratory Results Item Value Date Time C.difficile Toxin B Gene (PCR) - Final Complete 08/30/16 2100 Stool No C. difficile toxin B gene detected Catheter Tip Culture - Final Complete 08/28/16 1500 Catheter Tip Central Venous Pressure Line NO GROWTH Blood Culture - Final Complete 08/26/16 1814 Blood NO GROWTH Blood Culture - Final Complete 08/26/16 1809 Blood NO GROWTH Blood Culture - Final Complete 08/24/16 0858 Blood NO GROWTH Blood Culture - Final Complete 08/24/16 0852 Blood NO GROWTH Gram Stain - Final Complete 08/24/16 0000 Bronchial Washings Right Lower Lobe Last 24 Hours Test 09/01/16 05:15 White Blood Count 11.31 K/uL Red Blood Count 3.99 M/uL Hemoglobin 11.3 g/dL Hematocrit 34.4 % Mean Corpuscular Volume 86.2 fL Mean Corpuscular Hemoglobin 28.3 pg Mean Corpuscular Hemoglobin Concent 32.8 g/dl Platelet Count 489 K/uL Mean Platelet Volume 10.7 fL Neutrophils (%) (Auto) 65.1 % Lymphocytes (%) (Auto) 26.9 % Monocytes (%) (Auto) 5.4 % Eosinophils (%) (Auto) 1.9 % Basophils (%) (Auto) 0.3 % Neutrophils # (Auto) 7.37 K/uL Lymphocytes # (Auto) 3.04 K/uL Monocytes # (Auto) 0.61 K/uL Eosinophils # (Auto) 0.21 K/uL Basophils # (Auto) 0.03 K/uL RDW Standard Deviation 43.5 fL RDW Coefficient of Variation 13.8 % Immature Granulocyte % (Auto) 0.4 % Immature Granulocyte # (Auto) 0.05 K/uL Sodium Level 147 mmol/L Potassium Level 3.7 mmol/L Chloride Level 112 mmol/L Carbon Dioxide Level 27 mmol/L Anion Gap 8.0 mmol/L Blood Urea Nitrogen 14 mg/dl Creatinine 1.20 mg/dl Est Creatinine Clear Calc Drug Dose 103.5 ml/min Estimated GFR () 95.5 Estimated GFR (Non- 82.4 BUN/Creatinine Ratio 11.8 Random Glucose 109 mg/dl Calcium Level 8.8 mg/dl Phosphorus Level 3.1 mg/dl Magnesium Level 2.2 mg/dl Assessment and Plan (1) Fever Assessment & Plan: will continue with ctx as planned as pt grew MSSA from bronch as likely aspirated as part of arrest. Improving cxr and fever curve. pt may have anoxic component related to fevers as well. no XENA identified.
[2016-09-01] MEDS: POLYETHYLENE (MIRALAX) 17 GM PACK PO SCH (11:15)
[2016-09-01] MEDS: CEFTRIAXONE SOD INJ 2,000 MG in DEXTROSE 5% 50ML 50 ML IV SCH (11:16)
--- NOTE | 2016-09-01 13:20 | Family Medicine Progress Note ---
Progress Note Date of Service September 01, 2016. Subjective Pt evaluation today including: conversation w/ patient, physical exam, chart review, lab review Pain: complains of pain on the left anterior chest 26-year-old male currently incarcerated, admitted to the ICU with hypothermic protocol secondary to cardiac arrest while on the treadmill. Was found to have hypertrophic obstructive cardiomyopathy on echo. Was maintained on hypothermic protocol , later rewarmed , extubated 2 days ago. Doing better today. Complains of pain in the anterior chest along his left side ribs which is worse on coughing, breathing deeply. Denies any shortness of breath, palpitations, dizziness or lightheadedness. Had a bout of diarrhea which is now resolved. Denies any nausea, vomiting, abdominal pain, fevers or chills. Requests for a regular diet Constitutional: No chills, No fever Eyes: No worsening of vision ENT: No hearing loss Respiratory: + cough, No sputum Cardiovascular: + chest pain (left anterior chest pain on deep breathing or coughing) Abdomen: No diarrhea, No nausea, No pain, No vomiting Musculoskeletal: No joint pain Male : No dysuria, No incontinence, No urinary frequency Neurologic: No memory loss Psychiatric: No see HPI Heme: No abnormal bleeding/bruising Medications Current Inpatient Medications Medications (Trade) Dose Ordered Sig/Shireen Route Start Time Stop Time Status Last Admin Dose Admin Glucose (Glucose 40% Gel) UD PRN PO 08/23/16 10:30 09/22/16 10:29 Glucose (Glucose Chew Tab) 1 tabs UD PRN PO 08/23/16 10:30 09/22/16 10:29 Dextrose (Dextrose 50% 50ML Syringe) 50 ml UD PRN IV 08/23/16 10:30 09/22/16 10:29 08/23/16 12:13 50 ML Glucagon (Glucagon Inj) 1 mg UD PRN SQ 08/23/16 10:30 09/22/16 10:29 Bacitracin (Bacitracin Oint) 1 appln BID EXT 08/23/16 21:00 09/22/16 20:59 09/01/16 08:31 1 APPLN Bacitracin (Bacitracin Oint) 1 appln QS PRN EXT 08/23/16 19:00 09/22/16 18:59 Metoprolol Tartrate (Lopressor Iv) 5 mg Q6 PRN IV 08/24/16 12:00 09/23/16 11:59 08/29/16 12:58 5 MG Polyethylene (Miralax Powder Packet) 17 gm DAILY PO 08/25/16 09:00 09/24/16 08:59 Future hold 09/01/16 11:15 17 GM Ondansetron HCl (Zofran Inj) 4 mg Q6H PRN IV 08/26/16 13:15 09/25/16 13:14 08/27/16 08:54 4 MG Heparin Sodium (Porcine) 5 ml 5 ml PRN PRN FLUSH 08/28/16 02:00 09/27/16 01:59 Acetaminophen 100 ml @ 400 mls/hr Q8H PRN IV 08/29/16 00:00 09/28/16 00:00 08/30/16 19:42 400 MLS/HR Ceftriaxone Sodium/Dextrose (Rocephin Inj/D5 50ml) 70 ml @ 100 mls/hr Q24H IV 08/29/16 11:00 09/05/16 10:59 09/01/16 11:16 100 MLS/HR Albuterol (Ventolin Hfa Inhaler) 2 puffs QIDR INH 08/31/16 08:00 09/30/16 07:59 09/01/16 08:31 2 PUFFS Enoxaparin Sodium (Lovenox Inj) 40 mg DAILY@1400 SQ 08/31/16 14:00 09/30/16 13:59 08/31/16 13:15 40 MG Morphine Sulfate (MoRPHine SULFATE INJ) 4 mg Q4H PRN IV 08/31/16 12:00 09/14/16 11:59 09/01/16 05:15 4 MG Enteral Nutritional Formula (Boost) 1 can TIDM PO 08/31/16 16:30 09/30/16 16:29 09/01/16 08:30 1 CAN Chlorpromazine HCl (Thorazine Tab) 25 mg Q4H PRN PO 08/31/16 21:00 09/30/16 20:59 09/01/16 09:29 25 MG Lorazepam (Ativan Inj) 1 mg HS IV 09/01/16 21:00 10/01/16 20:59 Future Hold 08/31/16 23:20 1 MG Hydroxyzine HCl (Vistaril Tab) 25 mg HS PRN PO 09/01/16 08:30 10/01/16 08:29 Metoprolol Tartrate (Lopressor Tab) 50 mg BID PO 09/01/16 09:00 10/01/16 08:59 09/01/16 09:28 50 MG Docusate Sodium (coLACE CAP) 100 mg BID PO 09/01/16 09:00 10/01/16 08:59 09/01/16 09:28 100 MG Pantoprazole Sodium (Protonix Tab) 40 mg QAM PO 09/01/16 09:00 10/01/16 08:59 09/01/16 09:28 40 MG Levetiracetam (Keppra Tab) 500 mg BID PO 09/01/16 21:00 10/01/16 20:59 Objective Vital Signs Date Time Temp Pulse Resp B/P Pulse Ox O2 Delivery O2 Flow Rate FiO2 09/01/16 12:00 Room Air 09/01/16 12:00 37.0 92 24 108/66 96 Room Air 09/01/16 10:02 100 23 144/59 97 Room Air 09/01/16 08:01 37.1 100 28 148/81 94 Room Air 09/01/16 08:00 Room Air 09/01/16 08:00 Room Air 09/01/16 06:02 109 20 119/76 95 Room Air 09/01/16 04:01 36.9 96 24 131/75 94 Room Air 09/01/16 04:00 Room Air 09/01/16 03:01 92 21 120/66 96 Room Air 09/01/16 02:01 88 28 115/64 95 Room Air 09/01/16 01:01 95 30 119/61 94 Room Air 09/01/16 00:01 Room Air 09/01/16 00:01 37.6 106 22 127/69 93 Room Air 08/31/16 23:01 159 22 141/69 97 Room Air 08/31/16 22:01 97 24 130/71 95 Room Air 08/31/16 21:01 93 14 142/74 92 Room Air 08/31/16 20:01 37.8 100 20 124/81 96 Room Air 08/31/16 20:00 Room Air 08/31/16 19:46 97 21 141/70 96 Room Air 08/31/16 19:01 103 21 94/75 78 Room Air 08/31/16 18:00 107 22 93/82 97 Room Air 08/31/16 16:00 37.5 111 27 147/81 97 Room Air 08/31/16 16:00 Room Air 08/31/16 14:00 97 33 131/63 95 Room Air Physical Exam General Appearance: WD/WN, no apparent distress Eyes: normal inspection ENT: normal ENT inspection, hearing grossly normal Neck: supple Respiratory/Chest: chest non-tender, lungs clear, normal breath sounds, no respiratory distress Cardiovascular: regular rate, rhythm Abdomen: normal bowel sounds, non tender, soft Extremities: normal range of motion, no pedal edema Neurologic/Psychiatric: alert, normal mood/affect, oriented x 3 Skin: normal color Laboratory Results 09/01/16 05:15 Red Blood Count 3.99, Mean Corpuscular Volume 86.2, Mean Corpuscular Hemoglobin 28.3, Mean Corpuscular Hemoglobin Concent 32.8, Mean Platelet Volume 10.7, Neutrophils (%) (Auto) 65.1, Lymphocytes (%) (Auto) 26.9, Monocytes (%) (Auto) 5.4, Eosinophils (%) (Auto) 1.9, Basophils (%) (Auto) 0.3, Neutrophils # (Auto) 7.37, Lymphocytes # (Auto) 3.04, Monocytes # (Auto) 0.61, Eosinophils # (Auto) 0.21, Basophils # (Auto) 0.03 09/01/16 05:15 Test 09/01/16 05:15 White Blood Count 11.31 K/uL (4.8-10.8) Red Blood Count 3.99 M/uL (4.7-6.1) Hemoglobin 11.3 g/dL (14.0-18.0) Hematocrit 34.4 % (42-52) Mean Corpuscular Volume 86.2 fL (80-100) Mean Corpuscular Hemoglobin 28.3 pg (25-34) Mean Corpuscular Hemoglobin Concent 32.8 g/dl (32-36) Platelet Count 489 K/uL (130-400) Mean Platelet Volume 10.7 fL (7.4-10.4) Neutrophils (%) (Auto) 65.1 % Lymphocytes (%) (Auto) 26.9 % Monocytes (%) (Auto) 5.4 % Eosinophils (%) (Auto) 1.9 % Basophils (%) (Auto) 0.3 % Neutrophils # (Auto) 7.37 K/uL (1.4-6.5) Lymphocytes # (Auto) 3.04 K/uL (1.2-3.4) Monocytes # (Auto) 0.61 K/uL (0.11-0.59) Eosinophils # (Auto) 0.21 K/uL (0-0.5) Basophils # (Auto) 0.03 K/uL (0-0.2) RDW Standard Deviation 43.5 fL (36.4-46.3) RDW Coefficient of Variation 13.8 % (11.5-14.5) Immature Granulocyte % (Auto) 0.4 % Immature Granulocyte # (Auto) 0.05 K/uL (0.00-0.02) Anion Gap 8.0 mmol/L (3-11) Est Creatinine Clear Calc Drug Dose 103.5 ml/min Estimated GFR () 95.5 Estimated GFR (Non- 82.4 BUN/Creatinine Ratio 11.8 (10-20) Calcium Level 8.8 mg/dl (8.5-10.1) Phosphorus Level 3.1 mg/dl (2.5-4.9) Magnesium Level 2.2 mg/dl (1.8-2.4) Date/Time Source Procedure Growth Status 08/31/16 21:00 Nasal MRSA DNA Surveillance Screen - Final Specimen Positive for MRSA by DNA Probe Complete Assessment and Plan 26-year-old male currently incarcerated presented to the ER after he had collapsed while on a treadmill, received 1 shock with ROSC. status post hypothermic protocol Echo findings confirmatory of hypertrophic obstructive cardiomyopathy. Acute hypoxic encephalopathy with myoclonic jerking - Status post therapeutic hypothermia protocol - EEG: study shows evidence for a moderate encephalopathy, without focal problems or potentially epileptogenic discharges - MRI brain:faint restricted diffusion within the medial aspect of the bilateral occipital lobes and right posterior parietal lobe. could represent a small amount increased T2 signal within the cortex suggested on the FLAIR sequences. This is nonspecific but could related to mild ischemic change/infarct. This could also be seen in the setting of posterior reversible encephalopathy syndrome. - MRI C-spine: Tiny disc bulge at C3-C4. No significant central canal or neural foraminal narrowing. Otherwise, normal cervical spine MRI. Neurology consult- appreciate recommendations. -Continue Keppra 500 mg BID for myoclonic jerks with clonazepam as needed. -Continue Thorazine for hiccups Acute hypoxic respiratory failure: Extubated 08/30 Pneumonia: CXR: 1. Mild cardiac enlargement without radiographic evidence of congestive failure. 2. Bibasilar airspace opacities persist, left greater than right. This has modestly cleared from yesterday. 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 difficile -Diet advanced Insomnia: Continue hydroxyzine PT/OT Full code DVT prophylaxis - Lovenox Disposition: Transfer to telemetry History Resident Physician Supervision Note: I was present with Dr. Storm during the history and exam. I discussed the case with the resident and agree with the findings and plan as documented in the note. Any exceptions or clarifications are listed here. Pt seen and examined at bedside. No acute events overnight. Persistent hiccoughs and muscle twitches of predominantly right side which are somewhat improved from previous. Denies any pain at this time. Reports no lightheadedness , ALLEN, vision changes, SOB, palpitations, sensation changes. General Appearance: WD/WN, no apparent distress Respiratory: chest non-tender, lungs clear, normal breath sounds, no respiratory distress Cardiovascular: normal peripheral pulses, regular rate, rhythm, no edema, systolic murmur (2/6 TERELL) Assessment/Plan Seizures s/p anoxic brain injury - neurology consulted - continue keppra Myclonus/dystonia/hiccoughs - continue thorazine HOCM w/ cardiac arrest s/p hypothermia protocol - continue metoprolol; cardiology consulted, input appreciated - ICD placement for / Chest pain - s/p resuscitation - rib films, pain control WILLARD w/ hydronephrosis 2/2 UPJ obstruction s/p stent placement - improving, trend BMP, urology consulted - will f/u OP Pneumonia - likely 2/2 aspiration - continue rocephin and zosyn, albuterol PRN - ID consulted Fever - intermittent fever without apparent source aside from adequately treated PNA, potentially central. Monitoring. Resident Tracking Resident Involvement: Resident Care Provided Care Provided: Adult Hospital Medicine
[2016-09-01] MEDS: ENOXAPARIN 40 MG/0.4 ML SYR SQ SCH (13:54)
--- NOTE | 2016-09-01 17:32 | CARDIOLOGY PROGRESS NOTE ---
DATE: 09/01/2016 SUBJECTIVE: This morning, Mr. Spear is up out of bed. He did not have any complaints of dizziness or lightheadedness. He had some persistent hiccups and occasional myoclonic jerking, but was alert and oriented and answered all questions appropriately. PHYSICAL EXAMINATION: CURRENT VITAL SIGNS: Included a blood pressure of 130/72 with a pulse of 90. HEENT: Sclerae are anicteric. LUNGS: Apices were clear. CARDIAC: Regular. LABORATORY STUDIES: Today include a white cell count of 11.3, hemoglobin of 11.3 and platelet count 489. Sodium is 147, potassium is 3.7, BUN was 14, creatinine was 1.2. Review of telemetry reveals occasional PVCs but no sustained arrhythmias. ASSESSMENT AND PLAN: 1. VF arrest: This is secondary to the patient's hypertrophic cardiomyopathy. He has been on beta-fatemeh therapy and seems to be tolerating that well. Now that he has had a reasonable neurologic recovery discussion was entertained regarding a defibrillator for secondary prevention of sudden cardiac . I had a discussion with the patient regarding the options as well as details of the procedure for implantation of a subcutaneous ICD. I believe the subcutaneous device will be ideal in this patient who is otherwise young and has no pacing indication. At this point, he seems to have been adequately treated for his pneumonia. There is no other obvious source of infection. He continues to have some fevers but these may be related to his recovery and not necessarily an infectious etiology. I think at this point we will make some plans and proceed with implantation of a subcutaneous ICD. The patient should continue on beta-fatemeh therapy.
[2016-09-01] MEDS: LEVETIRACETAM 500 MG TAB PO SCH (20:03)
[2016-09-01] MEDS ORDERED: LORAZEPAM 2 MG/ML 1 ML VIAL IV SCH (21:00)
[2016-09-02] VITALS (7 sets, daily range): BP systolic 102–143; BP diastolic 58–79; PULSE 83–99; TEMP 36.8–37.6; O2SAT 95–99
[2016-09-02] MEDS: hydrOXYzine HCL 25 MG TAB PO PRN (00:12)
[2016-09-02 05:48] LABS: BASO % 0.4 %; BASO ABS # 0.05 K/uL (0-0.2); COMPLETE YES; EOS % 1.4 %; HEMATOCRIT 32.1 % (42-52); IG% 0.4 %; LYMPH % 21.1 %; LYMPH ABS # 2.81 K/uL (1.2-3.4); MEAN CELL VOLUME 86.5 fL (80-100); MEAN CORPUSCULAR HEMOGLOBIN 28.8 pg (25-34); MEAN CORPUSCULAR HGB CONC 33.3 g/dl (32-36); MEAN PLATELET VOLUME 10.6 fL (7.4-10.4); MONO % 4.7 %; PLATELET COUNT 506 K/uL (130-400); RED BLOOD COUNT 3.71 M/uL (4.7-6.1); WHITE BLOOD COUNT 13.33 K/uL (4.8-10.8)
[2016-09-02 06:15] LABS: BUN/CREATININE RATIO 10.9 (10-20); CALCIUM 8.4 mg/dl (8.5-10.1); CREATININE 1.2 mg/dl (0.60-1.40); POTASSIUM 3.9 mmol/L (3.5-5.1)
[2016-09-02 06:18] LABS: ALB/GLOB RATIO 0.7 (0.9-2)
[2016-09-02] MEDS: BOOST VANILLA PO SCH ×6 (07:30→16:39)
[2016-09-02] MEDS: LEVETIRACETAM 500 MG TAB PO SCH ×2 (07:57→20:27)
[2016-09-02] MEDS: METOPROLOL TARTRATE 50 MG TAB PO SCH ×2 (07:57→20:27)
[2016-09-02] MEDS: POLYETHYLENE (MIRALAX) 17 GM PACK PO SCH (07:57)
[2016-09-02] MEDS: BACITRACIN OINT 15 GM TUBE EXT SCH ×2 (07:57→20:35)
[2016-09-02] MEDS: DOCUSATE SODIUM 100 MG CAP PO SCH ×2 (07:57→20:26)
[2016-09-02] MEDS: ALBUTEROL HFA 8 GM INHALER INH SCH ×4 (07:57→20:26)
[2016-09-02] MEDS: PANTOprazole SOD 40 MG TAB PO SCH (07:58)
[2016-09-02] MEDS: MoRPHine SULFATE 4 MG/ML 1 ML CARP\\VIAL IV PRN ×3 (08:06→18:59)
--- NOTE | 2016-09-02 09:18 | Family Medicine Progress Note ---
Progress Note Date of Service September 02, 2016. Subjective Pt evaluation today including: conversation w/ patient, physical exam, chart review, lab review Doing better. continues to have rib pain in the left anterior chest which is worse on deep breathing and coughing. no new fevers overnight. no N/V/D/Abd pain Constitutional: No chills, No fever Eyes: No worsening of vision ENT: No hearing loss, No unusual epistaxis Respiratory: No cough, No sputum Cardiovascular: No chest pain Breast: No breast lump Abdomen: No nausea, No pain Musculoskeletal: No joint pain Male : No dysuria, No urinary frequency Neurologic: + problem reported (jerks), No memory loss Medications Current Inpatient Medications Medications (Trade) Dose Ordered Sig/Shireen Route Start Time Stop Time Status Last Admin Dose Admin Glucose (Glucose 40% Gel) UD PRN PO 08/23/16 10:30 09/22/16 10:29 Glucose (Glucose Chew Tab) 1 tabs UD PRN PO 08/23/16 10:30 09/22/16 10:29 Dextrose (Dextrose 50% 50ML Syringe) 50 ml UD PRN IV 08/23/16 10:30 09/22/16 10:29 08/23/16 12:13 50 ML Glucagon (Glucagon Inj) 1 mg UD PRN SQ 08/23/16 10:30 09/22/16 10:29 Bacitracin (Bacitracin Oint) 1 appln BID EXT 08/23/16 21:00 09/22/16 20:59 09/02/16 07:57 1 APPLN Bacitracin (Bacitracin Oint) 1 appln QS PRN EXT 08/23/16 19:00 09/22/16 18:59 Metoprolol Tartrate (Lopressor Iv) 5 mg Q6 PRN IV 08/24/16 12:00 09/23/16 11:59 08/29/16 12:58 5 MG Polyethylene (Miralax Powder Packet) 17 gm DAILY PO 08/25/16 09:00 09/24/16 08:59 Future hold 09/01/16 11:15 17 GM Ondansetron HCl (Zofran Inj) 4 mg Q6H PRN IV 08/26/16 13:15 09/25/16 13:14 08/27/16 08:54 4 MG Heparin Sodium (Porcine) 5 ml 5 ml PRN PRN FLUSH 08/28/16 02:00 09/27/16 01:59 Acetaminophen 100 ml @ 400 mls/hr Q8H PRN IV 08/29/16 00:00 09/28/16 00:00 08/30/16 19:42 400 MLS/HR Ceftriaxone Sodium/Dextrose (Rocephin Inj/D5 50ml) 70 ml @ 100 mls/hr Q24H IV 08/29/16 11:00 09/05/16 10:59 09/02/16 10:59 100 MLS/HR Albuterol (Ventolin Hfa Inhaler) 2 puffs QIDR INH 08/31/16 08:00 09/30/16 07:59 09/02/16 16:06 2 PUFFS Enoxaparin Sodium (Lovenox Inj) 40 mg DAILY@1400 SQ 08/31/16 14:00 09/30/16 13:59 09/02/16 13:42 40 MG Morphine Sulfate (MoRPHine SULFATE INJ) 4 mg Q4H PRN IV 08/31/16 12:00 09/14/16 11:59 09/02/16 16:06 4 MG Enteral Nutritional Formula (Boost) 1 can TIDM PO 08/31/16 16:30 09/30/16 16:29 09/01/16 08:30 1 CAN Chlorpromazine HCl (Thorazine Tab) 25 mg Q4H PRN PO 08/31/16 21:00 09/30/16 20:59 09/01/16 20:05 25 MG Lorazepam (Ativan Inj) 1 mg HS IV 09/01/16 21:00 10/01/16 20:59 Future Hold 08/31/16 23:20 1 MG Hydroxyzine HCl (Vistaril Tab) 25 mg HS PRN PO 09/01/16 08:30 10/01/16 08:29 09/02/16 00:12 25 MG Metoprolol Tartrate (Lopressor Tab) 50 mg BID PO 09/01/16 09:00 10/01/16 08:59 09/02/16 07:57 50 MG Docusate Sodium (coLACE CAP) 100 mg BID PO 09/01/16 09:00 10/01/16 08:59 09/01/16 20:04 100 MG Pantoprazole Sodium (Protonix Tab) 40 mg QAM PO 09/01/16 09:00 10/01/16 08:59 09/02/16 07:58 40 MG Levetiracetam (Keppra Tab) 500 mg BID PO 09/01/16 21:00 10/01/16 20:59 09/02/16 07:57 500 MG Objective Vital Signs Date Time Temp Pulse Resp B/P Pulse Ox O2 Delivery O2 Flow Rate FiO2 09/02/16 17:46 99 24 135/79 96 Room Air 09/02/16 16:00 Room Air 09/02/16 15:29 37.3 89 22 102/58 99 Room Air 09/02/16 12:59 36.9 93 18 139/78 97 09/02/16 12:00 Room Air 09/02/16 08:00 Room Air 09/02/16 07:52 36.8 83 18 143/76 99 09/02/16 04:00 Room Air 09/02/16 03:28 37.2 90 17 104/66 95 Room Air 09/02/16 00:00 Room Air 09/01/16 23:51 37.2 97 18 114/65 98 Room Air 09/01/16 20:00 Room Air 09/01/16 19:28 37.0 96 18 127/76 98 Room Air Physical Exam General Appearance: WD/WN, no apparent distress Eyes: normal inspection ENT: normal ENT inspection, hearing grossly normal Neck: supple Respiratory/Chest: chest non-tender, + wheezing (left lung base) Cardiovascular: regular rate, rhythm Abdomen: normal bowel sounds, non tender Extremities: normal range of motion, non-tender, normal inspection Neurologic/Psychiatric: alert, normal mood/affect, oriented x 3, + pertinent finding (myoclonic jerks and twitching ) Laboratory Results 09/02/16 05:28 Red Blood Count 3.71, Mean Corpuscular Volume 86.5, Mean Corpuscular Hemoglobin 28.8, Mean Corpuscular Hemoglobin Concent 33.3, Mean Platelet Volume 10.6, Neutrophils (%) (Auto) 72.0, Lymphocytes (%) (Auto) 21.1, Monocytes (%) (Auto) 4.7, Eosinophils (%) (Auto) 1.4, Basophils (%) (Auto) 0.4, Neutrophils # (Auto) 9.60, Lymphocytes # (Auto) 2.81, Monocytes # (Auto) 0.63, Eosinophils # (Auto) 0.19, Basophils # (Auto) 0.05 09/02/16 05:28 Test 09/02/16 05:28 White Blood Count 13.33 K/uL (4.8-10.8) Red Blood Count 3.71 M/uL (4.7-6.1) Hemoglobin 10.7 g/dL (14.0-18.0) Hematocrit 32.1 % (42-52) Mean Corpuscular Volume 86.5 fL (80-100) Mean Corpuscular Hemoglobin 28.8 pg (25-34) Mean Corpuscular Hemoglobin Concent 33.3 g/dl (32-36) Platelet Count 506 K/uL (130-400) Mean Platelet Volume 10.6 fL (7.4-10.4) Neutrophils (%) (Auto) 72.0 % Lymphocytes (%) (Auto) 21.1 % Monocytes (%) (Auto) 4.7 % Eosinophils (%) (Auto) 1.4 % Basophils (%) (Auto) 0.4 % Neutrophils # (Auto) 9.60 K/uL (1.4-6.5) Lymphocytes # (Auto) 2.81 K/uL (1.2-3.4) Monocytes # (Auto) 0.63 K/uL (0.11-0.59) Eosinophils # (Auto) 0.19 K/uL (0-0.5) Basophils # (Auto) 0.05 K/uL (0-0.2) RDW Standard Deviation 43.6 fL (36.4-46.3) RDW Coefficient of Variation 13.8 % (11.5-14.5) Immature Granulocyte % (Auto) 0.4 % Immature Granulocyte # (Auto) 0.05 K/uL (0.00-0.02) Anion Gap 3.0 mmol/L (3-11) Est Creatinine Clear Calc Drug Dose 113.0 ml/min Estimated GFR () 95.5 Estimated GFR (Non- 82.4 BUN/Creatinine Ratio 10.9 (10-20) Calcium Level 8.4 mg/dl (8.5-10.1) Total Bilirubin 0.6 mg/dl (0.2-1) Aspartate Amino Transf (AST/SGOT) 44 U/L (15-37) Alanine Aminotransferase (ALT/SGPT) 78 U/L (12-78) Alkaline Phosphatase 97 U/L (45-117) Total Protein 6.8 gm/dl (6.4-8.2) Albumin 2.7 gm/dl (3.4-5.0) Globulin 4.1 gm/dl (2.5-4.0) Albumin/Globulin Ratio 0.7 (0.9-2) Procalcitonin < 0.05 ng/ml (0-0.5) Assessment and Plan 26-year-old male currently incarcerated presented to the ER after he had collapsed while on a treadmill, received 1 shock with ROSC. status post hypothermic protocol Echo findings confirmatory of hypertrophic obstructive cardiomyopathy. Acute hypoxic encephalopathy with myoclonic jerking - Status post therapeutic hypothermia protocol - EEG: study shows evidence for a moderate encephalopathy, without focal problems or potentially epileptogenic discharges - MRI brain:faint restricted diffusion within the medial aspect of the bilateral occipital lobes and right posterior parietal lobe. could represent a small amount increased T2 signal within the cortex suggested on the FLAIR sequences. This is nonspecific but could related to mild ischemic change/infarct. This could also be seen in the setting of posterior reversible encephalopathy syndrome. - MRI C-spine: Tiny disc bulge at C3-C4. No significant central canal or neural foraminal narrowing. Otherwise, normal cervical spine MRI. Neurology consult- appreciate recommendations. -Continue Keppra 500 mg BID for myoclonic jerks with clonazepam as needed. -Continue Thorazine for hiccups Acute hypoxic respiratory failure: Extubated 08/30 Pneumonia: CXR: 1. Mild cardiac enlargement without radiographic evidence of congestive failure. 2. Bibasilar airspace opacities persist, left greater than right. This has modestly cleared from yesterday. - Continue Zosyn , Rocephin -Appreciate ID input Hypertrophic obstructive cardiomyopathy: Confirmed on echocardiogram - Genetic testing advised to family - Continue metoprolol tartrate 50 mg BID for tachycardia - cardiology consult for defibrillator Acute kidney injury: Resolved Right-sided hydronephrosis :Status post stent advancement in a right UPJx2, stent to be removed in 1 month as an OP -Creatinine at 1.2 Rib pain; - Continue morphine every 4 hours Ileus: - Stool cultures negative for Salmonella, C. difficile -Diet advanced Insomnia: Continue hydroxyzine PT/OT Full code DVT prophylaxis - Lovenox Disposition: Monitor in telemetry History Resident Physician Supervision Note: I was present with Dr. Storm during the history and exam. I discussed the case with the resident and agree with the findings and plan as documented in the note. Any exceptions or clarifications are listed here. Pt seen and examined at bedside. No acute events overnight. Resolution of singultus. Improvement in myoclonus. Reports no chest pain, SOB, palpitations, ALLEN, lightehadedness, nausea, abd pain, leg swelling, fever. General Appearance: WD/WN, no apparent distress Respiratory: chest non-tender, lungs clear, normal breath sounds, no respiratory distress Cardiovascular: normal peripheral pulses, regular rate, rhythm, no edema, no murmur Gastrointestinal: normal bowel sounds, non tender, soft, no organomegaly Neurologic/Psychiatric: alert, normal mood/affect, oriented x 3, other ( improvement in tremulousness and facial twitching (R)) Assessment/Plan 26 y/o male h/o HOCM resulting in cardiac arrest s/p therapeutic hypothermia and rewarming w/ anoxic brain injury HOCM w/ cardiac arrest s/p hypothermia protocol - continue metoprolol; cardiology consulted, input appreciated - ICD placement for Th Seizures s/p anoxic brain injury - continue keppra Myclonus/dystonia/hiccoughs - continue thorazine, PT/OT WILLARD w/ hydronephrosis 2/2 UPJ obstruction s/p stent placement - improving, trend BMP, urology consulted - will f/u OP Pneumonia - likely 2/2 aspiration - continue rocephin and zosyn, albuterol PRN - ID consulted Addendum Section Called to bedside for fall - patient mechanical fall 2/2 weakness while walking w/ walker and guard support to restroom w/ impact on back and right oriental orthodox. Pt c /o 10/10 head pain at the site of the injury, severe anxiety and some confusion (oriented x 3 but loosely). Neurological examination was WNL including sensory, motor and cranial nerves. TTP at the site of impact on the R head. relating history well. CT head stat ordered - no acute intracranial findings. XR shows PICC terminating in the SVC, so can use and will order. 4mg IV morphine x 1 given for pain. will do frequent neuro checks overnight and re-image tomorrow ( CT, in all likelihood).
[2016-09-02] MEDS: CEFTRIAXONE SOD INJ 2,000 MG in DEXTROSE 5% 50ML 50 ML IV SCH (10:59)
[2016-09-02] MEDS: ENOXAPARIN 40 MG/0.4 ML SYR SQ SCH (13:42)
--- NOTE | 2016-09-02 14:54 | Progress Note ---
Subjective Date of Service: September 02, 2016. Subjective transferred from ICU, remains on abx, tolerating well. afebrile overnight. all repeat cultures negative. Problem List Medical Problems: (1) Altered mental status Status: Acute (2) Cardiac arrest Status: Acute Objective Vital Signs Date Time Temp Pulse Resp B/P Pulse Ox O2 Delivery O2 Flow Rate FiO2 09/02/16 12:59 36.9 93 18 139/78 97 09/02/16 12:00 Room Air 09/02/16 08:00 Room Air 09/02/16 07:52 36.8 83 18 143/76 99 09/02/16 04:00 Room Air 09/02/16 03:28 37.2 90 17 104/66 95 Room Air 09/02/16 00:00 Room Air 09/01/16 23:51 37.2 97 18 114/65 98 Room Air 09/01/16 20:00 Room Air 09/01/16 19:28 37.0 96 18 127/76 98 Room Air 09/01/16 18:21 37.2 95 19 138/74 98 Room Air 09/01/16 17:30 36.9 89 27 95 09/01/16 16:01 36.9 89 27 106/48 95 Room Air 09/01/16 16:00 Room Air 09/01/16 15:01 86 34 101/47 96 Room Air Laboratory Results Item Value Date Time C.difficile Toxin B Gene (PCR) - Final Complete 08/30/16 2100 Stool No C. difficile toxin B gene detected Blood Culture - Final Complete 08/26/16 1814 Blood NO GROWTH Blood Culture - Final Complete 08/26/16 1809 Blood NO GROWTH Last 24 Hours Test 09/02/16 05:28 White Blood Count 13.33 K/uL Red Blood Count 3.71 M/uL Hemoglobin 10.7 g/dL Hematocrit 32.1 % Mean Corpuscular Volume 86.5 fL Mean Corpuscular Hemoglobin 28.8 pg Mean Corpuscular Hemoglobin Concent 33.3 g/dl Platelet Count 506 K/uL Mean Platelet Volume 10.6 fL Neutrophils (%) (Auto) 72.0 % Lymphocytes (%) (Auto) 21.1 % Monocytes (%) (Auto) 4.7 % Eosinophils (%) (Auto) 1.4 % Basophils (%) (Auto) 0.4 % Neutrophils # (Auto) 9.60 K/uL Lymphocytes # (Auto) 2.81 K/uL Monocytes # (Auto) 0.63 K/uL Eosinophils # (Auto) 0.19 K/uL Basophils # (Auto) 0.05 K/uL RDW Standard Deviation 43.6 fL RDW Coefficient of Variation 13.8 % Immature Granulocyte % (Auto) 0.4 % Immature Granulocyte # (Auto) 0.05 K/uL Sodium Level 144 mmol/L Potassium Level 3.9 mmol/L Chloride Level 110 mmol/L Carbon Dioxide Level 31 mmol/L Anion Gap 3.0 mmol/L Blood Urea Nitrogen 13 mg/dl Creatinine 1.20 mg/dl Est Creatinine Clear Calc Drug Dose 113.0 ml/min Estimated GFR () 95.5 Estimated GFR (Non- 82.4 BUN/Creatinine Ratio 10.9 Random Glucose 95 mg/dl Calcium Level 8.4 mg/dl Total Bilirubin 0.6 mg/dl Aspartate Amino Transf (AST/SGOT) 44 U/L Alanine Aminotransferase (ALT/SGPT) 78 U/L Alkaline Phosphatase 97 U/L Total Protein 6.8 gm/dl Albumin 2.7 gm/dl Globulin 4.1 gm/dl Albumin/Globulin Ratio 0.7 Procalcitonin < 0.05 ng/ml Assessment and Plan (1) Fever Assessment & Plan: resolved, continue ctx to complete course as planned. no new ID recs at this time.
--- NOTE | 2016-09-02 15:57 | Progress Note ---
Progress Note Date of Service September 02, 2016. Progress Note Brief visit with patient - he is continuing to progress - I reviewed the events that occurred in the midst of his other issues - discussed the placement of a right ureteral stent - also expressed the need fo this ultimately to be removed - for the time being, I feel we should leave this stent in place - plan for removal within a month - in the office - pending his further recovery - if he is ultimately moved back to the snf system and to a location out of [facility], he will need to arrange stent removal with a urologist that covers that facility
--- NOTE | 2016-09-02 16:01 | Anesthesiology Progress Note ---
Anesthesia Progress Note Date of Service September 02, 2016. Progress Notes Asked about possibility of doing ICD on for patient with hypertrophic obstructive cardiomyopathy s/p arrest, apparently recovering from some pneumonia during course of stay and extubated for past 3 days without trouble. Past records reviewed, there is a question of staffing for that day, but if it can be arranged should be able to tolerate the anesthesia, be it sedation or if required, a general anesthetic.
--- NOTE | 2016-09-02 18:33 | DIAGNOSTIC IMAGING REPORT ---
CHEST ONE VIEW PORTABLE HISTORY: PICC LINE PLACEMENT S/P FALL COMPARISON: Chest 09/01/2016. FINDINGS: There is again noted a right PICC which terminates at the expected location of the proximal SVC. This is not significantly changed. No pneumothorax. No pleural effusions. The heart remains mildly enlarged. No change in the hazy bibasilar airspace opacities. IMPRESSION: No change from the prior study. Hazy bibasilar airspace opacities persist. The right PICC terminates in the proximal SVC. Electronically signed by: Darrell Hough M.D. 09/02/2016 6:32 PM Dictated Date/Time: 09/02/2016 6:29 PM
--- NOTE | 2016-09-02 18:37 | DIAGNOSTIC IMAGING REPORT ---
HEAD CT NONCONTRAST CT DOSE: 884.08 mGy.cm HISTORY: fall TECHNIQUE: Multiaxial CT images of the head were performed without the use of intravenous contrast. Automated exposure control was utilized for this study. Comparison: Head CT 08/22/2016. Findings: The paranasal sinuses and mastoid air cells are clear. The calvarium and skull base are intact. The ventricles and sulci are within normal limits. There is no mass, hematoma, midline shift, or acute infarct. Impression: No acute intracranial abnormality. Electronically signed by: Darrell Hough M.D. 09/02/2016 6:35 PM Dictated Date/Time: 09/02/2016 6:32 PM
[2016-09-03] VITALS (7 sets, daily range): BP systolic 105–127; BP diastolic 64–86; PULSE 69–94; TEMP 36.7–37.5; O2SAT 94–99
[2016-09-03 07:15] LABS: BASO % 0.2 %; BASO ABS # 0.03 K/uL (0-0.2); COMPLETE YES; EOS % 0.8 %; HEMATOCRIT 33.5 % (42-52); IG% 0.4 %; LYMPH % 10.4 %; LYMPH ABS # 1.93 K/uL (1.2-3.4); MEAN CORPUSCULAR HEMOGLOBIN 28.1 pg (25-34); MEAN CORPUSCULAR HGB CONC 32.2 g/dl (32-36); MEAN PLATELET VOLUME 10.7 fL (7.4-10.4); MONO % 3.9 %; NEUT % 84.3 %; PLATELET COUNT 577 K/uL (130-400); RED BLOOD COUNT 3.85 M/uL (4.7-6.1); WHITE BLOOD COUNT 18.49 K/uL (4.8-10.8)
[2016-09-03] MEDS: BOOST VANILLA PO SCH ×6 (07:30→16:01)
[2016-09-03] MEDS: LEVETIRACETAM 500 MG TAB PO SCH ×2 (07:44→21:31)
[2016-09-03] MEDS: POLYETHYLENE (MIRALAX) 17 GM PACK PO SCH (07:45)
[2016-09-03] MEDS: DOCUSATE SODIUM 100 MG CAP PO SCH ×2 (07:45→21:31)
[2016-09-03] MEDS: ALBUTEROL HFA 8 GM INHALER INH SCH ×4 (07:45→21:29)
[2016-09-03] MEDS: METOPROLOL TARTRATE 50 MG TAB PO SCH ×2 (07:45→21:32)
[2016-09-03] MEDS: BACITRACIN OINT 15 GM TUBE EXT SCH ×2 (07:45→21:30)
[2016-09-03] MEDS: PANTOprazole SOD 40 MG TAB PO SCH (07:46)
[2016-09-03 07:47] LABS: BUN/CREATININE RATIO 15.3 (10-20); CALCIUM 8.8 mg/dl (8.5-10.1); CREATININE 1.2 mg/dl (0.60-1.40); POTASSIUM 4.3 mmol/L (3.5-5.1)
[2016-09-03] MEDS: CEFTRIAXONE SOD INJ 2,000 MG in DEXTROSE 5% 50ML 50 ML IV SCH (11:07)
[2016-09-03] MEDS: ENOXAPARIN 40 MG/0.4 ML SYR SQ SCH (13:59)
--- NOTE | 2016-09-03 14:49 | Family Medicine Progress Note ---
Progress Note Date of Service September 03, 2016. Subjective Pt evaluation today including: conversation w/ patient, physical exam, chart review, lab review Pain: well controlled had a mechanical fall yesterday while walking w/ walker , had an impact of right side of head . head CT yesterday was negative. CXR was done for PICC line placement showed PICC terminating in the SVC, 4mg IV morphine x 1 given for pain. Doing fine today. still has some headache but is improved from yesterday. Denies any N/V/vision changes/numbness, tingling, motor weakness. Constitutional: No chills, No fever Eyes: No worsening of vision ENT: No hearing loss Respiratory: + cough, No shortness of breath, No sputum Cardiovascular: + chest pain (left anterior chest /rib pain) Abdomen: No diarrhea, No nausea, No pain, No vomiting Musculoskeletal: No joint pain Male : No dysuria, No incontinence, No urinary frequency Neurologic: + problem reported (headache), No memory loss Endo: No fatigue Medications Current Inpatient Medications Medications (Trade) Dose Ordered Sig/Shireen Route Start Time Stop Time Status Last Admin Dose Admin Glucose (Glucose 40% Gel) UD PRN PO 08/23/16 10:30 09/22/16 10:29 Glucose (Glucose Chew Tab) 1 tabs UD PRN PO 08/23/16 10:30 09/22/16 10:29 Dextrose (Dextrose 50% 50ML Syringe) 50 ml UD PRN IV 08/23/16 10:30 09/22/16 10:29 08/23/16 12:13 50 ML Glucagon (Glucagon Inj) 1 mg UD PRN SQ 08/23/16 10:30 09/22/16 10:29 Bacitracin (Bacitracin Oint) 1 appln BID EXT 08/23/16 21:00 09/22/16 20:59 09/03/16 07:45 1 APPLN Bacitracin (Bacitracin Oint) 1 appln QS PRN EXT 08/23/16 19:00 09/22/16 18:59 Metoprolol Tartrate (Lopressor Iv) 5 mg Q6 PRN IV 08/24/16 12:00 09/23/16 11:59 08/29/16 12:58 5 MG Polyethylene (Miralax Powder Packet) 17 gm DAILY PO 08/25/16 09:00 09/24/16 08:59 Future hold 09/01/16 11:15 17 GM Ondansetron HCl (Zofran Inj) 4 mg Q6H PRN IV 08/26/16 13:15 09/25/16 13:14 08/27/16 08:54 4 MG Heparin Sodium (Porcine) 5 ml 5 ml PRN PRN FLUSH 08/28/16 02:00 09/27/16 01:59 09/02/16 20:29 5 ML Acetaminophen 100 ml @ 400 mls/hr Q8H PRN IV 08/29/16 00:00 09/28/16 00:00 08/30/16 19:42 400 MLS/HR Ceftriaxone Sodium/Dextrose (Rocephin Inj/D5 50ml) 70 ml @ 100 mls/hr Q24H IV 08/29/16 11:00 09/05/16 10:59 09/03/16 11:07 100 MLS/HR Albuterol (Ventolin Hfa Inhaler) 2 puffs QIDR INH 08/31/16 08:00 09/30/16 07:59 09/03/16 12:12 2 PUFFS Enoxaparin Sodium (Lovenox Inj) 40 mg DAILY@1400 SQ 08/31/16 14:00 09/30/16 13:59 09/03/16 13:59 40 MG Morphine Sulfate (MoRPHine SULFATE INJ) 4 mg Q4H PRN IV 08/31/16 12:00 09/14/16 11:59 09/02/16 18:59 4 MG Enteral Nutritional Formula (Boost) 1 can TIDM PO 08/31/16 16:30 09/30/16 16:29 09/01/16 08:30 1 CAN Chlorpromazine HCl (Thorazine Tab) 25 mg Q4H PRN PO 08/31/16 21:00 09/30/16 20:59 09/01/16 20:05 25 MG Lorazepam (Ativan Inj) 1 mg HS IV 09/01/16 21:00 10/01/16 20:59 Future Hold 08/31/16 23:20 1 MG Hydroxyzine HCl (Vistaril Tab) 25 mg HS PRN PO 09/01/16 08:30 10/01/16 08:29 09/02/16 00:12 25 MG Metoprolol Tartrate (Lopressor Tab) 50 mg BID PO 09/01/16 09:00 10/01/16 08:59 09/03/16 07:45 50 MG Docusate Sodium (coLACE CAP) 100 mg BID PO 09/01/16 09:00 10/01/16 08:59 09/03/16 07:45 100 MG Pantoprazole Sodium (Protonix Tab) 40 mg QAM PO 09/01/16 09:00 10/01/16 08:59 09/03/16 07:46 40 MG Levetiracetam (Keppra Tab) 500 mg BID PO 09/01/16 21:00 10/01/16 20:59 09/03/16 07:44 500 MG Cefazolin Sodium (Ancef 2000mg/60 ml D5W) 2,000 mg PREOP IV 09/04/16 11:00 09/04/16 18:00 Objective Vital Signs Date Time Temp Pulse Resp B/P Pulse Ox O2 Delivery O2 Flow Rate FiO2 09/03/16 12:05 36.7 84 18 107/86 96 09/03/16 12:00 Room Air 09/03/16 08:00 Room Air 09/03/16 07:49 37.0 69 18 114/69 99 09/03/16 04:00 Room Air 09/03/16 04:00 37.1 94 18 105/71 95 Room Air 09/03/16 00:11 37.5 82 18 127/68 97 Room Air 09/03/16 00:01 Room Air 09/02/16 20:00 98 Room Air 09/02/16 19:24 37.6 93 22 106/67 98 Room Air 09/02/16 17:46 99 24 135/79 96 Room Air 09/02/16 16:00 Room Air 09/02/16 15:29 37.3 89 22 102/58 99 Room Air Physical Exam General Appearance: WD/WN, no apparent distress Eyes: normal inspection ENT: hearing grossly normal Neck: supple Respiratory/Chest: chest non-tender, lungs clear, normal breath sounds, no respiratory distress, no accessory muscle use Cardiovascular: regular rate, rhythm, no edema Abdomen: normal bowel sounds, non tender Extremities: normal range of motion, non-tender Neurologic/Psychiatric: alert, normal mood/affect, oriented x 3, + pertinent finding (myoclonic jerks and facial twitches) Laboratory Results 09/03/16 06:45 Red Blood Count 3.85, Mean Corpuscular Volume 87.0, Mean Corpuscular Hemoglobin 28.1, Mean Corpuscular Hemoglobin Concent 32.2, Mean Platelet Volume 10.7, Neutrophils (%) (Auto) 84.3, Lymphocytes (%) (Auto) 10.4, Monocytes (%) (Auto) 3.9, Eosinophils (%) (Auto) 0.8, Basophils (%) (Auto) 0.2, Neutrophils # (Auto) 15.60, Lymphocytes # (Auto) 1.93, Monocytes # (Auto) 0.72, Eosinophils # (Auto) 0.14, Basophils # (Auto) 0.03 09/03/16 06:45 Test 09/03/16 06:45 White Blood Count 18.49 K/uL (4.8-10.8) Red Blood Count 3.85 M/uL (4.7-6.1) Hemoglobin 10.8 g/dL (14.0-18.0) Hematocrit 33.5 % (42-52) Mean Corpuscular Volume 87.0 fL (80-100) Mean Corpuscular Hemoglobin 28.1 pg (25-34) Mean Corpuscular Hemoglobin Concent 32.2 g/dl (32-36) Platelet Count 577 K/uL (130-400) Mean Platelet Volume 10.7 fL (7.4-10.4) Neutrophils (%) (Auto) 84.3 % Lymphocytes (%) (Auto) 10.4 % Monocytes (%) (Auto) 3.9 % Eosinophils (%) (Auto) 0.8 % Basophils (%) (Auto) 0.2 % Neutrophils # (Auto) 15.60 K/uL (1.4-6.5) Lymphocytes # (Auto) 1.93 K/uL (1.2-3.4) Monocytes # (Auto) 0.72 K/uL (0.11-0.59) Eosinophils # (Auto) 0.14 K/uL (0-0.5) Basophils # (Auto) 0.03 K/uL (0-0.2) RDW Standard Deviation 44.2 fL (36.4-46.3) RDW Coefficient of Variation 14.1 % (11.5-14.5) Immature Granulocyte % (Auto) 0.4 % Immature Granulocyte # (Auto) 0.07 K/uL (0.00-0.02) Anion Gap 6.0 mmol/L (3-11) Est Creatinine Clear Calc Drug Dose 104.5 ml/min Estimated GFR () 95.5 Estimated GFR (Non- 82.4 BUN/Creatinine Ratio 15.3 (10-20) Calcium Level 8.8 mg/dl (8.5-10.1) Assessment and Plan 26-year-old male currently incarcerated presented to the ER after he had collapsed while on a treadmill, received 1 shock with ROSC. status post hypothermic protocol Echo findings confirmatory of hypertrophic obstructive cardiomyopathy. Acute hypoxic encephalopathy with myoclonic jerking - Status post therapeutic hypothermia protocol -Continue Keppra 500 mg BID for myoclonic jerks with clonazepam as needed. -Continue Thorazine for hiccups Mechanical fall : fell while walking to the bathroom with a walker, hit head Head CT: No acute intracranial abnormality CXR for PICC line: No change from the prior study. Hazy bibasilar airspace opacities persist. The right PICC terminates in the proximal SVC. - headache is improving Acute hypoxic respiratory failure: Extubated 08/30 Pneumonia: CXR: 1. Mild cardiac enlargement without radiographic evidence of congestive failure. 2. Bibasilar airspace opacities persist, left greater than right. This has modestly cleared from yesterday. - Continue Zosyn , Rocephin - will end thursday -Appreciate ID input Hypertrophic obstructive cardiomyopathy: Confirmed on echocardiogram - Genetic testing advised to family - Continue metoprolol tartrate 50 mg BID for tachycardia - Defibrillator tomorrow for HOCM Acute kidney injury: Resolved Right-sided hydronephrosis :Status post stent advancement in a right UPJx2, stent to be removed in 1 month as an OP -Creatinine at 1.2 Rib pain; - Continue morphine every 4 hours Ileus: - Stool cultures negative for Salmonella, C. difficile -Diet advanced Insomnia: Continue hydroxyzine PT/OT Full code DVT prophylaxis - Lovenox Disposition: Monitor in telemetry History Resident Physician Supervision Note: I was present with Dr. Storm during the history and exam. I discussed the case with the resident and agree with the findings and plan as documented in the note. Any exceptions or clarifications are listed here. Pt seen and examined at bedside. No acute events overnight. Complete resolution of headache symptoms s/p trauma. Feeling well. Decreased myoclonal twitching per patient w/ improved motor control. Reports no sensory changes, vision changes, hearing changes, facial pain, earache, ALLEN, nausea, fever. 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 NPO p MN Seizures s/p anoxic brain injury - continue keppra Myclonus/dystonia/hiccoughs - continue thorazine, PT/OT WILLARD w/ hydronephrosis 2/2 UPJ obstruction s/p stent placement - improving, trend BMP, urology consulted - will f/u OP Pneumonia - likely 2/2 aspiration - continue rocephin and zosyn, albuterol PRN - ID consulted - will have nearly completed course by Thursday Resident Tracking Resident Involvement: Resident Care Provided Care Provided: Adult Hospital Medicine
--- NOTE | 2016-09-03 16:48 | Anesthesiology Progress Note ---
Anesthesia Progress Note Date of Service September 03, 2016. Progress Notes The patient is a 26 y/o incarcerated male s/p VFIB arrest scheduled for ICD placement with Dr. Ojeda tomorrow. The patient experienced a VFib arrest while exercising [facility] a treadmill [facility]. CPR was administered and the patient received 1 shock from an AED. Return of spontaneous circulation was achieved and the patient was placed under therapeutic hypothermia. An echocardiogram was done which showed Hypertrophic obstructive cardiomyopathy, EF > 70%. While the patient was intubated, he developed a pneumonia which was being treated with Zosyn and Ceftriaxone. . The patient is now extubated and is saturating 96% on RA. CXR from yesterday showed persistent bibasilar hazy opacities. During this hospitalization, the patient has had two cystoscopies with stent placement for WILLARD/hydronephrosis. His creatinine is now improved to 1.2. He appears to have tolerated the anesthesia for these procedure well. The patient suffered acute hypoxic encephalopathy with myoclonic jerking s/p his cardiac arrest. He has been started on Keppra for his myoclonus. The patient's labs are significant for an elevated white count at 18.5 and a hemoglobin of 10.8. On exam, he is lying in bed comfortably. He was alert and oriented to person, place and time. He was able to tell me that he was a resident of [facility] and asked appropriate questions about the procedure and the anesthesia. The patient has a Mallampati 1 airway and teeth are intact. Lungs are clear to auscultation bilaterally and heart if regular rate and rhythm. He was consented for MAC sedation with GA as a backup. All questions were answered. He was instructed to remain NPO after midnight except for a sip of water with medications.
[2016-09-03] MEDS: ACETAMINOPHEN IV 100 ML IV PRN (20:05)
[2016-09-03] MEDS: hydrOXYzine HCL 25 MG TAB PO PRN (21:33)
[2016-09-04] VITALS (7 sets, daily range): BP systolic 114–122; BP diastolic 56–74; PULSE 63–89; TEMP 36.5–37.3; O2SAT 95–99
[2016-09-04 06:14] LABS: BASO % 0.3 %; BASO ABS # 0.04 K/uL (0-0.2); COMPLETE YES; HEMATOCRIT 34.1 % (42-52); IG% 0.2 %; LYMPH % 10.9 %; LYMPH ABS # 1.48 K/uL (1.2-3.4); MEAN CELL VOLUME 86.5 fL (80-100); MEAN CORPUSCULAR HEMOGLOBIN 28.2 pg (25-34); MEAN CORPUSCULAR HGB CONC 32.6 g/dl (32-36); MONO % 6.8 %; NEUT % 80.8 %; PLATELET COUNT 626 K/uL (130-400); RED BLOOD COUNT 3.94 M/uL (4.7-6.1); WHITE BLOOD COUNT 13.52 K/uL (4.8-10.8)
[2016-09-04 06:43] LABS: BUN/CREATININE RATIO 16.6 (10-20); CALCIUM 8.8 mg/dl (8.5-10.1); CREATININE 1.1 mg/dl (0.60-1.40)
[2016-09-04] MEDS: LEVETIRACETAM 500 MG TAB PO SCH ×2 (07:27→20:17)
[2016-09-04] MEDS: METOPROLOL TARTRATE 50 MG TAB PO SCH ×2 (07:27→20:17)
[2016-09-04] MEDS: DOCUSATE SODIUM 100 MG CAP PO SCH ×2 (07:27→20:17)
[2016-09-04] MEDS: BOOST VANILLA PO SCH ×6 (07:27→15:48)
[2016-09-04] MEDS: ALBUTEROL HFA 8 GM INHALER INH SCH ×4 (07:28→20:16)
[2016-09-04] MEDS: BACITRACIN OINT 15 GM TUBE EXT SCH ×2 (07:28→20:17)
[2016-09-04] MEDS: POLYETHYLENE (MIRALAX) 17 GM PACK PO SCH (07:28)
[2016-09-04] MEDS: PANTOprazole SOD 40 MG TAB PO SCH (07:28)
--- NOTE | 2016-09-04 08:40 | Family Medicine Progress Note ---
Progress Note Date of Service September 04, 2016. Subjective Pt evaluation today including: conversation w/ patient, physical exam, chart review, lab review Pain: well controlled PO Intake: good head ache post fall is resolved. denies N/V, abdominal pain, diarrhea jerks improved Constitutional: No chills, No fever Eyes: No worsening of vision ENT: No hearing loss Respiratory: No cough, No shortness of breath, No sputum, No wheezing Cardiovascular: + chest pain (left anterior chest) Abdomen: No nausea, No pain, No vomiting Musculoskeletal: No joint pain Male : No dysuria, No urinary frequency Heme: No abnormal bleeding/bruising Endo: No fatigue Medications Current Inpatient Medications Medications (Trade) Dose Ordered Sig/Shireen Route Start Time Stop Time Status Last Admin Dose Admin Glucose (Glucose 40% Gel) UD PRN PO 08/23/16 10:30 09/22/16 10:29 Glucose (Glucose Chew Tab) 1 tabs UD PRN PO 08/23/16 10:30 09/22/16 10:29 Dextrose (Dextrose 50% 50ML Syringe) 50 ml UD PRN IV 08/23/16 10:30 09/22/16 10:29 08/23/16 12:13 50 ML Glucagon (Glucagon Inj) 1 mg UD PRN SQ 08/23/16 10:30 09/22/16 10:29 Bacitracin (Bacitracin Oint) 1 appln BID EXT 08/23/16 21:00 09/22/16 20:59 09/04/16 07:28 1 APPLN Bacitracin (Bacitracin Oint) 1 appln QS PRN EXT 08/23/16 19:00 09/22/16 18:59 Metoprolol Tartrate (Lopressor Iv) 5 mg Q6 PRN IV 08/24/16 12:00 09/23/16 11:59 08/29/16 12:58 5 MG Polyethylene (Miralax Powder Packet) 17 gm DAILY PO 08/25/16 09:00 09/24/16 08:59 Future hold 09/01/16 11:15 17 GM Ondansetron HCl (Zofran Inj) 4 mg Q6H PRN IV 08/26/16 13:15 09/25/16 13:14 08/27/16 08:54 4 MG Heparin Sodium (Porcine) 5 ml 5 ml PRN PRN FLUSH 08/28/16 02:00 09/27/16 01:59 09/02/16 20:29 5 ML Acetaminophen 100 ml @ 400 mls/hr Q8H PRN IV 08/29/16 00:00 09/28/16 00:00 09/03/16 20:05 400 MLS/HR Ceftriaxone Sodium/Dextrose (Rocephin Inj/D5 50ml) 70 ml @ 100 mls/hr Q24H IV 08/29/16 11:00 09/05/16 10:59 09/03/16 11:07 100 MLS/HR Albuterol (Ventolin Hfa Inhaler) 2 puffs QIDR INH 08/31/16 08:00 09/30/16 07:59 09/04/16 07:28 2 PUFFS Enoxaparin Sodium (Lovenox Inj) 40 mg DAILY@1400 SQ 08/31/16 14:00 09/30/16 13:59 09/03/16 13:59 40 MG Morphine Sulfate (MoRPHine SULFATE INJ) 4 mg Q4H PRN IV 08/31/16 12:00 09/14/16 11:59 09/02/16 18:59 4 MG Enteral Nutritional Formula (Boost) 1 can TIDM PO 08/31/16 16:30 09/30/16 16:29 09/03/16 16:01 1 CAN Chlorpromazine HCl (Thorazine Tab) 25 mg Q4H PRN PO 08/31/16 21:00 09/30/16 20:59 09/01/16 20:05 25 MG Lorazepam (Ativan Inj) 1 mg HS IV 09/01/16 21:00 10/01/16 20:59 Future Hold 08/31/16 23:20 1 MG Hydroxyzine HCl (Vistaril Tab) 25 mg HS PRN PO 09/01/16 08:30 10/01/16 08:29 09/03/16 21:33 25 MG Metoprolol Tartrate (Lopressor Tab) 50 mg BID PO 09/01/16 09:00 10/01/16 08:59 09/04/16 07:27 50 MG Docusate Sodium (coLACE CAP) 100 mg BID PO 09/01/16 09:00 10/01/16 08:59 09/04/16 07:27 100 MG Pantoprazole Sodium (Protonix Tab) 40 mg QAM PO 09/01/16 09:00 10/01/16 08:59 09/04/16 07:28 40 MG Levetiracetam (Keppra Tab) 500 mg BID PO 09/01/16 21:00 10/01/16 20:59 09/04/16 07:27 500 MG Cefazolin Sodium (Ancef 2000mg/60 ml D5W) 2,000 mg PREOP IV 09/04/16 11:00 09/04/16 18:00 Objective Vital Signs Date Time Temp Pulse Resp B/P Pulse Ox O2 Delivery O2 Flow Rate FiO2 09/04/16 07:48 37.3 81 18 116/60 95 Room Air 09/04/16 04:23 36.7 81 18 114/57 98 Room Air 09/04/16 04:00 Room Air 09/04/16 00:00 Room Air 09/03/16 23:56 36.7 73 18 111/64 99 Room Air 09/03/16 20:03 36.7 92 20 117/69 98 Room Air 09/03/16 20:00 Room Air 09/03/16 16:00 Room Air 09/03/16 15:36 36.9 88 18 115/76 94 Room Air 09/03/16 12:05 36.7 84 18 107/86 96 09/03/16 12:00 Room Air Physical Exam General Appearance: WD/WN, no apparent distress Eyes: normal inspection ENT: normal ENT inspection, hearing grossly normal Neck: supple Respiratory/Chest: chest non-tender, lungs clear, normal breath sounds, no respiratory distress, no accessory muscle use Cardiovascular: regular rate, rhythm Abdomen: normal bowel sounds, non tender, soft Extremities: no pedal edema Neurologic/Psychiatric: alert, normal mood/affect, oriented x 3 Skin: normal color Laboratory Results 09/04/16 05:35 Red Blood Count 3.94, Mean Corpuscular Volume 86.5, Mean Corpuscular Hemoglobin 28.2, Mean Corpuscular Hemoglobin Concent 32.6, Mean Platelet Volume 11.0, Neutrophils (%) (Auto) 80.8, Lymphocytes (%) (Auto) 10.9, Monocytes (%) (Auto) 6.8, Eosinophils (%) (Auto) 1.0, Basophils (%) (Auto) 0.3, Neutrophils # (Auto) 10.92, Lymphocytes # (Auto) 1.48, Monocytes # (Auto) 0.92, Eosinophils # (Auto) 0.13, Basophils # (Auto) 0.04 09/04/16 05:35 Test 09/04/16 05:35 White Blood Count 13.52 K/uL (4.8-10.8) Red Blood Count 3.94 M/uL (4.7-6.1) Hemoglobin 11.1 g/dL (14.0-18.0) Hematocrit 34.1 % (42-52) Mean Corpuscular Volume 86.5 fL (80-100) Mean Corpuscular Hemoglobin 28.2 pg (25-34) Mean Corpuscular Hemoglobin Concent 32.6 g/dl (32-36) Platelet Count 626 K/uL (130-400) Mean Platelet Volume 11.0 fL (7.4-10.4) Neutrophils (%) (Auto) 80.8 % Lymphocytes (%) (Auto) 10.9 % Monocytes (%) (Auto) 6.8 % Eosinophils (%) (Auto) 1.0 % Basophils (%) (Auto) 0.3 % Neutrophils # (Auto) 10.92 K/uL (1.4-6.5) Lymphocytes # (Auto) 1.48 K/uL (1.2-3.4) Monocytes # (Auto) 0.92 K/uL (0.11-0.59) Eosinophils # (Auto) 0.13 K/uL (0-0.5) Basophils # (Auto) 0.04 K/uL (0-0.2) RDW Standard Deviation 43.6 fL (36.4-46.3) RDW Coefficient of Variation 13.9 % (11.5-14.5) Immature Granulocyte % (Auto) 0.2 % Immature Granulocyte # (Auto) 0.03 K/uL (0.00-0.02) Anion Gap 6.0 mmol/L (3-11) Est Creatinine Clear Calc Drug Dose 114.0 ml/min Estimated GFR () 106.1 Estimated GFR (Non- 91.5 BUN/Creatinine Ratio 16.6 (10-20) Calcium Level 8.8 mg/dl (8.5-10.1) Assessment and Plan 26-year-old male currently incarcerated presented to the ER after he had collapsed while on a treadmill, received 1 shock with ROSC. status post hypothermic protocol Echo findings confirmatory of hypertrophic obstructive cardiomyopathy. scheduled for Defibrillator surgery today Acute hypoxic encephalopathy with myoclonic jerking - Status post therapeutic hypothermia protocol -Continue Keppra 500 mg BID for myoclonic jerks with clonazepam as needed. -Continue Thorazine for hiccups Mechanical fall : fell while walking to the bathroom with a walker, hit head Head CT: No acute intracranial abnormality CXR for PICC line: No change from the prior study. Hazy bibasilar airspace opacities persist. The right PICC terminates in the proximal SVC. - headache resolved Acute hypoxic respiratory failure: Extubated 08/30 Pneumonia: CXR: 1. Mild cardiac enlargement without radiographic evidence of congestive failure. 2. Bibasilar airspace opacities persist, left greater than right. This has modestly cleared from yesterday. - Continue Zosyn , Rocephin - will end thursday -Appreciate ID input Hypertrophic obstructive cardiomyopathy: Confirmed on echocardiogram - Genetic testing advised to family - Continue metoprolol tartrate 50 mg BID for tachycardia - Defibrillator today Acute kidney injury: Resolved Right-sided hydronephrosis :Status post stent advancement in a right UPJx2, stent to be removed in 1 month as an OP -Creatinine at 1.1 Rib pain; - Continue morphine every 4 hours Ileus: - Stool cultures negative for Salmonella, C. difficile -Diet advanced Insomnia: Continue hydroxyzine PT/OT Full code DVT prophylaxis - Lovenox Disposition: Monitor in telemetry Resident Tracking Resident Involvement: Resident Care Provided Care Provided: Adult Hospital Medicine History Resident Physician Supervision Note: I was present with Dr. Storm during the history and exam. I discussed the case with the resident and agree with the findings and plan as documented in the note. Any exceptions or clarifications are listed here. Denies any pain at present including headache, chest pain. Anxious about ICD placement, but wants it over with. Reports no fever, lightheadedness, vision/ hearing changes, paresthesias. General Appearance: WD/WN, no apparent distress Respiratory: chest non-tender, lungs clear, normal breath sounds, no respiratory distress Cardiovascular: normal peripheral pulses, regular rate, rhythm, no edema, no murmur Gastrointestinal: normal bowel sounds, non tender, soft, no organomegaly Assessment/Plan 26 y/o male h/o HOCM resulting in cardiac arrest s/p therapeutic hypothermia and rewarming w/ anoxic brain injury HOCM w/ cardiac arrest s/p hypothermia protocol - continue metoprolol; cardiology consulted, input appreciated - ICD placement today, for discharge likely tomorrow. Case mgmt aware - [place] for continued recovery Seizures s/p anoxic brain injury - continue wyatt, d/w neurology re: course and follow up Myclonus/dystonia/hiccoughs - continue thorazine, PT/OT WILLARD w/ hydronephrosis 2/2 UPJ obstruction s/p stent placement - improving, trend BMP, urology consulted - will f/u OP Pneumonia - likely 2/2 aspiration - course complete today
[2016-09-04] MEDS ORDERED: MIDAZOLAM HCL 1 MG/ML 2ML VIAL ONE (10:03)
[2016-09-04] MEDS ORDERED: FENTANYL CITRATE INJ 50 MCG/1 ML 2 ML VIAL ONE ×2 (10:03→12:22)
[2016-09-04] MEDS ORDERED: LIDOCAINE HCL 2% LOCAL 50ML VIAL ONE (10:54)
[2016-09-04] MEDS ORDERED: BUPIVACAINE 0.5 % 5 MG/1 ML MPF 30ML VIAL ONE ×2 (10:54→10:59)
[2016-09-04] MEDS ORDERED: LIDOCAINE HCL 1% 20 ML VIAL ONE ×2 (10:54→11:00)
[2016-09-04] MEDS ORDERED: CEFAZOLIN IV 2,000 MG/60 ML D5W IV SCH (11:00)
[2016-09-04] MEDS ORDERED: CEFAZOLIN SOD 2000 MG in DEXTROSE 5% 50ML IV SCH (11:00)
--- NOTE | 2016-09-04 11:34 | History & Physical Bridge Note ---
H&P Re-Evaluation Bridge Note: I have examined the patient, reviewed the History & Physical and in the interval since the performance of the History & Physical I have noted the following changes of clinical significance: No changes noted
[2016-09-04] MEDS ORDERED: PROPOFOL IV EMULSION 10 MG/ML 20 ML VIAL IV ONE ×3 (11:50→12:37)
[2016-09-04] MEDS ORDERED: LIDOCAINE HCL 2% 2 ML VIAL (20MG/ML) ONE (11:50)
[2016-09-04] MEDS ORDERED: BACITRACIN 50000 UNIT VIAL ONE (11:59)
[2016-09-04] MEDS ORDERED: PHENYLEPHRINE 100MCG/ML 5ML SYR ONE (12:37)
[2016-09-04] MEDS ORDERED: EpHEDrine SULFATE INJ 50 MG/ML AMP IV PRN (12:45)
[2016-09-04] MEDS ORDERED: ATROPINE SULFATE 0.1 MG/ML 5ML SYR IV PRN (12:45)
[2016-09-04] MEDS ORDERED: EpINEphrine INJ 1MG/ML AMP 1 MG/ML AMP ONE (13:12)
[2016-09-04] MEDS ORDERED: OXYCODONE/ACETAMINOPHEN 5-325 TAB PO PRN (13:45)
[2016-09-04] MEDS: ENOXAPARIN 40 MG/0.4 ML SYR SQ SCH (14:00)
--- NOTE | 2016-09-04 14:29 | Anesthesiology Progress Note ---
Anesthesia Post Op Note Date & Time September 04, 2016 at 14:29 Vital Signs Pain Intensity: 0 Vital Signs Past 12 Hours Date Time Temp Pulse Resp B/P Pulse Ox O2 Delivery O2 Flow Rate FiO2 09/04/16 14:15 36.1 61 16 121/74 100 Nasal Cannula 2 09/04/16 14:05 63 16 117/71 100 Nasal Cannula 2 09/04/16 13:55 61 16 118/72 100 Nasal Cannula 2 09/04/16 13:45 61 16 119/70 100 Mask 10 09/04/16 13:39 36.1 64 16 116/64 100 Mask 10 09/04/16 11:30 36.8 80 116/61 98 Room Air 09/04/16 08:00 Room Air 09/04/16 07:48 37.3 81 18 116/60 95 Room Air 09/04/16 04:23 36.7 81 18 114/57 98 Room Air 09/04/16 04:00 Room Air Notes Mental Status: alert / awake / arousable, participated in evaluation Pt Amnestic to Procedure: Yes Nausea / Vomiting: adequately controlled Pain: adequately controlled Airway Patency, RR, SpO2: stable & adequate BP & HR: stable & adequate Hydration State: stable & adequate Anesthetic Complications: no major complications apparent
[2016-09-04] MEDS: CEFTRIAXONE SOD INJ 2,000 MG in DEXTROSE 5% 50ML 50 ML IV SCH (14:39)
[2016-09-04] MEDS: OXYCODONE HCL IR 5 MG TAB (IMMEDIATE RELEASE) PO PRN ×2 (15:47→22:28)
[2016-09-04] MEDS: MoRPHine SULFATE 4 MG/ML 1 ML CARP\\VIAL IV PRN ×2 (18:29→23:47)
[2016-09-04] MEDS ORDERED: CEFAZOLIN IV 1,000 MG in DEXTROSE 5% 50ML 50 ML IV SCH (20:00)
--- NOTE | 2016-09-04 21:30 | OPERATIVE REPORT ---
DATE OF OPERATION: 09/04/2016 PROCEDURE PERFORMED: 1. Implantation of subcutaneous ICD. 2. Defibrillation threshold testing. 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 INDICATION: Mr. Mi Spear is 26-year-old gentleman with a history of hypertrophic cardiomyopathy and sudden cardiac . The patient was successfully resuscitated, and based on his known cardiomyopathy and cardiac arrest, he was felt to be a good candidate for an ICD as secondary prevention given sudden cardiac . PROCEDURE IN DETAIL: The patient was informed of risks, benefits and alternatives to the intended procedure. He understood such and wished to proceed. He was taken to the operative room in a fasting state. The patient was monitored electrocardiographically throughout today's procedure, and a general anesthetic was administered by the anesthesiology service. The left upper chest area was prepped and draped in usual sterile fashion. An area in the mid axillary line on the left side was subsequently anesthetized using subcutaneous administration of Xylocaine and Marcaine solution. An incision was made at this site and carried down to the chest wall. Device pocket was then fashioned in the tissues above the chest wall. A second area just inferior to the xiphoid process was then anesthetized using subcutaneous administration of Xylocaine and Marcaine solution. an incision was made at the site and carried down to the fascia using sharp dissection. Electrocautery was employed for dissection as well as for hemostasis. A tunneling tool was used to tunnel a lead from the subxiphoid pocket to the left lateral chest wall. At this point, a tunneling tool and sheath were used to tunnel the lead superiorly along the sternum. The leads were then sutured into place using nonabsorbable suture. The device was then attached to the lead. The lead and device were then placed in the left lateral chest wall pocket after irrigation. The subxiphoid pocket was also irrigated with an antibiotic solution. These incisions were subsequently closed using 3 layers of absorbable suture. Steri-Strips and sterile dressing were applied. The device was tested noninvasively prior to conclusion of procedure, and defibrillator threshold testing was also performed. The patient tolerated the procedure well. There were no immediate complications. EQUIPMENT USED: 1. New pulse generator, web production assistant [place] [employer] 911, model #8219, serial #[id number]. 2. subcutaneous electrode, web production assistant [place] [employer], model #3401, serial #[id number]. Defibrillation threshold testing: Defibrillation threshold testing was carried out using the 50 Hz for an induction and initial induction of ventricular fibrillation was successfully terminated with 65 joules at 46 ohms. IMPRESSION: Successful implantation of subcutaneous ICD. PLAN: The patient will be monitored in the murphy overnight. Additional dose of antibiotics will be administered. A chest x-ray and reinterrogation of device will be performed in the morning. Should all parameters be adequate, the patient will be considered for discharge at that time. I attest to the content of the Intraoperative Record and any orders documented therein. Any exceptio ns are noted below.
[2016-09-05 03:17] VITALS: BP 117/68; PULSE 79; TEMP 36.9; O2SAT 94
[2016-09-05 06:01] LABS: HEMATOCRIT 36.3 % (42-52); MEAN CELL VOLUME 88.3 fL (80-100); MEAN CORPUSCULAR HEMOGLOBIN 28.5 pg (25-34); MEAN CORPUSCULAR HGB CONC 32.2 g/dl (32-36); MEAN PLATELET VOLUME 11.5 fL (7.4-10.4); PLATELET COUNT 671 K/uL (130-400); RED BLOOD COUNT 4.11 M/uL (4.7-6.1); WHITE BLOOD COUNT 11.11 K/uL (4.8-10.8)
[2016-09-05 06:35] LABS: BUN/CREATININE RATIO 14.4 (10-20); CALCIUM 9.1 mg/dl (8.5-10.1); CREATININE 1.4 mg/dl (0.60-1.40); POTASSIUM 4.4 mmol/L (3.5-5.1)
[2016-09-05] MEDS: BOOST VANILLA PO SCH ×4 (07:30→10:55)
[2016-09-05] MEDS: PANTOprazole SOD 40 MG TAB PO SCH (07:51)
[2016-09-05] MEDS: METOPROLOL TARTRATE 50 MG TAB PO SCH (07:51)
[2016-09-05] MEDS: BACITRACIN OINT 15 GM TUBE EXT SCH (07:51)
[2016-09-05] MEDS: LEVETIRACETAM 500 MG TAB PO SCH (07:51)
[2016-09-05] MEDS: ALBUTEROL HFA 8 GM INHALER INH SCH ×2 (07:51→11:55)
[2016-09-05] MEDS: POLYETHYLENE (MIRALAX) 17 GM PACK PO SCH (07:52)
[2016-09-05] MEDS: DOCUSATE SODIUM 100 MG CAP PO SCH (07:52)
--- NOTE | 2016-09-05 08:06 | Anesthesiology Progress Note ---
Anesthesia Post Op Note Date & Time September 05, 2016 at 08:06 Vital Signs Pain Intensity: 9.0 Vital Signs Past 12 Hours Date Time Temp Pulse Resp B/P Pulse Ox O2 Delivery O2 Flow Rate FiO2 09/05/16 04:00 Room Air 09/05/16 03:17 36.9 79 18 117/68 94 Room Air 09/05/16 00:01 Room Air 09/04/16 23:34 36.8 78 20 122/58 96 Room Air 09/04/16 20:23 37.3 89 20 118/56 98 Room Air Notes Mental Status: alert / awake / arousable, participated in evaluation Pt Amnestic to Procedure: Yes Nausea / Vomiting: adequately controlled Pain: improving with treatment Airway Patency, RR, SpO2: stable & adequate BP & HR: stable & adequate Hydration State: stable & adequate Anesthetic Complications: no major complications apparent receiving morphine for breakthrough pain
[2016-09-05 08:07] VITALS: BP 116/60; PULSE 77; TEMP 36.3; O2SAT 95
--- NOTE | 2016-09-05 08:47 | DIAGNOSTIC IMAGING REPORT ---
CHEST 2 VIEWS ROUTINE CLINICAL HISTORY: EXACT TIME ORDERED Evaluate for pneumothorax and lead placement COMPARISON STUDY: 09/02/2016 FINDINGS: Central catheter in superior vena cava. Cardiac pacemaker/defibrillator overlying the mid cardiac shadow with the superior margin inferior to the al. No evidence pneumothorax. Probably atelectasis in the mid lung regions bilaterally. IMPRESSION: Cardiac pacer/defibrillator from an inferior approach. No evidence pneumothorax. Electronically signed by: Spencer Dalton M.D. 09/05/2016 8:46 AM Dictated Date/Time: 09/05/2016 8:44 AM
--- NOTE | 2016-09-05 09:25 | CARDIOLOGY PROGRESS NOTE ---
DATE: 09/05/2016 DATE: 09/05/2016. SUBJECTIVE: This morning Mr. Spear complains primarily of incisional discomfort. He had some pain along his sternal and the left lateral chest at the site of his ICD implant. He has difficulty moving his arm due to discomfort with that activity. He has been administered narcotics with some improvement in his symptoms. PHYSICAL EXAMINATION: GENERAL: On physical examination, he was alert and oriented. His mood and affect appeared normal. CURRENT VITAL SIGNS: Include blood pressure of 116/60 with a pulse of 77. EXTREMITIES: Evaluation of his incisions did not reveal any evidence of hematoma or swelling. The patient had a chest x-ray performed this morning which revealed good positioning of the device and electrode. Optimization of the device was performed yesterday after his procedure. LABORATORY STUDIES: Obtained this morning include a white cell count of 11, hemoglobin of 11.7 and a platelet count of 671. Sodium is 141, potassium is 4.4, BUN was 20, creatinine was 1.4. ASSESSMENT AND PLAN: 1. Hypertrophic cardiomyopathy: The patient has been doing well on his current prescription for beta blockade. This should be continued in the outpatient setting. Given the known cardiomyopathy and history of cardiac arrest he should not participating in any competitive sports and should limit his exertion to moderate activity such as biking or swimming. Weight lifting can be performed with light weights and with supervision such as a partner. 2. Subcutaneous implantable cardioverter-defibrillator: The patient underwent successful implantation of a subcutaneous ICD yesterday. He continues to have some discomfort related to the procedure. This should improve quite quickly and I would encourage ambulation and movement in order to preserve function on the left side. Restrictions involving the device include keeping the incisions dry and the Steri-Strips in place for 1 week's time. The outer dressings can be removed tomorrow. There are no arm restrictions associated with this device. The patient should follow up in our cardiology clinic for an evaluation of his wounds in a period of 1 week.
[2016-09-05] MEDS ORDERED: METO50TA17 PO (11:10)
[2016-09-05] MEDS ORDERED: LEVE250T PO (11:10)
--- NOTE | 2016-09-05 11:20 | Discharge Instructions ---
Discharge Instructions Date of Service September 05, 2016. Admission Reason for Admission: Cardiac Arrest, Acute Resp Failure Discharge Discharge Diagnosis / Problem: Cardiac arrest, HOCM Discharge Goals Goal(s): Decrease discomfort Activity Recommendations Activity Limitations: per Instructions/Follow-up section . Instructions / Follow-Up Instructions / Follow-Up Acute hypoxic encephalopathy with myoclonic jerking - Status post therapeutic hypothermia protocol - Continue Keppra 250 mg BID twice daily X 7 days and stop Hypertrophic obstructive cardiomyopathy: Confirmed on echocardiogram - Genetic testing advised to family - Continue metoprolol tartrate 50 mg BID for tachycardia - Subcutaneous Defibrillator placed yesterday Follow up with cardiology , Dr. Ojeda , [facility] cardiology in 1 week, he should not participating in any competitive sports and should limit his exertion to moderate activity such as biking or swimming. Weight lifting can be performed with light weights and with supervision such as a partner. Right-sided hydronephrosis : Status post stent advancement in a right UPJx2, stent to be removed in 1 month as an OP Follow up with Urology in about a month , Dr. Farah , [facility] Urology , Left anterior rib pain - Oxycodone 5 mg every 6 hours as needed Pneumonia: was treated with antibiotics may use albuterol as needed Insomnia; hydroxyzine 25 mg PRN HS will require Physical therapy and Occupational therapy upon discharge. Current Hospital Diet Patient's current hospital diet: Regular Diet Discharge Diet Recommended Diet: Regular Diet Procedures Procedures Performed: Subcutaneous Implantable Cardioverter Defibrillator Pending Studies Studies pending at discharge: no Medical Emergencies . Who to Call and When: Medical Emergencies: If at any time you feel your situation is an emergency, please call 911 immediately. . Non-Emergent Contact Non-Emergency issues call your: Primary Care Provider . . "Provider Documentation" section prepared by Apple Storm. . Top Lift And Automatic Window Repairer Recommendations Top Lift And Automatic Window Repairer Recommendations 1. Hypertrophic cardiomyopathy: Continue Betablocker. Given the known cardiomyopathy and history of cardiac arrest he should not participating in any competitive sports and should limit his exertion to moderate activity such as biking or swimming. Weight lifting can be performed with light weights and with supervision such as a partner. 2. Subcutaneous implantable cardioverter-defibrillator: The patient underwent successful implantation of a subcutaneous ICD yesterday. He continues to have some discomfort related to the procedure. This should improve quite quickly and I would encourage ambulation and movement in order to preserve function on the left side. Restrictions involving the device include keeping the incisions dry and the Steri-Strips in place for 1 week's time. The outer dressings can be removed tomorrow. There are no arm restrictions associated with this device. The patient should follow up in our cardiology clinic for an evaluation of his wounds in a period of 1 week. VTE Core Measure Inpt VTE Proph given/why not?: Enoxaparin (Lovenox)SQ Resident Tracking Resident Involvement: Resident Care Provided Care Provided: Adult Hospital Medicine
[2016-09-05] MEDS ORDERED: RXC5 PO (11:22)
[2016-09-05] MEDS ORDERED: PRVHFAIN INH (11:55)
[2016-09-05] MEDS ORDERED: ATR25 PO (11:55)
[2016-09-05 11:56] VITALS: BP 133/57; PULSE 77; TEMP 36.6; O2SAT 98
[2016-09-05 13:19] LABS: BUN/CREATININE RATIO 15.1 (10-20); CALCIUM 9.1 mg/dl (8.5-10.1); CREATININE 1.3 mg/dl (0.60-1.40); POTASSIUM 4.3 mmol/L (3.5-5.1)
--- NOTE | 2016-09-05 13:24 | Discharge Summary ---
Discharge Summary Date of Service September 05, 2016. 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, urology, infectious disease, Neurology (Apple Storm MD) Medication Reconciliation New Medications: Levetiracetam (Keppra) 250 Mg Tab 250 MG PO BID for 7 Days, #14 TAB Albuterol (Ventolin Hfa) 60 Puffs/5400 Mcg Aers 2 PUFFS INH QIDR for 15 Days Hydroxyzine HCl (Hydroxyzine HCl) 25 Mg Tab 25 MG PO HS PRN for Sleep, #10 TAB Metoprolol Tartrate (Metoprolol Tartrate) 50 Mg Tab 50 MG PO BID for 30 Days, #60 TAB Oxycodone HCl (Oxycodone HCl) 5 Mg Tab 5 MG PO Q6 PRN for Pain, #10 TAB Discharge Exam Review of Systems: Constitutional: No chills, No fever Eyes: No worsening of vision ENT: No hearing loss Respiratory: No cough, No dyspnea on exertion, No shortness of breath, No sputum Cardiovascular: No PND, No chest pain Abdomen: No nausea, No pain, No vomiting Musculoskeletal: No joint pain Genitourinary - Male: No dysuria, No hematuria Neurologic: No memory loss Psychiatric: No depression symptoms Physical Exam: General Appearance: WD/WN, no apparent distress Eyes: normal inspection ENT: normal ENT inspection, hearing grossly normal Neck: supple, no adenopathy Respiratory/Chest: chest non-tender, lungs clear, normal breath sounds, no respiratory distress, no accessory muscle use Cardiovascular: regular rate, rhythm Abdomen / GI: normal bowel sounds, non tender, soft, no organomegaly, no pulsatile mass Extremities: normal inspection, no pedal edema Neurologic/Psychiatric: alert, normal mood/affect Skin: normal color (Apple Storm MD) Hospital Course 26-year-old male, -Armenian, was exercising on a treadmill in the alf. Per report he collapsed, this was witnessed on cameras in the alf, however it is unclear how long he was down before CPR was started, is also unclear how long CPR was performed. They were able to obtain any ED at the institution and it was applied and reportedly delivered 1 shock. Per EMS the patient was intubated had return of spontaneous circulation and transferred to [facility] emergency department for further evaluation. In the emergency department it was reported that the arrest occurred at least 40 minutes prior to his arrival and the patient was not responding with purposeful commands, so the decision was made to start therapeutic hypothermia. While intubated, therapeutic hypothermia was initiated and he was later rewarmed but he had trouble maintaining his temperature. He had several episodes of hyperthermia which was controlled with IV Tylenol, cooling blankets and he was further evaluated for infections. He was considered to have an acute hypoxic encephalopathy and had an EEG performed which showed evidence of moderate encephalopathy without focal problems or potentially epileptogenic discharges. Neurology was consulted , MRI brain and C-spine were obtained. - MRI brain:faint restricted diffusion within the medial aspect of the bilateral occipital lobes and right posterior parietal lobe. could represent a small amount increased T2 signal within the cortex suggested on the FLAIR sequences. This is nonspecific but could related to mild ischemic change/infarct. This could also be seen in the setting of posterior reversible encephalopathy syndrome. - MRI C-spine: Tiny disc bulge at C3-C4. No significant central canal or neural foraminal narrowing. Otherwise, normal cervical spine MRI. He was also noted to have jerking movements which were considered to be secondary to myoclonus and he was started on a loading dose of Keppra and continued on 500 mg of Keppra twice daily. his myoclonic jerks and eventually resolved and after consulting with neurology he was recommended to be weaned of Keppra with 250 mg twice daily for about a week and then stop. Resp: - While intubated he underwent a bronchoscopy which grew MSSA and he was covered with vancomycin and Zosyn, CT scan of the chest confirmed pneumonia for which he was treated with Zosyn and Rocephin until the day of discharge after consulting infectious disease. CVS: - An echo performed revealed hypertrophic obstructive cardiomyopathy. He was started on Lopressor which was gradually titrated up and he was discharged with 50 mg of Lopressor twice a day. He also had subcutaneous defibrillator placed yesterday. Genetic testing was advised to the family. He is to follow up with cardiology, Dr. Ojeda in 1 week. [facility] cardiology. Other recommendations per cardiology: Given the known cardiomyopathy and history of cardiac arrest he should not participating in any competitive sports and should limit his exertion to moderate activity such as biking or swimming. Weight lifting can be performed with light weights and with supervision such as a partner. 2. Subcutaneous implantable cardioverter-defibrillator: The patient underwent successful implantation of a subcutaneous ICD yesterday. He continues to have some discomfort related to the procedure. This should improve quite quickly and I would encourage ambulation and movement in order to preserve function on the left side. Restrictions involving the device include keeping the incisions dry and the Steri-Strips in place for 1 week's time. The outer dressings can be removed tomorrow. There are no arm restrictions associated with this device. The patient should follow up in our cardiology clinic for an evaluation of his wounds in a period of 1 week. Renal: He was initially found to be in kidney failure and a renal ultrasound was obtained which revealed severe right-sided hydronephrosis renal US: 1. Severe right hydronephrosis of uncertain etiology. Echogenic right kidney. 2. Partially obscured left kidney but no left hydronephrosis. - Abdominal CT:. Severe right hydronephrosis to the level of the ureteropelvic junction. There is no obstructing stones identified. This could be congenital or less likely a nonvisualized obstructing lesion given the patient's age. He underwent a stent placement 2 by urology for the right-sided UPJ obstruction . He is to follow up with urology as an outpatient in 1 month for stent removal He had been complaining of insomnia and has been receiving hydroxyzine to help with sleep. He also had been prescribed oxycodone to be used every 6 hours for left-sided chest pain which is likely secondary to chest compressions causing the rib pain. He will require aggressive physical therapy and occupational therapy upon discharge. Total Time Spent: Greater than 30 minutes This includes examination of the patient, discharge planning, medication reconciliation, and communication with other providers. (Apple Storm MD) Discharge Instructions Please refer to the electronic Patient Visit Report (Discharge Instructions) for additional information. (Apple Storm MD) Follow-Up [facility] [phone] Follow up with Urology in about a month , [facility] , (Apple Storm MD) Additional Copies To [facility] History Resident Physician Supervision Note: I was present with Dr. Storm during the history and exam. I discussed the case with the resident and agree with the findings and plan as documented in the note. Any exceptions or clarifications are listed here. Pt reports minimal pain at the site of ICD insertion but otherwise is feeling more stable and without appreciable myoclonal twitching. (Brandt Herrera MD) General Appearance: WD/WN, no apparent distress Respiratory: chest non-tender, lungs clear, normal breath sounds, no respiratory distress Cardiovascular: normal peripheral pulses, regular rate, rhythm, no edema, no murmur Gastrointestinal: normal bowel sounds, non tender, soft, no organomegaly (Brandt Herrera MD) Assessment/Plan 26 y/o male h/o HOCM resulting in cardiac arrest s/p therapeutic hypothermia and rewarming w/ anoxic brain injury HOCM w/ cardiac arrest s/p hypothermia protocol - continue metoprolol. ICD placed. Pain medication for post-procedure pain Seizures s/p anoxic brain injury - continue keppra for 1 wk, no acute follow up Myclonus/dystonia/hiccoughs - resolved WILLARD w/ hydronephrosis 2/2 UPJ obstruction s/p stent placement - improving, repeat BMP in 2 days, urology follow up outpatient Pneumonia - likely 2/2 aspiration - course completed (Brandt Herrera MD) Resident Tracking Resident Involvement: Resident Care Provided Care Provided: Adult Hospital Medicine (Apple Storm MD)
[2016-09-05 13:28] VITALS: BP 133/57; PULSE 77; TEMP 36.6; O2SAT 98
== END 2016-09-05 15:06 | disposition home or self-care (01) | DRG 226 ==
LOC: ENRESERVDT → ENRESERVTM → EDBD 14:43 → C.ED 14:47 → C.MSICU 16:16 → EEVIPCON 16:16 → EDBEDREQ 09-01 16:33 → C.2T 09-01 17:28 → C.2E 09-03 17:32 → CANBEDREQ 09-05 11:50
PROVIDERS: ADMIT Hospitalist; ATTEND Family Medicine
PROC: 5A1955Z Respiratory Ventilation, Greater than 96 Consecutive Hours (ICD-10-PCS; principal; 2016-08-21)
PROC: 05HM33Z Insertion of Infusion Device into Right Internal Jugular Vein, Percutaneous Approach (ICD-10-PCS; 2016-08-21)
PROC: 4A133R1 Monitoring of Arterial Saturation, Peripheral, Percutaneous Approach (ICD-10-PCS; 2016-08-21)
PROC: BT161ZZ Fluoroscopy of Right Ureter using Low Osmolar Contrast (ICD-10-PCS; 2016-08-24)
PROC: 0T768DZ Dilation of Right Ureter with Intraluminal Device, Via Natural or Artificial Opening Endoscopic (ICD-10-PCS; 2016-08-24)
PROC: 0TP98DZ Removal of Intraluminal Device from Ureter, Via Natural or Artificial Opening Endoscopic (ICD-10-PCS; 2016-08-28)
PROC: 0T768DZ Dilation of Right Ureter with Intraluminal Device, Via Natural or Artificial Opening Endoscopic (ICD-10-PCS; 2016-08-28)
PROC: 02HV33Z Insertion of Infusion Device into Superior Vena Cava, Percutaneous Approach (ICD-10-PCS; 2016-08-29)
PROC: 0JH608Z Insertion of Defibrillator Generator into Chest Subcutaneous Tissue and Fascia, Open Approach (ICD-10-PCS; 2016-09-04)
PROC: 02HK3KZ Insertion of Defibrillator Lead into Right Ventricle, Percutaneous Approach (ICD-10-PCS; 2016-09-04)
PROC: 02H63KZ Insertion of Defibrillator Lead into Right Atrium, Percutaneous Approach (ICD-10-PCS; 2016-09-04)
DX: I42.1 Obstructive hypertrophic cardiomyopathy (principal); I46.9 Cardiac arrest, cause unspecified; J96.01 Acute respiratory failure with hypoxia; J69.0 Pneumonitis due to inhalation of food and vomit; N17.9 Acute kidney failure, unspecified; E87.2 Acidosis; B19.10 Unspecified viral hepatitis B without hepatic coma; N13.2 Hydronephrosis with renal and ureteral calculous obstruction; K56.7 Ileus, unspecified; G93.1 Anoxic brain damage, not elsewhere classified; T83.122A Displacement of indwelling ureteral stent, initial encounter; I10 Essential (primary) hypertension; E87.5 Hyperkalemia; Z78.1 Physical restraint status; E16.2 Hypoglycemia, unspecified; R19.7 Diarrhea, unspecified; K59.00 Constipation, unspecified; G25.3 Myoclonus; G47.00 Insomnia, unspecified; B95.61 Methicillin susceptible Staphylococcus aureus infection as the cause of diseases classified elsewhere; Y83.1 Surgical operation with implant of artificial internal device as the cause of abnormal reaction of the patient, or of later complication, without mention of misadventure at the time of the procedure; R26.9 Unspecified abnormalities of gait and mobility